=== PATIENT | female | born 1975 | race Caucasian/White ===

== ENCOUNTER 2016-05-14 12:40 | Emergency (ER) | payer OTHER, SELFPAY ==
--- NOTE | 2016-05-14 13:37 | ED.PDOC ---
History of Present Illness - General Chief Complaint: General Time Seen by Provider: 05/14/16 13:04 Source: patient Exam Limitations: no limitations - History of Present Illness Initial Comments: Patient presents with N/V/D x one week. She was recently treated with antibiotics for streptococcal pharyngitis two weeks ago. She went to urgent care again yesterday because of her sore throat and was given a Z-pack. She denies hematochezia. She has had a decreased appetite. No back pain. She has mild RLQ pain. No sick contacts. Her sore throat restarted in conjunction with the vomiting. No fever. No other complaints. Timing/Duration: 1 week Severity: moderate Improving Factors: nothing Worsening Factors: nothing Associated Symptoms: loss of appetite, nausea/vomiting Allergies/Adverse Reactions: Allergies NO KNOWN ALLERGY Allergy (Verified 09/28/15 00:19) Home Medications: Ambulatory Orders Atenolol & Chlorthalidone [Tenoretic 50 50-25 mg] 1 tab PO DAILY 09/29/15 Bupropion HCl [Wellbutrin Xl] 300 mg PO DAILY 09/29/15 Escitalopram Oxalate [Lexapro] 20 mg PO DAILY 09/29/15 Thyroid [[place] Thyroid] 90 mg PO DAILY 09/29/15 Tramadol HCl 50 mg PO Q4HR PRN #15 tab 09/29/15 Trazodone HCl 400 mg PO BEDTIME 09/29/15 Promethazine Tab [Phenergan Tablet] 25 mg PO Q4 PRN #14 tab 05/14/16 Review of Systems - Review of Systems Constitutional: States: no symptoms reported EENTM: States: no symptoms reported Respiratory: States: no symptoms reported Cardiology: States: no symptoms reported Gastrointestinal/Abdominal: States: see HPI Genitourinary: States: no symptoms reported Musculoskeletal: States: no symptoms reported Skin: States: no symptoms reported Neurological: States: no symptoms reported Endocrine: States: no symptoms reported Hematologic/Lymphatic: States: no symptoms reported Past Medical History (General) - Patient Medical History Hx Seizures: No Hx Stroke: No Hx Dementia: No Hx Asthma: No Hx of COPD: No Hx Cardiac Disorders: No Hx Congestive Heart Failure: No Hx Pacemaker: No Hx Hypertension: Yes Hx Thyroid Disease: Yes Hx Diabetes: No Hx Gastroesophageal Reflux: No Hx Renal Disease: No Hx Cancer: No Hx of HIV: No Hx Hepatitis C: No Hx MRSA: No - Vaccination History Hx Tetanus, Diphtheria Vaccination: No Hx Influenza Vaccination: Yes Hx Pneumococcal Vaccination: No - Social History Hx Tobacco Use: Yes Hx Chewing Tobacco Use: No Hx Alcohol Use: No Hx Substance Use: Yes Hx Substance Use Treatment: No Hx Depression: Yes Hx Physical Abuse: No Hx Emotional Abuse: No Hx Suspected Abuse: No - Female History Hx Last Menstrual Period: 03/28/15 Patient : No - IUD in place Family Medical History - Family History Mother Family History: Unknown Living Status: Hx Family Cancer: Yes Father Family History: Unknown Living Status: Still Living Physical Exam - Physical Exam General Appearance: Alert Ears, Nose, Throat: normal ENT inspection Neck: non-tender, full range of motion, supple Respiratory: lungs clear Cardiovascular/Chest: regular rate, rhythm Gastrointestinal/Abdominal: normal bowel sounds, non tender, soft Back Exam: no CVA tenderness Extremity: no pedal edema Neurologic: no motor/sensory deficits, alert Skin Exam: normal color Lymphatic: no adenopathy Progress - Progress Progress: 05/14/16 16:[address] ab/pelvis showed no acute disease. Appendix normal. UA normal. Patient discharged with zofran RX and orders to follow up with pcp for possible stool studies. Laboratory Tests 05/14/16 13:45 WBC 8.3 RBC 4.66 Hgb 14.0 Hct 42.3 MCV 90.9 MCH 30.1 MCHC 33.2 RDW 13.4 Plt Count 166 MPV 9.1 Absolute Neuts (auto) 5.40 Absolute Lymphs (auto) 2.40 Absolute Monos (auto) 0.40 Absolute Eos (auto) 0.10 Absolute Basos (auto) 0.10 Neutrophils % 64.2 Lymphocytes % 28.7 Monocytes % 5.0 Eosinophils % 1.2 Basophils % 0.9 Sodium 137 Potassium 4.3 Chloride 103 Carbon Dioxide 29 Anion Gap 9.3 L BUN 12 Creatinine 0.96 BUN/Creatinine Ratio 12.5 Random Glucose 94 Serum Osmolality 273.3 L Calcium 8.8 Total Bilirubin 0.2 AST 14 ALT 9 L Alkaline Phosphatase 44 Serum Total Protein 6.5 Albumin 3.6 Globulin 2.9 Albumin/Globulin Ratio 1.2 Lipase 42 Serum HCG, Qual Negative Departure - Departure Clinical Impression: Gastroenteritis Disposition: Discharge to Home or Self Care Condition: Good Departure Forms: ED Discharge - Pt. Copy, Patient Portal Self Enrollment Diet: resume usual diet Activity: increase activity as tolerated Prescriptions: Promethazine Tab [Phenergan Tablet] 25 mg PO Q4 PRN #14 tab PRN Reason: Nausea/Vomiting Home Medications: Ambulatory Orders Atenolol & Chlorthalidone [Tenoretic 50 50-25 mg] 1 tab PO DAILY 09/29/15 Bupropion HCl [Wellbutrin Xl] 300 mg PO DAILY 09/29/15 Escitalopram Oxalate [Lexapro] 20 mg PO DAILY 09/29/15 Thyroid [[place] Thyroid] 90 mg PO DAILY 09/29/15 Tramadol HCl 50 mg PO Q4HR PRN #15 tab 09/29/15 Trazodone HCl 400 mg PO BEDTIME 09/29/15 Promethazine Tab [Phenergan Tablet] 25 mg PO Q4 PRN #14 tab 05/14/16 Additional Instructions: Increase oral fluids. Follow up with your primary care physician for possible stool studies. Take medication as prescribed.
[2016-05-14] MEDS ORDERED: SODIUM CHLORIDE 0.9% 1000ML 1,000 ML IVS ONE (14:24)
[2016-05-14] MEDS ORDERED: ONDANSETRON INJ 4 MG/2 ML VIAL IV ONE (16:04)
--- NOTE | 2016-05-14 16:44 | CT ---
PROCEDURE: Abdomen/Pelvis w/Contrast HISTORY: N/V/D/abd pain Indication: Same as above Comparison: None . Technique: CT of the abdomen and pelvis was done with intravenous contrast. Images were obtained from the lung base to the level of the pubic symphysis in axial plane, followed by orthogonal sagittal and coronal reconstruction. Oral contrast was not given for the study. The patient was injected with contrast intravenously, without any documented immediate adverse reactions. FINDINGS: Images through the lung bases do not show any focal infiltrates or pleural effusions. The liver, pancreas, spleen and the bilateral adrenal glands appear unremarkable. The gallbladder is surgically absent. The bilateral kidneys enhance with contrast in a normal fashion. The urinary bladder is unremarkable . The bilateral ureters and the bilateral periureteral soft tissues and fat planes are unremarkable. The small bowel appears unremarkable, without any evidence of small bowel obstruction or bowel wall thickening. There is no CT evidence of pericecal inflammatory change or ileocecal mesenteric adenitis. The appendix is normal in size measuring 3.5 mm in maximum transverse dimension, without any periappendiceal inflammatory change. The ileocecal junction appears unremarkable. There is no CT evidence of acute colonic diverticulitis or colitis or large bowel obstruction. The splenic and portal veins are of normal caliber, without any filling defects. There is no pathological lymphadenopathy in the retroperitoneum or in the pelvic region. There is no evidence of free fluid or free air in the abdomen or the pelvic region. There is no clinically significant abdominal aortic aneurysm. There is no clinically significant inguinal or ventral hernia. An IUD is seen in the endometrial canal of the anteverted uterus. There is a 2.1 x 2.2 x 3.1 cm benign left ovarian follicle or cyst, almost certainly benign and not requiring any imaging follow-up The visualized lumbar spine is unremarkable . The paravertebral soft tissues are unremarkable. The remainder of the pelvic structures are unremarkable. IMPRESSION: There are no acute or significant findings on the current study. Location of Interpretation: [facility] Electronically signed by: Javid Suarez MD 05/14/2016 4:43 PM CDT
[2016-05-14 17:05] VITALS: BP 96/68; TEMP 98.6; O2SAT 95
== END 2016-05-14 17:00 | disposition home or self-care (01) ==
LOC: ER 12:40
DX: K52.9 Noninfective gastroenteritis and colitis, unspecified (principal); I10 Essential (primary) hypertension; E07.9 Disorder of thyroid, unspecified; Z79.899 Other long term (current) drug therapy; Z87.891 Personal history of nicotine dependence

== ENCOUNTER 2016-05-20 13:37 | Emergency (ER) | payer OTHER, SELFPAY ==
[2016-05-20 14:02] VITALS: TEMP 99.1
--- NOTE | 2016-05-20 14:08 | ED.PDOC ---
History of Present Illness - General Chief Complaint: ENT Problem Stated Complaint: sorethroat, weakness, fatigue Time Seen by Provider: 05/20/16 13:45 Source: patient, RN notes reviewed, Vital Signs reviewed Exam Limitations: no limitations - History of Present Illness Initial Comments: Patient reports she was diagnosed with strep throat on 05/01/16. She has completed 3 rounds of antibiotics, Amoxil and Zithromax X 2. She reports no improvement. Very painful with swallowing. + fever to 101, + chills. She was seen here last week with N/V and has been seen in the clinic twice. Timing/Duration: gradual Severity: moderate EENT Location: throat Prearrival Treatment: prescription meds - Amoxicillin and Zithromax Improving Factors: nothing Worsening Factors: other - swallowing Associated Symptoms: fever, malaise, sore throat Allergies/Adverse Reactions: Allergies Amoxicillin [From Augmentin] Adverse Reaction (Verified 05/20/16 14:02) Clavulanic Acid [From Augmentin] Adverse Reaction (Verified 05/20/16 14:02) Home Medications: Ambulatory Orders Escitalopram Oxalate [Lexapro] 20 mg PO DAILY 09/29/15 Thyroid [[place] Thyroid] 90 mg PO DAILY 09/29/15 Trazodone HCl 400 mg PO BEDTIME 09/29/15 Alprazolam [Alprazolam Odt] 0.25 mg PO TID PRN 05/14/16 Ondansetron [Zofran Odt] 4 mg PO TID 05/14/16 Acetaminophen W/ Codeine [Tylenol W/ CODEINE #3] 1 ea PO Q4HR PRN #15 05/20/16 Clindamycin HCl 300 mg PO QID #28 cap 05/20/16 Review of Systems - Review of Systems Constitutional: States: chills, fever, malaise, weakness. Denies: diaphoresis EENTM: States: see HPI, throat pain, throat swelling. Denies: ear pain, nose congestion Respiratory: States: no symptoms reported. Denies: cough, short of breath Cardiology: States: no symptoms reported Gastrointestinal/Abdominal: States: no symptoms reported Genitourinary: States: no symptoms reported Musculoskeletal: States: no symptoms reported Skin: States: no symptoms reported Neurological: States: no symptoms reported. Denies: headache Endocrine: States: no symptoms reported Hematologic/Lymphatic: States: no symptoms reported Past Medical History (General) - Patient Medical History Hx Seizures: No Hx Stroke: No Hx Dementia: No Hx Asthma: No Hx of COPD: No Hx Cardiac Disorders: No Hx Congestive Heart Failure: No Hx Pacemaker: No Hx Hypertension: Yes Hx Thyroid Disease: Yes Hx Diabetes: No Hx Gastroesophageal Reflux: No Hx Renal Disease: No Hx Cancer: No Hx of HIV: No Hx Hepatitis C: No Hx MRSA: No Surgical History: cholecystectomy, tonsillectomy - Vaccination History Hx Tetanus, Diphtheria Vaccination: Yes Hx Influenza Vaccination: No Hx Pneumococcal Vaccination: No - Social History Hx Tobacco Use: Yes Hx Chewing Tobacco Use: No Hx Alcohol Use: No Hx Substance Use: Yes Hx Substance Use Treatment: No Hx Depression: Yes Hx Physical Abuse: No Hx Emotional Abuse: No Hx Suspected Abuse: No - Activities of Daily Living Hospice Agency (if applicable):: None - Female History Patient is a Female of Child Bearing Age (10 -59 yrs old): Yes Hx Last Menstrual Period: 03/28/15 Patient : No - Triage Comment ED Triage Comment: IUD birthcontrol Family Medical History - Family History Mother Family History: Unknown Living Status: Hx Family Cancer: Yes Father Family History: Unknown Living Status: Still Living Physical Exam - Physical Exam General Appearance: Alert, No apparent distress, Well Developed, Well Groomed, Well Hydrated, Well Nourished, Other - tearful Eye Exam: bilateral normal Nasal Exam: normal inspection Throat Exam: other - Pharyngeal erythema, no swelling or deviation of uvula, airway is patent. Neck: full range of motion, supple, lymphadenopathy (R) - Tender Cardiovascular/Respiratory: regular rate, rhythm, no M/R/G, no JVD, normal breath sounds, no respiratory distress Neurologic: no motor/sensory deficits, alert, normal mood/affect, oriented x 3 Skin Exam: normal color, warm/dry Progress - EKG/XRAY/CT CT Ordered: Yes - Neck: R submand. sialoadenitis Departure - Departure Clinical Impression: Sialadenitis Time of Disposition: 15:45 Disposition: Discharge to Home or Self Care Condition: Good Departure Forms: ED Discharge - Pt. Copy, Patient Portal Self Enrollment Diet: resume usual diet Activity: increase activity as tolerated Prescriptions: Acetaminophen W/ Codeine [Tylenol W/ CODEINE #3] 1 ea PO Q4HR PRN #15 PRN Reason: Pain -- Mild To Moderate Clindamycin HCl 300 mg PO QID #28 cap Home Medications: Ambulatory Orders Escitalopram Oxalate [Lexapro] 20 mg PO DAILY 09/29/15 Thyroid [[place] Thyroid] 90 mg PO DAILY 09/29/15 Trazodone HCl 400 mg PO BEDTIME 09/29/15 Alprazolam [Alprazolam Odt] 0.25 mg PO TID PRN 05/14/16 Ondansetron [Zofran Odt] 4 mg PO TID 05/14/16 Acetaminophen W/ Codeine [Tylenol W/ CODEINE #3] 1 ea PO Q4HR PRN #15 05/20/16 Clindamycin HCl 300 mg PO QID #28 cap 05/20/16 Additional Instructions: Hot compresses and massage to R submandibular salivary gland Suck on lemon drops to promote saliva production Follow up with ENT Doctor ([facility])
[2016-05-20] MEDS ORDERED: IBUPROFEN 200 MG TAB PO ONE (15:07)
--- NOTE | 2016-05-20 15:28 | CT ---
EXAM DESCRIPTION: Soft Tissue Neck w/Contrast CLINICAL HISTORY: 40 years Female, Pain, swelling R submandibular area COMPARISON: None. TECHNIQUE: Thin slice axial imaging of the neck was performed after the bolus administration of contrast. FINDINGS: There is a right submandibular duct stone noted measuring 2 mm in diameter. This is located along the anterior margin of the duct. This results in obstruction of the proximal right submandibular duct. The right submandibular gland also demonstrates increased enhancement and size compatible with sialoadenitis the left submandibular gland and bilateral parotid glands are unremarkable. There are a few right neck reactive lymph nodes. The tongue, base of tongue and floor of mouth are unremarkable. The epiglottis M of bilateral true and false cords are unremarkable. No vascular narrowing. IMPRESSION: 2 mm distal right submandibular gland duct. This results in obstruction of the proximal right submandibular gland duct and right sialoadenitis. No abscess at this time. Reactive right level 2 and 3 lymph nodes. Electronically signed by: Davidson Bautista MD 05/20/2016 3:28 PM CDT
[2016-05-20 16:10] VITALS: BP 105/64; O2SAT 97
== END 2016-05-20 15:58 | disposition home or self-care (01) ==
LOC: ER 13:37
DX: K11.20 Sialoadenitis, unspecified (principal); I10 Essential (primary) hypertension; E07.9 Disorder of thyroid, unspecified; Z79.899 Other long term (current) drug therapy; Z88.3 Allergy status to other anti-infective agents; Z88.8 Allergy status to other drugs, medicaments and biological substances

== ENCOUNTER 2016-05-21 17:34 | Inpatient (IN) | payer OTHER, SELFPAY ==
[2016-05-21] MEDS ORDERED: KETOROLAC TROMETHAMINE INJ 30 MG/ML VIAL IM ONE (18:06)
[2016-05-21] MEDS ORDERED: SODIUM CHLORIDE 0.9% 1000ML 1,000 ML IVS ONE (18:07)
[2016-05-21] MEDS ORDERED: SODIUM CHLORIDE 0.9% IVPB ONE (18:08)
[2016-05-21] MEDS ORDERED: CEFUROXIME SODIUM IVPB ONE (18:08)
[2016-05-21] MEDS ORDERED: [UNRECOGNIZED DRUG - OTHER] ONE (18:12)
[2016-05-21] MEDS ORDERED: SODIUM CHLORIDE 0.9% 100ML 100 ML IVPB ONE (18:13)
[2016-05-21] MEDS ORDERED: HYDROmorphone HCL INJ 2 MG/ML VIAL IV SCH (18:30)
--- NOTE | 2016-05-21 18:30 | ED.PDOC ---
History of Present Illness - General Chief Complaint: ENT Problem Stated Complaint: right throat pain/neck pain Time Seen by Provider: 05/21/16 17:49 Source: patient Exam Limitations: no limitations - History of Present Illness Initial Comments: The patient is a 40-year-old female presenting to the emergency room secondary to progressive pain and swelling from her right submandibular sialoadenitis. She apparently started developing symptoms approximately 5 days ago and has progressed. She was seen in the emergency room here yesterday and had a CT scan confirming the diagnosis with an obstructing 2 mm stone in the duct. She was started on clindamycin appropriately. She has been having fevers and some mild nausea. Additionally today she is having more pain with swallowing but no difficulty with breathing. She has been unable to massage the duct secondary to pain. Her pain is becoming more and more. Oral intake has been decreased significantly and she is feeling like she is starting to become dehydrated. She rates the pain at a 9 out of 10. The pain is also been giving her something of a headache. CT scan yesterday showed no evidence of abscess formation at this time. Severity: severe Improving Factors: nothing Associated Symptoms: fever/chills, loss of appetite, malaise Allergies/Adverse Reactions: Allergies Amoxicillin [From Augmentin] Adverse Reaction (Verified 05/21/16 17:50) Clavulanic Acid [From Augmentin] Adverse Reaction (Verified 05/21/16 17:50) Home Medications: Ambulatory Orders Escitalopram Oxalate [Lexapro] 20 mg PO DAILY 09/29/15 Thyroid [[place] Thyroid] 90 mg PO DAILY 09/29/15 Trazodone HCl 400 mg PO BEDTIME 09/29/15 Alprazolam [Alprazolam Odt] 0.25 mg PO TID PRN 05/14/16 Ondansetron [Zofran Odt] 4 mg PO TID 05/14/16 Acetaminophen W/ Codeine [Tylenol W/ CODEINE #3] 1 ea PO Q4HR PRN #15 05/20/16 Clindamycin HCl 300 mg PO QID #28 cap 05/20/16 Review of Systems - Review of Systems Constitutional: States: diaphoresis, fever, malaise EENTM: States: see HPI, mouth pain Respiratory: States: no symptoms reported Cardiology: States: no symptoms reported Gastrointestinal/Abdominal: States: nausea Genitourinary: States: no symptoms reported Musculoskeletal: States: other - generalized body aches Skin: States: no symptoms reported Neurological: States: no symptoms reported Endocrine: States: no symptoms reported All other Systems: No Change from Baseline Past Medical History (General) - Patient Medical History Hx Seizures: No Hx Stroke: No Hx Dementia: No Hx Asthma: No Hx of COPD: No Hx Cardiac Disorders: No Hx Congestive Heart Failure: No Hx Pacemaker: No Hx Hypertension: Yes Hx Thyroid Disease: Yes Hx Diabetes: No Hx Gastroesophageal Reflux: No Hx Renal Disease: No Hx Cancer: No Hx of HIV: No Hx Hepatitis C: No Hx MRSA: No Surgical History: cholecystectomy, tonsillectomy - Vaccination History Hx Tetanus, Diphtheria Vaccination: Yes Hx Influenza Vaccination: No Hx Pneumococcal Vaccination: No - Social History Hx Tobacco Use: Yes Hx Chewing Tobacco Use: No Hx Alcohol Use: No Hx Substance Use: Yes Hx Substance Use Treatment: No Hx Depression: Yes Hx Physical Abuse: No Hx Emotional Abuse: No Hx Suspected Abuse: No - Activities of Daily Living Hospice Agency (if applicable):: None - Female History Patient is a Female of Child Bearing Age (10 -59 yrs old): No Hx Last Menstrual Period: 03/28/15 Patient : No - Triage Comment ED Triage Comment: IUD birthcontrol, reports no periods Family Medical History - Family History Mother Family History: Unknown Living Status: Hx Family Cancer: Yes Father Family History: Unknown Living Status: Still Living Physical Exam - Physical Exam General Appearance: Alert, Obvious distress Eye Exam: bilateral normal Ears, Nose, Throat: other - the posterior oropharynx appears normal. She does have significant tenderness to palpation over the floor of the right side of her mouth. She also has significant mass palpable in the right submandibular area. Neck: full range of motion, other - mass palpable and visible in the right submandibular area. There is no shifting of the trachea at this point. No JVD. She has no hoarseness of voice or stridor or difficulty breathing. She states that it hurts to swallow but this is more pain at the base of her tongue Respiratory: chest non-tender, lungs clear, normal breath sounds, no respiratory distress, no accessory muscle use Cardiovascular/Chest: normal peripheral pulses, regular rate, rhythm, no edema Peripheral Pulses: radial,right: 2+, radial,left: 2+ Gastrointestinal/Abdominal: soft Rectal Exam: deferred Extremity: normal range of motion, non-tender, normal inspection, no pedal edema , normal capillary refill Neurologic: alert, normal mood/affect, oriented x 3 Skin Exam: normal color Comments: Vital Signs - 24 hr 05/21/16 17:44 Temperature 99.0 F Pulse Rate [ 99 H pulse ox] Respiratory 20 Rate Blood Pressure 112/80 [Left Arm] O2 Sat by Pulse 96 Oximetry Progress - Progress Progress: 05/21/16 18:32 the patient is a 40-year-old female with a persistent right submandibular sialoadenitis. The patient is having systemic symptoms of fever, body aches and headache. The patient feels that the area has increased significantly in size since yesterday and has increased in symptomatology. She has been unable to massage the duct due to uncontrolled pain. The patient will be admitted for IV fluids due to mild progression of dehydration. She'll also receive IV pain medications to allow for massaging of the duct. IV antibiotics will be started for infection control. She did start taking the clindamycin yesterday. Blood cultures are being done. CBC, CMP are otherwise pending at this time. If patient fails conservative conservative therapy as listed above and she will require ENT intervention for removal of the obstructing stone. The patient does understand this and has agreed to this plan at this time. No evidence of airway compromise at this time. No evidence of viry sepsis at this time. Repeat CT scan may be warranted in 1-2 days if swelling continues or symptomatology progresses. Departure - Departure Clinical Impression: Sialoadenitis of submandibular gland Disposition: Admit Patient Home Medications: Ambulatory Orders Escitalopram Oxalate [Lexapro] 20 mg PO DAILY 09/29/15 Thyroid [[place] Thyroid] 90 mg PO DAILY 09/29/15 Trazodone HCl 400 mg PO BEDTIME 09/29/15 Alprazolam [Alprazolam Odt] 0.25 mg PO TID PRN 05/14/16 Ondansetron [Zofran Odt] 4 mg PO TID 05/14/16 Acetaminophen W/ Codeine [Tylenol W/ CODEINE #3] 1 ea PO Q4HR PRN #15 05/20/16 Clindamycin HCl 300 mg PO QID #28 cap 05/20/16 Decision To Admit - Decistion To Admit Decision to Admit Reason: Medical Nature Decision to Admit Date: 05/21/16 Decision to Admit Time: 18:35
--- NOTE | 2016-05-21 20:10 | HP ---
SUPERVISING PHYSICIAN: Trav Oneal MD CHIEF COMPLAINT: Right sided throat pain and neck pain. HISTORY OF PRESENT ILLNESS: Ms. Moncada is a 40-year-old, female patient that presented to the Emergency Department secondary to worsening pain and swelling on her right side located around the right submandibular area secondary to sialoadenitis. She was previously seen in the Emergency Department on 05/20/16 at which time she had a CT of the soft tissues of the neck and per radiology interpretation there was a note that she had a right submandibular duct stone measuring 2 mm in diameter causing obstruction of the right submandibular gland and resulting in right sialoadenitis with no mention of abscess. Initial symptoms per the patient's report onset was approximately five days prior to initial Emergency Room visit on 05/20/16 and progressively worsened. She had been seen multiple times in [facility] and diagnosed initially on 05/01/16 with positive strep screen and started on a Z- Lukas and then again symptoms returned and she was started on amoxicillin. On this past visit to the Emergency Department, she was discharged on clindamycin. She notes she had been having what she thought were some fevers and some mild nausea at home, but the pain continued to worsen and she was having difficulty swallowing, but no reported difficulty with any airway. She was unable to massage the duct secondary to pain. The pain became worse when she was having significant oral intake. Decrease in oral intake resulted in some dehydration, exacerbating her symptoms. In the Emergency Department, laboratory studies showed her to have a normal CBC with chemistries showing a mildly low potassium of 3.5 and elevated AST, ALT. She was afebrile on initial presentation with temperature of 99.1 without any obvious signs of sepsis. Her initial CT showed no obvious formation of abscess, however, given that her symptoms have failed to improve and, in fact, worsened in the last 24 hours despite stating clindamycin, the patient will now be admitted for initiation of additional antibiotic therapy, pain control, and to assist her with IV therapy to resolve some dehydration and hopefully facilitate passage of the stone with conservative medical treatment. She was admitted to the Medical/Surgical Floor in stable condition. PAST MEDICAL HISTORY: 1. Migraines. 2. Depression. 3. Insomnia. PAST SURGICAL HISTORY: 1. Breast reduction. 2. Cholecystectomy. 3. Tonsillectomy, adenoidectomy. 4. [place] teeth extraction. 5. Esophageal stricture reduction with balloon. HOME MEDICATIONS: 1. Trazodone 400 mg at bedtime. 2. [place] thyroid 90 mg daily. 3. Zofran 4 mg 3 times a day as needed. 4. Lexapro 20 mg daily. 5. Clindamycin 300 mg 4 times a day. 6. Ondansetron ODT 0.25 mg t.i.d. p.r.n. 7. Tylenol with codeine No. 3 q.4h. p.r.n. for pain. ALLERGIES: AUGMENTIN. FAMILY HISTORY: Positive for colon cancer in mother who is . SOCIAL HISTORY: The patient is currently living in [place]. She is single. She has no children. 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 She does smoke cigarettes, approximately 5 to 7 per day, and has since her mid-20s. She denies any alcohol or illicit drug use. REVIEW OF SYSTEMS: CONSTITUTIONAL: She notes she has had some fever and malaise. HEENT: As per history of present illness with significant lower jaw pain on the right side, but no airway compromise. RESPIRATORY: Denies shortness of breath, cough, wheezing. CARDIOVASCULAR: Denies chest pain or palpitations. Denies syncopal episodes. GASTROINTESTINAL: She does note some nausea, but denies any vomiting, diarrhea , or constipation. GENITOURINARY: Denies dysuria, increased frequency or other urinary symptoms. NEUROLOGIC: Denies any neurologic deficits. PHYSICAL EXAMINATION: VITAL SIGNS: Temperature 99.0. Pulse 99. Blood pressure 112/80. Respirations 20. O2 saturation 96% on room air. Admission weight 71.2 kg. GENERAL: The patient is alert, cooperative. She is somewhat tearful and anxious , but in no acute distress. HEENT: Tympanic membranes clear bilaterally. Posterior oropharynx is pink. Mucous membranes are dry. There is notable tenderness to palpation over the right submandibular area with a significant mass palpable under the right submandibular gland with some extension into the neck, but no notable changes in trachea. Voice is normal. There is no notable hoarseness, stridors or any difficulty breathing. NECK: No jugular venous distention noted. CHEST: Lungs clear to auscultation bilaterally without any rhonchi, wheezes, or rales. CARDIOVASCULAR: Regular rate and rhythm without any appreciable murmurs, gallops, or rubs. ABDOMEN: Soft, nontender. Positive bowel sounds. EXTREMITIES: There is no cyanosis, clubbing or edema. NEUROLOGIC: The patient is alert and oriented times three. LABORATORY: White count 10.8, hemoglobin 14.1, hematocrit 42.2, platelet count 171,000. Differential shows no left shift initially. Chemistries show mildly low potassium at 3.5, otherwise electrolytes within normal limits. BUN 7, creatinine 0.79, glucose 101, slightly elevated AST 151, ALT 98. Otherwise, liver functions within normal limits. MICROBIOLOGY: Blood cultures times two are pending. RADIOLOGY: No repeat radiographic studies were completed on initial admission. CT of soft tissue neck on 05/20/16 per radiology interpretation showed a right submandibular duct stone measuring 2 mm in diameter that was located along the anterior margin of the duct resulting in obstruction of the proximal right submandibular duct. The right submandibular gland demonstrates increased enhancement in size compatible with sialoadenitis. The left submandibular gland and bilateral parotid glands are unremarkable. There was note of reactive lymph nodes on the right at level 2 and 3. ASSESSMENT: 1. Sialoadenitis of the right submandibular gland with an obstructing 2 mm duct stone, but no evidence of airway compromise and no current evidence of abscess on radiographic studies, having failed to respond to outpatient treatment therapy with clindamycin. 2. History of migraines. 3. History of depression and insomnia. 4. History of recent positive strep screen on 05/01/16 having been treated with amoxicillin and Z-Lukas. 5. Moderate dehydration secondary to #1. 6. Mild electrolyte imbalance with mild hypokalemia requiring supplementation. PLAN: The patient will be admitted to the hospital for persistent right submandibular sialoadenitis. The patient was started on antibiotics initially to include Cefuroxime 1500 mg q.8h. We will provide her with pain control to include both hydromorphone to get pain under control to be followed with morphine as needed and Toradol q.6h. to help with inflammation. She will also be provided Zofran for any nausea and started on IV therapy with half normal saline with 20 of potassium in effort to improve her potassium as well as increase hydration level to assist with stone passage. We will treat her initially with conservative medical treatment and close monitoring. In effort to help passage of the stone, I have encouraged the patient to massage the gland as possible and to utilizing heat packs to assist with pain control as well as to utilize dc or other sialogogues as tolerated to help stimulate the salivary secretions in efforts to pass the stone. Should she not show any significant decrease in symptoms or any worsening, certainly we will need to repeat a CT and probably get an ENT consultation. Anticipate length of stay to be two to three days pending the patient's clinical resolution of symptoms. Once the patient is able to be clinically discharged, she certainly will need continued followup in the outpatient setting with ENT which has already been arranged through [facility]. Until discharge, we will continue to monitor the patient closely and treat appropriately. #[id number] [facility]ITAL[facility]
[2016-05-21] MEDS ORDERED: KETOROLAC TROMETHAMINE INJ 30 MG/ML VIAL IV PRN (21:07)
[2016-05-21] MEDS ORDERED: ONDANSETRON INJ 4 MG/2 ML VIAL IV PRN (21:08)
[2016-05-21] MEDS ORDERED: ACETAMINOPHEN 325 MG TAB PO PRN (21:08)
[2016-05-21] MEDS ORDERED: SODIUM CHLORIDE 0.45% 1000ML 0 ML IVS ONE (21:29)
[2016-05-21] MEDS ORDERED: IV SET AND CAP CHANGE INJ INJ SCH (21:30)
[2016-05-21] MEDS: KCL 20MEQ/0.45% NS 1,000 ML IVS PRN (21:40)
[2016-05-21] MEDS: SODIUM CHLORIDE 0.9% (FLUSH) 10 ML SYG IV PRN (21:41)
[2016-05-21] MEDS ORDERED: HYDROmorphone HCL INJ 2 MG/ML VIAL IV ONE (21:41)
[2016-05-21] MEDS: MORPHINE SULFATE INJ 10 MG/ML VIAL IV PRN (21:41)
[2016-05-22] MEDS ORDERED: [UNRECOGNIZED DRUG - OTHER] ONE ×3 (01:52→17:31)
[2016-05-22] MEDS ORDERED: SODIUM CHLORIDE 0.9% 10 ML VIAL ONE (01:54)
[2016-05-22] MEDS ORDERED: SODIUM CHLORIDE 0.9% 100ML 100 ML IVPB ONE ×3 (01:54→17:31)
[2016-05-22] MEDS ORDERED: NICOTINE PATCH 21 MG TD ONE (02:08)
[2016-05-22] MEDS: CEFUROXIME SODIUM IVPB SCH ×3 (02:18→18:11)
[2016-05-22] MEDS: SODIUM CHLORIDE 0.9% IVPB SCH ×3 (02:18→18:11)
[2016-05-22] MEDS ORDERED: NICOTINE PATCH 21 MG TD SCH ×2 (02:30→21:00)
[2016-05-22] MEDS: MORPHINE SULFATE INJ 10 MG/ML VIAL IV PRN ×3 (02:41→09:27)
[2016-05-22] MEDS ORDERED: PROMETHAZINE HCL 25 MG TAB PO PRN (05:25)
[2016-05-22] MEDS: KCL 20MEQ/0.45% NS 1,000 ML IVS PRN ×2 (05:55→16:51)
[2016-05-22] MEDS ORDERED: SODIUM CHLORIDE 0.9% 10 ML VIAL IV PRN ×2 (08:29→09:16)
[2016-05-22] MEDS ORDERED: HYDROmorphone HCL INJ 2 MG/ML VIAL IV ONE (09:36)
[2016-05-22] MEDS ORDERED: HYDROmorphone HCL INJ 2 MG/ML VIAL ONE (09:40)
[2016-05-22] MEDS ORDERED: metroNIDAZOLE IV PREMIX 500MG 100 ML IVPB ONE ×3 (12:11→23:51)
[2016-05-22] MEDS: KETOROLAC TROMETHAMINE INJ 30 MG/ML VIAL IV SCH ×2 (12:30→18:05)
[2016-05-22] MEDS: metroNIDAZOLE IV PREMIX 500MG 500 MG in PREMIX BAG 1 BAG IVPB SCH ×2 (12:31→20:26)
[2016-05-22] MEDS: HYDROmorphone HCL INJ 2 MG/ML VIAL IV PRN ×3 (12:41→22:08)
--- NOTE | 2016-05-22 13:25 | US ---
Superficial sonogram Of the neck. Indication: Rt submandibular sialadenitis questionable abcess Comparison: CT May 20, 2016. Impression: Scattered subcentimeter cervical lymph nodes noted without pathologically enlarged cervical lymphadenopathy. The palpable abnormality measures up to 3.2 cm and is felt to correspond to the right submandibular gland. Electronically signed by: Freedom Chávez MD 05/22/2016 1:24 PM CDT
[2016-05-22] MEDS: SODIUM CHLORIDE 0.9% (FLUSH) 10 ML SYG IV SCH (20:27)
--- NOTE | 2016-05-22 20:37 | PN ---
DATE: 05/22/16 SUPERVISING PHYSICIAN: Brendan Rojas M.D. SUBJECTIVE: The patient continues to have a significant amount of pain requiring Dilaudid for pain control. She did have some nausea last night and was given some Zofran, but ultimately required some Phenergan to resolve her nausea. She still is without any obvious compromise of her airway and actually was able to eat a hamburger today for lunch. The site does show some increasing in size and erythema, therefore we will take a look at it with ultrasound to further rule out any abscess formation. OBJECTIVE: VITAL SIGNS: T max 98.5, pulse 81, blood pressure 91/59, respirations 20, O2 sat 96% on room air. I's and O's show a positive balance of 778 with 2353 in, 1575 out. Weight 72.6 kg. GENERAL: The patient appears to be in no distress, although she does note that her pain is increasing at times and is taking a good degree of medicine to achieve pain control. HEENT: Posterior oropharynx is still pink. Mucosal membranes are much more moist today. There remains some notable tenderness to the right submandibular gland just underneath the jaw with a palpable area that extends now down to the chin area and mid neck with some erythema noted. There is no crepitus or obvious areas of consolidation or fluid. The patient remains with a normal voice. No notable stridors or hoarseness. There is no jugular venous distention. CHEST: Lungs remain clear to auscultation. HEART: Regular rate and rhythm. ABDOMEN: Soft, non-tender. Positive bowel sounds. NEUROLOGIC: She is alert and oriented times three. LABORATORY: CBC remains within normal limits, white count 10.4, hemoglobin 12.2 , hematocrit 36.5, platelet count 149,000. Chemistries show normal electrolytes today with normal potassium 3.6 after therapy with BUN of less than 5 and creatinine 0.62. AST and ALT have decreased from admission, now AST is down to 56, ALT is down to 67. All other liver functions show to be within normal limits. MICROBIOLOGY: Blood cultures remain negative after 24 hours. RADIOLOGY: Soft tissue of the neck with ultrasound pending. ASSESSMENT: 1. Sialadenitis of the right submandibular gland with documented obstructing 2 mm duct stone on CT without any evidence of airway compromise and no abscess formation noted on initial studies having failed to respond to outpatient treatment therapy with Clindamycin within the last 7 days. 2. History of migraines. 3. History of depression and insomnia. 4. History of recent positive Strep screen on 05/01/16 having been treated with Amoxicillin and Z-Lukas. 5. Moderate dehydration secondary to number 1 showing improvement after IV fluids. 6. Mild electrolyte imbalance with mild hypokalemia resolved after replacement with IV fluids. 7. Elevated liver functions to include AST and ALT showing improvement after IV therapy thought to be elevated probably secondary to some Tylenol consumption for pain control in the past week and exacerbated to some degree by her dehydration. PLAN: Will continue to monitor the patient closely. Given that she has not shown much improvement overnight and to cover for possible anaerobes, I will go ahead and add some Flagyl to the antibiotic regimen today. She is not getting very good pain control with Toradol and morphine, therefore will to utilize Dilaudid to assist with pain control. She now has Zofran or Phenergan for any nausea she may experience. She will remain on IV fluids for another 12 hours as she is starting to show some increase in intake and her mucosal membranes are shown to be moist. Will await further evaluation of the area through ultrasound to further rule out any abscess formation. Plan to reevaluate in the morning with repeat laboratory studies to include CBC and CMP. Until then, will continue to monitor the patient closely and treat appropriately. #[id number] [facility]
[2016-05-22] MEDS: SODIUM CHLORIDE 0.9% (FLUSH) 10 ML SYG IV PRN (22:09)
[2016-05-22] MEDS ORDERED: FLUCONAZOLE 150 MG TAB PO ONE (23:20)
[2016-05-23] MEDS: KETOROLAC TROMETHAMINE INJ 30 MG/ML VIAL IV SCH ×2 (00:09→06:05)
[2016-05-23] MEDS: SODIUM CHLORIDE 0.9% (FLUSH) 10 ML SYG IV PRN ×3 (00:09→04:09)
[2016-05-23] MEDS ORDERED: [UNRECOGNIZED DRUG - OTHER] ONE ×2 (01:57→09:18)
[2016-05-23] MEDS ORDERED: SODIUM CHLORIDE 0.9% 100ML 100 ML IVPB ONE ×2 (01:57→09:19)
[2016-05-23] MEDS: SODIUM CHLORIDE 0.9% IVPB SCH ×2 (02:15→09:42)
[2016-05-23] MEDS: CEFUROXIME SODIUM IVPB SCH ×2 (02:15→09:42)
[2016-05-23] MEDS: HYDROmorphone HCL INJ 2 MG/ML VIAL IV PRN ×2 (02:16→06:02)
[2016-05-23] MEDS: metroNIDAZOLE IV PREMIX 500MG 500 MG in PREMIX BAG 1 BAG IVPB SCH (04:08)
[2016-05-23] MEDS ORDERED: NYSTATIN SUSPENSION 5 ML UD MT SCH (09:00)
[2016-05-23 09:01] VITALS: BP 113/78
[2016-05-23 09:12] VITALS: TEMP 98
[2016-05-23] MEDS ORDERED: WATER FOR INJ 10 ML VIAL INJ PRN (09:14)
[2016-05-23 09:21] VITALS: O2SAT 100
[2016-05-23] MEDS ORDERED: HYDROcodone/IBUPROFEN 7.5/200 1 EA TAB PO PRN (09:42)
[2016-05-23] MEDS: SODIUM CHLORIDE 0.9% (FLUSH) 10 ML SYG IV SCH (09:43)
--- NOTE | 2016-05-25 09:08 | DS ---
SUPERVISING PHYSICIAN: Brendan Rojas MD DISCHARGE DIAGNOSIS: 1. Sialoadenitis of the right submandibular gland with documented obstructing 2 mm duct stone on CT without any evidence of airway compromise and/or no abscess formation noted on initial studies, having failed to respond to outpatient treatment therapy, previously started on clindamycin prior to admission, showing good improvement after starting on treatment with parenteral antibiotics to include Flagyl and Zinacef. 2. History of migraines. 3. History of depression and insomnia. 4. History of recent positive strep screen on 05/01/16 having been treated with amoxicillin and Z-Lukas. 5. Moderate dehydration secondary to #1, improved after IV fluids. 6. Mild electrolyte imbalance with mild hypokalemia, resolved after replacing IV fluids. 7. Elevated liver functions to include AST and ALT, showing improvement after IV therapy thought to be elevated probably secondary to some Tylenol consumption for pain control in the past week and exacerbated to some degree by dehydration. HISTORY OF PRESENT ILLNESS: Ms. Moncada is a 40-year-old, female patient that presented to the Emergency Department secondary to worsening pain and swelling on her right side located around the right submandibular area secondary to documented sialoadenitis by CT. She was previously seen in the Emergency Department on 05/20/16 at which time she had a CT of the soft tissues of the neck and per radiology interpretation there was a note that she had a right submandibular duct stone measuring 2 mm in diameter causing obstruction of the right submandibular gland and resulting in right sialoadenitis with no mention of abscess. Initial symptoms per the patient's report onset was approximately five days prior to initial Emergency Room visit on 05/20/16 and progressively worsened. She had been seen multiple times in [facility] and diagnosed initially on 05/01/16 with positive strep screen and started on a Z-Lukas and then again symptoms returned and she was started on amoxicillin. On this past visit to the Emergency Department, she was discharged on clindamycin. She notes she had been having what she thought were some fevers and some mild nausea at home, but the pain continued to worsen and she was having difficulty swallowing, but no reported difficulty with airway. She was unable to massage the duct secondary to pain. The pain became worse when she was having significant oral intake. Decrease in oral intake resulted in some dehydration, exacerbating her symptoms. In the Emergency Department, laboratory studies showed her to have a normal white count with chemistries showing a mildly low potassium of 3.5 and elevated AST, ALT. She was afebrile on initial presentation with temperature of 99.1 without any obvious signs of sepsis. Her initial CT showed no obvious formation of abscess, however, given that her symptoms have failed to improve and, in fact, worsened in the last 24 hours despite stating clindamycin, the patient was be admitted for initiation of additional antibiotic therapy, pain control, and to assist her with IV therapy to resolve some dehydration and hopefully facilitate passage of the stone with conservative medical treatment. She was admitted to the Medical/ Surgical Floor in stable condition. LABORATORY: White count initially 10.8 and at time of discharge was 10.4. Initial hemoglobin and hematocrit were 14.1 and 42.2. After IV therapy and more normalization of fluid status at discharge, white count was 11.8, hemoglobin 36.3, platelet count 145,000. Differential was within normal limits. Chemistries showed initial potassium 3.5. After therapy and correction with fluids, electrolytes normalized and at discharge, potassium was 4.0, BUN less than 5, creatinine 0.6, glucose 106. Liver functions initially showed AST 151 and ALT 98, however, this had normalized by discharge with AST 25 , ALT 53. MICROBIOLOGY: Blood cultures remained negative after three days. RADIOLOGY: On this admission no additional CT studies were done. I did do an soft tissue neck ultrasound and per radiology interpretation was note of scattered subcentimeter cervical lymph nodes with pathologic enlarged lymphadenopathy. Abnormality measures up to 3 cm and was felt to correspond to the right submandibular gland. No mention of abscess was noted. HOSPITAL COURSE: Ms. Moncada was admitted on 05/21/16 as noted in history of present illness. She was provided pain control with morphine, Dilaudid, Toradol , as well as Zofran for nausea. She was started on antibiotics to include initially in the Emergency Room Zinacef and then after admission to the Medical/ Surgical Floor, I added additional antibiotic coverage to include Flagyl for concerns for anaerobes. The patient progressed well. She had adequate pain control by date of discharge and was felt well enough clinically to be discharged as there was no evidence of abscess. She was able to actually massage the gland. She was able to have adequate oral intake and said the pain had decreased significantly. It was noted also that the area in question that was swollen and red had decreased in size and was no longer erythematous. She did note that the night before discharge she had a large volume of oral secretions, but no note of any stone. She was discharged after she was felt to be clinically stable to be continued on antibiotic therapy with close clinical followup with her primary care provider at [facility] as well as referred to ENT for further evaluation of the sialoadenitis. There was note that she had some formation of yeast in the aspect of thrush. She was given Diflucan as well as started on Nystatin swish and swallow, which resulted in good results. It was also noted on admission that the patient was not previously in the Emergency Department as well as she had IUD in place. PLAN: Ms. Moncada was discharged with instruction to followup with [facility] in the following week to assist with her followup and referral to ENT specialty that had already been arranged prior to admission with Dr. Ambrosio. She was to start new prescriptions as directed and resume all her other previous home medications except for antibiotics, which she was instructed to stop taking. She was to continue with conservative medical treatment including pain control and use of sialogogues such as lemon drops, dc, and hot compresses and massage of the area of concern. She was encouraged to drink plenty of fluids to prevent dehydration and facilitate passage of the stone. She was to return to the hospital should her condition worsen, have any return of fever, or worsening of the pain or increased swelling or any other concerning symptoms. She was discharged in stable condition. Prescription provided at time of discharge included: 1. Flagyl 500 mg q.8h., #21. 2. Vicoprofen 1 tablet q.4h. as needed, #20. 3. Ceftin 500 mg twice daily, #14. 4. Nystatin swish and swallow, 8 oz., 100,000 units per mL, 5 mL q.i.d., swish and swallow. Continue 7 days. All other medications prior to admission were continued. She was discharged in stable condition. #[id number] [facility]
== END 2016-05-23 11:30 | disposition home or self-care (01) | DRG 155 ==
LOC: ER 17:34 → OBSVTOIN 20:09 → MS 20:09
PROVIDERS: ADMIT Nurse Practitioner Family; ATTEND Nurse Practitioner Family
DX: K11.20 Sialoadenitis, unspecified (principal); B37.0 Candidal stomatitis; K11.5 Sialolithiasis; E87.6 Hypokalemia; E86.0 Dehydration; R74.8 Abnormal levels of other serum enzymes; F32.9 Major depressive disorder, single episode, unspecified; G47.00 Insomnia, unspecified; F17.200 Nicotine dependence, unspecified, uncomplicated; Z97.5 Presence of (intrauterine) contraceptive device; Z88.0 Allergy status to penicillin; Z88.1 Allergy status to other antibiotic agents; Z79.899 Other long term (current) drug therapy

== ENCOUNTER 2016-09-04 12:29 | Emergency (ER) | payer SELFPAY ==
[2016-09-04 13:20] VITALS: BP 121/67; TEMP 99.2; O2SAT 96
--- NOTE | 2016-09-04 13:33 | ED.PDOC ---
History of Present Illness - General Chief Complaint: Neck Injury/Pain Stated Complaint: NECK PAIN, SORE THROAT Time Seen by Provider: 09/04/16 13:21 Source: patient Exam Limitations: no limitations - History of Present Illness Initial Comments: PT IS A 40 YO FEMALE WHO COMPLAINS OF NECK PAIN AND SORE THROAT SINCE YESTERDAY. PT REPORTS SYMPTOMS ARE SIMILAR TO PAIN THAT OCCURRED 3 MONTHS AGO WHEN SHE WAS DIAGNOSED WITH A OBSTRUCTED SALIVARY GLAND. PT WAS SEEN YESTERDAY BY PCP ALEXANDRIA HARKINS NP AND PRESCRIBED CLINDAMYCIN, HOWEVER PT REPORTS SHE WAS NOT GIVEN ANYTHING FOR PAIN WHICH IS WHY SHE PRESENTS TODAY. Timing/Duration: 24 hours Severity: moderate Improving Factors: nothing Worsening Factors: nothing Associated Symptoms: denies symptoms Allergies/Adverse Reactions: Allergies Sulfamethoxazole w/Trimethoprim [From Bactrim] Allergy (Verified 09/04/16 13:22) Amoxicillin [From Augmentin] Adverse Reaction (Verified 05/21/16 17:50) Clavulanic Acid [From Augmentin] Adverse Reaction (Verified 05/21/16 17:50) Home Medications: Ambulatory Orders Escitalopram Oxalate [Lexapro] 20 mg PO DAILY 09/29/15 Thyroid [[place] Thyroid] 90 mg PO DAILY 09/29/15 Trazodone HCl 400 mg PO BEDTIME 09/29/15 Alprazolam [Alprazolam Odt] 0.25 mg PO TID PRN 05/14/16 Ondansetron [Zofran Odt] 4 mg PO TID 05/14/16 Acetaminophen W/ Codeine [Tylenol W/ CODEINE #3] 1 ea PO Q4HR PRN #15 05/20/16 Clindamycin HCl 300 mg PO QID #28 cap 05/20/16 Cefuroxime Axetil [Ceftin] 500 mg PO BID #14 tab 05/23/16 Hydrocodone-Ibuprofen [Vicoprofen] 1 ea PO Q4HR PRN #20 tab 05/23/16 Nystatin (Mouth-Throat) [Nystatin] 5 ml MT QID #8 oz 05/23/16 metroNIDAZOLE [Flagyl] 500 mg PO Q8HR #21 tab 05/23/16 Acetaminophen W/ Codeine [Tylenol W/ CODEINE #3] 2 ea PO Q4HR PRN #24 09/04/16 Ibuprofen 800 mg PO Q8HR PRN #30 tab 09/04/16 Review of Systems - Review of Systems Constitutional: Denies: chills, fever EENTM: States: see HPI, throat pain. Denies: ear pain Respiratory: Denies: cough, short of breath Cardiology: Denies: chest pain, palpitations Gastrointestinal/Abdominal: Denies: abdominal pain, diarrhea, vomiting Past Medical History (General) - Patient Medical History Hx Seizures: Yes - Medical induced Hx Stroke: No Hx Dementia: No Hx Asthma: No Hx of COPD: No Hx Cardiac Disorders: No Hx Congestive Heart Failure: No Hx Pacemaker: No Hx Hypertension: Yes Hx Thyroid Disease: Yes Hx Diabetes: No Hx Gastroesophageal Reflux: No Hx Renal Disease: No Hx Cancer: No Hx of HIV: No Hx Hepatitis C: No Hx MRSA: No Surgical History: cholecystectomy, tonsillectomy, other - Vaccination History Hx Tetanus, Diphtheria Vaccination: Yes Hx Influenza Vaccination: No Hx Pneumococcal Vaccination: No - Social History Hx Tobacco Use: Yes Hx Chewing Tobacco Use: No Hx Alcohol Use: No Hx Substance Use: No Hx Substance Use Treatment: No Hx Depression: Yes Hx Physical Abuse: No Hx Emotional Abuse: No Hx Suspected Abuse: No - Female History Hx Last Menstrual Period: 03/28/15 Patient : No Family Medical History - Family History Mother Family History: Unknown Living Status: Hx Family Cancer: Yes Father Family History: Unknown Living Status: Still Living Hx Family Asthma: No Physical Exam - Physical Exam General Appearance: Alert, Obvious distress Ears, Nose, Throat: pharyngeal erythema Neck: other - FIRM TENDER MASS IN THE RIGHT SUBMANDIBULAR REGION Respiratory: lungs clear, no respiratory distress Cardiovascular/Chest: regular rate, rhythm, no murmur Neurologic: alert, normal mood/affect, oriented x 3 Skin Exam: normal color, warm/dry Progress - Progress Progress: 09/04/16 13:38 WILL ATTEMPT TO IMPROVE PTS PAIN BY ADMINISTERING IM TORADOL AND IM MORPHINE WHICH PT SPECIFICALLY REQUESTED. WILL RECOMMEND FOLLOW UP WITH DR. DUKE REGARDING BLOCKED SALIVARY GLAND REOCCURRENCE. WILL SEND PT HOME WITH PAIN MEDS AND RECOMMEND CONTINUING CLINDAMYCIN WHICH WAS PRESCRIBED YESTERDAY. Departure - Departure Clinical Impression: Sialoadenitis of submandibular gland, Pharyngitis Time of Disposition: 13:40 Disposition: Discharge to Home or Self Care Condition: Good Departure Forms: ED Discharge - Pt. Copy, Patient Portal Self Enrollment Instructions: DI for Pharyngitis/Tonsillopharyngitis -- Adult Referrals: Alexandria Harkins FNP [Primary Care Provider] - 1-2 Weeks ARCENIO DUKE MD [Consulting Staff] - 1-2 Days Prescriptions: Acetaminophen W/ Codeine [Tylenol W/ CODEINE #3] 2 ea PO Q4HR PRN #24 PRN Reason: Pain Ibuprofen 800 mg PO Q8HR PRN #30 tab PRN Reason: Pain Home Medications: Ambulatory Orders Escitalopram Oxalate [Lexapro] 20 mg PO DAILY 09/29/15 Thyroid [[place] Thyroid] 90 mg PO DAILY 09/29/15 Trazodone HCl 400 mg PO BEDTIME 09/29/15 Alprazolam [Alprazolam Odt] 0.25 mg PO TID PRN 05/14/16 Ondansetron [Zofran Odt] 4 mg PO TID 05/14/16 Acetaminophen W/ Codeine [Tylenol W/ CODEINE #3] 1 ea PO Q4HR PRN #15 05/20/16 Clindamycin HCl 300 mg PO QID #28 cap 05/20/16 Cefuroxime Axetil [Ceftin] 500 mg PO BID #14 tab 05/23/16 Hydrocodone-Ibuprofen [Vicoprofen] 1 ea PO Q4HR PRN #20 tab 05/23/16 Nystatin (Mouth-Throat) [Nystatin] 5 ml MT QID #8 oz 05/23/16 metroNIDAZOLE [Flagyl] 500 mg PO Q8HR #21 tab 05/23/16 Acetaminophen W/ Codeine [Tylenol W/ CODEINE #3] 2 ea PO Q4HR PRN #24 09/04/16 Ibuprofen 800 mg PO Q8HR PRN #30 tab 09/04/16
[2016-09-04] MEDS: MORPHINE SULFATE INJ 10 MG/ML VIAL IM ONE (13:52)
[2016-09-04] MEDS: KETOROLAC TROMETHAMINE INJ 60 MG/2 ML VIAL IM ONE (13:52)
== END 2016-09-04 14:12 | disposition home or self-care (01) ==
LOC: ER 12:29
DX: K11.20 Sialoadenitis, unspecified (principal); J02.9 Acute pharyngitis, unspecified; I10 Essential (primary) hypertension; E07.9 Disorder of thyroid, unspecified; Z79.899 Other long term (current) drug therapy; Z88.2 Allergy status to sulfonamides; Z88.3 Allergy status to other anti-infective agents; Z87.891 Personal history of nicotine dependence

== ENCOUNTER 2016-12-18 13:53 | Emergency (ER) | payer SELFPAY ==
[2016-12-18] MEDS ORDERED: ACETAMINOPHEN W/COD #3 TAB 1 EA TAB PO ONE (14:15)
--- NOTE | 2016-12-18 14:18 | ED.PDOC ---
History of Present Illness - General Chief Complaint: Back Pain or Injury Stated Complaint: BACK PAIN Time Seen by Provider: 12/18/16 14:02 Source: patient, RN notes reviewed, Vital Signs reviewed Exam Limitations: no limitations - History of Present Illness Initial Comments: Patient comes in with c/o of L sided mid back pain. She can't even lean back because anything touching her back is extremely painful. Reports even wearing her bra hurts. She is taking muscle relaxers, Ibuprofen, and anti-nausea medications at home. She developed drop wrist ~7 weeks ago. Has seen neurologist and is awaiting appt with Dr. Taylor. Timing/Duration: days - 2, constant Quality/Severity: severe, burning Back Pain Location: T-spine - to left - mid-spine Method of Injury/Prior Injury: unknown Improving Factors: nothing Worsening Factors: other - touching Associated Symptoms: muscle spasms, sensory/motor loss - LUE X 7 weeks Allergies/Adverse Reactions: Allergies Sulfamethoxazole w/Trimethoprim [From Bactrim] Allergy (Verified 09/04/16 13:22) Amoxicillin [From Augmentin] Adverse Reaction (Verified 05/21/16 17:50) Clavulanic Acid [From Augmentin] Adverse Reaction (Verified 05/21/16 17:50) Home Medications: Ambulatory Orders Escitalopram Oxalate [Lexapro] 20 mg PO DAILY 09/29/15 Thyroid [[place] Thyroid] 90 mg PO DAILY 09/29/15 Trazodone HCl 400 mg PO BEDTIME 09/29/15 Alprazolam [Alprazolam Odt] 0.25 mg PO TID PRN 05/14/16 Ondansetron [Zofran Odt] 4 mg PO TID 05/14/16 Acetaminophen W/ Codeine [Tylenol W/ CODEINE #3] 1 ea PO Q4HR PRN #15 05/20/16 Clindamycin HCl 300 mg PO QID #28 cap 05/20/16 Cefuroxime Axetil [Ceftin] 500 mg PO BID #14 tab 05/23/16 Hydrocodone-Ibuprofen [Vicoprofen] 1 ea PO Q4HR PRN #20 tab 05/23/16 Nystatin (Mouth-Throat) [Nystatin] 5 ml MT QID #8 oz 05/23/16 metroNIDAZOLE [Flagyl] 500 mg PO Q8HR #21 tab 05/23/16 Acetaminophen W/ Codeine [Tylenol W/ CODEINE #3] 2 ea PO Q4HR PRN #24 09/04/16 Ibuprofen 800 mg PO Q8HR PRN #30 tab 09/04/16 Review of Systems - Review of Systems Constitutional: States: no symptoms reported Respiratory: States: no symptoms reported Cardiology: States: no symptoms reported Musculoskeletal: States: see HPI, back pain Skin: States: see HPI Neurological: States: see HPI, pre-existing deficit - LUE weakness/numbness All other Systems: No Change from Baseline Past Medical History (General) - Patient Medical History Hx Seizures: Yes - Medical induced Hx Stroke: No Hx Dementia: No Hx Asthma: No Hx of COPD: No Hx Cardiac Disorders: No Hx Congestive Heart Failure: No Hx Pacemaker: No Hx Hypertension: Yes Hx Thyroid Disease: Yes Hx Diabetes: No Hx Gastroesophageal Reflux: No Hx Renal Disease: No Hx Cancer: No Hx of HIV: No Hx Hepatitis C: No Hx MRSA: No - Vaccination History Hx Tetanus, Diphtheria Vaccination: Yes Hx Influenza Vaccination: No Hx Pneumococcal Vaccination: No - Social History Hx Tobacco Use: Yes Hx Chewing Tobacco Use: No Hx Alcohol Use: No Hx Substance Use: No Hx Substance Use Treatment: No Hx Depression: Yes Hx Physical Abuse: No Hx Emotional Abuse: No Hx Suspected Abuse: No - Female History Hx Last Menstrual Period: 03/28/15 Patient : No Family Medical History - Family History Mother Family History: Unknown Living Status: Hx Family Cancer: Yes Father Family History: Unknown Living Status: Still Living Hx Family Asthma: No Physical Exam - Physical Exam General Appearance: Alert, Anxious, Well Developed, Well Groomed, Well Hydrated , Well Nourished, Other - In obvious pain Neck Exam: non-tender, full range of motion, normal alignment, normal inspection Back Exam: no vertebral tenderness, other - No muscle spasm, L mid back (just under bra) extremely sensitive to light touch. No rash noted Extremity Exam: no evidence of injury, normal range of motion, non-tender, other - Wearing a wrist splint on L wrist Neurologic: alert, normal mood/affect, oriented x 3 Skin Exam: normal color, warm/dry Progress - Progress Progress: 12/18/16 15:11 Patient reports Tyl #3 is not going to work. She is now saying the back pain has actually been going on for the whole 7 weeks she has had the wrist issue it has just gotten more severe the past 2 days. Will give Dilaudid 1mg IM 12/18/16 15:43 Patient is feeling better and would like to go home. - EKG/XRAY/CT XRAY: T-spine: normal per Rad Departure - Departure Clinical Impression: Thoracic back pain Qualifiers: Chronicity: chronic Back pain laterality: left Qualified Code(s): M54.6 - Pain in thoracic spine Time of Disposition: 15:44 Disposition: Discharge to Home or Self Care Condition: Fair Departure Forms: ED Discharge - Pt. Copy, Patient Portal Self Enrollment Instructions: DI for Back Strain or Sprain Diet: resume usual diet Activity: increase activity as tolerated Referrals: Maranda Harkins NP [Nurse Practitioner] - 1-2 Weeks Home Medications: Ambulatory Orders Escitalopram Oxalate [Lexapro] 20 mg PO DAILY 09/29/15 Thyroid [[place] Thyroid] 90 mg PO DAILY 09/29/15 Trazodone HCl 400 mg PO BEDTIME 09/29/15 Alprazolam [Alprazolam Odt] 0.25 mg PO TID PRN 05/14/16 Ondansetron [Zofran Odt] 4 mg PO TID 05/14/16 Acetaminophen W/ Codeine [Tylenol W/ CODEINE #3] 1 ea PO Q4HR PRN #15 05/20/16 Clindamycin HCl 300 mg PO QID #28 cap 05/20/16 Cefuroxime Axetil [Ceftin] 500 mg PO BID #14 tab 05/23/16 Hydrocodone-Ibuprofen [Vicoprofen] 1 ea PO Q4HR PRN #20 tab 05/23/16 Nystatin (Mouth-Throat) [Nystatin] 5 ml MT QID #8 oz 05/23/16 metroNIDAZOLE [Flagyl] 500 mg PO Q8HR #21 tab 05/23/16 Acetaminophen W/ Codeine [Tylenol W/ CODEINE #3] 2 ea PO Q4HR PRN #24 09/04/16 Ibuprofen 800 mg PO Q8HR PRN #30 tab 09/04/16
[2016-12-18 14:19] VITALS: BP 132/65; O2SAT 97
--- NOTE | 2016-12-18 14:52 | RAD ---
EXAM DESCRIPTION: Thoracic Spine,AP Lateral CLINICAL HISTORY: 40 years,Female,L sided back pain COMPARISON: None FINDINGS: The thoracic spine demonstrates no evidence of fractures or other acute abnormalities. Disc heights appear unremarkable for age. Surrounding soft tissues are unremarkable. There are 12 pairs of ribs. Surgical clips right upper quadrant IMPRESSION: Unremarkable thoracic spine Electronically signed by: Alejandro Amezcua MD 12/18/2016 2:51 PM CDT
[2016-12-18] MEDS ORDERED: HYDROmorphone HCL INJ 2 MG/ML VIAL IM ONE (15:11)
== END 2016-12-18 15:50 | disposition home or self-care (01) ==
LOC: ER 13:53
DX: M54.6 Pain in thoracic spine (principal); I10 Essential (primary) hypertension; E07.9 Disorder of thyroid, unspecified; Z79.899 Other long term (current) drug therapy; Z88.2 Allergy status to sulfonamides; Z88.8 Allergy status to other drugs, medicaments and biological substances
CPT/HCPCS: 72070; J1170

== ENCOUNTER 2017-01-23 00:56 | Emergency (ER) | payer SELFPAY ==
[2017-01-23] MEDS ORDERED: LACTATED RINGERS 1,000 ML IVS ONE (02:11)
[2017-01-23] MEDS ORDERED: HYOSCYAMINE SULFATE 0.5 MG/ML VIAL IV ONE (02:11)
--- NOTE | 2017-01-23 02:13 | ED.PDOC ---
History of Present Illness - General Chief Complaint: General Stated Complaint: N/V/D Time Seen by Provider: 01/23/17 02:10 Source: patient Exam Limitations: no limitations - History of Present Illness Initial Comments: Arleen Moncada 41 y/o female stated that she had diarrhea 2 days ago watery and today with multiple nausea/vomiting took oral phenergan and zofran but not better.Stated nephew got sick with same symptoms. Timing/Duration: other - see hpi Severity: moderate Improving Factors: nothing Worsening Factors: nothing Associated Symptoms: other - see hpi Allergies/Adverse Reactions: Allergies Sulfamethoxazole w/Trimethoprim [From Bactrim] Allergy (Verified 01/23/17 04:08) Amoxicillin [From Augmentin] Adverse Reaction (Verified 01/23/17 04:08) Clavulanic Acid [From Augmentin] Adverse Reaction (Verified 01/23/17 04:08) Home Medications: Ambulatory Orders Escitalopram Oxalate [Lexapro] 20 mg PO DAILY 09/29/15 Thyroid [[place] Thyroid] 90 mg PO DAILY 09/29/15 Trazodone HCl 400 mg PO BEDTIME 09/29/15 Alprazolam [Alprazolam Odt] 0.25 mg PO TID PRN 05/14/16 Ondansetron [Zofran Odt] 4 mg PO TID 05/14/16 Acetaminophen W/ Codeine [Tylenol W/ CODEINE #3] 1 ea PO Q4HR PRN #15 05/20/16 Clindamycin HCl 300 mg PO QID #28 cap 05/20/16 Cefuroxime Axetil [Ceftin] 500 mg PO BID #14 tab 05/23/16 Hydrocodone-Ibuprofen [Vicoprofen] 1 ea PO Q4HR PRN #20 tab 05/23/16 Nystatin (Mouth-Throat) [Nystatin] 5 ml MT QID #8 oz 05/23/16 metroNIDAZOLE [Flagyl] 500 mg PO Q8HR #21 tab 05/23/16 Acetaminophen W/ Codeine [Tylenol W/ CODEINE #3] 2 ea PO Q4HR PRN #24 09/04/16 Ibuprofen 800 mg PO Q8HR PRN #30 tab 09/04/16 Review of Systems - Review of Systems Constitutional: States: no symptoms reported EENTM: States: no symptoms reported Respiratory: States: no symptoms reported Cardiology: States: no symptoms reported Gastrointestinal/Abdominal: States: see HPI Genitourinary: States: no symptoms reported Past Medical History (General) - Patient Medical History Hx Seizures: Yes - Medical induced Hx Stroke: No Hx Dementia: No Hx Asthma: No Hx of COPD: No Hx Cardiac Disorders: No Hx Congestive Heart Failure: No Hx Pacemaker: No Hx Hypertension: Yes Hx Thyroid Disease: Yes Hx Diabetes: No Hx Gastroesophageal Reflux: No Hx Renal Disease: No Hx Cancer: No Hx of HIV: No Hx Hepatitis C: No Hx MRSA: No Hx Other PMH: Yes - left wrist drop-eval by neurologist done Rx-need to see ortho Surgical History: cholecystectomy, other - esophageal dilatation - Vaccination History Hx Tetanus, Diphtheria Vaccination: Yes Hx Influenza Vaccination: No Hx Pneumococcal Vaccination: No - Social History Hx Tobacco Use: Yes Hx Chewing Tobacco Use: No Hx Alcohol Use: No Hx Substance Use: No Hx Substance Use Treatment: No Hx Depression: Yes Hx Physical Abuse: No Hx Emotional Abuse: No Hx Suspected Abuse: No - Female History Hx Last Menstrual Period: 03/28/15 - iud Patient : No Family Medical History - Family History Mother Family History: Unknown Living Status: Hx Family Hypertension: Yes - dad Hx Family Cancer: Yes Father Family History: Unknown Living Status: Still Living Hx Family Asthma: No Physical Exam - Physical Exam General Appearance: Alert, Anxious, No apparent distress Eye Exam: bilateral normal Ears, Nose, Throat: hearing grossly normal, normal pharynx Neck: non-tender, full range of motion, supple Respiratory: lungs clear, normal breath sounds Cardiovascular/Chest: regular rate, rhythm, no murmur Peripheral Pulses: radial,right: 2+, radial,left: 2+ Gastrointestinal/Abdominal: normal bowel sounds, non tender, soft, other - no peritoneal signs Back Exam: no CVA tenderness, no vertebral tenderness Extremity: non-tender, no pedal edema, no calf tenderness, other - left wrist drop Skin Exam: normal color, warm/dry Lymphatic: no adenopathy Progress - Progress Progress: 01/23/17 04:44 Last Vital Signs Temp 98.4 F 01/23/17 03:52 Pulse 94 H 01/23/17 03:52 Resp 18 01/23/17 03:52 BP 100/57 01/23/17 03:52 Pulse Ox 96 01/23/17 03:52 Laboratory Tests 01/23/17 01/23/17 01/23/17 04:00 04:00 04:00 WBC 9.2 RBC 4.29 Hgb 12.7 Hct 38.0 MCV 88.6 MCH 29.7 MCHC 33.5 RDW 13.9 Plt Count 153 MPV 9.4 Absolute Neuts (auto) 3.80 Absolute Lymphs (auto) 4.50 H Absolute Monos (auto) 0.60 Absolute Eos (auto) 0.10 Absolute Basos (auto) 0.10 Neutrophils % 42.0 Lymphocytes % 49.5 Monocytes % 6.6 Eosinophils % 1.2 Basophils % 0.7 Sodium 137 Potassium 3.6 Chloride 105 Carbon Dioxide 28 Anion Gap 7.6 L BUN 17 Creatinine 0.79 BUN/Creatinine Ratio 21.5 H Random Glucose 88 Serum Osmolality 274.8 L Calcium 8.4 Total Bilirubin 0.3 AST 13 ALT 14 Alkaline Phosphatase 62 Serum Total Protein 6.2 L Albumin 3.5 Globulin 2.7 Albumin/Globulin Ratio 1.3 Lipase 47 Serum HCG, Qual Negative Departure - Departure Clinical Impression: Diarrhea Qualifiers: Diarrhea type: unspecified type Qualified Code(s): R19.7 - Diarrhea, unspecified Nausea & vomiting Qualifiers: Vomiting type: unspecified Vomiting Intractability: unspecified Qualified Code( s): R11.2 - Nausea with vomiting, unspecified Time of Disposition: 04:45 Disposition: Discharge to Home or Self Care Condition: Fair Departure Forms: ED Discharge - Pt. Copy, Patient Portal Self Enrollment Instructions: DI for Diarrhea and Traveler's Diarrhea -- Adult, DI for Vomiting -- Adult, Nausea and Vomiting-Adult Diet: bland diet, other - AVOID GREASY,SPICY FOODS UNTIL BETTER Referrals: Michele George MD [Primary Care Provider] - 1-2 Weeks Home Medications: Ambulatory Orders Escitalopram Oxalate [Lexapro] 20 mg PO DAILY 09/29/15 Thyroid [[place] Thyroid] 90 mg PO DAILY 09/29/15 Trazodone HCl 400 mg PO BEDTIME 09/29/15 Alprazolam [Alprazolam Odt] 0.25 mg PO TID PRN 05/14/16 Ondansetron [Zofran Odt] 4 mg PO TID 05/14/16 Acetaminophen W/ Codeine [Tylenol W/ CODEINE #3] 1 ea PO Q4HR PRN #15 05/20/16 Clindamycin HCl 300 mg PO QID #28 cap 05/20/16 Cefuroxime Axetil [Ceftin] 500 mg PO BID #14 tab 05/23/16 Hydrocodone-Ibuprofen [Vicoprofen] 1 ea PO Q4HR PRN #20 tab 05/23/16 Nystatin (Mouth-Throat) [Nystatin] 5 ml MT QID #8 oz 05/23/16 metroNIDAZOLE [Flagyl] 500 mg PO Q8HR #21 tab 05/23/16 Acetaminophen W/ Codeine [Tylenol W/ CODEINE #3] 2 ea PO Q4HR PRN #24 09/04/16 Ibuprofen 800 mg PO Q8HR PRN #30 tab 09/04/16 Additional Instructions: FOLLOW UP WITH PRIMARY MD 01/25/2017 call for appointment as needed
[2017-01-23] MEDS ORDERED: PROMETHAZINE HCL INJ 25 MG/ML VIAL IM ONE ×2 (02:47→03:45)
[2017-01-23 04:22] VITALS: O2SAT 96
[2017-01-23 04:59] VITALS: BP 95/54; TEMP 97.2
== END 2017-01-23 04:59 | disposition home or self-care (01) ==
LOC: ER 00:56
DX: R11.2 Nausea with vomiting, unspecified (principal); R19.7 Diarrhea, unspecified; I10 Essential (primary) hypertension; E07.9 Disorder of thyroid, unspecified; Z79.899 Other long term (current) drug therapy; Z88.2 Allergy status to sulfonamides; Z88.8 Allergy status to other drugs, medicaments and biological substances
CPT/HCPCS: 36415; 80053; 83690; 84703; 85025; J2060; J2550; J7120

== ENCOUNTER 2017-02-18 14:02 | Emergency (ER) | payer SELFPAY ==
[2017-02-18] MEDS ORDERED: KETOROLAC TROMETHAMINE INJ 30 MG/ML VIAL IV ONE (14:07)
[2017-02-18] MEDS ORDERED: METOCLOPRAMIDE HCL INJ 10 MG/2 ML VIAL IV ONE (14:07)
[2017-02-18] MEDS ORDERED: SODIUM CHLORIDE 0.9% 1000ML 1,000 ML IVS ONE (14:07)
[2017-02-18] MEDS ORDERED: diphenhydrAMINE HCL 50 MG/ML VIAL IV ONE (14:07)
--- NOTE | 2017-02-18 14:30 | ED.PDOC ---
History of Present Illness - General Chief Complaint: Headache Stated Complaint: HEADACHE Time Seen by Provider: 02/18/17 14:06 Source: patient, RN notes reviewed, Vital Signs reviewed Exam Limitations: no limitations Additional Information: Headache similar to previous migraines. Pt states only Stadol helps with her migraines. Pt told she will not get narcotics for her CONTRERAS. I told her we would give her a standard CONTRERAS cocktail. - History of Present Illness Timing/Duration: other - 3 days Quality: moderate, constant Improving Factors: nothing Worsening Factors: other - photophobia, phonophobia Associated Symptoms: nausea/vomiting Allergies/Adverse Reactions: Allergies Sulfamethoxazole w/Trimethoprim [From Bactrim] Allergy (Verified 01/23/17 04:08) Amoxicillin [From Augmentin] Adverse Reaction (Verified 01/23/17 04:08) Clavulanic Acid [From Augmentin] Adverse Reaction (Verified 01/23/17 04:08) Home Medications: Ambulatory Orders Escitalopram Oxalate [Lexapro] 20 mg PO DAILY 09/29/15 Thyroid [[place] Thyroid] 90 mg PO DAILY 09/29/15 Trazodone HCl 400 mg PO BEDTIME 09/29/15 Alprazolam [Alprazolam Odt] 0.25 mg PO TID PRN 05/14/16 Ondansetron [Zofran Odt] 4 mg PO TID 05/14/16 Acetaminophen W/ Codeine [Tylenol W/ CODEINE #3] 1 ea PO Q4HR PRN #15 05/20/16 Clindamycin HCl 300 mg PO QID #28 cap 05/20/16 Cefuroxime Axetil [Ceftin] 500 mg PO BID #14 tab 05/23/16 Hydrocodone-Ibuprofen [Vicoprofen] 1 ea PO Q4HR PRN #20 tab 05/23/16 Nystatin (Mouth-Throat) [Nystatin] 5 ml MT QID #8 oz 05/23/16 metroNIDAZOLE [Flagyl] 500 mg PO Q8HR #21 tab 05/23/16 Acetaminophen W/ Codeine [Tylenol W/ CODEINE #3] 2 ea PO Q4HR PRN #24 09/04/16 Ibuprofen 800 mg PO Q8HR PRN #30 tab 09/04/16 Review of Systems - Review of Systems Constitutional: States: no symptoms reported EENTM: States: no symptoms reported Respiratory: States: no symptoms reported Cardiology: States: no symptoms reported Gastrointestinal/Abdominal: States: no symptoms reported Genitourinary: States: no symptoms reported Musculoskeletal: States: no symptoms reported Skin: States: no symptoms reported Neurological: States: see HPI, headache Endocrine: States: no symptoms reported Hematologic/Lymphatic: States: no symptoms reported Past Medical History (General) - Patient Medical History Hx Seizures: Yes - Medical induced Hx Stroke: No Hx Dementia: No Hx Asthma: No Hx of COPD: No Hx Cardiac Disorders: No Hx Congestive Heart Failure: No Hx Pacemaker: No Hx Hypertension: Yes Hx Thyroid Disease: Yes Hx Diabetes: No Hx Gastroesophageal Reflux: No Hx Renal Disease: No Hx Cancer: No Hx of HIV: No Hx Hepatitis C: No Hx MRSA: No - Vaccination History Hx Tetanus, Diphtheria Vaccination: Yes Hx Influenza Vaccination: No Hx Pneumococcal Vaccination: No - Social History Hx Tobacco Use: Yes Hx Chewing Tobacco Use: No Hx Alcohol Use: No Hx Substance Use: No Hx Substance Use Treatment: No Hx Depression: Yes Hx Physical Abuse: No Hx Emotional Abuse: No Hx Suspected Abuse: No - Female History Hx Last Menstrual Period: 03/28/15 - iud Patient : No Family Medical History - Family History Mother Family History: Unknown Living Status: Hx Family Hypertension: Yes - dad Hx Family Cancer: Yes Father Family History: Unknown Living Status: Still Living Hx Family Asthma: No Physical Exam - Physical Exam General Appearance: No apparent distress, Well Developed, Well Groomed, Well Hydrated, Well Nourished, Other - wearing sunglasses indoors Neck: non-tender, full range of motion, supple Cardiovascular/Chest: regular rate, rhythm Respiratory: no respiratory distress, no accessory muscle use Gastrointestinal/Abdominal: non tender, soft Extremity: normal range of motion, non-tender, normal inspection Mental 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 Pt reports she feels better now compared to when she arrived in terms of her headache. Departure - Departure Clinical Impression: Headache Qualifiers: Headache type: unspecified Headache chronicity pattern: acute headache Intractability: intractable Qualified Code(s): R51 - Headache Time of Disposition: 15:45 Disposition: Discharge to Home or Self Care Condition: Good Departure Forms: ED Discharge - Pt. Copy, Patient Portal Self Enrollment Instructions: DI for Headache Referrals: Michele George MD [Primary Care Provider] - 1-2 Weeks Home Medications: Ambulatory Orders Escitalopram Oxalate [Lexapro] 20 mg PO DAILY 09/29/15 Thyroid [[place] Thyroid] 90 mg PO DAILY 09/29/15 Trazodone HCl 400 mg PO BEDTIME 09/29/15 Alprazolam [Alprazolam Odt] 0.25 mg PO TID PRN 05/14/16 Ondansetron [Zofran Odt] 4 mg PO TID 05/14/16 Acetaminophen W/ Codeine [Tylenol W/ CODEINE #3] 1 ea PO Q4HR PRN #15 05/20/16 Clindamycin HCl 300 mg PO QID #28 cap 05/20/16 Cefuroxime Axetil [Ceftin] 500 mg PO BID #14 tab 05/23/16 Hydrocodone-Ibuprofen [Vicoprofen] 1 ea PO Q4HR PRN #20 tab 05/23/16 Nystatin (Mouth-Throat) [Nystatin] 5 ml MT QID #8 oz 05/23/16 metroNIDAZOLE [Flagyl] 500 mg PO Q8HR #21 tab 05/23/16 Acetaminophen W/ Codeine [Tylenol W/ CODEINE #3] 2 ea PO Q4HR PRN #24 09/04/16 Ibuprofen 800 mg PO Q8HR PRN #30 tab 09/04/16 Additional Instructions: Stay well hydrated. Return to ER if unable to function/condition worsens. Follow-up with Primary Care for routine management of chronic issues to include preventive medicine for migraines.
[2017-02-18 14:53] VITALS: TEMP 98.6
[2017-02-18 16:05] VITALS: BP 166/66; O2SAT 92
== END 2017-02-18 15:50 | disposition home or self-care (01) ==
LOC: ER 14:02
DX: R51 Headache (principal); E07.9 Disorder of thyroid, unspecified; I10 Essential (primary) hypertension; F32.9 Major depressive disorder, single episode, unspecified; F17.200 Nicotine dependence, unspecified, uncomplicated; Z79.899 Other long term (current) drug therapy
CPT/HCPCS: 36415; 80053; 83690; 84703; 85025; J1200; J1885; J2765; J7030

== ENCOUNTER 2017-08-08 22:22 | Emergency (ER) | payer SELFPAY ==
[2017-08-08 23:12] VITALS: BP 116/59; TEMP 99.8; O2SAT 96
--- NOTE | 2017-08-08 23:38 | ED.PDOC ---
History of Present Illness - General Chief Complaint: Neck Injury/Pain Stated Complaint: hand, neck, leg pain, dizzy Time Seen by Provider: 08/08/17 23:17 Source: patient - History of Present Illness Initial Comments: Arleen Moncada 41 y/o female stated that she had shingles 2 months ago on her left upper extremity and had taken antivirals [place] [employer] [place] scraped her left leg but now healed but also noticed both legs are swelled up today Timing/Duration: changing over time, intermittent Severity: moderate Improving Factors: nothing Worsening Factors: movement Associated Symptoms: other - see hpi Allergies/Adverse Reactions: Allergies Sulfamethoxazole w/Trimethoprim [From Bactrim] Allergy (Verified 08/08/17 22:58) Amoxicillin [From Augmentin] Adverse Reaction (Verified 08/08/17 22:58) Clavulanic Acid [From Augmentin] Adverse Reaction (Verified 08/08/17 22:58) Home Medications: Ambulatory Orders Escitalopram Oxalate [Lexapro] 20 mg PO DAILY 09/29/15 Thyroid [[place] Thyroid] 90 mg PO DAILY 09/29/15 Trazodone HCl 400 mg PO BEDTIME 09/29/15 Alprazolam [Alprazolam Odt] 0.25 mg PO TID PRN 05/14/16 Ondansetron [Zofran Odt] 4 mg PO TID 05/14/16 Acetaminophen W/ Codeine [Tylenol W/ CODEINE #3] 1 ea PO Q4HR PRN #15 05/20/16 Clindamycin HCl 300 mg PO QID #28 cap 05/20/16 Cefuroxime Axetil [Ceftin] 500 mg PO BID #14 tab 05/23/16 Hydrocodone-Ibuprofen [Vicoprofen] 1 ea PO Q4HR PRN #20 tab 05/23/16 Nystatin (Mouth-Throat) [Nystatin] 5 ml MT QID #8 oz 05/23/16 metroNIDAZOLE [Flagyl] 500 mg PO Q8HR #21 tab 05/23/16 Acetaminophen W/ Codeine [Tylenol W/ CODEINE #3] 2 ea PO Q4HR PRN #24 09/04/16 Ibuprofen 800 mg PO Q8HR PRN #30 tab 09/04/16 Review of Systems - Review of Systems Constitutional: States: no symptoms reported EENTM: States: no symptoms reported Respiratory: States: no symptoms reported Cardiology: States: no symptoms reported Gastrointestinal/Abdominal: States: no symptoms reported Musculoskeletal: States: see HPI Neurological: States: other - PHN Past Medical History (General) - Patient Medical History Hx Seizures: Yes - Medical induced Hx Stroke: No Hx Dementia: No Hx Asthma: No Hx of COPD: No Hx Cardiac Disorders: No Hx Congestive Heart Failure: No Hx Pacemaker: No Hx Hypertension: Yes Hx Thyroid Disease: Yes Hx Diabetes: No Hx Gastroesophageal Reflux: No Hx Renal Disease: No Hx Cancer: No Hx of HIV: No Hx Hepatitis C: No Hx MRSA: No Surgical History: cholecystectomy, tonsillectomy - Vaccination History Hx Tetanus, Diphtheria Vaccination: Yes Hx Influenza Vaccination: Yes Hx Pneumococcal Vaccination: No - Social History Hx Tobacco Use: Yes Hx Chewing Tobacco Use: No Hx Alcohol Use: No Hx Substance Use: No Hx Substance Use Treatment: No Hx Depression: Yes Hx Physical Abuse: No Hx Emotional Abuse: No Hx Suspected Abuse: No - Female History Hx Last Menstrual Period: 03/28/15 - iud Patient : No Family Medical History - Family History Mother Family History: Unknown Living Status: Hx Family Hypertension: Yes - dad Hx Family Cancer: Yes Father Family History: Unknown Living Status: Still Living Hx Family Asthma: No Physical Exam - Physical Exam General Appearance: Alert, No apparent distress Eye Exam: bilateral normal Ears, Nose, Throat: hearing grossly normal Neck: supple Respiratory: lungs clear, no respiratory distress Cardiovascular/Chest: regular rate, rhythm, no murmur Peripheral Pulses: radial,right: 2+, radial,left: 2+ Gastrointestinal/Abdominal: non tender, soft Back Exam: no vertebral tenderness Extremity: pedal edema - bilateral Neurologic: no motor/sensory deficits, alert, oriented x 3 Skin Exam: normal color, warm/dry Progress - Progress Progress: 08/08/17 23:41 Vital Signs - 24 hr 08/08/17 22:30 Temperature 99.8 F H Pulse Rate [ 98 H monitor] Respiratory 16 Rate Blood Pressure 116/59 [Right Arm] O2 Sat by Pulse 96 Oximetry 08/08/17 23:41 Explained to patient need to run blood test to see what is going on with her and decide to leave AMA Departure - Departure Clinical Impression: Left against medical advice Time of Disposition: 23:43 Disposition: Left Against Medical Advice Condition: Fair Departure Forms: ED Discharge - Pt. Copy, Patient Portal Self Enrollment Referrals: Michele George MD [Primary Care Provider] - 1-2 Weeks Home Medications: Ambulatory Orders Escitalopram Oxalate [Lexapro] 20 mg PO DAILY 09/29/15 Thyroid [[place] Thyroid] 90 mg PO DAILY 09/29/15 Trazodone HCl 400 mg PO BEDTIME 09/29/15 Alprazolam [Alprazolam Odt] 0.25 mg PO TID PRN 05/14/16 Ondansetron [Zofran Odt] 4 mg PO TID 05/14/16 Acetaminophen W/ Codeine [Tylenol W/ CODEINE #3] 1 ea PO Q4HR PRN #15 05/20/16 Clindamycin HCl 300 mg PO QID #28 cap 05/20/16 Cefuroxime Axetil [Ceftin] 500 mg PO BID #14 tab 05/23/16 Hydrocodone-Ibuprofen [Vicoprofen] 1 ea PO Q4HR PRN #20 tab 05/23/16 Nystatin (Mouth-Throat) [Nystatin] 5 ml MT QID #8 oz 05/23/16 metroNIDAZOLE [Flagyl] 500 mg PO Q8HR #21 tab 05/23/16 Acetaminophen W/ Codeine [Tylenol W/ CODEINE #3] 2 ea PO Q4HR PRN #24 09/04/16 Ibuprofen 800 mg PO Q8HR PRN #30 tab 09/04/16
== END 2017-08-08 23:42 | disposition left against medical advice (07) ==
LOC: ER 22:22
DX: Z53.21 Procedure and treatment not carried out due to patient leaving prior to being seen by health care provider (principal)

== ENCOUNTER 2017-09-08 17:20 | Emergency (ER) | payer SELFPAY ==
--- NOTE | 2017-09-08 17:52 | ED.PDOC ---
History of Present Illness - General Source: patient Exam Limitations: no limitations - History of Present Illness Initial Comments: the patient is a 41-year-old female presenting to the emergency room secondary to swelling of her extremities. She has been having swelling of her extremities off and on since April according to her. That was when she was diagnosed with shingles and was placed on acyclovir. She reports that when she takes the acyclovir she gets stomach upset and then require some Phenergan. Additionally she reports that when she takes acyclovir she gets a swelling in her extremities. No shortness of breath. No altered mental status. She has been on Lasix and potassium while she's been on the acyclovir recently. She reports the shingles outbreak has been in her dorsum of her left hand. She is not reporting shortness of breath. No history of any coronary artery disease or pulmonary emboli. No history of lung problems or kidney problems. Timing/Duration: unsure Severity: moderate Improving Factors: nothing Worsening Factors: nothing Associated Symptoms: loss of appetite, malaise, nausea/vomiting <Leo Oneal - Last Filed: 09/08/17 18:56> <Carlo Cosby - Last Filed: 09/08/17 19:50> - General Time Seen by Provider: 09/08/17 17:35 - History of Present Illness Allergies/Adverse Reactions: Allergies Sulfamethoxazole w/Trimethoprim [From Bactrim] Allergy (Verified 08/08/17 22:58) Amoxicillin [From Augmentin] Adverse Reaction (Verified 08/08/17 22:58) Clavulanic Acid [From Augmentin] Adverse Reaction (Verified 08/08/17 22:58) Home Medications: Ambulatory Orders Escitalopram Oxalate [Lexapro] 20 mg PO BEDTIME 09/29/15 Trazodone HCl 100 mg PO BEDTIME 09/29/15 Alprazolam [Alprazolam Odt] 0.25 mg PO TID PRN 05/14/16 Acetaminophen W/ Codeine [Tylenol W/ CODEINE #3] 1 ea PO Q4HR PRN #15 05/20/16 BuPROPion XL [Wellbutrin XL] 150 mg PO DAILY 09/08/17 Cyclobenzaprine Tab (ER Disp) [Flexeril Tab (ER Dispense)] 10 mg PO TID PRN #15 tab 09/08/17 Furosemide [Lasix] 20 mg PO BEDTIME 09/08/17 Furosemide [Lasix] 40 mg PO DAILY 09/08/17 Lamotrigine [Lamictal] 75 mg PO BEDTIME 09/08/17 Levothyroxine Sodium 50 mcg PO DAILY 30 Days tab 09/08/17 Potassium Chloride [Micro-K] 10 meq PO DAILY 09/08/17 Promethazine Tab [Phenergan Tablet] 25 mg PO PRN 09/08/17 Review of Systems - Review of Systems Constitutional: States: malaise EENTM: States: no symptoms reported Respiratory: States: no symptoms reported Cardiology: States: no symptoms reported Gastrointestinal/Abdominal: States: see HPI Genitourinary: States: no symptoms reported Musculoskeletal: States: no symptoms reported Skin: States: see HPI Neurological: States: no symptoms reported Endocrine: States: no symptoms reported All other Systems: No Change from Baseline <Leo Oneal - Last Filed: 09/08/17 18:56> Past Medical History (General) - Patient Medical History Hx Seizures: Yes - Medical induced Hx Stroke: No Hx Dementia: No Hx Asthma: No Hx of COPD: No Hx Cardiac Disorders: No Hx Congestive Heart Failure: No Hx Pacemaker: No Hx Hypertension: Yes Hx Thyroid Disease: Yes Hx Diabetes: No Hx Gastroesophageal Reflux: No Hx Renal Disease: No Hx Cancer: No Hx of HIV: No Hx Hepatitis C: No Hx MRSA: No - Vaccination History Hx Tetanus, Diphtheria Vaccination: Yes Hx Influenza Vaccination: Yes Hx Pneumococcal Vaccination: No - Social History Hx Tobacco Use: Yes Hx Chewing Tobacco Use: No Hx Alcohol Use: No Hx Substance Use: No Hx Substance Use Treatment: No Hx Depression: Yes Hx Physical Abuse: No Hx Emotional Abuse: No Hx Suspected Abuse: No - Female History Hx Last Menstrual Period: 03/28/15 - iud Patient : No <Leo Oneal - Last Filed: 09/08/17 18:56> Family Medical History - Family History Mother Family History: Unknown Living Status: Hx Family Hypertension: Yes - dad Hx Family Cancer: Yes Father Family History: Unknown Living Status: Still Living Hx Family Asthma: No <Leo Oneal - Last Filed: 09/08/17 18:56> Physical Exam - Physical Exam General Appearance: Alert, Comfortable, No apparent distress Eye Exam: bilateral normal Ears, Nose, Throat: hearing grossly normal, normal ENT inspection, normal pharynx Neck: full range of motion, supple Respiratory: lungs clear, normal breath sounds, no respiratory distress, no accessory muscle use Cardiovascular/Chest: normal peripheral pulses, regular rate, rhythm Peripheral Pulses: radial,right: 2+, radial,left: 2+, dorsalis pedis,right: 2+, dorsalis pedis,left: 2+ Gastrointestinal/Abdominal: non tender, soft Rectal Exam: deferred Back Exam: no CVA tenderness, no vertebral tenderness Extremity: normal range of motion, non-tender, no calf tenderness, normal capillary refill, pedal edema Neurologic: transition mgr II-XII nml as tested, alert, normal mood/affect, oriented x 3 Skin Exam: normal color - healing rash of some form on the dorsum of the left hand and a small healing rash on the palmar aspect of the right hand <Leo Oneal L - Last Filed: 09/08/17 18:56> Progress - Progress Progress: 09/08/17 18:56 dr Carlo Cosby to assume care of this pt. - Results/Orders Results/Orders: Laboratory Tests 09/08/17 09/08/17 09/08/17 17:47 17:47 17:47 WBC 6.7 RBC 3.70 L Hgb 11.4 L Hct 34.2 L MCV 92.4 MCH 30.8 MCHC 33.4 RDW 13.6 Plt Count 169 MPV 9.2 Absolute Neuts (auto) 3.30 Absolute Lymphs (auto) 2.60 Absolute Monos (auto) 0.50 Absolute Eos (auto) 0.20 Absolute Basos (auto) 0.10 Neutrophils % 49.2 Lymphocytes % 39.1 Monocytes % 7.6 Eosinophils % 3.3 Basophils % 0.8 D-Dimer, Quantitative < 230 Sodium 138 Potassium 3.3 L Chloride 100 L Carbon Dioxide 33 H Anion Gap 8.3 L BUN 15 Creatinine 0.95 BUN/Creatinine Ratio 15.8 Random Glucose 139 H Serum Osmolality 278.8 Calcium 8.2 L Total Bilirubin 0.2 AST 25 ALT 21 Alkaline Phosphatase 59 Creatine Kinase 436 H* CK-MB (CK-2) 7.3 H* CK-MB (CK-2) % 1.67 Troponin I < 0.02 B-Natriuretic Peptide 20.7 Serum Total Protein 6.2 L Albumin 3.4 Globulin 2.8 Albumin/Globulin Ratio 1.2 Urine HCG, Qual 09/08/17 18:40 WBC RBC Hgb Hct MCV MCH MCHC RDW Plt Count MPV Absolute Neuts (auto) Absolute Lymphs (auto) Absolute Monos (auto) Absolute Eos (auto) Absolute Basos (auto) Neutrophils % Lymphocytes % Monocytes % Eosinophils % Basophils % D-Dimer, Quantitative Sodium Potassium Chloride Carbon Dioxide Anion Gap BUN Creatinine BUN/Creatinine Ratio Random Glucose Serum Osmolality Calcium Total Bilirubin AST ALT Alkaline Phosphatase Creatine Kinase CK-MB (CK-2) CK-MB (CK-2) % Troponin I B-Natriuretic Peptide Serum Total Protein Albumin Globulin Albumin/Globulin Ratio Urine HCG, Qual Negative <Leo Oneal L - Last Filed: 09/08/17 18:56> - Progress Progress: 09/08/17 19:36 Laboratory Results WBC 6.7 K/mm3 (4.8-10.8) 09/08/17 17:47 RBC 3.70 M/mm3 (4.20-5.40) L 09/08/17 17:47 Hgb 11.4 gm/dL (12.0-16.0) L 09/08/17 17:47 Hct 34.2 % (36.0-47.0) L 09/08/17 17:47 MCV 92.4 fl (81.0-99.0) 09/08/17 17:47 MCH 30.8 pg (27.0-31.0) 09/08/17 17:47 MCHC 33.4 g/dL (33.0-37.0) 09/08/17 17:47 RDW 13.6 % (11.5-14.5) 09/08/17 17:47 Plt Count 169 K/mm3 (130-400) 09/08/17 17:47 MPV 9.2 fl (7.40-10.4) 09/08/17 17:47 Absolute Neuts (auto) 3.30 K/uL (1.8-6.8) 09/08/17 17:47 Absolute Lymphs (auto) 2.60 K/uL (1.0-3.4) 09/08/17 17:47 Absolute Monos (auto) 0.50 K/uL (0.2-0.8) 09/08/17 17:47 Absolute Eos (auto) 0.20 K/uL (0.0-0.4) 09/08/17 17:47 Absolute Basos (auto) 0.10 K/uL (0.0-0.1) 09/08/17 17:47 Neutrophils % 49.2 % (42.0-78.0) 09/08/17 17:47 Lymphocytes % 39.1 % (20.0-50.0) 09/08/17 17:47 Monocytes % 7.6 % (2.0-9.0) 09/08/17 17:47 Eosinophils % 3.3 % (1.0-5.0) 09/08/17 17:47 Basophils % 0.8 % (0.0-2.0) 09/08/17 17:47 D-Dimer, Quantitative < 230 ng/mL (0-230) 09/08/17 17:47 Sodium 138 mmol/L (135-145) 09/08/17 17:47 Potassium 3.3 mmol/L (3.6-5.0) L 09/08/17 17:47 Chloride 100 mmol/L (101-111) L 09/08/17 17:47 Carbon Dioxide 33 mmol/L (21-31) H 09/08/17 17:47 Anion Gap 8.3 (12-18) L 09/08/17 17:47 BUN 15 mg/dL (7-18) 09/08/17 17:47 Creatinine 0.95 mg/dL (0.6-1.3) 09/08/17 17:47 BUN/Creatinine Ratio 15.8 (10-20) 09/08/17 17:47 Random Glucose 139 mg/dL (70-105) H 09/08/17 17:47 Serum Osmolality 278.8 mOsm/L (275-295) 09/08/17 17:47 Calcium 8.2 mg/dL (8.4-10.2) L 09/08/17 17:47 Total Bilirubin 0.2 mg/dL (0.2-1.0) 09/08/17 17:47 AST 25 IU/L (10-42) 09/08/17 17:47 ALT 21 IU/L (10-60) 09/08/17 17:47 Alkaline Phosphatase 59 IU/L (42-121) 09/08/17 17:47 Creatine Kinase 436 IU/L (26-140) H* 09/08/17 17:47 CK-MB (CK-2) 7.3 ng/mL (0.0-4.4) H* 09/08/17 17:47 CK-MB (CK-2) % 1.67 % (0.0-4.3) 09/08/17 17:47 Troponin I < 0.02 ng/mL (0.01-0.05) 09/08/17 17:47 B-Natriuretic Peptide 20.7 pg/ml (0-100) 09/08/17 17:47 Serum Total Protein 6.2 gm/dL (6.4-8.2) L 09/08/17 17:47 Albumin 3.4 g/dl (3.2-5.5) 09/08/17 17:47 Globulin 2.8 gm/dL (2.3-3.5) 09/08/17 17:47 Albumin/Globulin Ratio 1.2 (1.1-1.9) 09/08/17 17:47 TSH 7.26 uIU/mL (0.34-5.60) H 09/08/17 17:47 Urine Color Yellow (Yellow) 09/08/17 18:40 Urine Appearance Clear (Clear) 09/08/17 18:40 Urine pH 5.5 (4.5-7.8) 09/08/17 18:40 Ur Specific [place] 1.020 (1.005-1.030) 09/08/17 18:40 Urine Protein Negative mg/dL 09/08/17 18:40 Urine Glucose (UA) Negative mg/dL (Negative) 09/08/17 18:40 Urine Ketones Negative mg/dL (NEGATIVE) 09/08/17 18:40 Urine Blood Negative (Negative) 09/08/17 18:40 Urine Nitrite Negative 09/08/17 18:40 Urine Bilirubin Negative (NEGATIVE) 09/08/17 18:40 Urine Urobilinogen 0.2 mg/dL (0.2-1.0) 09/08/17 18:40 Ur Leukocyte Esterase Negative (Negative) 09/08/17 18:40 Urine RBC 0 /hpf 09/08/17 18:40 Urine WBC 0 /hpf 09/08/17 18:40 Ur Epithelial Cells 0 /hpf 07/11/18 18:40 Amorphous Sediment 1+ 09/08/17 18:40 Urine Bacteria 0 09/08/17 18:40 Urine HCG, Qual Negative 09/08/17 18:40 pt with lower extremity swelling, Lab review shows hypothyroid with slight elevation of CK; given lack of heat exposure or chest pain fell this is likely related to worsening hypothyroidism. Will restart levothyroxin and encourage close out patient f/u <Carlo Cosby - Last Filed: 09/08/17 19:50> Departure - Departure Diet: low salt diet Activity: increase activity as tolerated <Leo Oneal - Last Filed: 09/08/17 18:56> - Departure Time of Disposition: 19:45 <Carlo Cosby - Last Filed: 09/08/17 19:50> - Departure Clinical Impression: Hypothyroid myopathy, Muscle spasm of calf Edema Qualifiers: Edema type: unspecified Qualified Code(s): R60.9 - Edema, unspecified Hypothyroidism Qualifiers: Hypothyroidism type: unspecified Qualified Code(s): E03.9 - Hypothyroidism, unspecified Depressed Qualifiers: Depression Type: other depression Qualified Code(s): F32.89 - Other specified depressive episodes Fatigue Qualifiers: Fatigue type: other Qualified Code(s): R53.83 - Other fatigue Disposition: Discharge to Home or Self Care Condition: Excellent Instructions: Hypothyroidism (Underactive Thyroid), Muscle Spasms (DC) Referrals: Michele George MD [Primary Care Provider] - 1-2 Weeks Prescriptions: Cyclobenzaprine Tab (ER Disp) [Flexeril Tab (ER Dispense)] 10 mg PO TID PRN #15 tab PRN Reason: Pain Levothyroxine Sodium 50 mcg PO DAILY 30 Days tab Home Medications: Ambulatory Orders Escitalopram Oxalate [Lexapro] 20 mg PO BEDTIME 09/29/15 Trazodone HCl 100 mg PO BEDTIME 09/29/15 Alprazolam [Alprazolam Odt] 0.25 mg PO TID PRN 05/14/16 Acetaminophen W/ Codeine [Tylenol W/ CODEINE #3] 1 ea PO Q4HR PRN #15 05/20/16 BuPROPion XL [Wellbutrin XL] 150 mg PO DAILY 09/08/17 Cyclobenzaprine Tab (ER Disp) [Flexeril Tab (ER Dispense)] 10 mg PO TID PRN #15 tab 09/08/17 Furosemide [Lasix] 20 mg PO BEDTIME 09/08/17 Furosemide [Lasix] 40 mg PO DAILY 09/08/17 Lamotrigine [Lamictal] 75 mg PO BEDTIME 09/08/17 Levothyroxine Sodium 50 mcg PO DAILY 30 Days tab 09/08/17 Potassium Chloride [Micro-K] 10 meq PO DAILY 09/08/17 Promethazine Tab [Phenergan Tablet] 25 mg PO PRN 09/08/17
--- NOTE | 2017-09-08 18:00 | RAD ---
EXAM DESCRIPTION: Chest,2 Views CLINICAL HISTORY:41 years Female, edema Comparison: August 11, 2015 FINDINGS: No focal lung consolidation. No pleural effusion. No pneumothorax. Cardiac and mediastinal silhouette is unremarkable. No acute osseous abnormality. Soft tissues are unremarkable. IMPRESSION: No acute findings. No focal lung consolidation. Electronically signed by: Farhan Staley MD 09/08/2017 5:59 PM CDT
[2017-09-08] MEDS ORDERED: CYCLOBENZAPRINE HCL 10 MG TAB PO ONE (19:50)
[2017-09-08] MEDS ORDERED: LEVOTHYROXINE SODIUM 0.025 MG TAB ONE ×2 (20:00→20:05)
[2017-09-08 20:12] VITALS: BP 138/79; TEMP 97.8; O2SAT 98
[2017-09-09] MEDS ORDERED: LEVOTHYROXINE SODIUM 0.025 MG TAB PO SCH (06:30)
== END 2017-09-08 20:12 | disposition home or self-care (01) ==
LOC: ER 17:20
DX: R60.0 Localized edema (principal); R00.0 Tachycardia, unspecified; I10 Essential (primary) hypertension; E07.9 Disorder of thyroid, unspecified; Z87.891 Personal history of nicotine dependence

== ENCOUNTER 2017-09-10 02:36 | Emergency (ER) | payer SELFPAY ==
[2017-09-10] MEDS ORDERED: FUROSEMIDE 40 MG TAB PO ONE (02:53)
[2017-09-10] MEDS ORDERED: POTASSIUM CHLORIDE 20 MEQ TAB PO ONE (03:16)
--- NOTE | 2017-09-10 03:19 | ED.PDOC ---
History of Present Illness - General Chief Complaint: Neuro Symptoms/Deficits Stated Complaint: pt found confused in car by police Time Seen by Provider: 09/10/17 02:43 Source: patient, RN notes reviewed, Vital Signs reviewed, old records Exam Limitations: no limitations - History of Present Illness Initial Comments: Apparently the police found her in her car acting strange & had EMS bring her to the hospital. Currently the only complaint she has is her peripheral edema is not improving as fast as before. She was here approximately 36 hours ago for peripheral edema & was started on Lasix. She has had this before & I find records of her having it as far back as 2015. She says in April she was put on acyclovir for shingles & the peripheral edema returned. It cleared up after the end of the acyclovir & with taking Lasix. She was started on acyclovir again this month for a rash & the edema returned again. This time she doesn't think the Lasix is working as well. Other than that she has no complaints & doesn't understand about the reports of confusion. She says she hasn't had a cardiac eval for this edema. Timing/Duration: other - she says she isn't confused Improving Factors: nothing Worsening Factors: nothing Associated Symptoms: denies symptoms Allergies/Adverse Reactions: Allergies Sulfamethoxazole w/Trimethoprim [From Bactrim] Allergy (Verified 08/08/17 22:58) Amoxicillin [From Augmentin] Adverse Reaction (Verified 08/08/17 22:58) Clavulanic Acid [From Augmentin] Adverse Reaction (Verified 08/08/17 22:58) Home Medications: Ambulatory Orders Escitalopram Oxalate [Lexapro] 20 mg PO BEDTIME 09/29/15 Trazodone HCl 100 mg PO BEDTIME 09/29/15 Alprazolam [Alprazolam Odt] 0.25 mg PO TID PRN 05/14/16 Acetaminophen W/ Codeine [Tylenol W/ CODEINE #3] 1 ea PO Q4HR PRN #15 05/20/16 BuPROPion XL [Wellbutrin XL] 150 mg PO DAILY 09/08/17 Cyclobenzaprine Tab (ER Disp) [Flexeril Tab (ER Dispense)] 10 mg PO TID PRN #15 tab 09/08/17 Furosemide [Lasix] 20 mg PO BEDTIME 09/08/17 Furosemide [Lasix] 40 mg PO DAILY 09/08/17 Lamotrigine [Lamictal] 75 mg PO BEDTIME 09/08/17 Levothyroxine Sodium 50 mcg PO DAILY 30 Days tab 09/08/17 Potassium Chloride [Micro-K] 10 meq PO DAILY 09/08/17 Promethazine Tab [Phenergan Tablet] 25 mg PO PRN 09/08/17 Review of Systems - Review of Systems Constitutional: States: no symptoms reported EENTM: States: no symptoms reported Respiratory: States: no symptoms reported, cough - occasionally Cardiology: States: no symptoms reported Gastrointestinal/Abdominal: States: no symptoms reported Genitourinary: States: no symptoms reported Musculoskeletal: States: no symptoms reported Neurological: States: no symptoms reported, headache - occasionally Endocrine: States: no symptoms reported Past Medical History (General) - Patient Medical History Hx Seizures: Yes - Medical induced Hx Stroke: No Hx Dementia: No Hx Asthma: No Hx of COPD: No Hx Cardiac Disorders: Yes - tachycardia Hx Congestive Heart Failure: No Hx Pacemaker: No Hx Hypertension: Yes Hx Thyroid Disease: Yes Hx Diabetes: No Hx Gastroesophageal Reflux: No Hx Renal Disease: No Hx Cancer: No Hx of HIV: No Hx Hepatitis C: No Hx MRSA: No Surgical History: cholecystectomy, tonsillectomy, other - Vaccination History Hx Tetanus, Diphtheria Vaccination: Yes Hx Influenza Vaccination: Yes Hx Pneumococcal Vaccination: No - Social History Hx Tobacco Use: Yes Hx Chewing Tobacco Use: No Hx Alcohol Use: No Hx Substance Use: No Hx Substance Use Treatment: No Hx Depression: Yes Hx Physical Abuse: No Hx Emotional Abuse: No Hx Suspected Abuse: No - Female History Hx Last Menstrual Period: 03/28/15 - iud Patient : No - Triage Comment ED Triage Comment: Pt is calm, alert, oriented to name. Pt seems altered in mental status, unable to recall what she had ordered at [facility] or how she got to where she was found. Pt is still swollen in her feet. Family Medical History - Family History Mother Family History: Unknown Living Status: Hx Family Hypertension: Yes - dad Hx Family Cancer: Yes Father Family History: Unknown Living Status: Still Living Hx Family Asthma: No Physical Exam - Physical Exam General Appearance: Alert, Comfortable, No apparent distress Eye Exam: bilateral normal Ears, Nose, Throat: hearing grossly normal, normal ENT inspection Neck: full range of motion, supple, normal inspection Respiratory: lungs clear, normal breath sounds, no respiratory distress, no accessory muscle use Cardiovascular/Chest: regular rate, rhythm, no gallop, no JVD, no murmur Back Exam: other - normal ROM Extremity: normal range of motion, non-tender, no calf tenderness, normal capillary refill, pedal edema - pitting to the level of the knees Neurologic: cytometry technologist II-XII nml as tested, no motor/sensory deficits, alert, normal mood/affect, oriented x 3, other - normal gait Skin Exam: normal color, warm/dry Progress - Progress Progress: 09/10/17 05:05 She seemed quite lucid to me. We talked at length & in detail about her recent ED visit, her March illness, her upcoming trip to [place], etc. She says she feels fine except for the edema & doesn't know why they wanted her to come in. I find no reason to perform any testing on her at this point. I will increase her Lasix dose over the weekend & have her f/u with her PCP on Wednesday. 09/10/17 05:08 In terms of her tachycardia she says that is a chronic problem & I also find that same comment in an old note. Departure - Departure Clinical Impression: Peripheral edema Disposition: Discharge to Home or Self Care Condition: Good Departure Forms: ED Discharge - Pt. Copy, Patient Portal Self Enrollment Referrals: Michele George MD [Primary Care Provider] - 09/13/17 Home Medications: Ambulatory Orders Escitalopram Oxalate [Lexapro] 20 mg PO BEDTIME 09/29/15 Trazodone HCl 100 mg PO BEDTIME 09/29/15 Alprazolam [Alprazolam Odt] 0.25 mg PO TID PRN 05/14/16 Acetaminophen W/ Codeine [Tylenol W/ CODEINE #3] 1 ea PO Q4HR PRN #15 05/20/16 BuPROPion XL [Wellbutrin XL] 150 mg PO DAILY 09/08/17 Cyclobenzaprine Tab (ER Disp) [Flexeril Tab (ER Dispense)] 10 mg PO TID PRN #15 tab 09/08/17 Furosemide [Lasix] 20 mg PO BEDTIME 09/08/17 Furosemide [Lasix] 40 mg PO DAILY 09/08/17 Lamotrigine [Lamictal] 75 mg PO BEDTIME 09/08/17 Levothyroxine Sodium 50 mcg PO DAILY 30 Days tab 09/08/17 Potassium Chloride [Micro-K] 10 meq PO DAILY 09/08/17 Promethazine Tab [Phenergan Tablet] 25 mg PO PRN 09/08/17
[2017-09-10 03:52] VITALS: O2SAT 95
[2017-09-10 04:27] VITALS: BP 118/75; TEMP 98.4
== END 2017-09-10 04:15 | disposition home or self-care (01) ==
LOC: ER 02:36
DX: R60.0 Localized edema (principal); R00.0 Tachycardia, unspecified; I10 Essential (primary) hypertension; E07.9 Disorder of thyroid, unspecified; Z79.899 Other long term (current) drug therapy

== ENCOUNTER 2017-09-29 21:41 | Emergency (ER) | payer SELFPAY ==
[2017-09-29] MEDS ORDERED: SUCRALFATE 1 GM/10 ML 1 GM UD PO ONE (22:15)
[2017-09-29] MEDS ORDERED: PROMETHAZINE HCL 25 MG TAB PO ONE (22:15)
[2017-09-29 22:44] VITALS: O2SAT 100
--- NOTE | 2017-09-29 22:54 | ED.PDOC ---
History of Present Illness - General Chief Complaint: Back Pain or Injury Stated Complaint: lower back pain, nausea due to pain Time Seen by Provider: 09/29/17 22:02 Source: patient Exam Limitations: no limitations - History of Present Illness Initial Comments: the patient is a 41-year-old female presenting to the emergency room secondary to pelvic cramping along with the passage of some vaginal blood clots for the last 2-3 days. She does have an IUD in place. No other significant vaginal discharge. No fever. She has had occasional nausea and vomiting. The patient has not had a menstrual period in 9 months with the Mirena in place. Placement of a Mirena was confirmed a little more than a year ago with a CT scan. Urinalysis and urine hCG here are clear. Urine hCG is negative. No evidence of any sepsis. No rebound or peritoneal signs. The patient actually had the Mirena placed secondary to dysmenorrhea almost 4 years ago according to her. She has had headaches and nausea and abdominal cramping with her previous periods so she had the Mirena placed. The Mirena is apparently due to come out next year. on some recollection, her symptoms are similar to her previous episodes of dysmenorrhea, though they have been a while ago. Severity: moderate Improving Factors: nothing Worsening Factors: nothing Associated Symptoms: denies symptoms Allergies/Adverse Reactions: Allergies Ondansetron [From Zofran] Allergy (Verified 09/29/17 22:11) Sulfamethoxazole w/Trimethoprim [From Bactrim] Allergy (Verified 08/08/17 22:58) Amoxicillin [From Augmentin] Adverse Reaction (Verified 08/08/17 22:58) Clavulanic Acid [From Augmentin] Adverse Reaction (Verified 08/08/17 22:58) Home Medications: Ambulatory Orders Escitalopram Oxalate [Lexapro] 20 mg PO BEDTIME 09/29/15 Trazodone HCl 100 mg PO BEDTIME 09/29/15 Alprazolam [Alprazolam Odt] 0.25 mg PO TID PRN 05/14/16 Acetaminophen W/ Codeine [Tylenol W/ CODEINE #3] 1 ea PO Q4HR PRN #15 05/20/16 BuPROPion XL [Wellbutrin XL] 150 mg PO DAILY 09/08/17 Cyclobenzaprine Tab (ER Disp) [Flexeril Tab (ER Dispense)] 10 mg PO TID PRN #15 tab 09/08/17 Furosemide [Lasix] 20 mg PO BEDTIME 09/08/17 Furosemide [Lasix] 40 mg PO DAILY 09/08/17 Lamotrigine [Lamictal] 75 mg PO BEDTIME 09/08/17 Levothyroxine Sodium 50 mcg PO DAILY 30 Days tab 09/08/17 Potassium Chloride [Micro-K] 10 meq PO DAILY 09/08/17 Promethazine Tab [Phenergan Tablet] 25 mg PO PRN 09/08/17 Zsiuylhpeymrp-Pemz-Apbjzkctdf [Fioricet] 1 ea PO Q8H PRN #21 tab 09/29/17 Famotidine 20 mg PO DAILY #30 tab 09/29/17 Promethazine HCl 25 mg PO Q6H PRN #10 tab 09/29/17 Review of Systems - Review of Systems Constitutional: States: no symptoms reported EENTM: States: no symptoms reported Respiratory: States: no symptoms reported Cardiology: States: no symptoms reported Gastrointestinal/Abdominal: States: abdominal pain, vomiting Genitourinary: States: no symptoms reported Musculoskeletal: States: no symptoms reported Skin: States: no symptoms reported Neurological: States: no symptoms reported Endocrine: States: no symptoms reported All other Systems: No Change from Baseline Past Medical History (General) - Patient Medical History Hx Seizures: Yes - Medical induced Hx Stroke: No Hx Dementia: No Hx Asthma: No Hx of COPD: No Hx Cardiac Disorders: Yes - tachycardia Hx Congestive Heart Failure: No Hx Pacemaker: No Hx Hypertension: Yes Hx Thyroid Disease: Yes Hx Diabetes: No Hx Gastroesophageal Reflux: No Hx Renal Disease: No Hx Cancer: No Hx of HIV: No Hx Hepatitis C: No Hx MRSA: No Surgical History: cholecystectomy, tonsillectomy, other - Vaccination History Hx Tetanus, Diphtheria Vaccination: Yes Hx Influenza Vaccination: Yes Hx Pneumococcal Vaccination: No - Social History Hx Tobacco Use: Yes Hx Chewing Tobacco Use: No Hx Alcohol Use: No Hx Substance Use: No Hx Substance Use Treatment: No Hx Depression: Yes Hx Physical Abuse: No Hx Emotional Abuse: No Hx Suspected Abuse: No - Female History Hx Last Menstrual Period: 03/28/15 - iud Patient : No Family Medical History - Family History Mother Family History: Unknown Living Status: Hx Family Hypertension: Yes - dad Hx Family Cancer: Yes Father Family History: Unknown Living Status: Still Living Hx Family Asthma: No Physical Exam - Physical Exam General Appearance: Alert, Comfortable, No apparent distress Eye Exam: bilateral normal Ears, Nose, Throat: hearing grossly normal, normal ENT inspection, normal pharynx Neck: full range of motion, supple Respiratory: lungs clear, normal breath sounds, no respiratory distress, no accessory muscle use Cardiovascular/Chest: normal peripheral pulses, regular rate, rhythm, no edema Peripheral Pulses: radial,right: 2+, radial,left: 2+, dorsalis pedis,right: 2+, dorsalis pedis,left: 2+ Gastrointestinal/Abdominal: soft, other - mild suprapubic discomfort palpation Rectal Exam: deferred Back Exam: no CVA tenderness, no vertebral tenderness Extremity: non-tender, normal inspection, no pedal edema, no calf tenderness, normal capillary refill 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 She is currently on one of her few periods while she has the Mirena in place. She'll be written for some Fioricet for as needed use for pain control. She'll also be written for some Phenergan to control any nausea and for some Pepcid to reduce stomach acid for the next couple of weeks. She needs to keep her self hydrated and eat a bland diet. ER warnings were given for any significant worsening. She should follow up with her primary care doctor later this week.she also needs to hold her Lasix until her oral intake has improved to help prevent dehydration. 09/29/17 23:00 - Results/Orders Results/Orders: Laboratory Tests 09/29/17 09/29/17 22:14 22:15 Urine Color Yellow Urine Appearance Clear Urine pH 6.0 Ur Specific [place] 1.025 Urine Protein Negative Urine Glucose (UA) Negative Urine Ketones Negative Urine Blood Negative Urine Nitrite Negative Urine Bilirubin Negative Urine Urobilinogen 0.2 Ur Leukocyte Esterase Negative Urine RBC 0-1 Urine WBC 1-3 Ur Epithelial Cells 1-3 Urine Bacteria Rare Urine HCG, Qual Negative Departure - Departure Clinical Impression: Dysmenorrhea Nausea and vomiting Qualifiers: Vomiting type: unspecified Vomiting Intractability: non-intractable Qualified Code(s): R11.2 - Nausea with vomiting, unspecified Disposition: Discharge to Home or Self Care Condition: Fair Departure Forms: ED Discharge - Pt. Copy, Patient Portal Self Enrollment Instructions: Menstrual Cramps (DC) Diet: bland diet Activity: increase activity as tolerated Referrals: DAVIDE FORRESTER,SYLVESTER Cunningham [Primary Care Provider] - 1-2 Days Prescriptions: Deyrjwzbbjldc-Xyzs-Ypirwarllx [Fioricet] 1 ea PO Q8H PRN #21 tab PRN Reason: Pain Famotidine 20 mg PO DAILY #30 tab Promethazine HCl 25 mg PO Q6H PRN #10 tab PRN Reason: Vomiting Home Medications: Ambulatory Orders Escitalopram Oxalate [Lexapro] 20 mg PO BEDTIME 09/29/15 Trazodone HCl 100 mg PO BEDTIME 09/29/15 Alprazolam [Alprazolam Odt] 0.25 mg PO TID PRN 05/14/16 Acetaminophen W/ Codeine [Tylenol W/ CODEINE #3] 1 ea PO Q4HR PRN #15 05/20/16 BuPROPion XL [Wellbutrin XL] 150 mg PO DAILY 09/08/17 Cyclobenzaprine Tab (ER Disp) [Flexeril Tab (ER Dispense)] 10 mg PO TID PRN #15 tab 09/08/17 Furosemide [Lasix] 20 mg PO BEDTIME 09/08/17 Furosemide [Lasix] 40 mg PO DAILY 09/08/17 Lamotrigine [Lamictal] 75 mg PO BEDTIME 09/08/17 Levothyroxine Sodium 50 mcg PO DAILY 30 Days tab 09/08/17 Potassium Chloride [Micro-K] 10 meq PO DAILY 09/08/17 Promethazine Tab [Phenergan Tablet] 25 mg PO PRN 09/08/17 Yfnbmavlazzxm-Fuqe-Sygzbvysax [Fioricet] 1 ea PO Q8H PRN #21 tab 09/29/17 Famotidine 20 mg PO DAILY #30 tab 09/29/17 Promethazine HCl 25 mg PO Q6H PRN #10 tab 09/29/17 Additional Instructions: the patient is a 41-year-old female presenting to the emergency room secondary to what appears to be dysmenorrhea. She is currently on one of her few periods while she has the Mirena in place. She'll be written for some Fioricet for as needed use for pain control. She'll also be written for some phenergan to control any nausea and for some Pepcid to reduce stomach acid for the next couple of weeks. She needs to keep her self hydrated and eat a bland diet. ER warnings were given for any significant worsening. She should follow up with her primary care doctor later this week. she should also hold on the Lasix until her oral intake has improved, so as to prevent dehydration.
[2017-09-29] MEDS ORDERED: KETOROLAC TROMETHAMINE INJ 30 MG/ML VIAL IM ONE (23:13)
[2017-09-29] MEDS ORDERED: KETOROLAC TROMETHAMINE INJ 30 MG/ML VIAL ONE (23:14)
[2017-09-29 23:19] VITALS: BP 108/72; TEMP 98.4
[2017-09-29] MEDS ORDERED: ACETAMINOPHEN-CAFF-BUTALBITAL 1 EA TAB PO ONE ×2 (23:20→23:34)
[2017-09-29] MEDS ORDERED: ACETAMINOPHEN-CAFF-BUTALBITAL 1 EA TAB ONE (23:35)
== END 2017-09-29 23:19 | disposition home or self-care (01) ==
LOC: ER 21:41
DX: N94.6 Dysmenorrhea, unspecified (principal); R11.2 Nausea with vomiting, unspecified; I10 Essential (primary) hypertension; R00.0 Tachycardia, unspecified; E07.9 Disorder of thyroid, unspecified; Z87.891 Personal history of nicotine dependence; Z79.899 Other long term (current) drug therapy
CPT/HCPCS: 81001; 81025; J1885; Q0169

== ENCOUNTER 2017-11-01 01:46 | Emergency (ER) | payer SELFPAY ==
[2017-11-01] MEDS ORDERED: HALOPERIDOL TAB 1 MG TAB PO ONE (02:53)
[2017-11-01] MEDS ORDERED: POTASSIUM CHLORIDE ELIXIR 20 MEQ/15 ML UD PO ONE (04:04)
[2017-11-01] MEDS ORDERED: PROMETHAZINE HCL 25 MG TAB PO ONE (04:31)
--- NOTE | 2017-11-01 04:43 | ED.PDOC ---
History of Present Illness - General Chief Complaint: Behavioral / Psych Stated Complaint: hearing voices since yesterday Time Seen by Provider: 11/01/17 02:26 Source: patient Exam Limitations: no limitations - History of Present Illness Initial Comments: the patient is a 41-year-old female presenting to emergency room secondary to 3 days of auditory hallucinations. She is hearing her boyfriend criticize her even though she knows he is not there. She is not homicidal or suicidal. She has had long-standing issues with depression and anxiety. Possibly of significant note is that she did have her Wellbutrin raised to 300 mg approximately 5 days ago. She reports that 9 months ago she had a couple of weeks which she was having visual hallucinations. These seem to have gone away on their own. The patient did have a CT scan at the very end of 2014 of her head that was essentially normal. She has been recently started in the last couple of months back on the thyroid medication. She is not having any other symptoms. Timing/Duration: other - 3 days Severity: moderate Improving Factors: nothing Worsening Factors: nothing Associated Symptoms: denies symptoms Allergies/Adverse Reactions: Allergies Ondansetron [From Zofran] Allergy (Verified 11/01/17 02:23) Sulfamethoxazole w/Trimethoprim [From Bactrim] Allergy (Verified 11/01/17 02:23) Amoxicillin [From Augmentin] Adverse Reaction (Verified 11/01/17 02:23) Clavulanic Acid [From Augmentin] Adverse Reaction (Verified 11/01/17 02:23) Home Medications: Ambulatory Orders Escitalopram Oxalate [Lexapro] 20 mg PO BEDTIME 09/29/15 Trazodone HCl 200 mg PO BEDTIME 09/29/15 Alprazolam [Alprazolam Odt] 2 mg PO TID PRN 05/14/16 BuPROPion XL [Wellbutrin XL] 300 mg PO DAILY 09/08/17 Lamotrigine [Lamictal] 75 mg PO BEDTIME 09/08/17 Levothyroxine Sodium 50 mcg PO DAILY 30 Days tab 09/08/17 Fexofenadine HCl [Yocasta Allergy] 180 mg PO DAILY 11/01/17 Fluticasone Propionate (Nasal) [Flonase] 50 mcg NA DAILY 11/01/17 Potassium Chloride [Potassium Chloride ER] 20 meq PO DAILY #30 tab 11/01/17 Tramadol HCl 50 mg PO Q4HR PRN 11/01/17 Zolpidem Tartrate [Ambien] 10 mg PO BEDTIME 11/01/17 Review of Systems - Review of Systems Constitutional: States: malaise EENTM: States: no symptoms reported Respiratory: States: no symptoms reported Cardiology: States: no symptoms reported Gastrointestinal/Abdominal: States: no symptoms reported Genitourinary: States: no symptoms reported Musculoskeletal: States: no symptoms reported Skin: States: no symptoms reported Neurological: States: anxiety, depressed Endocrine: States: no symptoms reported All other Systems: No Change from Baseline Past Medical History (General) - Patient Medical History Hx Seizures: Yes - Medical induced Hx Stroke: No Hx Dementia: No Hx Asthma: No Hx of COPD: No Hx Cardiac Disorders: Yes - tachycardia Hx Congestive Heart Failure: No Hx Pacemaker: No Hx Hypertension: Yes Hx Thyroid Disease: Yes Hx Diabetes: No Hx Gastroesophageal Reflux: No Hx Renal Disease: No Hx Cancer: No Hx of HIV: No Hx Hepatitis C: No Hx MRSA: No Surgical History: tonsillectomy - Vaccination History Hx Tetanus, Diphtheria Vaccination: Yes Hx Influenza Vaccination: Yes Hx Pneumococcal Vaccination: No - Social History Hx Tobacco Use: Yes Hx Chewing Tobacco Use: No Hx Alcohol Use: No Hx Substance Use: No Hx Substance Use Treatment: No Hx Depression: Yes Hx Physical Abuse: No Hx Emotional Abuse: No Hx Suspected Abuse: No - Female History Hx Last Menstrual Period: 03/28/15 - iud Patient : No Family Medical History - Family History Mother Family History: Unknown Living Status: Hx Family Hypertension: Yes - dad Hx Family Cancer: Yes Father Family History: Unknown Living Status: Still Living Hx Family Asthma: No Physical Exam - Physical Exam General Appearance: Alert, Anxious Eye Exam: bilateral normal Ears, Nose, Throat: hearing grossly normal, normal ENT inspection, normal pharynx Neck: full range of motion, supple, normal inspection Respiratory: lungs clear, normal breath sounds, no respiratory distress, no accessory muscle use Cardiovascular/Chest: normal peripheral pulses, regular rate, rhythm, no edema Peripheral Pulses: radial,right: 2+, radial,left: 2+, dorsalis pedis,right: 2+, dorsalis pedis,left: 2+ Gastrointestinal/Abdominal: non tender, soft Rectal Exam: deferred Back Exam: normal inspection, no CVA tenderness, no vertebral tenderness Extremity: normal range of motion, no pedal edema, normal capillary refill 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 Just prior to that she had recently gone up to a higher dose of her Wellbutrin. This may actually be the cause as higher doses of Wellbutrin have been associated with neuropsychiatric manifestations. I'm going to recommend that she reduce the dose back to around 150 mg daily. additionally the patient does have some marked hypokalemia. She received the first dose here. She is going to be placed on 20 mEq daily for the next month. She will need to have this level rechecked with her primary care doctor in a couple of weeks. I do recommend that she follow up with [facility] in the very near future and information has been given to her on that. She does have long-standing anxiety and depression that may benefit from specialized care. A head CT has not been performed as one was done just a couple of years ago, and was essentially normal. I do believe looking back at this patient's history with her constellation of atypical complaints and diagnoses, that a MRI of the brain with contrast may be worthwhile in this patient as multiple sclerosis is certainly on the differential and an MRI rather than a CT is required for further evaluation. for now, the patient is to take the potassium and reduce the Wellbutrin and see what effect that has on the auditory hallucinations. I'm not going to add any additional medication at this time. ER warnings were given for any significant worsening. Follow up with [facility] and primary care as above.additionally I do recommend that the patient hold her Ambien for the next couple of weeks as Ambien can be associated with hallucinations as well. 11/01/17 04:59 - Results/Orders Results/Orders: Laboratory Tests 11/01/17 11/01/17 11/01/17 02:51 02:51 02:52 WBC 7.9 RBC 4.39 Hgb 13.4 Hct 39.7 MCV 90.4 MCH 30.6 MCHC 33.9 RDW 13.3 Plt Count 208 MPV 9.1 Absolute Neuts (auto) 4.00 Absolute Lymphs (auto) 3.20 Absolute Monos (auto) 0.50 Absolute Eos (auto) 0.10 Absolute Basos (auto) 0.10 Neutrophils % 50.1 Lymphocytes % 40.8 Monocytes % 6.5 Eosinophils % 1.8 Basophils % 0.8 Sodium 134 L Potassium 2.7 L Chloride 91 L Carbon Dioxide 33 H Anion Gap 12.7 BUN 14 Creatinine 1.01 BUN/Creatinine Ratio 13.9 Random Glucose 97 Serum Osmolality 268.6 L Calcium 8.8 Total Bilirubin 0.5 AST 22 ALT 20 Alkaline Phosphatase 67 Creatine Kinase 301 H* CK-MB (CK-2) 2.7 CK-MB (CK-2) % Not Reportable Troponin I < 0.02 B-Natriuretic Peptide < 5.0 Serum Total Protein 7.1 Albumin 4.1 Globulin 3.0 Albumin/Globulin Ratio 1.4 TSH 3.02 Free T4 Urine Color Urine Appearance Urine pH Ur Specific Mcdav[place] Urine Protein Urine Glucose (UA) Urine Ketones Urine Blood Urine Nitrite Urine Bilirubin Urine Urobilinogen Ur Leukocyte Esterase Urine RBC Urine WBC Ur Epithelial Cells Urine Bacteria Urine HCG, Qual Urine Opiates Screen Negative Urine Barbiturates Negative Ur Phencyclidine Scrn Negative U Amphetamin/Meth Scrn Negative U Benzodiazepines Scrn Positive H U Cocaine Metab Screen Negative U Cannabinoids Screen Negative 11/01/17 11/01/17 11/01/17 02:52 02:52 02:54 WBC RBC Hgb Hct MCV MCH MCHC RDW Plt Count MPV Absolute Neuts (auto) Absolute Lymphs (auto) Absolute Monos (auto) Absolute Eos (auto) Absolute Basos (auto) Neutrophils % Lymphocytes % Monocytes % Eosinophils % Basophils % Sodium Potassium Chloride Carbon Dioxide Anion Gap BUN Creatinine BUN/Creatinine Ratio Random Glucose Serum Osmolality Calcium Total Bilirubin AST ALT Alkaline Phosphatase Creatine Kinase CK-MB (CK-2) CK-MB (CK-2) % Troponin I B-Natriuretic Peptide Serum Total Protein Albumin Globulin Albumin/Globulin Ratio TSH Free T4 1.30 H Urine Color Yellow Urine Appearance Clear Urine pH 6.0 Ur Specific Mcdav[place] 1.025 Urine Protein Negative Urine Glucose (UA) Negative Urine Ketones Negative Urine Blood Trace-lysed H Urine Nitrite Negative Urine Bilirubin Negative Urine Urobilinogen 0.2 Ur Leukocyte Esterase Negative Urine RBC 0-1 Urine WBC 1-3 Ur Epithelial Cells 3-5 Urine Bacteria 2+ H Urine HCG, Qual Negative Urine Opiates Screen Urine Barbiturates Ur Phencyclidine Scrn U Amphetamin/Meth Scrn U Benzodiazepines Scrn U Cocaine Metab Screen U Cannabinoids Screen Departure - Departure Clinical Impression: Auditory hallucinations, Hypokalemia Disposition: Discharge to Home or Self Care Condition: Fair Departure Forms: ED Discharge - Pt. Copy, Patient Portal Self Enrollment Instructions: DI for Psychosis, Hypokalemia (DC) Diet: regular diet Activity: increase activity as tolerated Referrals: DAVIDE FORRESTER,SYLVESTER Cunningham [Primary Care Provider] - 1-5 Days Prescriptions: Potassium Chloride [Potassium Chloride ER] 20 meq PO DAILY #30 tab Home Medications: Ambulatory Orders Escitalopram Oxalate [Lexapro] 20 mg PO BEDTIME 09/29/15 Trazodone HCl 200 mg PO BEDTIME 09/29/15 Alprazolam [Alprazolam Odt] 2 mg PO TID PRN 05/14/16 BuPROPion XL [Wellbutrin XL] 300 mg PO DAILY 09/08/17 Lamotrigine [Lamictal] 75 mg PO BEDTIME 09/08/17 Levothyroxine Sodium 50 mcg PO DAILY 30 Days tab 09/08/17 Fexofenadine HCl [Yocasta Allergy] 180 mg PO DAILY 11/01/17 Fluticasone Propionate (Nasal) [Flonase] 50 mcg NA DAILY 11/01/17 Potassium Chloride [Potassium Chloride ER] 20 meq PO DAILY #30 tab 11/01/17 Tramadol HCl 50 mg PO Q4HR PRN 11/01/17 Zolpidem Tartrate [Ambien] 10 mg PO BEDTIME 11/01/17 Additional Instructions: the patient is a 41-year-old female presented to the emergency room secondary to auditory hallucinations for the last 3 days. Just prior to that she had recently gone up to a higher dose of her Wellbutrin. This may actually be the cause as higher doses of Wellbutrin have been associated with neuropsychiatric manifestations. I'm going to recommend that she reduce the dose back to around 150 mg daily. similarly Ambien can cause hallucinations. I'm going to recommend that she discontinue this medication for the next couple of weeks. additionally the patient does have some marked hypokalemia. She received the first dose here. She is going to be placed on 20 mEq daily for the next month. She will need to have this level rechecked with her primary care doctor in a couple of weeks. I do recommend that she follow up with [facility] in the very near future and information has been given to her on that. She does have long- standing anxiety and depression that may benefit from specialized care. A head CT has not been performed as one was done just a couple of years ago, and was essentially normal. I do believe looking back at this patient's history with her constellation of atypical complaints and diagnoses, that a MRI of the brain with contrast may be worthwhile in this patient as multiple sclerosis is certainly on the differential and an MRI rather than a CT is required for further evaluation. for now, the patient is to take the potassium and reduce the Wellbutrin and see what effect that has on the auditory hallucinations. I' m not going to add any additional medication at this time. ER warnings were given for any significant worsening. Follow up with [facility] and primary care as above.
[2017-11-01 05:07] VITALS: BP 121/68; TEMP 98.2; O2SAT 98
== END 2017-11-01 05:24 | disposition home or self-care (01) ==
LOC: ER 01:46
DX: R44.0 Auditory hallucinations (principal); E87.6 Hypokalemia; F41.9 Anxiety disorder, unspecified; F32.9 Major depressive disorder, single episode, unspecified; I10 Essential (primary) hypertension; E07.9 Disorder of thyroid, unspecified; Z79.899 Other long term (current) drug therapy; Z87.891 Personal history of nicotine dependence; Z88.2 Allergy status to sulfonamides; Z88.0 Allergy status to penicillin; Z88.8 Allergy status to other drugs, medicaments and biological substances
CPT/HCPCS: 36415; 80053; 80307; 81001; 81025; 82550; 82553; 83880; 84439; 84443; 84484; 85025; Q0169

== ENCOUNTER 2017-11-02 22:00 | Emergency (ER) | payer SELFPAY ==
[2017-11-02] MEDS ORDERED: ONDANSETRON 4 MG TAB PO ONE (23:56)
--- NOTE | 2017-11-02 23:59 | ED.PDOC ---
History of Present Illness - General Chief Complaint: Behavioral / Psych Stated Complaint: hearing voices Time Seen by Provider: 11/02/17 23:49 Source: patient Exam Limitations: no limitations - History of Present Illness Initial Comments: Patient presents with auditory hallucinations. She says that for about 4 days she has been hearing her current boyfriend talking to her and she has been having a conversation with him, even though he is not with her. She says she knows he is not there. She denies visual hallucinations. Denies suicidal or homicidal ideation. She believes that her short term memory is being adversely affected because of anxiety and depression. She feels generalized weakness and is worried that her potassium being too low is causing that. No other complaints. Timing/Duration: other - 4 dyas Severity: moderate Improving Factors: nothing Worsening Factors: nothing Associated Symptoms: denies symptoms Allergies/Adverse Reactions: Allergies Ondansetron [From Zofran] Allergy (Verified 11/01/17 02:23) Sulfamethoxazole w/Trimethoprim [From Bactrim] Allergy (Verified 11/01/17 02:23) Amoxicillin [From Augmentin] Adverse Reaction (Verified 11/01/17 02:23) Clavulanic Acid [From Augmentin] Adverse Reaction (Verified 11/01/17 02:23) Home Medications: Ambulatory Orders Escitalopram Oxalate [Lexapro] 20 mg PO BEDTIME 09/29/15 Trazodone HCl 200 mg PO BEDTIME 09/29/15 Alprazolam [Alprazolam Odt] 2 mg PO TID PRN 05/14/16 BuPROPion XL [Wellbutrin XL] 300 mg PO DAILY 09/08/17 Lamotrigine [Lamictal] 75 mg PO BEDTIME 09/08/17 Levothyroxine Sodium 50 mcg PO DAILY 30 Days tab 09/08/17 Fexofenadine HCl [Yocasta Allergy] 180 mg PO DAILY 11/01/17 Fluticasone Propionate (Nasal) [Flonase] 50 mcg NA DAILY 11/01/17 Potassium Chloride [Potassium Chloride ER] 20 meq PO DAILY #30 tab 11/01/17 Tramadol HCl 50 mg PO Q4HR PRN 11/01/17 Zolpidem Tartrate [Ambien] 10 mg PO BEDTIME 11/01/17 Review of Systems - Review of Systems Constitutional: States: no symptoms reported EENTM: States: no symptoms reported Respiratory: States: no symptoms reported Cardiology: States: no symptoms reported Gastrointestinal/Abdominal: States: no symptoms reported Genitourinary: States: no symptoms reported Musculoskeletal: States: no symptoms reported Skin: States: no symptoms reported Neurological: States: see HPI, anxiety, depressed Endocrine: States: no symptoms reported Past Medical History (General) - Patient Medical History Hx Seizures: Yes - Medical induced Hx Stroke: No Hx Dementia: No Hx Asthma: No Hx of COPD: No Hx Cardiac Disorders: Yes - tachycardia Hx Congestive Heart Failure: No Hx Pacemaker: No Hx Hypertension: Yes Hx Thyroid Disease: Yes Hx Diabetes: No Hx Gastroesophageal Reflux: No Hx Renal Disease: No Hx Cancer: No Hx of HIV: No Hx Hepatitis C: No Hx MRSA: No - Vaccination History Hx Tetanus, Diphtheria Vaccination: Yes Hx Influenza Vaccination: Yes Hx Pneumococcal Vaccination: No - Social History Hx Tobacco Use: Yes Hx Chewing Tobacco Use: No Hx Alcohol Use: No Hx Substance Use: No Hx Substance Use Treatment: No Hx Depression: Yes Hx Physical Abuse: No Hx Emotional Abuse: No Hx Suspected Abuse: No - Female History Patient is a Female of Child Bearing Age (10 -59 yrs old): Yes Hx Last Menstrual Period: 03/28/15 - iud Patient : No - Triage Comment ED Triage Comment: Still hearing voices. Still nauseated and tired Family Medical History - Family History Mother Family History: Unknown Living Status: Hx Family Hypertension: Yes - dad Hx Family Cancer: Yes Father Family History: Unknown Living Status: Still Living Hx Family Asthma: No Physical Exam - Physical Exam General Appearance: Alert Eye Exam: bilateral normal Ears, Nose, Throat: normal ENT inspection Neck: non-tender, full range of motion, supple Respiratory: chest non-tender, lungs clear, normal breath sounds Cardiovascular/Chest: normal peripheral pulses, regular rate, rhythm, no edema Gastrointestinal/Abdominal: normal bowel sounds, non tender, soft Back Exam: normal inspection, no CVA tenderness Extremity: normal range of motion, non-tender 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 She was given potassium chlorided 40 meq po x one. She agreed to keep her follow up appointment with her general practitioner in [facility]. E.R. warnings given. Questions were elicited and answered. Patient voiced understanding and agreement with the plan. Laboratory Tests 11/02/17 11/02/17 11/02/17 23:55 23:55 23:56 WBC 7.9 RBC 4.45 Hgb 13.4 Hct 41.0 MCV 92.0 MCH 30.1 MCHC 32.7 L RDW 13.4 Plt Count 190 MPV 8.6 Absolute Neuts (auto) 4.00 Absolute Lymphs (auto) 3.10 Absolute Monos (auto) 0.50 Absolute Eos (auto) 0.20 Absolute Basos (auto) 0.10 Neutrophils % 50.3 Lymphocytes % 39.8 Monocytes % 6.9 Eosinophils % 1.9 Basophils % 1.1 Sodium 135 Potassium 3.0 L Chloride 96 L Carbon Dioxide 29 Anion Gap 13.0 BUN 9 Creatinine 0.81 BUN/Creatinine Ratio 11.1 Random Glucose 86 Serum Osmolality 268.1 L Calcium 8.9 Total Bilirubin 0.2 D AST 22 ALT 25 Alkaline Phosphatase 61 Serum Total Protein 6.8 Albumin 3.7 Globulin 3.1 Albumin/Globulin Ratio 1.2 TSH Thyroxine (T4) Urine Color Urine Appearance Urine pH Ur Specific Brimson Urine Protein Urine Glucose (UA) Urine Ketones Urine Blood Urine Nitrite Urine Bilirubin Urine Urobilinogen Ur Leukocyte Esterase Urine RBC Urine WBC Ur Epithelial Cells Urine Bacteria Urine Opiates Screen Negative Urine Barbiturates Negative Ur Phencyclidine Scrn Negative U Amphetamin/Meth Scrn Negative U Benzodiazepines Scrn Positive H U Cocaine Metab Screen Negative U Cannabinoids Screen Negative 11/02/17 11/03/17 23:56 00:18 WBC RBC Hgb Hct MCV MCH MCHC RDW Plt Count MPV Absolute Neuts (auto) Absolute Lymphs (auto) Absolute Monos (auto) Absolute Eos (auto) Absolute Basos (auto) Neutrophils % Lymphocytes % Monocytes % Eosinophils % Basophils % Sodium Potassium Chloride Carbon Dioxide Anion Gap BUN Creatinine BUN/Creatinine Ratio Random Glucose Serum Osmolality Calcium Total Bilirubin AST ALT Alkaline Phosphatase Serum Total Protein Albumin Globulin Albumin/Globulin Ratio TSH 1.59 Thyroxine (T4) 12.63 H Urine Color Yellow Urine Appearance Clear Urine pH 6.0 Ur Specific Brimson 1.025 Urine Protein Negative Urine Glucose (UA) Negative Urine Ketones Negative Urine Blood Negative Urine Nitrite Negative Urine Bilirubin Negative Urine Urobilinogen 0.2 Ur Leukocyte Esterase Negative Urine RBC 0 Urine WBC 0 Ur Epithelial Cells 0 Urine Bacteria 0 Urine Opiates Screen Urine Barbiturates Ur Phencyclidine Scrn U Amphetamin/Meth Scrn U Benzodiazepines Scrn U Cocaine Metab Screen U Cannabinoids Screen Departure - Departure Clinical Impression: Auditory hallucinations Disposition: Discharge to Home or Self Care Condition: Fair Departure Forms: ED Discharge - Pt. Copy, Patient Portal Self Enrollment Instructions: DI for Psychosis Diet: resume usual diet Activity: increase activity as tolerated Referrals: DAVIDE FORRESTER,SYLEVSTER Cunningham [Primary Care Provider] - 1-2 Weeks Home Medications: Ambulatory Orders Escitalopram Oxalate [Lexapro] 20 mg PO BEDTIME 09/29/15 Trazodone HCl 200 mg PO BEDTIME 09/29/15 Alprazolam [Alprazolam Odt] 2 mg PO TID PRN 05/14/16 BuPROPion XL [Wellbutrin XL] 300 mg PO DAILY 09/08/17 Lamotrigine [Lamictal] 75 mg PO BEDTIME 09/08/17 Levothyroxine Sodium 50 mcg PO DAILY 30 Days tab 09/08/17 Fexofenadine HCl [Yocasta Allergy] 180 mg PO DAILY 11/01/17 Fluticasone Propionate (Nasal) [Flonase] 50 mcg NA DAILY 11/01/17 Potassium Chloride [Potassium Chloride ER] 20 meq PO DAILY #30 tab 11/01/17 Tramadol HCl 50 mg PO Q4HR PRN 11/01/17 Zolpidem Tartrate [Ambien] 10 mg PO BEDTIME 11/01/17 Additional Instructions: Keep your scheduled follow up appointment. Routine refills of prescription medications are not given from the E.R. Timely follow up with your primary doctor is encouraged.
[2017-11-03] MEDS ORDERED: PROMETHAZINE HCL 25 MG TAB PO ONE (00:14)
[2017-11-03] MEDS ORDERED: ALPRAZolam 0.25 MG TAB PO ONE (00:47)
[2017-11-03] MEDS ORDERED: POTASSIUM CHLORIDE 20 MEQ TAB PO ONE (01:20)
[2017-11-03 02:02] VITALS: BP 124/72; TEMP 97.5; O2SAT 97
== END 2017-11-03 02:02 | disposition home or self-care (01) ==
LOC: ER 22:00
DX: R44.0 Auditory hallucinations (principal); R11.0 Nausea; F32.9 Major depressive disorder, single episode, unspecified; I10 Essential (primary) hypertension; E07.9 Disorder of thyroid, unspecified; Z79.899 Other long term (current) drug therapy; Z87.891 Personal history of nicotine dependence; Z88.8 Allergy status to other drugs, medicaments and biological substances; Z88.1 Allergy status to other antibiotic agents
CPT/HCPCS: 80053; 80307; 81001; 84436; 84443; 85025; Q0169

== ENCOUNTER 2017-11-06 08:47 | Emergency (ER) | payer SELFPAY ==
[2017-11-06 09:08] VITALS: TEMP 100.6; O2SAT 99
[2017-11-06] MEDS ORDERED: traMADol HCL 50 MG TAB PO ONE (09:19)
[2017-11-06] MEDS ORDERED: CHLORHEXIDINE GLUCONATE 4 % 15 ML UD TOP ONE (09:22)
[2017-11-06] MEDS ORDERED: NEOMYCIN-BACITRACIN-POLYMYXIN 0.9 GM UD TOP ONE (09:22)
--- NOTE | 2017-11-06 09:40 | RAD ---
PROCEDURE: XR Left Knee, 2 views CLINICAL INDICATION: The patient is 41 years old and is Female; fall TECHNIQUE: Frontal and lateral views of the left knee. COMPARISON: No relevant prior studies available. FINDINGS: BONES/JOINTS: Unremarkable .No acute fracture noted. No dislocation. Joint spaces maintained. No suprapatellar knee effusion. SOFT TISSUES: Unremarkable .No radiopaque foreign body. No significant soft tissue swelling noted. IMPRESSION: Normal left knee x-rays. Electronically signed by: Keith Cook MD 11/06/2017 9:39 AM CDT
--- NOTE | 2017-11-06 09:42 | RAD ---
PROCEDURE: XR Left Wrist Complete, 3 or More Views CLINICAL INDICATION: The patient is 41 years old and is Female; fall TECHNIQUE: PA, oblique and lateral radiographs of the LEFT wrist were performed without prior studies submitted for comparison. COMPARISON: No relevant prior studies available. FINDINGS: BONES/JOINTS: There is NO fracture or dislocation in the LEFT wrist. There is neutral ulnar variance. The scapholunate distance is intact. The scaphoid is intact. The joint spaces are maintained. SOFT TISSUES: There is NO radiopaque foreign body. There is no soft tissue swelling. IMPRESSION: There is NO fracture or dislocation in the LEFT wrist. Electronically signed by: Keith Cook MD 11/06/2017 9:40 AM CDT
--- NOTE | 2017-11-06 09:54 | ED.PDOC ---
History of Present Illness - General Chief Complaint: Lower Extremity Injury Stated Complaint: knee pain Time Seen by Provider: 11/06/17 09:19 Source: patient, Vital Signs reviewed Exam Limitations: no limitations - History of Present Illness Initial Comments: Says she slipped in the mud & fell on her knee & wrist early this morning. Denies any other injuries. Occurred: this morning Pain - Lower Extremity: severe: Left Knee Method of Injury: fell Improving Factors: rest Worsening Factors: movement Associated Symptoms: none Allergies/Adverse Reactions: Allergies Ondansetron [From Zofran] Allergy (Verified 11/01/17 02:23) Sulfamethoxazole w/Trimethoprim [From Bactrim] Allergy (Verified 11/01/17 02:23) Amoxicillin [From Augmentin] Adverse Reaction (Verified 11/01/17 02:23) Clavulanic Acid [From Augmentin] Adverse Reaction (Verified 11/01/17 02:23) Home Medications: Ambulatory Orders Escitalopram Oxalate [Lexapro] 20 mg PO BEDTIME 09/29/15 Trazodone HCl 200 mg PO BEDTIME 09/29/15 Alprazolam [Alprazolam Odt] 2 mg PO TID PRN 05/14/16 BuPROPion XL [Wellbutrin XL] 300 mg PO DAILY 09/08/17 Lamotrigine [Lamictal] 75 mg PO BEDTIME 09/08/17 Levothyroxine Sodium 50 mcg PO DAILY 30 Days tab 09/08/17 Fexofenadine HCl [Yocasta Allergy] 180 mg PO DAILY 11/01/17 Fluticasone Propionate (Nasal) [Flonase] 50 mcg NA DAILY 11/01/17 Potassium Chloride [Potassium Chloride ER] 20 meq PO DAILY #30 tab 11/01/17 Acetaminophen W/ Codeine [Tylenol W/ CODEINE #3] 1 ea PO Q8HRS PRN 5 Days #15 11/06/17 Review of Systems - Review of Systems Constitutional: States: fever - has had recurrent fevers for over a week but without any infectious symptoms EENTM: States: no symptoms reported Respiratory: States: no symptoms reported Cardiology: States: no symptoms reported Gastrointestinal/Abdominal: States: no symptoms reported Genitourinary: States: no symptoms reported Musculoskeletal: States: see HPI. Denies: back pain, neck pain Skin: States: no symptoms reported, see HPI Neurological: States: no symptoms reported Past Medical History (General) - Patient Medical History Hx Seizures: Yes - Medical induced Hx Stroke: No Hx Dementia: No Hx Asthma: No Hx of COPD: No Hx Cardiac Disorders: Yes - tachycardia Hx Congestive Heart Failure: No Hx Pacemaker: No Hx Hypertension: Yes Hx Thyroid Disease: Yes Hx Diabetes: No Hx Gastroesophageal Reflux: No Hx Renal Disease: No Hx Cancer: No Hx of HIV: No Hx Hepatitis C: No Hx MRSA: No Surgical History: cholecystectomy, tonsillectomy - Vaccination History Hx Tetanus, Diphtheria Vaccination: Yes Hx Influenza Vaccination: No Hx Pneumococcal Vaccination: No - Social History Hx Tobacco Use: Yes Hx Chewing Tobacco Use: No Hx Alcohol Use: No Hx Substance Use: No Hx Substance Use Treatment: No Hx Depression: Yes Hx Physical Abuse: No Hx Emotional Abuse: No Hx Suspected Abuse: No - Female History Patient is a Female of Child Bearing Age (10 -59 yrs old): Yes Hx Last Menstrual Period: 03/28/15 - iud Patient : No Family Medical History - Family History Mother Family History: Unknown Living Status: Hx Family Hypertension: Yes - dad Hx Family Cancer: Yes Father Family History: Unknown Living Status: Still Living Hx Family Asthma: No Physical Exam - Physical Exam General Appearance: Alert, Anxious, No apparent distress, Other - mild pain over the region of the left radial head but no swelling; has a full ROM Neck: full range of motion, supple, normal inspection Cardiovascular/Respiratory: no respiratory distress Thigh/Hip: normal inspection, no evidence of injury, normal ROM Leg: normal inspection, non-tender, no evidence of injury, normal ROM Knee: abrasions, bone tenderness, limited ROM - limited ROM due to pain yet able to stand & support weight fully, pain, soft tissue tenderness Ankle: normal inspection, non-tender, no evidence of injury, normal ROM Foot: normal inspection, non-tender, no evidence of injury, normal ROM Neuro/Tendon: normal sensation, normal motor functions, normal tendon functions , responds to pain, no evidence tendon injury Mental Status: alert, oriented x 3 Skin: normal color, warm/dry Progress - Progress Progress: 11/07/17 02:50 Her injuries appeared minor & she was able to walk with a slight limp at the time of discharge. Crutches were not felt to be necessary. She received wound care for her abrasion. 11/07/17 02:52 Her tetanus was current. 11/07/17 02:52 She reported that tramadol never helps her pain. She was instructed to f/u with her PCP on Wednesday if her fevers persisted & within 7-10 days if her injury symptoms persisted. - EKG/XRAY/CT XRAY: knee - knee = nml; left wrist = nml Departure - Departure Clinical Impression: Abrasion Contusion of knee, left Qualifiers: Encounter type: initial encounter Qualified Code(s): S80.02XA - Contusion of left knee, initial encounter Sprain of wrist, left Qualifiers: Encounter type: initial encounter Qualified Code(s): S63.502A - Unspecified sprain of left wrist, initial encounter Time of Disposition: 09:54 Disposition: Discharge to Home or Self Care Condition: Good Departure Forms: ED Discharge - Pt. Copy, Patient Portal Self Enrollment Instructions: DI for Knee Pain, Skin Abrasions (DC) Activity: increase activity as tolerated, no exercise, walking as tolerated Referrals: DAVIDE FORRESTER,SYLVESTER Cunningham [Primary Care Provider] - 11/08/17 Prescriptions: Acetaminophen W/ Codeine [Tylenol W/ CODEINE #3] 1 ea PO Q8HRS PRN 5 Days #15 PRN Reason: Moderate Pain Home Medications: Ambulatory Orders Escitalopram Oxalate [Lexapro] 20 mg PO BEDTIME 09/29/15 Trazodone HCl 200 mg PO BEDTIME 09/29/15 Alprazolam [Alprazolam Odt] 2 mg PO TID PRN 05/14/16 BuPROPion XL [Wellbutrin XL] 300 mg PO DAILY 09/08/17 Lamotrigine [Lamictal] 75 mg PO BEDTIME 09/08/17 Levothyroxine Sodium 50 mcg PO DAILY 30 Days tab 09/08/17 Fexofenadine HCl [Yocasta Allergy] 180 mg PO DAILY 11/01/17 Fluticasone Propionate (Nasal) [Flonase] 50 mcg NA DAILY 11/01/17 Potassium Chloride [Potassium Chloride ER] 20 meq PO DAILY #30 tab 11/01/17 Acetaminophen W/ Codeine [Tylenol W/ CODEINE #3] 1 ea PO Q8HRS PRN 5 Days #15 11/06/17
[2017-11-06 10:04] VITALS: BP 130/75
== END 2017-11-06 10:04 | disposition home or self-care (01) ==
LOC: ER 08:47
DX: S63.502A Unspecified sprain of left wrist, initial encounter (principal); S80.812A Abrasion, left lower leg, initial encounter; F32.9 Major depressive disorder, single episode, unspecified; I10 Essential (primary) hypertension; E07.9 Disorder of thyroid, unspecified; W01.0XXA Fall on same level from slipping, tripping and stumbling without subsequent striking against object, initial encounter; Z87.891 Personal history of nicotine dependence; Z79.899 Other long term (current) drug therapy; Z88.8 Allergy status to other drugs, medicaments and biological substances; Z88.2 Allergy status to sulfonamides; Z88.1 Allergy status to other antibiotic agents; Y92.9 Unspecified place or not applicable

== ENCOUNTER 2017-11-12 15:28 | Inpatient (IN) | payer SELFPAY ==
[2017-11-12] MEDS ORDERED: LACTATED RINGERS 1,000 ML IVS ONE (15:56)
--- NOTE | 2017-11-12 15:59 | ED.PDOC ---
History of Present Illness - General Chief Complaint: General Stated Complaint: Anxiety, knee pain Time Seen by Provider: 11/12/17 15:53 Source: patient Exam Limitations: no limitations - History of Present Illness Initial Comments: Arleen Moncada 41 y/o female stated that for the last 3 days had been having feeling of chest heaviness ,cant catch her breath stating she had history of panic attacks in the past.Had been to [facility] in the past for suicidal ideation and detox from prescription pain medications([place]).Denies suicidal ideation at this time. Timing/Duration: other - 3 days Severity: moderate Improving Factors: nothing Worsening Factors: nothing Associated Symptoms: other - see hpi Allergies/Adverse Reactions: Allergies Ondansetron [From Zofran] Allergy (Verified 11/12/17 15:51) Sulfamethoxazole w/Trimethoprim [From Bactrim] Allergy (Verified 11/12/17 15:51) Amoxicillin [From Augmentin] Adverse Reaction (Verified 11/12/17 15:51) Clavulanic Acid [From Augmentin] Adverse Reaction (Verified 11/12/17 15:51) Home Medications: Ambulatory Orders Escitalopram Oxalate [Lexapro] 20 mg PO BEDTIME 09/29/15 Trazodone HCl 200 mg PO BEDTIME 09/29/15 Alprazolam [Alprazolam Odt] 2 mg PO TID PRN 05/14/16 BuPROPion XL [Wellbutrin XL] 300 mg PO DAILY 09/08/17 Lamotrigine [Lamictal] 75 mg PO BEDTIME 09/08/17 Levothyroxine Sodium 50 mcg PO DAILY 30 Days tab 09/08/17 Fexofenadine HCl [Yocasta Allergy] 180 mg PO DAILY 11/01/17 Fluticasone Propionate (Nasal) [Flonase] 50 mcg NA DAILY 11/01/17 Potassium Chloride [Potassium Chloride ER] 20 meq PO DAILY #30 tab 11/01/17 Acetaminophen W/ Codeine [Tylenol W/ CODEINE #3] 1 ea PO Q8HRS PRN 5 Days #15 11/06/17 Review of Systems - Review of Systems Constitutional: States: no symptoms reported EENTM: States: no symptoms reported Respiratory: States: no symptoms reported Cardiology: States: see HPI Gastrointestinal/Abdominal: States: no symptoms reported Genitourinary: States: no symptoms reported Musculoskeletal: States: no symptoms reported Skin: States: no symptoms reported Neurological: States: see HPI, anxiety, emotional problems Past Medical History (General) - Patient Medical History Hx Seizures: Yes - Medical induced Hx Stroke: No Hx Dementia: No Hx Asthma: No Hx of COPD: No Hx Cardiac Disorders: Yes - tachycardia Hx Congestive Heart Failure: No Hx Pacemaker: No Hx Hypertension: Yes Hx Thyroid Disease: Yes Hx Diabetes: No Hx Gastroesophageal Reflux: No Hx Renal Disease: No Hx Cancer: No Hx of HIV: No Hx Hepatitis C: No Hx MRSA: No Surgical History: cholecystectomy, tonsillectomy, other - breast reduction - Vaccination History Hx Tetanus, Diphtheria Vaccination: Yes Hx Influenza Vaccination: No Hx Pneumococcal Vaccination: No - Social History Hx Tobacco Use: Yes Hx Chewing Tobacco Use: No Hx Alcohol Use: Yes Hx Substance Use: Yes - norco Hx Substance Use Treatment: Yes - yes 2 years ago [facility] as mentioned by patient Hx Depression: Yes Hx Physical Abuse: No Hx Emotional Abuse: No Hx Suspected Abuse: No - Female History Patient is a Female of Child Bearing Age (10 -59 yrs old): Yes - Uses IUD Hx Last Menstrual Period: 03/28/15 - iud Patient : No Family Medical History - Family History Mother Family History: Unknown Living Status: Still Living Hx Family Hypertension: Yes - dad Hx Family Cancer: Yes Father Family History: Unknown Living Status: Still Living Hx Family Asthma: No Hx Family Hypertension: Yes Physical Exam - Physical Exam General Appearance: Alert, Anxious, Comfortable, No apparent distress Eye Exam: bilateral normal Ears, Nose, Throat: hearing grossly normal, normal ENT inspection, normal pharynx Neck: non-tender, full range of motion, supple, normal inspection Respiratory: chest non-tender, lungs clear, normal breath sounds, no respiratory distress Cardiovascular/Chest: normal peripheral pulses, regular rate, rhythm, no murmur Peripheral Pulses: radial,right: 2+, radial,left: 2+ Gastrointestinal/Abdominal: normal bowel sounds, non tender, soft, no organomegaly Back Exam: no CVA tenderness, no vertebral tenderness Extremity: no pedal edema, no calf tenderness Neurologic: alert, oriented x 3 Skin Exam: normal color, warm/dry Progress - Progress Progress: 11/12/17 16:10 11/12/17 15:54 IV Care:Saline Lock per Protoc QSHIFT CARDIAC ENZYME GROUP Stat COMPLETE METABOLIC PROFILE Stat URINE DRUG SCREEN, 7 ASSAY Stat D-DIMER,QUANTITATIVE Stat CBC (AUTOMATED) W/AUTO DIFF Stat URINALYSIS Stat 11/12/17 15:55 EKG Assessment DAILY Chest,1 View [RAD] Stat 11/12/17 15:56 Lactated Ringers [Lr] 1,000 ml IVS ONCE EKG Assessment ONCE 11/12/17 16:00 EKG STAT Knee,Left 2 or More Views [RAD] Stat 11/12/17 16:11 Vital Signs - 24 hr 11/12/17 15:35 Temperature 97.8 F Pulse Rate [L 108 H toe] Respiratory 20 Rate Blood Pressure 113/68 [Left Arm] O2 Sat by Pulse 97 Oximetry - Results/Orders Results/Orders: 11/12/17 15:54 IV Care:Saline Lock per Protoc QSHIFT 11/12/17 16:00 EKG STAT 11/12/17 16:25 URINE CULTURE W/COLONY COUNT Stat 11/12/17 18:27 FACTOR V (LEIDEN) MUTATION Routine PROTEIN C, ANTIGEN Routine PROTEIN S, ANTIGEN Routine 11/12/17 18:29 Abdoment/Pelvis w/o Contrast [CT] Stat Laboratory Results - last 24 hr 11/12/17 11/12/17 11/12/17 15:54 16:24 16:24 WBC 9.1 RBC 4.89 Hgb 14.8 Hct 43.9 MCV 89.6 MCH 30.2 MCHC 33.8 RDW 13.2 Plt Count 230 MPV 8.9 Absolute Neuts (auto) 7.10 H Absolute Lymphs (auto) 1.60 Absolute Monos (auto) 0.30 Absolute Eos (auto) 0.00 Absolute Basos (auto) 0.10 Neutrophils % 77.7 Lymphocytes % 17.7 L Monocytes % 3.7 Eosinophils % 0.2 L Basophils % 0.7 D-Dimer, Quantitative Sodium 136 Potassium 4.0 Chloride 100 L Carbon Dioxide 24 Anion Gap 16.0 BUN 11 Creatinine 0.88 BUN/Creatinine Ratio 12.5 Random Glucose 90 Serum Osmolality 270.9 L Calcium 9.2 Total Bilirubin 0.7 AST 20 ALT 17 Alkaline Phosphatase 66 Creatine Kinase 94 CK-MB (CK-2) 0.8 CK-MB (CK-2) % Not Reportable Troponin I < 0.02 Serum Total Protein 7.7 Albumin 4.2 Globulin 3.5 Albumin/Globulin Ratio 1.2 TSH Urine Color Urine Appearance Urine pH Ur Specific [place] Urine Protein Urine Glucose (UA) Urine Ketones Urine Blood Urine Nitrite Urine Bilirubin Urine Urobilinogen Ur Leukocyte Esterase Urine RBC Urine WBC Ur Epithelial Cells Amorphous Sediment Urine Bacteria Urine Opiates Screen Negative Urine Barbiturates Negative Ur Phencyclidine Scrn Negative U Amphetamin/Meth Scrn Negative U Benzodiazepines Scrn Negative U Cocaine Metab Screen Negative U Cannabinoids Screen Negative 11/12/17 11/12/17 11/12/17 16:24 16:24 16:25 WBC RBC Hgb Hct MCV MCH MCHC RDW Plt Count MPV Absolute Neuts (auto) Absolute Lymphs (auto) Absolute Monos (auto) Absolute Eos (auto) Absolute Basos (auto) Neutrophils % Lymphocytes % Monocytes % Eosinophils % Basophils % D-Dimer, Quantitative 0.67 H* Sodium Potassium Chloride Carbon Dioxide Anion Gap BUN Creatinine BUN/Creatinine Ratio Random Glucose Serum Osmolality Calcium Total Bilirubin AST ALT Alkaline Phosphatase Creatine Kinase CK-MB (CK-2) CK-MB (CK-2) % Troponin I Serum Total Protein Albumin Globulin Albumin/Globulin Ratio TSH 1.68 Urine Color Yellow Urine Appearance Sl cloudy Urine pH 7.0 Ur Specific [place] 1.015 Urine Protein Negative Urine Glucose (UA) Negative Urine Ketones 80 H Urine Blood Small H Urine Nitrite Negative Urine Bilirubin Small H Urine Urobilinogen 0.2 Ur Leukocyte Esterase Small H Urine RBC 1-3 Urine WBC 1-3 Ur Epithelial Cells 3-5 Amorphous Sediment 1+ Urine Bacteria 1+ Urine Opiates Screen Urine Barbiturates Ur Phencyclidine Scrn U Amphetamin/Meth Scrn U Benzodiazepines Scrn U Cocaine Metab Screen U Cannabinoids Screen - EKG/XRAY/CT EKG: Sinus, nonspecific ST T wave Chg - anterolateral leads Comments: HR-89;LAE Departure - Departure Clinical Impression: Pulmonary embolus, right, Chest discomfort Time of Disposition: 18:34 Disposition: Admit Patient Condition: Fair Departure Forms: Patient Portal Self Enrollment Referrals: DAVIDE FORRESTER,SYLVESTER Cunningham [Primary Care Provider] - 1-2 Weeks Home Medications: Ambulatory Orders Escitalopram Oxalate [Lexapro] 20 mg PO BEDTIME 09/29/15 Trazodone HCl 200 mg PO BEDTIME 09/29/15 Alprazolam [Alprazolam Odt] 2 mg PO TID PRN 05/14/16 BuPROPion XL [Wellbutrin XL] 300 mg PO DAILY 09/08/17 Lamotrigine [Lamictal] 75 mg PO BEDTIME 09/08/17 Levothyroxine Sodium 50 mcg PO DAILY 30 Days tab 09/08/17 Fexofenadine HCl [Yocasta Allergy] 180 mg PO DAILY 11/01/17 Fluticasone Propionate (Nasal) [Flonase] 50 mcg NA DAILY 11/01/17 Potassium Chloride [Potassium Chloride ER] 20 meq PO DAILY #30 tab 11/01/17 Acetaminophen W/ Codeine [Tylenol W/ CODEINE #3] 1 ea PO Q8HRS PRN 5 Days #15 11/06/17 Decision To Admit - Decistion To Admit Decision to Admit Reason: Admit from ER Decision to Admit Date: 11/12/17 - D/W Yanci Rinaldi-ANP/Hospitalist Decision to Admit Time: 18:33
[2017-11-12] MEDS ORDERED: ASPIRIN (CHEWABLE) 81 MG TAB PO ONE (16:20)
--- NOTE | 2017-11-12 16:31 | RAD ---
EXAM DESCRIPTION: Chest,1 View CLINICAL HISTORY: 41 years Female, chest discomfort COMPARISON: September 08, 2017. TECHNIQUE: AP radiograph of the chest was obtained. FINDINGS: Trachea is midline.The cardiomediastinal silhouette is normal in size. The pulmonary vasculature is within normal limits.The lungs are clear with no acute consolidation.No evidence of pleural effusions. IMPRESSION: No acute cardiopulmonary process. Electronically signed by: Ac Sibley MD 11/12/2017 4:30 PM CDT
--- NOTE | 2017-11-12 16:32 | RAD ---
EXAM DESCRIPTION: Knee,Left 2 or More Views CLINICAL HISTORY: 41 years Female, pain/fell TECHNIQUE: 2 views of the left knee were performed. COMPARISON: None available. FINDINGS: The visualized bones appear well mineralized. No acute fracture or dislocation. No evidence of suprapatellar joint effusion. Mild medial tibiofemoral joint space narrowing is noted. The soft tissues appear grossly unremarkable. IMPRESSION: Mild medial tibiofemoral joint space narrowing of the left knee. Electronically signed by: Ac Sibley MD 11/12/2017 4:30 PM CDT
--- NOTE | 2017-11-12 17:49 | CT ---
PROCEDURE: CTA Chest CLINICAL HISTORY: 41 years Female chest heaviness/elevated d-dimer COMPARISON: None. TECHNIQUE: Contiguous axial images were obtained through the chest during the infusion of IV contrast. Reformatted images obtained. MIP reformatted images obtained. This exam was performed according to our department optimization program which includes automated exposure control, adjustment of the mA and/or kv according to patient size and/or use of iterative reconstruction technique. FINDINGS: Gallbladder is surgically absent. There is a small hiatal hernia. Mildly enlarged axillary lymph nodes are seen on the left. There are filling defects consistent with pulmonary emboli and numerous proximal branches of the right pulmonary arteries. No saddle embolus at the main pulmonary arterial trunk. No definite left pulmonary emboli. There are a few small possible pulmonary emboli in the proximal branches of the left pulmonary artery as well. Streak artifact limits detail on the left. The lungs are clear. No pneumothorax is seen. Heart size is normal. No pleural effusions. No evidence of aortic aneurysm. No other significant abnormality. IMPRESSION: There are definite multiple pulmonary emboli in branches of the right pulmonary arteries and possible pulmonary emboli in a few branches of the left pulmonary arteries. Otherwise essentially unremarkable. And contacting the ordering clinician now. Electronically signed by: Jacoby Mckeon 11/12/2017 5:47 PM CDT
--- NOTE | 2017-11-12 19:10 | CT ---
CT ABDOMEN PELVIS WITHOUT IV CONTRAST Exam date: 11/12/2017 6:29 PM CDT Comparison: CT abdomen pelvis May 07, 2014 Indication: Pulmonary embolus Technique: Multiple helical axial images were obtained through the abdomen and pelvis without intravenous contrast. Sagittal and coronal reformatted images are reviewed as well. All CT scans at this facility use dose modulation, iterative reconstruction, and/or weight-based dosing when appropriate to reduce radiation dose to as low as reasonably achievable. Findings: Lung bases: Unremarkable. Liver: Homogenous attenuation is demonstrated. Gallbladder/biliary: Gallbladder is surgically absent. No evidence of biliary ductal dilatation. Pancreas: Unremarkable. Spleen: Unremarkable. Adrenals: Unremarkable. Kidneys and ureters: Contrast is present in the renal collecting systems and bladder from prior study. No hydronephrosis. Bladder: Unremarkable. Pelvic organs: IUD device is present. Bowel: No evidence of bowel obstruction. No bowel wall thickening. Appendix appears unremarkable. Peritoneum: No free air. No significant free fluid. Lymph nodes: Unremarkable. Vasculature: Unremarkable. Soft tissues: Unremarkable. Bones: Unremarkable. Impression: No obvious acute process within the abdomen or pelvis. Electronically signed by: Jaya Hernandez MD 11/12/2017 7:08 PM CDT
[2017-11-12] MEDS ORDERED: ACETAMINOPHEN 325 MG TAB PO PRN (20:21)
[2017-11-12] MEDS ORDERED: SODIUM CHLORIDE 0.9% (FLUSH) 10 ML SYG IV PRN (20:21)
[2017-11-12 20:22] VITALS: O2SAT 96
[2017-11-12] MEDS ORDERED: PANTOPRAZOLE SODIUM IV 40 MG VIAL IV SCH (20:30)
[2017-11-12] MEDS ORDERED: IV SET AND CAP CHANGE INJ INJ SCH (20:30)
[2017-11-12] MEDS ORDERED: ENOXAPARIN SODIUM 80 MG/0.8 ML SYG SUBCU ONE (20:49)
[2017-11-12] MEDS ORDERED: ESCITALOPRAM 10 MG TAB ONE (20:50)
[2017-11-12] MEDS: RIVAROXABAN 15 MG TAB PO SCH (20:53)
[2017-11-12] MEDS ORDERED: NON-FORMULARY MEDICATION 1 EA MIS (Escitalopram Oxalate [Lexapro] 20 MG) PO SCH (21:00)
[2017-11-12] MEDS ORDERED: traZODone HCL 100 MG TAB PO SCH (21:00)
[2017-11-12] MEDS ORDERED: lamoTRIgine 25 MG TAB PO SCH (21:00)
[2017-11-12] MEDS ORDERED: SODIUM CHLORIDE 0.9% (FLUSH) 10 ML SYG IV SCH (21:00)
[2017-11-12] MEDS ORDERED: ZOLPIDEM TARTRATE 10 MG TAB PO SCH (21:00)
--- NOTE | 2017-11-13 07:29 | RAD ---
EXAM DESCRIPTION: Chest,2 Views CLINICAL HISTORY:41 years Female, pe Comparison: None FINDINGS: No focal lung consolidation. No pleural effusion. No pneumothorax. Cardiac and mediastinal silhouette is unremarkable. No acute osseous abnormality. Soft tissues are unremarkable. IMPRESSION: No acute findings. No focal lung consolidation. Electronically signed by: Kb Segura DO 11/13/2017 7:28 AM CDT
[2017-11-13] MEDS ORDERED: ENOXAPARIN SODIUM 80 MG/0.8 ML SYG SUBCU ONE (07:46)
[2017-11-13] MEDS ORDERED: ENOXAPARIN SODIUM 80 MG/0.8 ML SYG SUBCU SCH ×2 (08:30→09:00)
[2017-11-13] MEDS: RIVAROXABAN 15 MG TAB PO SCH (08:57)
[2017-11-13] MEDS ORDERED: RIVAROXABAN 15 MG TAB PO SCH (09:00)
[2017-11-13] MEDS ORDERED: LEVOTHYROXINE SODIUM 0.025 MG TAB PO SCH (09:00)
[2017-11-13] MEDS ORDERED: Wellbutrin XL 150 MG TAB PO SCH (09:00)
[2017-11-13 12:28] VITALS: BP 126/84; TEMP 97.3
--- NOTE | 2017-11-13 12:32 | SSS ---
SUPERVISING PHYSICIAN: Gerardo Oneal MD DISCHARGE DIAGNOSES: 1. Bilateral pulmonary emboli. 2. Migraines. 3. Depression and anxiety. 4. Substance abuse. CHIEF COMPLAINT: Shortness of breath and panic attacks. HISTORY OF PRESENT ILLNESS: This is a 41 year-old female patient who presented to the Emergency Room after 3 to 4 days of shortness of breath. On the day she came to the Emergency Room she also had a panic attack. She also complained of chest heaviness and in the Emergency Room her workup included a urine drug screen that was negative, electrolytes that were basically within normal limits with the exception of her chloride being sightly low at 100. Her TSH was 168. Her PT was 11.1, INR 1.11, PTT 25.6 but her D-dimer was elevated at 0.67. Her CBC was basically within normal limits. CTA of the chest was done that showed definite pulmonary emboli in branches of the right pulmonary arteries and possible pulmonary emboli in a few branches of the left pulmonary arteries. Her vital signs, she was afebrile, her heart rate ran between 90 and 108. Her blood pressure was 113/68, respiratory rate 20 and 02 saturation 97%. She also had some complaints of left knee pain that showed mild medial tibial femoral joint space narrowing of the left knee. Her chest x-ray showed no acute cardiopulmonary process. Of special note, the patient does have an IUD with estrogen implanted and she also has a history of smoking. The Emergency Room physician also did an abdomen /pelvis CT that showed no obvious acute processes within the abdomen or pelvis and it did show the IUD device that was present. She has a history of benzodiazepines and narcotic abuse. She received some Ativan in the Emergency Room as well as an aspirin. She also received one liter of LR and I was called to place the patient in observation. PAST MEDICAL HISTORY: 1. Migraines. 2. Depression. 3. Insomnia. 4. Hypothyroidism. 5. Substance abuse. PAST SURGICAL HISTORY: 1. Breast reduction. 2. Cholecystectomy. 3. Tonsillectomy and adenoidectomy. 4. [place] teeth extraction. 5. Esophageal stricture reduction with balloon. HOME MEDICATIONS: 1. Wellbutrin. 2. Prazosin. 3. Promethazine. 4. Triamterene Hydrochlorothiazide. 5. Lexapro. 6. Lamictal. 7. Levothyroxine. 8. Trazodone. 9. Zolpidem. She was taking Xanax 2 mg t.i.d. as well as Tramadol but she has not had either medication in 4 days and is attempting to discontinue the use of both of those. ALLERGIES: AUGMENTIN. FAMILY HISTORY: Positive for colon cancer. SOCIAL HISTORY: The patient is living in [place]. She is single. She smokes half pack of cigarettes daily and denies any ETOH or illicit drug use at this time. REVIEW OF SYSTEMS: GENERAL: Negative for fever, fatigue or weight changes. HEENT: Negative for ear pain, vision changes, sore throat or sinus symptoms.. RESPIRATORY: Initially in the Emergency Room complained of shortness of but at this time denies shortness of breath, coughing and no wheezing. CARDIOVASCULAR: Initially n the Emergency Room she complained of chest tightness but since admission no chest pains, palpitations or tachycardia. GASTROINTESTINAL: Negative for nausea, vomiting, diarrhea or constipation. GENITOURINARY: Negative for dysuria, polyuria or hematuria. NEUROLOGIC: Positive for migraines. Negative for seizures or weakness. PSYCHIATRIC: Positive for panic attacks. Occasional hearing voices as well as seeing demons, especially at night when she cannot sleep. This has been occurring for over a year now. Positive for depression and anxiety as well as substance abuse. PHYSICAL EXAMINATION: VITAL SIGNS: Temperature afebrile. Heart rate 88. Blood pressure 103/71. Respiratory rate 20. O2 saturation 96% on room air. . GENERAL: This is a 41 year-old female patient who is lying in her hospital bed. She is in no acute distress but somewhat anxious. HEENT: Normocephalic and atraumatic. Pupils equal and reactive. Oropharynx is clear. NECK: Supple without mass. RESPIRATORY: Lungs are essentially clear to auscultation bilaterally. CHEST: There is equal rise and fall of the chest with inspiration and expiration. CARDIAC: Regular rate and rhythm, no murmurs noted. ABDOMEN: Soft, nontender. Positive bowel sounds. EXTREMITIES: There is no cyanosis, clubbing or edema. NEUROLOGIC: The patient is alert and oriented times three, although at times she dozes off to sleep and will babble incoherently but she can be reoriented easily. LABORATORY AND FILMS: Her protein C antigen, protein S antigen, antithrombin III, Factor V, Factor VIII and Factor IX are pending. Her chest x-ray from this morning shows no acute findings. All labs and films have been reviewed via the EMR. HOSPITAL COURSE: The patient has had no complaints of shortness of breath or problems overnight. She was initially started on Lovenox 1 mg per kg every 12 hours times 2 doses and was started on Xarelto 15 mg b.i.d. Her vital signs have remained stable. Other than some brief anxiety she has had no other issues. No narcotics were started in the hospital and I have discontinued those for now. She did receive 3 total doses of Ativan for her anxiety. She was taking Ativan 2 mg t.i.d. and stated that she had decreased those to 2 mg b.i.d. but has not had any of her narcotics or benzodiazepines in 4 days. I have discontinued her Xanax as well and I will give her a lower dose on discharge. At this point, she is on her anticoagulants. She has had no acute symptoms that would necessitate further hospitalization. We will discharge the patient home in stable condition. DISCHARGE PLAN: The patient will be discharged in stable condition. She has received a starter pack of Xarelto 50 mg b.i.d. for 21 days and 20 mg daily thereafter. The starter pack will cover her for 30 days of Xarelto. I have also given her a few Xanax 1 mg b.i.d., #10, until she can get into see her primary care physician ,which is Adilia Thornton in [place]. I strongly encouraged her to stop smoking as the pulmonary emboli may be a result of the estrogen of her IUD as well as the smoking combination. I have also drawn the coagulation studies and those need to be followed up with Adilia Thornton at her followup appointment. She is to resume her previous activity as well as her previous diet and her previous medications. DISCHARGE MEDICATIONS: 1. Ambien. 2. Trazodone. 3. Levothyroxine. 4. Lamictal. 5. Lexapro. 6. Wellbutrin. 7. Promethazine. 8. Triamterene Hydrochlorothiazide. 9. Prazosin. 10. Xarelto starter pack. 11. Xanax 1 mg b.i.d. p.r.n. #10, no refills. #[id number] [facility]
[2017-11-13] MEDS ORDERED: ESCITALOPRAM 10 MG TAB PO SCH (21:00)
[2017-11-13] MEDS ORDERED: lamoTRIgine 25 MG TAB PO SCH (21:00)
[2017-11-13] MEDS ORDERED: PANTOPRAZOLE SODIUM IV 40 MG VIAL IV SCH (21:00)
--- NOTE | 2017-12-03 09:59 | HP ---
SUPERVISING PHYSICIAN: Gerardo Oneal MD CHIEF COMPLAINT: Shortness of breath and panic attacks. HISTORY OF PRESENT ILLNESS: This is a 41 year-old female patient who presented to the Emergency Room after 3 to 4 days of shortness of breath. On the day she came to the Emergency Room she also had a panic attack. She also complained of chest heaviness and in the Emergency Room her workup included a urine drug screen that was negative, electrolytes that were basically within normal limits with the exception of her chloride being sightly low at 100. Her TSH was 168. Her PT was 11.1, INR 1.11, PTT 25.6 but her D-dimer was elevated at 0.67. Her CBC was basically within normal limits. CTA of the chest was done that showed definite pulmonary emboli in branches of the right pulmonary arteries and possible pulmonary emboli in a few branches of the left pulmonary arteries. Her vital signs, she was afebrile, her heart rate ran between 90 and 108. Her blood pressure was 113/68, respiratory rate 20 and 02 saturation 97%. She also had some complaints of left knee pain that showed mild medial tibial femoral joint space narrowing of the left knee. Her chest x-ray showed no acute cardiopulmonary process. Of special note, the patient does have an IUD with estrogen implanted and she also has a history of smoking. The Emergency Room physician also did an abdomen /pelvis CT that showed no obvious acute processes within the abdomen or pelvis and it did show the IUD device that was present. She has a history of benzodiazepines and narcotic abuse. She received some Ativan in the Emergency Room as well as an aspirin. She also received one liter of LR and I was called to place the patient in observation. PAST MEDICAL HISTORY: 1. Migraines. 2. Depression. 3. Insomnia. 4. Hypothyroidism. 5. Substance abuse. PAST SURGICAL HISTORY: 1. Breast reduction. 2. Cholecystectomy. 3. Tonsillectomy and adenoidectomy. 4. [place] teeth extraction. 5. Esophageal stricture reduction with balloon. HOME MEDICATIONS: 1. Wellbutrin. 2. Prazosin. 3. Promethazine. 4. Triamterene Hydrochlorothiazide. 5. Lexapro. 6. Lamictal. 7. Levothyroxine. 8. Trazodone. 9. Zolpidem. She was taking Xanax 2 mg t.i.d. as well as Tramadol but she has not had either medication in 4 days and is attempting to discontinue the use of both of those. ALLERGIES: AUGMENTIN. FAMILY HISTORY: Positive for colon cancer. SOCIAL HISTORY: The patient is living in [place]. She is single. She smokes half pack of cigarettes daily and denies any ETOH or illicit drug use at this time. REVIEW OF SYSTEMS: GENERAL: Negative for fever, fatigue or weight changes. HEENT: Negative for ear pain, vision changes, sore throat or sinus symptoms.. RESPIRATORY: Initially in the Emergency Room complained of shortness of but at this time denies shortness of breath, coughing and no wheezing. CARDIOVASCULAR: Initially n the Emergency Room she complained of chest tightness but since admission no chest pains, palpitations or tachycardia. GASTROINTESTINAL: Negative for nausea, vomiting, diarrhea or constipation. GENITOURINARY: Negative for dysuria, polyuria or hematuria. NEUROLOGIC: Positive for migraines. Negative for seizures or weakness. PSYCHIATRIC: Positive for panic attacks. Occasional hearing voices as well as seeing demons, especially at night when she cannot sleep. This has been occurring for over a year now. Positive for depression and anxiety as well as substance abuse. PHYSICAL EXAMINATION: VITAL SIGNS: Temperature afebrile. Heart rate 88. Blood pressure 103/71. Respiratory rate 20. O2 saturation 96% on room air. . GENERAL: This is a 41 year-old female patient who is lying in her hospital bed. She is in no acute distress but somewhat anxious. HEENT: Normocephalic and atraumatic. Pupils equal and reactive. Oropharynx is clear. NECK: Supple without mass. RESPIRATORY: Lungs are essentially clear to auscultation bilaterally. CHEST: There is equal rise and fall of the chest with inspiration and expiration. CARDIAC: Regular rate and rhythm, no murmurs noted. ABDOMEN: Soft, nontender. Positive bowel sounds. EXTREMITIES: There is no cyanosis, clubbing or edema. NEUROLOGIC: The patient is alert and oriented times three, although at times she dozes off to sleep and will babble incoherently but she can be reoriented easily. LABORATORY AND FILMS: Her protein C antigen, protein S antigen, antithrombin III, Factor V, Factor VIII and Factor IX are pending. Her chest x-ray from this morning shows no acute findings. All labs and films have been reviewed via the EMR. ASSESSMENT: 1. Bilateral pulmonary emboli. 2. Migraines. 3. Depression and anxiety. 4. Substance abuse. PLAN: Will place patient in observation. I have started her on Lovenox at 1mg/ kg and will bridge to Xarelto. Her home medications will be started as soon as doses are verified. I will not continue her tramadol and give her Ativan 1 mg q 6 hours prn. A PPI will be started for ulcer prophylaxis. She should be discharged soon after Xarelto is started and will need close follow up with her PCP. I have also stressed the importance of good medical compliance. #[id number] MTDD
--- NOTE | 2017-12-03 10:01 | DS ---
SUPERVISING PHYSICIAN: Gerardo Oneal MD DISCHARGE DIAGNOSES: 1. Bilateral pulmonary emboli. 2. Migraines. 3. Depression and anxiety. 4. Substance abuse. HISTORY OF PRESENT ILLNESS: This is a 41 year-old female patient who presented to the Emergency Room after 3 to 4 days of shortness of breath. On the day she came to the Emergency Room she also had a panic attack. She also complained of chest heaviness and in the Emergency Room her workup included a urine drug screen that was negative, electrolytes that were basically within normal limits with the exception of her chloride being sightly low at 100. Her TSH was 168. Her PT was 11.1, INR 1.11, PTT 25.6 but her D-dimer was elevated at 0.67. Her CBC was basically within normal limits. CTA of the chest was done that showed definite pulmonary emboli in branches of the right pulmonary arteries and possible pulmonary emboli in a few branches of the left pulmonary arteries. Her vital signs, she was afebrile, her heart rate ran between 90 and 108. Her blood pressure was 113/68, respiratory rate 20 and 02 saturation 97%. She also had some complaints of left knee pain that showed mild medial tibial femoral joint space narrowing of the left knee. Her chest x-ray showed no acute cardiopulmonary process. Of special note, the patient does have an IUD with estrogen implanted and she also has a history of smoking. The Emergency Room physician also did an abdomen /pelvis CT that showed no obvious acute processes within the abdomen or pelvis and it did show the IUD device that was present. She has a history of benzodiazepines and narcotic abuse. She received some Ativan in the Emergency Room as well as an aspirin. She also received one liter of LR and I was called to place the patient in observation. HOSPITAL COURSE: The patient has had no complaints of shortness of breath or problems overnight. She was initially started on Lovenox 1 mg per kg every 12 hours times 2 doses and was started on Xarelto 15 mg b.i.d. Her vital signs have remained stable. Other than some brief anxiety she has had no other issues. No narcotics were started in the hospital and I have discontinued those for now. She did receive 3 total doses of Ativan for her anxiety. She was taking Ativan 2 mg t.i.d. and stated that she had decreased those to 2 mg b.i.d. but has not had any of her narcotics or benzodiazepines in 4 days. I have discontinued her Xanax as well and I will give her a lower dose on discharge. At this point, she is on her anticoagulants. She has had no acute symptoms that would necessitate further hospitalization. We will discharge the patient home in stable condition. DISCHARGE PLAN: The patient will be discharged in stable condition. She has received a starter pack of Xarelto 15 mg b.i.d. for 21 days and 20 mg daily thereafter. The starter pack will cover her for 30 days of Xarelto. I have also given her a few Xanax 1 mg b.i.d., #10, until she can get into see her primary care provider ,which is Adilia Thornton in [place]. I strongly encouraged her to stop smoking as the pulmonary emboli may be a result of the estrogen of her IUD as well as the smoking combination. I have also drawn the coagulation studies and those need to be followed up with Adilia Thornton at her followup appointment. She is to resume her previous activity as well as her previous diet and her previous medications. DISCHARGE MEDICATIONS: 1. Ambien. 2. Trazodone. 3. Levothyroxine. 4. Lamictal. 5. Lexapro. 6. Wellbutrin. 7. Promethazine. 8. Triamterene Hydrochlorothiazide. 9. Prazosin. 10. Xarelto starter pack. 11. Xanax 1 mg b.i.d. p.r.n. #10, no refills. #[id number] [facility]
== END 2017-11-13 11:45 | disposition home or self-care (01) | DRG 176 ==
LOC: ER 15:28 → MS 19:54 → OBSVTOIN 19:54
PROVIDERS: ADMIT Nurse Practitioner Acute Care; ATTEND Nurse Practitioner Acute Care
DX: I26.99 Other pulmonary embolism without acute cor pulmonale (principal); G43.909 Migraine, unspecified, not intractable, without status migrainosus; F32.9 Major depressive disorder, single episode, unspecified; F19.10 Other psychoactive substance abuse, uncomplicated; F41.0 Panic disorder [episodic paroxysmal anxiety]; G47.00 Insomnia, unspecified; E03.9 Hypothyroidism, unspecified; F17.210 Nicotine dependence, cigarettes, uncomplicated; Z88.1 Allergy status to other antibiotic agents

== ENCOUNTER 2018-01-09 19:25 | Emergency (ER) | payer SELFPAY ==
[2018-01-09] MEDS ORDERED: SODIUM CHLORIDE 0.9% 500ML 500 ML IVS ONE (20:26)
[2018-01-09] MEDS ORDERED: PANTOPRAZOLE INJECTION 80 MG in SODIUM CHLORIDE 0.9% 100ML 80 ML IVPB ONE (20:26)
--- NOTE | 2018-01-09 20:26 | RAD ---
EXAM DESCRIPTION: Chest,2 Views CLINICAL HISTORY: 42 years Female, cough COMPARISON: Chest x-ray November 13, 2017 FINDINGS: No consolidation. No pneumothorax. No significant pleural effusion. Cardiomediastinal silhouette is unremarkable. Osseous structures are unremarkable. Surgical clips in the right upper quadrant present. IMPRESSION: No acute findings. 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
[2018-01-09] MEDS ORDERED: SODIUM CHLORIDE 0.9% 1000ML 1,000 ML ONE (20:36)
[2018-01-09] MEDS ORDERED: PANTOPRAZOLE SODIUM IV 40 MG VIAL ONE (20:36)
[2018-01-09] MEDS ORDERED: SODIUM CHLORIDE 0.9% 100ML 100 ML IVPB ONE (20:37)
[2018-01-09] MEDS ORDERED: PROMETHAZINE HCL INJ 25 MG/ML VIAL IM ONE (21:33)
--- NOTE | 2018-01-09 22:20 | ED.PDOC ---
History of Present Illness - General Chief Complaint: GI Problem Stated Complaint: N/V x's 1 week, dizzy, cough,fever,R CP Time Seen by Provider: 01/09/18 19:32 Exam Limitations: no limitations - History of Present Illness Initial Comments: Arleen Moncada 42 y/o female stated had N/V for the last one week and body aches then this afternoon had been having chest pressure and feels like having flu like symptoms.Had flu shot 1 1/2 months ago and also with pulmonary embolus taking Eliquis 5 mg bid regularly.Also stated had been having lots of anxiety recently since her boyfriend of ! 1/2 years was picked up by [employer] and under their custody.Her apartment had also been searched by the [employer]. Timing/Duration: other - see hpi Severity: moderate Improving Factors: nothing Worsening Factors: nothing Associated Symptoms: other - see hpi Allergies/Adverse Reactions: Allergies Ondansetron [From Zofran] Allergy (Verified 01/09/18 20:13) Sulfamethoxazole w/Trimethoprim [From Bactrim] Allergy (Verified 01/09/18 20:13) Amoxicillin [From Augmentin] Adverse Reaction (Verified 01/09/18 20:13) Clavulanic Acid [From Augmentin] Adverse Reaction (Verified 01/09/18 20:13) Home Medications: Ambulatory Orders Escitalopram Oxalate [Lexapro] 20 mg PO BEDTIME 11/12/17 Lamotrigine [Lamictal] 75 mg PO BEDTIME 11/12/17 Levothyroxine Sodium [Synthroid] 50 mcg PO DAILY 11/12/17 Trazodone HCl 100 - 200 mg PO BEDTIME 11/12/17 Zolpidem Tartrate [Ambien] 10 mg PO BEDTIME 11/12/17 Alprazolam [Xanax] 1 mg PO BID PRN #10 tab 11/13/17 Bupropion HCl [Wellbutrin Xl] 300 mg PO DAILY 11/13/17 Prazosin HCl 2 mg PO BEDTIME 11/13/17 Promethazine HCl 25 mg PO Q6H PRN 11/13/17 Rivaroxaban [Xarelto Starter Pack 15 & 20 mg] 1 tab PO .SEE INSTRUCTIONS #1 tab 11/13/17 Triamterene & Hydrochlorothiaz [Triamterene/Hydrochloroth 37.5-25 mg] 1 tab PO DAILY 11/13/17 Clonazepam [Klonopin] 2 mg PO BID #2 tab 01/10/18 Review of Systems - Review of Systems Constitutional: States: no symptoms reported EENTM: States: no symptoms reported Respiratory: States: no symptoms reported Cardiology: States: see HPI Gastrointestinal/Abdominal: States: no symptoms reported Genitourinary: States: no symptoms reported Skin: States: no symptoms reported Neurological: States: anxiety Endocrine: States: no symptoms reported Past Medical History (General) - Patient Medical History Hx Seizures: Yes - past Hx Stroke: No Hx Dementia: No Hx Asthma: No Hx of COPD: No Hx Cardiac Disorders: Yes - States she's had blood clots Hx Congestive Heart Failure: No Hx Pacemaker: No Hx Hypertension: No Hx Thyroid Disease: No Hx Diabetes: No Hx Gastroesophageal Reflux: No Hx Renal Disease: No Hx Cancer: No Hx of HIV: No Hx Hepatitis C: No Hx MRSA: No Surgical History: cholecystectomy, tonsillectomy, other - breast reduction - Vaccination History Hx Tetanus, Diphtheria Vaccination: Yes Hx Influenza Vaccination: Yes Hx Pneumococcal Vaccination: No - Social History Hx Tobacco Use: Yes Hx Chewing Tobacco Use: No Hx Alcohol Use: Yes Hx Substance Use: Yes - prescription Hx Substance Use Treatment: Yes - yes 2 years ago [facility] as mentioned by patient Hx Depression: Yes Hx Physical Abuse: No Hx Emotional Abuse: No Hx Suspected Abuse: No - Female History Patient is a Female of Child Bearing Age (10 -59 yrs old): Yes Hx Last Menstrual Period: 03/28/15 - has iud Patient : No Family Medical History - Family History Mother Family History: Unknown Living Status: Still Living Hx Family Hypertension: Yes - dad Hx Family Cancer: Yes Father Family History: Unknown Living Status: Still Living Hx Family Asthma: No Hx Family Hypertension: Yes Physical Exam - Physical Exam General Appearance: Alert, Comfortable, No apparent distress Eye Exam: bilateral normal Ears, Nose, Throat: hearing grossly normal, normal ENT inspection, normal pharynx Neck: non-tender, full range of motion, supple Respiratory: chest non-tender, lungs clear, normal breath sounds Cardiovascular/Chest: normal peripheral pulses, regular rate, rhythm, no murmur Peripheral Pulses: radial,right: 2+, radial,left: 2+ Gastrointestinal/Abdominal: normal bowel sounds, non tender, soft Back Exam: normal inspection, no CVA tenderness, no vertebral tenderness Neurologic: alert, oriented x 3 Progress - Progress Progress: 01/09/18 23:58 Vital Signs - 8 hr 01/09/18 01/09/18 19:39 21:26 Temperature 98.6 F Pulse Rate [ 109 H 90 monitor] Respiratory 16 16 Rate Blood Pressure 138/80 103/62 [Left Arm] O2 Sat by Pulse 97 97 Oximetry 01/10/18 00:09 hospital -OBS discussed with patient 2 x but stat prefers to go home;discuss test result then she mentioned about the [employer] incident and also been getting in touch with them. - Results/Orders Results/Orders: 01/09/18 20:26 IV Care:Saline Lock per Protoc QSHIFT 01/09/18 20:30 EKG STAT 01/10/18 00:03 Prochlorperazine Tab [Compazine Tab] 10 mg PO Q6H PRN Laboratory Results - last 24 hr 01/09/18 01/09/18 01/09/18 20:01 20:26 20:50 WBC 7.6 RBC 4.10 L Hgb 12.3 Hct 37.0 MCV 90.3 MCH 30.0 MCHC 33.2 RDW 14.9 H Plt Count 204 MPV 8.7 Absolute Neuts (auto) 3.90 Absolute Lymphs (auto) 3.10 Absolute Monos (auto) 0.50 Absolute Eos (auto) 0.10 Absolute Basos (auto) 0.10 Neutrophils % 50.9 Lymphocytes % 40.4 Monocytes % 6.1 Eosinophils % 1.9 Basophils % 0.7 PT 9.3 INR 0.93 PTT (SP) 24.5 Sodium 137 Potassium 3.8 Chloride 103 Carbon Dioxide 27 Anion Gap 10.8 L BUN 16 Creatinine 0.66 BUN/Creatinine Ratio 24.2 H Random Glucose 104 Serum Osmolality 275.3 Calcium 8.7 Magnesium 1.8 Total Bilirubin < 0.2 L Direct Bilirubin < 0.1 Indirect Bilirubin 0.1 L AST 18 ALT 12 Alkaline Phosphatase 62 Creatine Kinase 107 CK-MB (CK-2) 0.7 CK-MB (CK-2) % Not Reportable Troponin I < 0.02 Serum Total Protein 6.7 Albumin 3.5 Urine Color Yellow Urine Appearance Sl cloudy Urine pH 6.0 Ur Specific [place] 1.020 Urine Protein Negative Urine Glucose (UA) Negative Urine Ketones Negative Urine Blood Negative Urine Nitrite Negative Urine Bilirubin Negative Urine Urobilinogen 0.2 Ur Leukocyte Esterase Negative Urine RBC 0 Urine WBC 1-3 Ur Epithelial Cells 10-20 Urine Bacteria 1+ Urine Opiates Screen Negative Urine Barbiturates Negative Ur Phencyclidine Scrn Negative U Amphetamin/Meth Scrn Negative U Benzodiazepines Scrn Positive H U Cocaine Metab Screen Negative U Cannabinoids Screen Negative 01/09/18 22:31 WBC RBC Hgb Hct MCV MCH MCHC RDW Plt Count MPV Absolute Neuts (auto) Absolute Lymphs (auto) Absolute Monos (auto) Absolute Eos (auto) Absolute Basos (auto) Neutrophils % Lymphocytes % Monocytes % Eosinophils % Basophils % PT INR PTT (SP) Sodium Potassium Chloride Carbon Dioxide Anion Gap BUN Creatinine BUN/Creatinine Ratio Random Glucose Serum Osmolality Calcium Magnesium Total Bilirubin Direct Bilirubin Indirect Bilirubin AST ALT Alkaline Phosphatase Creatine Kinase CK-MB (CK-2) CK-MB (CK-2) % Troponin I < 0.02 Serum Total Protein Albumin Urine Color Urine Appearance Urine pH Ur Specific [place] Urine Protein Urine Glucose (UA) Urine Ketones Urine Blood Urine Nitrite Urine Bilirubin Urine Urobilinogen Ur Leukocyte Esterase Urine RBC Urine WBC Ur Epithelial Cells Urine Bacteria Urine Opiates Screen Urine Barbiturates Ur Phencyclidine Scrn U Amphetamin/Meth Scrn U Benzodiazepines Scrn U Cocaine Metab Screen U Cannabinoids Screen - EKG/XRAY/CT EKG: Sinus, nonspecific ST T wave Chg, Unchanged from 12 Nov 2017 Comments: HR-96 XRAY: chest - no acute changes Departure - Departure Clinical Impression: Generalized body aches Chest pain Qualifiers: Chest pain type: unspecified Qualified Code(s): R07.9 - Chest pain, unspecified Time of Disposition: 00:13 Disposition: Discharge to Home or Self Care Condition: Fair Departure Forms: ED Discharge - Pt. Copy, Patient Portal Self Enrollment Referrals: [facility] [employer] MANAGER,SYLVESTER Cunningham [Primary Care Provider] - 1-2 Weeks Prescriptions: Clonazepam [Klonopin] 2 mg PO BID #2 tab Home Medications: Ambulatory Orders Escitalopram Oxalate [Lexapro] 20 mg PO BEDTIME 11/12/17 Lamotrigine [Lamictal] 75 mg PO BEDTIME 11/12/17 Levothyroxine Sodium [Synthroid] 50 mcg PO DAILY 11/12/17 Trazodone HCl 100 - 200 mg PO BEDTIME 11/12/17 Zolpidem Tartrate [Ambien] 10 mg PO BEDTIME 11/12/17 Alprazolam [Xanax] 1 mg PO BID PRN #10 tab 11/13/17 Bupropion HCl [Wellbutrin Xl] 300 mg PO DAILY 11/13/17 Prazosin HCl 2 mg PO BEDTIME 11/13/17 Promethazine HCl 25 mg PO Q6H PRN 11/13/17 Rivaroxaban [Xarelto Starter Pack 15 & 20 mg] 1 tab PO .SEE INSTRUCTIONS #1 tab 11/13/17 Triamterene & Hydrochlorothiaz [Triamterene/Hydrochloroth 37.5-25 mg] 1 tab PO DAILY 11/13/17 Clonazepam [Klonopin] 2 mg PO BID #2 tab 01/10/18 Additional Instructions: Continue with all home medications and Eliquis;Return to ER if symptoms worsens; Follow up with primary Md 10 January 2018
[2018-01-10] MEDS ORDERED: PROCHLORPERAZINE MALEATE 10 MG TAB PO PRN (00:03)
[2018-01-10] MEDS ORDERED: PROCHLORPERAZINE MALEATE 10 MG TAB ONE (00:08)
[2018-01-10 00:26] VITALS: BP 135/92; O2SAT 98
[2018-01-10 00:27] VITALS: TEMP 99.5
== END 2018-01-10 00:27 | disposition home or self-care (01) ==
LOC: ER 19:25
DX: R07.9 Chest pain, unspecified (principal); R52 Pain, unspecified; R11.2 Nausea with vomiting, unspecified; F32.9 Major depressive disorder, single episode, unspecified; Z87.891 Personal history of nicotine dependence; Z86.718 Personal history of other venous thrombosis and embolism; Z79.899 Other long term (current) drug therapy; Z88.2 Allergy status to sulfonamides; Z88.1 Allergy status to other antibiotic agents; Z88.8 Allergy status to other drugs, medicaments and biological substances
CPT/HCPCS: 36415; 71046; 80048; 80076; 80307; 81001; 82550; 82553; 84484; 85025; 85610; 85730; 93005; J2060; J2550; J7030; J7050; Q0164

== ENCOUNTER 2018-02-20 06:56 | Emergency (ER) | payer SELFPAY ==
--- NOTE | 2018-02-20 07:35 | ED.PDOC ---
History of Present Illness - General Chief Complaint: GI Problem Stated Complaint: Constipation Time Seen by Provider: 02/20/18 07:20 Source: patient Exam Limitations: no limitations - History of Present Illness Initial Comments: Arleen Moncada 42 y/o female stated that she had no bowel movements for the last 8 days and having more abdominal discomfort then had nausea/vomiting since yesterday but no observed vomiting while in ER. Timing/Duration: constant, other - see hpi Severity: moderate Improving Factors: nothing Worsening Factors: nothing Associated Symptoms: nausea/vomiting Allergies/Adverse Reactions: Allergies Ondansetron [From Zofran] Allergy (Verified 01/09/18 20:13) Sulfamethoxazole w/Trimethoprim [From Bactrim] Allergy (Verified 01/09/18 20:13) Amoxicillin [From Augmentin] Adverse Reaction (Verified 01/09/18 20:13) Clavulanic Acid [From Augmentin] Adverse Reaction (Verified 01/09/18 20:13) Home Medications: Ambulatory Orders Escitalopram Oxalate [Lexapro] 10 mg PO BEDTIME 11/12/17 Levothyroxine Sodium [Synthroid] 50 mcg PO DAILY 11/12/17 Zolpidem Tartrate [Ambien] 10 mg PO BEDTIME 11/12/17 Alprazolam [Xanax] 1 mg PO BID PRN #10 tab 11/13/17 Bupropion HCl [Wellbutrin Xl] 150 mg PO DAILY 11/13/17 Promethazine HCl 25 mg PO Q6H PRN 11/13/17 Triamterene & Hydrochlorothiaz [Triamterene/Hydrochloroth 37.5-25 mg] 1 tab PO DAILY 11/13/17 Apixaban [Eliquis] 5 mg PO BID 02/20/18 Methocarbamol [Robaxin] 750 mg PO TID 02/20/18 Peg 3350-Potassium Chloride-So [Nulytely/Flavor Packs] 1 rachelle PO DAILY PRN #10 rachelle 02/20/18 Review of Systems - Review of Systems Gastrointestinal/Abdominal: States: see HPI, constipation All other Systems: Reviewed and Negative, No Change from Baseline Past Medical History (General) - Patient Medical History Hx Seizures: Yes - past Hx Stroke: No Hx Dementia: No Hx Asthma: No Hx of COPD: No Hx Cardiac Disorders: Yes - Hx PE's - currently taking Eliquis Hx Congestive Heart Failure: No Hx Pacemaker: No Hx Hypertension: No Hx Thyroid Disease: Yes Hx Diabetes: No Hx Gastroesophageal Reflux: No Hx Renal Disease: No Hx Cancer: No Hx of HIV: No Hx Hepatitis C: No Hx MRSA: No Surgical History: cholecystectomy, tonsillectomy, other - Vaccination History Hx Tetanus, Diphtheria Vaccination: Yes Hx Influenza Vaccination: Yes - 2018 Hx Pneumococcal Vaccination: No - Social History Hx Tobacco Use: Yes Hx Chewing Tobacco Use: No Hx Alcohol Use: Yes - Social Hx Substance Use: Yes - prescription Hx Substance Use Treatment: Yes - yes 2 years ago [facility] as mentioned by patient Hx Depression: Yes Hx Physical Abuse: No Hx Emotional Abuse: No Hx Suspected Abuse: No - Female History Patient is a Female of Child Bearing Age (10 -59 yrs old): Yes - Pt has an IUD; reports no menstrual cycles Hx Last Menstrual Period: 03/28/15 - has iud Patient : No Family Medical History - Family History Mother Family History: Unknown Living Status: Still Living Hx Family Hypertension: Yes - dad Hx Family Cancer: Yes Father Family History: Unknown Living Status: Still Living Hx Family Asthma: No Hx Family Hypertension: Yes Physical Exam - Physical Exam General Appearance: Alert, Comfortable, No apparent distress Eye Exam: bilateral normal Ears, Nose, Throat: hearing grossly normal, normal ENT inspection Neck: non-tender, full range of motion, supple Respiratory: chest non-tender, lungs clear, normal breath sounds Cardiovascular/Chest: normal peripheral pulses, regular rate, rhythm, no murmur Peripheral Pulses: radial,right: 2+, radial,left: 2+ Gastrointestinal/Abdominal: normal bowel sounds, soft, tenderness - mid abdomen;no peritoneal signs Rectal Exam: normal rectal tone, other - empty rectal vault Back Exam: no CVA tenderness, no vertebral tenderness Extremity: no pedal edema, no calf tenderness Neurologic: alert, oriented x 3 Skin Exam: normal color, warm/dry Progress - Progress Progress: 02/20/18 09:12 Vital Signs - 8 hr 02/20/18 02/20/18 07:10 08:10 Temperature 97.4 F L 97.5 F L Pulse Rate [ 55 L 69 Right Arm] Respiratory 16 16 Rate Blood Pressure 129/95 119/68 [Right Arm] O2 Sat by Pulse 96 95 Oximetry - Results/Orders Results/Orders: 02/20/18 07:49 URINALYSIS Stat Laboratory Results - last 24 hr 02/20/18 08:29 WBC 9.6 RBC 4.32 Hgb 13.0 Hct 39.0 MCV 90.4 MCH 30.1 MCHC 33.3 RDW 14.7 H Plt Count 250 MPV 8.4 Absolute Neuts (auto) 6.10 Absolute Lymphs (auto) 2.60 Absolute Monos (auto) 0.60 Absolute Eos (auto) 0.30 Absolute Basos (auto) 0.10 Neutrophils % 63.6 Lymphocytes % 27.0 Monocytes % 5.8 Eosinophils % 2.7 Basophils % 0.9 PT 9.6 INR 0.96 PTT (SP) 25.6 Sodium 138 Potassium 3.4 L Chloride 100 L Carbon Dioxide 29 Anion Gap 12.4 BUN 15 Creatinine 0.76 BUN/Creatinine Ratio 19.7 Random Glucose 117 H Serum Osmolality 277.5 Calcium 8.9 Magnesium 2.4 Total Bilirubin 0.5 Direct Bilirubin < 0.1 Indirect Bilirubin 0.4 AST 21 ALT 19 Alkaline Phosphatase 83 Creatine Kinase 326 H* CK-MB (CK-2) 3.5 CK-MB (CK-2) % Not Reportable Troponin I < 0.02 Serum Total Protein 7.5 Albumin 4.0 Lipase 33 TSH 2.76 Discuss all test result with patient.Given discharge instructions - EKG/XRAY/CT XRAY: abdomen - no acute changes see full radiologist report separately Departure - Departure Clinical Impression: Constipation by delayed colonic transit, Abdominal discomfort, generalized Time of Disposition: 09:16 Disposition: Discharge to Home or Self Care Condition: Fair Departure Forms: ED Discharge - Pt. Copy, Patient Portal Self Enrollment Instructions: Constipation in Adults, High Fiber Diet, Constipation, Adult (DC) Diet: other - high fiber diet Referrals: DAVIDE FORRESTER,SYLVESTER Cunningham [Primary Care Provider] - 1-2 Weeks Prescriptions: Peg 3350-Potassium Chloride-So [Nulytely/Flavor Packs] 1 rachelle PO DAILY PRN #10 rachelle PRN Reason: Constipation Home Medications: Ambulatory Orders Escitalopram Oxalate [Lexapro] 10 mg PO BEDTIME 11/12/17 Levothyroxine Sodium [Synthroid] 50 mcg PO DAILY 11/12/17 Zolpidem Tartrate [Ambien] 10 mg PO BEDTIME 11/12/17 Alprazolam [Xanax] 1 mg PO BID PRN #10 tab 11/13/17 Bupropion HCl [Wellbutrin Xl] 150 mg PO DAILY 11/13/17 Promethazine HCl 25 mg PO Q6H PRN 11/13/17 Triamterene & Hydrochlorothiaz [Triamterene/Hydrochloroth 37.5-25 mg] 1 tab PO DAILY 11/13/17 Apixaban [Eliquis] 5 mg PO BID 02/20/18 Methocarbamol [Robaxin] 750 mg PO TID 02/20/18 Peg 3350-Potassium Chloride-So [Nulytely/Flavor Packs] 1 rachelle PO DAILY PRN #10 rachelle 02/20/18 Additional Instructions: May take over the counter Metamucil,or/Citrucel as directed on package insert;Increase oral fluid intake
[2018-02-20] MEDS ORDERED: LACTATED RINGERS 1,000 ML IVS ONE (07:49)
[2018-02-20] MEDS ORDERED: PROCHLORPERAZINE INJ 10 MG/2 ML VIAL IV ONE (08:35)
[2018-02-20] MEDS ORDERED: MORPHINE SULFATE INJ 10 MG/ML VIAL IV ONE (08:35)
--- NOTE | 2018-02-20 08:41 | RAD ---
EXAM DESCRIPTION: Chest,1 View CLINICAL HISTORY: 42 years Female abdominal pain/N/V COMPARISON: Two-view chest dated 01/09/2018 TECHNIQUE: A single frontal projection of the chest is obtained. FINDINGS: Heart: Allowing for magnification factors related to AP portable technique and large body habitus , the heart is normal in size and configuration . Vasculature: The aorta is unremarkable. The pulmonary vascularity is normal. Mediastinum: Unremarkable []. No evidence of mass or adenopathy. Lungs: There is minimal discoid atelectasis in the lung bases. Pleural spaces: No evidence of pleural fluid or pneumothorax. Osseous structures: There is no evidence of acute fracture, osseous destruction or osteoblastic lesions. Tubes and catheters: None. Upper abdomen: No acute findings. IMPRESSION: Minimal bibasilar discoid atelectasis. No evidence of consolidative pneumonia or other acute cardiopulmonary abnormality. Remainder of findings as described above. Electronically signed by: Ro Mark MD 02/20/2018 8:39 AM [employer]
--- NOTE | 2018-02-20 08:46 | RAD ---
EXAM DESCRIPTION: Abdomen Flat Upright CLINICAL HISTORY: 42 years Female abdominal pain/N/V COMPARISON: None TECHNIQUE: Supine and upright views of the abdomen are obtained. FINDINGS: There is no evidence of free air. The bowel gas pattern is normal. A small calcification in the left pelvis is most likely a phlebolith. If there is a history of renal colic, distal ureteral calculus is also a consideration. Surgical clips are present in the right upper quadrant, consistent with previous cholecystectomy. An IUD is present in the pelvis. There is no organomegaly. The visualized lung bases are clear. There are no discernible acute osseous abnormalities or areas of osseous destruction/osteoblastic disease. IMPRESSION: No evidence of intestinal obstruction. A 2 mm calcification in the left pelvis is most likely a phlebolith. If there is a history of left renal colic, distal ureteral calculus is also a consideration. Electronically signed by: Ro Mark MD 02/20/2018 8:44 AM [facility]
[2018-02-20 09:40] VITALS: BP 109/72; TEMP 97.6; O2SAT 96
== END 2018-02-20 09:38 | disposition home or self-care (01) ==
LOC: ER 06:56
DX: K59.01 Slow transit constipation (principal); R11.2 Nausea with vomiting, unspecified; F32.9 Major depressive disorder, single episode, unspecified; E07.9 Disorder of thyroid, unspecified; Z87.891 Personal history of nicotine dependence; Z86.711 Personal history of pulmonary embolism; Z79.01 Long term (current) use of anticoagulants; Z79.899 Other long term (current) drug therapy; Z88.1 Allergy status to other antibiotic agents; Z88.8 Allergy status to other drugs, medicaments and biological substances
CPT/HCPCS: 36415; 71045; 74019; 80048; 80076; 82550; 82553; 83690; 84443; 84484; 85025; 85610; 85730; J0780; J2270; J7120

== ENCOUNTER 2018-02-20 22:21 | Emergency (ER) | payer SELFPAY ==
[2018-02-20 22:46] VITALS: TEMP 98.3
--- NOTE | 2018-02-20 22:51 | ED.PDOC ---
History of Present Illness - General Chief Complaint: Abdominal Pain Stated Complaint: abdomen pain, cramping, bloating Time Seen by Provider: 02/20/18 22:24 Information Source: patient Exam Limitations: no limitations - History of Present Illness Initial Comments: Arleen Moncada 42 y/o female stated that since coming to ER this am with abdominal pains was able to sleep when she went home but on waking up had 5 episodes of N/V and sharp abdominal pain non radiating.Stated no bm for 5 days but Abdominal series showed no intestinal blockage or retained stools.Her blood work was within normal limits. Denies vaginal discharge. Abdominal Pain Onset Location: generalized abdomen Pain Radiation: no radiation Quality: sharpness, waxing/waning Timing/Duration: 24 hours Improving Factors: nothing Worsening Factors: eating Associated Symptoms: other - see hpi Review of Systems - Review of Systems Constitutional: States: no symptoms reported EENTM: States: no symptoms reported Respiratory: States: no symptoms reported Cardiology: States: no symptoms reported Gastrointestinal/Abdominal: States: see HPI, abdominal pain, constipation, vomiting Past Medical History (General) - Patient Medical History Hx Seizures: Yes - past Hx Stroke: No Hx Dementia: No Hx Asthma: No Hx of COPD: No Hx Cardiac Disorders: Yes - Hx PE's - currently taking Eliquis Hx Congestive Heart Failure: No Hx Pacemaker: No Hx Hypertension: No Hx Thyroid Disease: Yes Hx Diabetes: No Hx Gastroesophageal Reflux: No Hx Renal Disease: No Hx Cancer: No Hx of HIV: No Hx Hepatitis C: No Hx MRSA: No Surgical History: tonsillectomy - Vaccination History Hx Tetanus, Diphtheria Vaccination: Yes Hx Influenza Vaccination: Yes - 2018 Hx Pneumococcal Vaccination: No - Social History Hx Tobacco Use: Yes Hx Chewing Tobacco Use: No Hx Alcohol Use: Yes - Social Hx Substance Use: Yes - prescription Hx Substance Use Treatment: Yes - yes 2 years ago [facility] as mentioned by patient Hx Depression: Yes Hx Physical Abuse: No Hx Emotional Abuse: No Hx Suspected Abuse: No - Female History Hx Last Menstrual Period: 03/28/15 - has iud Patient : No Family Medical History - Family History Mother Family History: Unknown Living Status: Still Living Hx Family Hypertension: Yes - dad Hx Family Cancer: Yes Father Family History: Unknown Living Status: Still Living Hx Family Asthma: No Hx Family Hypertension: Yes Physical Exam - Physical Exam General Appearance: Alert, Anxious, No apparent distress Eyes, Ears, Nose, Throat Exam: normal ENT inspection Neck: non-tender, supple, normal inspection Respiratory: lungs clear, normal breath sounds Cardiovascular/Chest: normal peripheral pulses, regular rate, rhythm, no murmur Peripheral Pulses: No deficit Gastrointestinal/Abdominal: soft, tenderness - lower abdomen and right side abdomen no peritoneal signs Back Exam: no CVA tenderness, no vertebral tenderness Extremity: no pedal edema, no calf tenderness Neurologic: alert, oriented x 3 Skin Exam: normal color Progress - Progress Progress: 02/20/18 23:00 Vital Signs - 8 hr 02/20/18 22:30 Temperature 98.3 F Pulse Rate [ 82 monitor] Respiratory 20 Rate Blood Pressure 99/66 [Left Arm] O2 Sat by Pulse 97 Oximetry - Results/Orders Results/Orders: 02/20/18 22:52 IV Care:Saline Lock per Protoc QSHIFT 02/21/18 00:36 Hold Metformin x 48Hrs [id number] 02/21/18 02:28 levoFLOXacin 500MG IV [Levaquin 500MG IV] 500 mg Premix Bag 1 bag IVPB ONCE metroNIDAZOLE IV PREMIX 500MG [Flagyl IV Premix 500 MG/100 ML] 500 mg Premix Bag 1 bag IVPB ONCE Laboratory Results - last 24 hr 02/20/18 02/20/18 02/20/18 11:00 11:00 23:55 WBC 16.7 H D RBC 3.70 L Hgb 10.8 L Hct 33.4 L MCV 90.4 MCH 29.1 MCHC 32.2 L RDW 14.7 H Plt Count 222 MPV 8.8 Absolute Neuts (auto) 13.10 H Absolute Lymphs (auto) 2.50 Absolute Monos (auto) 0.80 Absolute Eos (auto) 0.30 Absolute Basos (auto) 0.00 Neutrophils % 78.5 H Lymphocytes % 15.2 L Monocytes % 4.5 Eosinophils % 1.5 Basophils % 0.3 PT 10.3 INR 1.03 PTT (SP) 27.8 Sodium 132 L Potassium 3.2 L Chloride 103 Carbon Dioxide 24 Anion Gap 8.2 L BUN 14 Creatinine 0.76 BUN/Creatinine Ratio 18.4 Random Glucose 129 H Serum Osmolality 266.7 L Calcium 7.9 L Magnesium 2.0 Total Bilirubin 0.3 Direct Bilirubin < 0.1 Indirect Bilirubin 0.2 AST 17 ALT 16 Alkaline Phosphatase 69 Creatine Kinase 223 H* D CK-MB (CK-2) 2.4 CK-MB (CK-2) % Not Reportable Troponin I < 0.02 Serum Total Protein 6.0 L Albumin 3.2 Lipase 32 Urine Color Yellow Urine Appearance Clear Urine pH 6.0 Ur Specific [place] 1.010 Urine Protein Negative Urine Glucose (UA) Negative Urine Ketones Negative Urine Blood Trace-intact H Urine Nitrite Negative Urine Bilirubin Negative Urine Urobilinogen 0.2 Ur Leukocyte Esterase Negative Urine RBC 1-3 Urine WBC 0 Ur Epithelial Cells 3-5 Urine Bacteria Rare Urine Opiates Screen Negative Urine Barbiturates Negative Ur Phencyclidine Scrn Negative U Amphetamin/Meth Scrn Negative U Benzodiazepines Scrn Positive H U Cocaine Metab Screen Negative U Cannabinoids Screen Negative discuss test result with patient that nothing acute from her abdominal Ct w/contrast;and wbc elevated but urine ,chemistries were wnl;discuss putting her on oral antibiotics and to follow up with -surgeon 23 Feb 2018 - EKG/XRAY/CT CT Ordered: Yes - abd/p-no acute abnormalities Departure - Departure Clinical Impression: Abdominal pain Qualifiers: Abdominal location: unspecified location Qualified Code(s): R10.9 - Unspecified abdominal pain Time of Disposition: 03:18 Disposition: Discharge to Home or Self Care Condition: Fair Departure Forms: ED Discharge - Pt. Copy, Patient Portal Self Enrollment Instructions: DI for Abdominal Pain-Adult Diet: other - AVOID gresy,spicy foods Referrals: DAVIDE FORRESTER,SYLVESTER Cunningham [Primary Care Provider] - 1-2 Weeks Prescriptions: levoFLOXacin [Levaquin] 500 mg PO DAILY #7 tab metroNIDAZOLE [Flagyl] 500 mg PO BID 7 Days #14 tab Home Medications: Ambulatory Orders Escitalopram Oxalate [Lexapro] 10 mg PO BEDTIME 11/12/17 Levothyroxine Sodium [Synthroid] 50 mcg PO DAILY 11/12/17 Zolpidem Tartrate [Ambien] 10 mg PO BEDTIME 11/12/17 Alprazolam [Xanax] 1 mg PO BID PRN #10 tab 11/13/17 Bupropion HCl [Wellbutrin Xl] 150 mg PO DAILY 11/13/17 Promethazine HCl 25 mg PO Q6H PRN 11/13/17 Triamterene & Hydrochlorothiaz [Triamterene/Hydrochloroth 37.5-25 mg] 1 tab PO DAILY 11/13/17 Apixaban [Eliquis] 5 mg PO BID 02/20/18 Methocarbamol [Robaxin] 750 mg PO TID 02/20/18 Peg 3350-Potassium Chloride-So [Nulytely/Flavor Packs] 1 rachelle PO DAILY PRN #10 rachelle 02/20/18 levoFLOXacin [Levaquin] 500 mg PO DAILY #7 tab 02/21/18 metroNIDAZOLE [Flagyl] 500 mg PO BID 7 Days #14 tab 02/21/18 Additional Instructions: Return to ER as needed;follow up with primary Md 23 Feb [address] Penny
[2018-02-20] MEDS ORDERED: SODIUM CHLORIDE 0.9% 1000ML 1,000 ML IVS ONE (22:52)
--- NOTE | 2018-02-21 01:59 | CT ---
CT abdomen and pelvis with contrast on 02/21/2018 CLINICAL INDICATION: Generalized abdominal pain TECHNIQUE: Multiple axial images are obtained throughout the abdomen and pelvis following the administration of IV contrast. This exam was performed according to our departmental dose-optimization program, which includes automated exposure control, adjustment of the mA and/or kV according to patient size and/or use of iterative reconstruction technique. Total DLP is 1253.75 mGy*cm. COMPARISON: 11/12/2017 FINDINGS: Abdomen: The lung bases are clear. The patient is status post cholecystectomy. The solid abdominal organs are unremarkable. There is no abdominal adenopathy. There is no free fluid or free air within the abdomen. The abdominal portion of the GI tract is unremarkable. Pelvis: Intrauterine device is noted in the uterus. Pelvic organs otherwise appear unremarkable by CT. No free fluid is noted in the pelvis. There is no pelvic adenopathy. Pelvic portion of the GI tract including the appendix is unremarkable. No bony abnormality is noted. IMPRESSION: No acute abnormality. Electronically signed by: Britton Vásquez 02/21/2018 1:58 AM [facility]
[2018-02-21] MEDS ORDERED: metroNIDAZOLE IV PREMIX 500MG 500 MG in PREMIX BAG 1 BAG IVPB ONE (02:28)
[2018-02-21] MEDS ORDERED: levoFLOXacin 500MG IV 100 ML IVPB ONE (02:50)
[2018-02-21] MEDS ORDERED: metroNIDAZOLE IV PREMIX 500MG 0 ML IVPB ONE (02:51)
[2018-02-21] MEDS: NALOXONE HCL INJ 1 MG/ML SYG IV ONE ×2 (02:52→03:09)
[2018-02-21] MEDS: levoFLOXacin 500MG IV 500 MG in PREMIX BAG 1 BAG IVPB ONE ×2 (02:53→03:10)
[2018-02-21] MEDS ORDERED: levoFLOXacin 500 MG TAB PO ONE (03:17)
[2018-02-21] MEDS ORDERED: metroNIDAZOLE 500 MG TAB PO ONE (03:17)
[2018-02-21 03:30] VITALS: BP 103/73; O2SAT 99
== END 2018-02-21 03:30 | disposition home or self-care (01) ==
LOC: ER 22:21
DX: R10.31 Right lower quadrant pain (principal); R11.2 Nausea with vomiting, unspecified; F32.9 Major depressive disorder, single episode, unspecified; E07.9 Disorder of thyroid, unspecified; Z79.01 Long term (current) use of anticoagulants; Z86.711 Personal history of pulmonary embolism; Z87.891 Personal history of nicotine dependence
CPT/HCPCS: 74177; 80048; 80076; 80307; 81001; 82550; 82553; 83690; 84484; 85025; 85610; 85730; J7030

== ENCOUNTER 2018-03-22 04:38 | Emergency (ER) | payer SELFPAY ==
[2018-03-22 05:17] VITALS: BP 116/75; TEMP 98.1; O2SAT 100
--- NOTE | 2018-03-22 07:42 | ED.PDOC ---
History of Present Illness - General Chief Complaint: GI Problem Stated Complaint: constipation Time Seen by Provider: 03/22/18 05:37 Source: patient Exam Limitations: no limitations - History of Present Illness Initial Comments: the patient is a 42-year-old female presenting to the emergency room secondary to 5 days of constipation. She reports that she has been taking MiraLAX and doing enemas. She does have a history of narcotic abuse and has had constipation for that in the past. She was recently admitted to a neighboring hospital for what is possibly an ileus. She has had some mild nausea. No vomiting. She has been taking Bentyl for the last 2 days. She has been taking some Colace as well. The patient does not appear to be any significant physical distress and has not thrown up since her arrival here. She is however upset about a previous visit 3 weeks ago. The patient was examined and a workup was formulated. The patient left 5 minutes after this plan was formulated AGAINST MEDICAL ADVICE. Reason for her leaving is unknown. she has been advised that the Bentyl maybe waking the issue worse. She left before the abdominal x-ray could be performed. Timing/Duration: unsure Severity: mild Improving Factors: nothing Worsening Factors: nothing Associated Symptoms: nausea/vomiting Allergies/Adverse Reactions: Allergies Ondansetron [From Zofran] Allergy (Verified 02/20/18 22:46) Sulfamethoxazole w/Trimethoprim [From Bactrim] Allergy (Verified 02/20/18 22:46) Amoxicillin [From Augmentin] Adverse Reaction (Verified 02/20/18 22:46) Clavulanic Acid [From Augmentin] Adverse Reaction (Verified 02/20/18 22:46) Home Medications: Ambulatory Orders Escitalopram Oxalate [Lexapro] 10 mg PO BEDTIME 11/12/17 Levothyroxine Sodium [Synthroid] 50 mcg PO DAILY 11/12/17 Zolpidem Tartrate [Ambien] 10 mg PO BEDTIME 11/12/17 Alprazolam [Xanax] 1 mg PO BID PRN #10 tab 11/13/17 Bupropion HCl [Wellbutrin Xl] 150 mg PO DAILY 11/13/17 Promethazine HCl 25 mg PO Q6H PRN 11/13/17 Apixaban [Eliquis] 5 mg PO BID 02/20/18 Review of Systems - Review of Systems Constitutional: States: no symptoms reported EENTM: States: no symptoms reported Respiratory: States: no symptoms reported Cardiology: States: no symptoms reported Gastrointestinal/Abdominal: States: constipation, nausea Genitourinary: States: no symptoms reported Musculoskeletal: States: no symptoms reported Skin: States: no symptoms reported Neurological: States: anxiety, other - the patient was simply mad All other Systems: No Change from Baseline Past Medical History (General) - Patient Medical History Hx Seizures: Yes - past Hx Stroke: No Hx Dementia: No Hx Asthma: No Hx of COPD: No Hx Cardiac Disorders: Yes - Hx PE's - currently taking Eliquis Hx Congestive Heart Failure: No Hx Pacemaker: No Hx Hypertension: No Hx Thyroid Disease: Yes Hx Diabetes: No Hx Gastroesophageal Reflux: No Hx Renal Disease: No Hx Cancer: No Hx of HIV: No Hx Hepatitis C: No Hx MRSA: No Surgical History: cholecystectomy, tonsillectomy - Vaccination History Hx Tetanus, Diphtheria Vaccination: Yes Hx Influenza Vaccination: Yes Hx Pneumococcal Vaccination: No - Social History Hx Tobacco Use: Yes Hx Chewing Tobacco Use: No Hx Alcohol Use: No Hx Substance Use: Yes - prescription Hx Substance Use Treatment: Yes - yes 2 years ago [facility] as mentioned by patient Hx Depression: Yes Hx Physical Abuse: No Hx Emotional Abuse: No Hx Suspected Abuse: No - Female History Hx Last Menstrual Period: 03/28/15 - has iud Patient : No Family Medical History - Family History Mother Family History: Unknown Living Status: Still Living Hx Family Hypertension: Yes - dad Hx Family Cancer: Yes Father Family History: Unknown Living Status: Still Living Hx Family Asthma: No Hx Family Hypertension: Yes Physical Exam - Physical Exam General Appearance: Alert, Other - the patient is obviously mad. She is in no obvious physical distress. She has not had any vomiting since her arrival. She is actually sleeping until I went up to talk to. Eye Exam: bilateral normal Ears, Nose, Throat: hearing grossly normal, normal pharynx Neck: non-tender, supple Respiratory: no respiratory distress, no accessory muscle use Cardiovascular/Chest: normal peripheral pulses, no edema Peripheral Pulses: radial,right: 2+, radial,left: 2+, dorsalis pedis,right: 2+, dorsalis pedis,left: 2+ Gastrointestinal/Abdominal: soft, other - obese. No rebound or peritoneal signs. 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 Laboratory work that resulted after the patient left AGAINST MEDICAL ADVICE appears to be okay. She left before we were able to do an x-ray. I had advised her to discontinue the Bentyl as this may be making the condition worse. She has been advised to increase her fibrous food intake. She also needs to increase her fluid intake. The patient left before a rectal exam could be done for possible disimpaction. She should keep follow-up with her primary care doctor. Again the patient left AGAINST MEDICAL ADVICE without talking to me again. - Results/Orders Results/Orders: 03/22/18 07:23 Abdomen Series [RAD] Stat not done Laboratory Results - last 24 hr 03/22/18 03/22/18 03/22/18 05:45 05:45 05:45 WBC RBC Hgb Hct MCV MCH MCHC RDW Plt Count MPV Absolute Neuts (auto) Absolute Lymphs (auto) Absolute Monos (auto) Absolute Eos (auto) Absolute Basos (auto) Neutrophils % Lymphocytes % Monocytes % Eosinophils % Basophils % Sodium Potassium Chloride Carbon Dioxide Anion Gap BUN Creatinine BUN/Creatinine Ratio Random Glucose Serum Osmolality Calcium Total Bilirubin AST ALT Alkaline Phosphatase Serum Total Protein Albumin Globulin Albumin/Globulin Ratio Urine Color Straw Urine Appearance Clear Urine pH 7.5 Ur Specific Anna 1.010 Urine Protein Negative Urine Glucose (UA) Negative Urine Ketones Negative Urine Blood Negative Urine Nitrite Negative Urine Bilirubin Negative Urine Urobilinogen 0.2 Ur Leukocyte Esterase Negative Urine RBC 0-1 Urine WBC 0-1 Ur Epithelial Cells 0 Urine Bacteria 0 Urine HCG, Qual Negative Urine Opiates Screen Not Reportable Urine Barbiturates Not Reportable Ur Phencyclidine Scrn Negative U Amphetamin/Meth Scrn Negative U Benzodiazepines Scrn Positive H U Cocaine Metab Screen Negative U Cannabinoids Screen Negative 03/22/18 03/22/18 05:48 05:48 WBC 8.3 RBC 4.55 Hgb 13.5 Hct 41.6 MCV 91.4 MCH 29.6 MCHC 32.4 L RDW 14.1 Plt Count 193 MPV 9.4 Absolute Neuts (auto) 4.60 Absolute Lymphs (auto) 3.00 Absolute Monos (auto) 0.50 Absolute Eos (auto) 0.10 Absolute Basos (auto) 0.10 Neutrophils % 55.4 Lymphocytes % 35.9 Monocytes % 6.1 Eosinophils % 1.6 Basophils % 1.0 Sodium 138 Potassium 3.4 L Chloride 105 Carbon Dioxide 25 Anion Gap 11.4 L BUN 11 Creatinine 0.75 BUN/Creatinine Ratio 14.7 Random Glucose 89 Serum Osmolality 274.6 L Calcium 8.8 Total Bilirubin 0.3 AST 18 ALT 14 Alkaline Phosphatase 79 Serum Total Protein 7.2 Albumin 4.0 Globulin 3.2 Albumin/Globulin Ratio 1.3 Urine Color Urine Appearance Urine pH Ur Specific Anna Urine Protein Urine Glucose (UA) Urine Ketones Urine Blood Urine Nitrite Urine Bilirubin Urine Urobilinogen Ur Leukocyte Esterase Urine RBC Urine WBC Ur Epithelial Cells Urine Bacteria Urine HCG, Qual Urine Opiates Screen Urine Barbiturates Ur Phencyclidine Scrn U Amphetamin/Meth Scrn U Benzodiazepines Scrn U Cocaine Metab Screen U Cannabinoids Screen Departure - Departure Clinical Impression: Constipation Qualifiers: Constipation type: unspecified constipation type Qualified Code(s): K59.00 - Constipation, unspecified Disposition: Left Against Medical Advice Condition: Fair Departure Forms: ED Discharge - Pt. Copy, Patient Portal Self Enrollment Diet: other - high-fiber Activity: increase activity as tolerated Referrals: DAVIDE FORRESTER,SYLVESTER Cunningham [Primary Care Provider] - 1-2 Weeks Home Medications: Ambulatory Orders Escitalopram Oxalate [Lexapro] 10 mg PO BEDTIME 11/12/17 Levothyroxine Sodium [Synthroid] 50 mcg PO DAILY 11/12/17 Zolpidem Tartrate [Ambien] 10 mg PO BEDTIME 11/12/17 Alprazolam [Xanax] 1 mg PO BID PRN #10 tab 11/13/17 Bupropion HCl [Wellbutrin Xl] 150 mg PO DAILY 11/13/17 Promethazine HCl 25 mg PO Q6H PRN 11/13/17 Apixaban [Eliquis] 5 mg PO BID 02/20/18
== END 2018-03-22 07:33 | disposition left against medical advice (07) ==
LOC: ER 04:38
DX: K59.00 Constipation, unspecified (principal); Z53.29 Procedure and treatment not carried out because of patient's decision for other reasons; E07.9 Disorder of thyroid, unspecified; F32.9 Major depressive disorder, single episode, unspecified; Z87.891 Personal history of nicotine dependence; Z86.711 Personal history of pulmonary embolism; Z79.01 Long term (current) use of anticoagulants; Z79.899 Other long term (current) drug therapy; Z88.1 Allergy status to other antibiotic agents; Z88.8 Allergy status to other drugs, medicaments and biological substances; Z88.2 Allergy status to sulfonamides

== ENCOUNTER 2018-05-16 17:12 | Emergency (ER) | payer OTHER, SELFPAY ==
[2018-05-16 17:33] VITALS: TEMP 98.3
[2018-05-16 18:20] VITALS: O2SAT 98
--- NOTE | 2018-05-16 18:40 | ED.PDOC ---
History of Present Illness - General Chief Complaint: General Time Seen by Provider: 05/16/18 17:36 Source: patient Exam Limitations: no limitations - History of Present Illness Initial Comments: PT C/O CONTRERAS AND ELEVATED BP FOR 3-4 DAYS. PT WAS ON CHRONIC XANAX THEN RAN OUT SOME TIME AGO. WAS STARTED ON CLONIDINE FOR "WITHDRAWALS". WAS ON PO .2 FOR GREATER THAN 30 DAYS THEN SWITCHED TO TRANSDERMAL 2 WEEKS AGO. STARTED VALIUM SINCE FOR ANXIETY. Severity: moderate Improving Factors: nothing Worsening Factors: nothing Associated Symptoms: headaches Allergies/Adverse Reactions: Allergies Ondansetron [From Zofran] Allergy (Verified 02/20/18 22:46) Penicillins Allergy (Verified 05/16/18 17:23) Sulfamethoxazole w/Trimethoprim [From Bactrim] Allergy (Verified 02/20/18 22:46) Amoxicillin [From Augmentin] Adverse Reaction (Verified 02/20/18 22:46) Clavulanic Acid [From Augmentin] Adverse Reaction (Verified 02/20/18 22:46) Home Medications: Ambulatory Orders Escitalopram Oxalate [Lexapro] 20 mg PO BEDTIME 11/12/17 Levothyroxine Sodium [Synthroid] 50 mcg PO DAILY 11/12/17 Zolpidem Tartrate [Ambien] 10 mg PO BEDTIME 11/12/17 Bupropion HCl [Wellbutrin Xl] 150 mg PO DAILY 11/13/17 Promethazine HCl 25 mg PO Q6H PRN 11/13/17 Apixaban [Eliquis] 5 mg PO BID 02/20/18 Clonidine [Lradddmi-Tgq-3] 0.2 mg TD Q7D 05/16/18 Diazepam [Valium] 10 mg PO BID 05/16/18 Methocarbamol [Robaxin] 1 tablet PO Q8HR 05/16/18 Topiramate [Topamax] 200 mg PO DAILY 05/16/18 Triamterene & Hydrochlorothiaz [Dyazide 37.5-25 mg] 1 cap PO DAILY 05/16/18 Review of Systems - Review of Systems Constitutional: Denies: chills, fever EENTM: States: no symptoms reported Respiratory: Denies: cough, short of breath Cardiology: Denies: chest pain, palpitations, syncope Gastrointestinal/Abdominal: Denies: abdominal pain, nausea, vomiting Genitourinary: States: no symptoms reported Musculoskeletal: States: no symptoms reported Skin: States: no symptoms reported Neurological: States: headache. Denies: numbness, tingling, weakness Endocrine: States: no symptoms reported Hematologic/Lymphatic: States: no symptoms reported Past Medical History (General) - Patient Medical History Hx Seizures: Yes - past Hx Stroke: No Hx Dementia: No Hx Asthma: No Hx of COPD: No Hx Cardiac Disorders: Yes - Hx PE's - currently taking Eliquis Hx Congestive Heart Failure: No Hx Pacemaker: No Hx Hypertension: No Hx Thyroid Disease: Yes Hx Diabetes: No Hx Gastroesophageal Reflux: No Hx Renal Disease: No Hx Cancer: No Hx of HIV: No Hx Hepatitis C: No Hx MRSA: No - Vaccination History Hx Tetanus, Diphtheria Vaccination: Yes Hx Influenza Vaccination: Yes Hx Pneumococcal Vaccination: No - Social History Hx Tobacco Use: Yes Hx Chewing Tobacco Use: No Hx Alcohol Use: No Hx Substance Use: Yes - prescription Hx Substance Use Treatment: Yes - yes 2 years ago [facility] as mentioned by patient Hx Depression: Yes Hx Physical Abuse: No Hx Emotional Abuse: No Hx Suspected Abuse: No - Female History Hx Last Menstrual Period: 03/28/15 - has iud Patient : No Family Medical History - Family History Mother Family History: Unknown Living Status: Still Living Hx Family Hypertension: - dad Hx Family Cancer: Yes Father Family History: Unknown Living Status: Still Living Hx Family Asthma: No Hx Family Hypertension: Yes - father Physical Exam - Physical Exam General Appearance: Alert, No apparent distress Eye Exam: bilateral normal Ears, Nose, Throat: normal ENT inspection Neck: non-tender, supple, normal inspection Respiratory: lungs clear, normal breath sounds Cardiovascular/Chest: regular rate, rhythm, no murmur Gastrointestinal/Abdominal: non tender, soft, no organomegaly Back Exam: normal inspection, no CVA tenderness Extremity: normal range of motion, normal inspection Neurologic: alert, normal mood/affect Skin Exam: normal color, warm/dry Lymphatic: no adenopathy Progress - Progress Progress: 05/16/18 19:56 VSS, BP HAS NORMALIZED. WILL ADVISE PT TO F/U WITH PCP FOR POSSIBLE WEAN FROM CLONIDINE. HAS APPT WITH MONIKA SOLIS FOR ANXIETY TX. KEEP THAT F/U AND HAVE HER RETURN TO ED FOR F/U Departure - Departure Clinical Impression: Elevated blood pressure reading, Anxiety Benzodiazepine causing adverse effect in therapeutic use Qualifiers: Encounter type: initial encounter Qualified Code(s): T42.4X5A - Adverse effect of benzodiazepines, initial encounter Time of Disposition: 19:58 Disposition: Discharge to Home or Self Care Condition: Good Departure Forms: ED Discharge - Pt. Copy, Patient Portal Self Enrollment Instructions: High Blood Pressure (DC), Anxiety, Adult (DC) Referrals: DAVIDE FORRESTER,SYLVESTER Cunningham [Primary Care Provider] - 1-2 Weeks Home Medications: Ambulatory Orders Escitalopram Oxalate [Lexapro] 20 mg PO BEDTIME 11/12/17 Levothyroxine Sodium [Synthroid] 50 mcg PO DAILY 11/12/17 Zolpidem Tartrate [Ambien] 10 mg PO BEDTIME 11/12/17 Bupropion HCl [Wellbutrin Xl] 150 mg PO DAILY 11/13/17 Promethazine HCl 25 mg PO Q6H PRN 11/13/17 Apixaban [Eliquis] 5 mg PO BID 02/20/18 Clonidine [Hlwvvysz-Kev-9] 0.2 mg TD Q7D 05/16/18 Diazepam [Valium] 10 mg PO BID 05/16/18 Methocarbamol [Robaxin] 1 tablet PO Q8HR 05/16/18 Topiramate [Topamax] 200 mg PO DAILY 05/16/18 Triamterene & Hydrochlorothiaz [Dyazide 37.5-25 mg] 1 cap PO DAILY 05/16/18
[2018-05-16] MEDS ORDERED: ACETAMINOPHEN 500 MG TAB PO ONE (19:50)
[2018-05-16 19:53] VITALS: BP 129/89
== END 2018-05-16 20:00 | disposition home or self-care (01) ==
LOC: ER 17:12
DX: R03.0 Elevated blood-pressure reading, without diagnosis of hypertension (principal); F41.9 Anxiety disorder, unspecified; R51 Headache; T42.4X5A Adverse effect of benzodiazepines, initial encounter; F32.9 Major depressive disorder, single episode, unspecified; E07.9 Disorder of thyroid, unspecified; Z87.891 Personal history of nicotine dependence; Z86.711 Personal history of pulmonary embolism; Z79.01 Long term (current) use of anticoagulants; Z79.899 Other long term (current) drug therapy; Z88.8 Allergy status to other drugs, medicaments and biological substances; Z88.0 Allergy status to penicillin; Z88.2 Allergy status to sulfonamides

== ENCOUNTER 2018-07-06 07:30 | Emergency (ER) | payer OTHER ==
[2018-07-06 07:54] VITALS: O2SAT 100
--- NOTE | 2018-07-06 07:54 | ED.PDOC ---
History of Present Illness - General Chief Complaint: Problem Stated Complaint: R sided abd cramping/vaginal spotting Time Seen by Provider: 07/06/18 07:50 Source: RN notes reviewed, EMS notes reviewed Exam Limitations: no limitations Additional Information: 42 YEAR OLD WHITE FEMALE PRESENTS WITH VAGINAL BLEEDING AND LOWER ABDOMINAL CRAMPING PAIN FOR THE PAST 5-7 DAYS SHE WAS WITH HER PCP LAST WEEK FOR ANNUAL CHECK UP DURING THAT VISIT THEY COULD NOT FIND THE IUD THAT SHE HAS HAD FOR YEARS HER LAST MENSTRUAL CYCLE WAS 5 YEARS AGO SHE HAS NO NASUEA VOMITING DIARRHEA NO FEVER CHILLS NO DYSURIA - History of Present Illness Timing/Duration: intermittent Severity: moderate Improving Factors: nothing Allergies/Adverse Reactions: Allergies Ondansetron [From Zofran] Allergy (Verified 07/06/18 07:54) Penicillins Allergy (Verified 07/06/18 07:54) Sulfamethoxazole w/Trimethoprim [From Bactrim] Allergy (Verified 07/06/18 07:54) Amoxicillin [From Augmentin] Adverse Reaction (Verified 07/06/18 07:54) Clavulanic Acid [From Augmentin] Adverse Reaction (Verified 07/06/18 07:54) Home Medications: Ambulatory Orders Escitalopram Oxalate [Lexapro] 20 mg PO BEDTIME 11/12/17 Levothyroxine Sodium [Synthroid] 50 mcg PO DAILY 11/12/17 Zolpidem Tartrate [Ambien] 10 mg PO BEDTIME 11/12/17 Bupropion HCl [Wellbutrin Xl] 300 mg PO DAILY 11/13/17 Promethazine HCl 25 mg PO Q6H PRN 11/13/17 Diazepam [Valium] 10 mg PO BID 05/16/18 Methocarbamol [Robaxin] 1 tablet PO Q8HR 05/16/18 Topiramate [Topamax] 300 mg PO BID 05/16/18 Triamterene & Hydrochlorothiaz [Dyazide 37.5-25 mg] 1 cap PO BID PRN 05/16/18 Diclofenac Sodium (Topical) [Voltaren] 1 % TD Q6H 07/06/18 Linaclotide [Linzess] 290 mcg PO DAILY 07/06/18 Prazosin HCl 2 mg PO QPM PRN 07/06/18 Propranolol HCl 40 mg PO BID 07/06/18 Tramadol HCl [Ultram] 50 mg PO Q6H PRN #30 tab 07/06/18 Review of Systems - Review of Systems Constitutional: States: no symptoms reported EENTM: States: no symptoms reported Respiratory: States: no symptoms reported Cardiology: States: no symptoms reported Gastrointestinal/Abdominal: States: no symptoms reported Genitourinary: States: see HPI Skin: States: no symptoms reported Neurological: States: no symptoms reported Endocrine: States: no symptoms reported Hematologic/Lymphatic: States: no symptoms reported Past Medical History (General) - Patient Medical History Hx Seizures: Yes - past Hx Stroke: No Hx Dementia: No Hx Asthma: No Hx of COPD: No Hx Cardiac Disorders: Yes - Hx PE's - currently taking Eliquis Hx Congestive Heart Failure: No Hx Pacemaker: No Hx Hypertension: No Hx Thyroid Disease: Yes Hx Diabetes: No Hx Gastroesophageal Reflux: No Hx Renal Disease: No Hx Cancer: No Hx of HIV: No Hx Hepatitis C: No Hx MRSA: No - Vaccination History Hx Tetanus, Diphtheria Vaccination: Yes Hx Influenza Vaccination: Yes Hx Pneumococcal Vaccination: No - Social History Hx Tobacco Use: Yes Hx Chewing Tobacco Use: No Hx Alcohol Use: No Hx Substance Use: Yes - prescription Hx Substance Use Treatment: Yes - yes 2 years ago [facility] as mentioned by patient Hx Depression: Yes Hx Physical Abuse: No Hx Emotional Abuse: No Hx Suspected Abuse: No - Female History Hx Last Menstrual Period: 03/28/15 - has iud Patient : No Family Medical History - Family History Mother Family History: Unknown Living Status: Still Living Hx Family Hypertension: - dad Hx Family Cancer: Yes Father Family History: Unknown Living Status: Still Living Hx Family Asthma: No Hx Family Hypertension: Yes - father Physical Exam - Physical Exam General Appearance: Alert, Comfortable Eye Exam: bilateral normal Ears, Nose, Throat: hearing grossly normal, normal ENT inspection, normal pharynx Neck: non-tender, full range of motion, supple Respiratory: chest non-tender, lungs clear, normal breath sounds, no respiratory distress, no accessory muscle use Cardiovascular/Chest: normal peripheral pulses, regular rate, rhythm, no edema, no gallop Gastrointestinal/Abdominal: normal bowel sounds, non tender, soft, no organomegaly Back Exam: normal inspection, no CVA tenderness, no vertebral tenderness Extremity: normal range of motion, non-tender, normal inspection Skin Exam: normal color, warm/dry Progress - Results/Orders Results/Orders: CT ABD PELVIS IUD IS IN THE UTERUS OTHERWISE NORMAL CT ABD PELVIS Departure - Departure Clinical Impression: Anxiety, Abdominal pain Time of Disposition: 09:12 Disposition: Discharge to Home or Self Care Condition: Good Departure Forms: ED Discharge - Pt. Copy, Patient Portal Self Enrollment Diet: resume usual diet - FOLLOW UP WITH YOUR MD Referrals: Raulito Pantoja MD [Primary Care Provider] - 1-2 Weeks Home Medications: Ambulatory Orders Escitalopram Oxalate [Lexapro] 20 mg PO BEDTIME 11/12/17 Levothyroxine Sodium [Synthroid] 50 mcg PO DAILY 11/12/17 Zolpidem Tartrate [Ambien] 10 mg PO BEDTIME 11/12/17 Bupropion HCl [Wellbutrin Xl] 300 mg PO DAILY 11/13/17 Promethazine HCl 25 mg PO Q6H PRN 11/13/17 Diazepam [Valium] 10 mg PO BID 05/16/18 Methocarbamol [Robaxin] 1 tablet PO Q8HR 05/16/18 Topiramate [Topamax] 300 mg PO BID 05/16/18 Triamterene & Hydrochlorothiaz [Dyazide 37.5-25 mg] 1 cap PO BID PRN 05/16/18 Diclofenac Sodium (Topical) [Voltaren] 1 % TD Q6H 07/06/18 Linaclotide [Linzess] 290 mcg PO DAILY 07/06/18 Prazosin HCl 2 mg PO QPM PRN 07/06/18 Propranolol HCl 40 mg PO BID 07/06/18 Tramadol HCl [Ultram] 50 mg PO Q6H PRN #30 tab 07/06/18
--- NOTE | 2018-07-06 08:52 | CT ---
EXAM DESCRIPTION: Abdoment/Pelvis w/o Contrast CLINICAL HISTORY: ABD PAIN COMPARISON: February 21, 2018 TECHNIQUE: Noncontrast transaxial CT images of the abdomen and pelvis are obtained. This exam was performed according to our departmental dose-optimization program, which includes automated exposure control, adjustment of the mA and/or kV according to patient size and/or use of iterative reconstruction technique . FINDINGS: Visualized lung bases show no acute findings. The liver, spleen, pancreas, and adrenal glands are unremarkable. Cholecystectomy changes are seen. Abdominal vasculature is unremarkable. No nephrolithiasis. No ureteral calcification or obstruction. Kidneys are unremarkable. Urinary bladder is within normal limits. A T-shaped IUD is in good positioning within the endometrial canal of the uterus. Uterus and ovaries are otherwise unremarkable. The appendix is mildly retrocecal and normal. Stomach is poorly distended but unremarkable. No small bowel obstruction or bowel wall thickening is seen. The colon is unremarkable. No significant diverticular disease or inflammatory changes are seen. No pathologically enlarged abdominal or retroperitoneal lymphadenopathy is seen. Osseous structures show no aggressive bony lesions. IMPRESSION: No acute findings on CT of the abdomen and pelvis. Electronically signed by: Carmelo Costello MD 07/06/2018 8:50 AM CDT
[2018-07-06] MEDS: traMADol HCL 50 MG TAB PO ONE (09:16)
[2018-07-06 09:29] VITALS: BP 138/86; TEMP 96.8
== END 2018-07-06 09:29 | disposition home or self-care (01) ==
LOC: ER 07:30
DX: R10.31 Right lower quadrant pain (principal); F41.9 Anxiety disorder, unspecified; F32.9 Major depressive disorder, single episode, unspecified; E07.9 Disorder of thyroid, unspecified; Z97.5 Presence of (intrauterine) contraceptive device; Z87.891 Personal history of nicotine dependence; Z86.711 Personal history of pulmonary embolism; Z79.01 Long term (current) use of anticoagulants; Z79.899 Other long term (current) drug therapy; Z88.8 Allergy status to other drugs, medicaments and biological substances; Z88.0 Allergy status to penicillin; Z88.2 Allergy status to sulfonamides

== ENCOUNTER 2018-07-31 21:45 | Emergency (ER) | payer SELFPAY ==
[2018-07-31 22:02] VITALS: TEMP 99.8
[2018-07-31] MEDS ORDERED: LUBIPROSTONE 24 MCG CAP PO ONE (22:19)
--- NOTE | 2018-07-31 22:22 | ED.PDOC ---
History of Present Illness - General Chief Complaint: Lower Extremity Injury Stated Complaint: Legs are swollen, painful Time Seen by Provider: 07/31/18 21:46 Source: patient Exam Limitations: no limitations - History of Present Illness Initial Comments: the patient is a 42-year-old female presenting to emergency room secondary to persistent edema. Since she was seen last here this past , she was seen at the [place] emergency room and had yet another lower extremity venous Doppler showing no evidence of DVT. She was given some additional potassium at that visit. Edema actually does appear to be less today than it was 4 days ago. No significant shortness of breath. No chest pain. I do not believe that the patient has actually reduced her medications as instructed previously. No shortness of breath. She has been somewhat compliant with the Vivek wraps. She is obviously not been up and moving around very much..the patient additionally reports that she has not had a bowel movement in the last 5 days. She has been unable to get her linzess filled. Timing/Duration: other - lmost a month Severity: moderate Improving Factors: nothing Worsening Factors: nothing Associated Symptoms: denies symptoms Allergies/Adverse Reactions: Allergies Latex Allergy (Intermediate, Verified 07/27/18 10:51) red swelling Ondansetron [From Zofran] Allergy (Intermediate, Verified 07/27/18 10:51) migraine Penicillins Allergy (Verified 07/27/18 10:51) N/V Sulfamethoxazole w/Trimethoprim [From Bactrim] Allergy (Verified 07/27/18 10:51) Amoxicillin [From Augmentin] Adverse Reaction (Verified 07/27/18 10:51) N/V Clavulanic Acid [From Augmentin] Adverse Reaction (Verified 07/27/18 10:51) N./V Home Medications: Ambulatory Orders Levothyroxine Sodium [Synthroid] 50 mcg PO DAILY 11/12/17 Zolpidem Tartrate [Ambien] 10 mg PO BEDTIME 11/12/17 Promethazine HCl 25 mg PO Q6H PRN 11/13/17 Diazepam [Valium] 10 mg PO BID 05/16/18 Methocarbamol [Robaxin] 1 tablet PO TID 05/16/18 Topiramate [Topamax] 150 mg PO BID 05/16/18 Diclofenac Sodium (Topical) [Voltaren] 1 % TD Q6H 07/06/18 Linaclotide [Linzess] 290 mcg PO DAILY 07/06/18 Propranolol HCl 40 mg PO BID 07/06/18 Tramadol HCl [Ultram] 50 mg PO Q6H PRN #30 tab 07/06/18 Acetaminophen W/ Codeine [Tylenol/Codeine #4 300-60 mg] 1 tablet PO Q6HRS PRN 07/20/18 Clindamycin HCl 300 mg PO TID 07/20/18 Ciprofloxacin [Cipro] 500 mg PO BID #10 tab 07/23/18 hydrOXYzine HCl [Atarax] 10 mg PO TID PRN #10 tab 07/23/18 Spironolactone 25 mg PO DAILY #10 tab 07/31/18 Review of Systems - Review of Systems Constitutional: States: malaise EENTM: States: no symptoms reported Respiratory: States: no symptoms reported Cardiology: States: no symptoms reported Gastrointestinal/Abdominal: States: no symptoms reported Genitourinary: States: no symptoms reported Musculoskeletal: States: no symptoms reported Skin: States: see HPI Neurological: States: no symptoms reported Endocrine: States: no symptoms reported All other Systems: No Change from Baseline Past Medical History (General) - Patient Medical History Hx Seizures: Yes - past Hx Stroke: No Hx Dementia: No Hx Asthma: No Hx of COPD: No Hx Cardiac Disorders: No Hx Congestive Heart Failure: No Hx Pacemaker: No Hx Hypertension: No Hx Thyroid Disease: Yes - Hypo Hx Diabetes: No Hx Gastroesophageal Reflux: No Hx Renal Disease: No Hx Cancer: No Hx of HIV: No Hx Hepatitis C: No Hx MRSA: No Surgical History: cholecystectomy, tonsillectomy - Vaccination History Hx Tetanus, Diphtheria Vaccination: No Hx Influenza Vaccination: Yes Hx Pneumococcal Vaccination: No - Social History Hx Tobacco Use: Yes Hx Chewing Tobacco Use: No Hx Alcohol Use: Yes Hx Substance Use: Yes - prescription Hx Substance Use Treatment: Yes - yes [address] [facility] as mentioned by patient Hx Depression: Yes Hx Physical Abuse: No Hx Emotional Abuse: No Hx Suspected Abuse: No - Female History Hx Last Menstrual Period: 03/28/15 Patient : No Family Medical History - Family History Mother Family History: Unknown Living Status: Still Living Hx Family Hypertension: - dad Hx Family Cancer: Yes Father Family History: Unknown Living Status: Still Living Hx Family Asthma: No Hx Family Hypertension: Yes - father Physical Exam - Physical Exam General Appearance: Alert, Comfortable, No apparent distress Eye Exam: bilateral normal Ears, Nose, Throat: hearing grossly normal, normal ENT inspection, normal pharynx Neck: full range of motion, supple Respiratory: lungs clear, normal breath sounds, no respiratory distress, no accessory muscle use Cardiovascular/Chest: normal peripheral pulses, regular rate, rhythm Peripheral Pulses: radial,right: 2+, radial,left: 2+ Gastrointestinal/Abdominal: non tender - orbidly obese, soft Rectal Exam: deferred Back Exam: no CVA tenderness, no vertebral tenderness Extremity: normal range of motion, normal capillary refill, pedal edema 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 She needs to implement the dosage reductions on medications as instructed previously to help reduce edema. Additionally I'm going to switch the patient over from Lasix to daily spironolactone at 25 mg for 10 days. This should help continue to slowly move off fluid as well as improve her potassium levels. She needs to have her potassium level rechecked towards the end of this week along with her renal function. Most importantly she needs to continue to rewrap her legs with Vivek wraps every 4 hours. Edema is less today than 4 days ago. She was given a dose of amitiza here for constipation. if needed she can take a dose of castor oil once weekly for the next few weeks to help reduce constipation. ER warnings were given. Follow-up with primary care doctor later this week. Departure - Departure Clinical Impression: Chronic edema Constipation Qualifiers: Constipation type: drug induced constipation Qualified Code(s): K59.03 - Drug induced constipation Disposition: Discharge to Home or Self Care Condition: Fair Departure Forms: ED Discharge - Pt. Copy, Patient Portal Self Enrollment Instructions: Dependent Edema (DC), Constipation, Adult (DC) Diet: other - high-fiber low-fat Activity: other - exercise is encouraged Referrals: Pantoja,Raulito H, MD [Primary Care Provider] - 1-5 Days Prescriptions: Spironolactone 25 mg PO DAILY #10 tab Home Medications: Ambulatory Orders Levothyroxine Sodium [Synthroid] 50 mcg PO DAILY 11/12/17 Zolpidem Tartrate [Ambien] 10 mg PO BEDTIME 11/12/17 Promethazine HCl 25 mg PO Q6H PRN 11/13/17 Diazepam [Valium] 10 mg PO BID 05/16/18 Methocarbamol [Robaxin] 1 tablet PO TID 05/16/18 Topiramate [Topamax] 150 mg PO BID 05/16/18 Diclofenac Sodium (Topical) [Voltaren] 1 % TD Q6H 07/06/18 Linaclotide [Linzess] 290 mcg PO DAILY 07/06/18 Propranolol HCl 40 mg PO BID 07/06/18 Tramadol HCl [Ultram] 50 mg PO Q6H PRN #30 tab 07/06/18 Acetaminophen W/ Codeine [Tylenol/Codeine #4 300-60 mg] 1 tablet PO Q6HRS PRN 07/20/18 Clindamycin HCl 300 mg PO TID 07/20/18 Ciprofloxacin [Cipro] 500 mg PO BID #10 tab 07/23/18 hydrOXYzine HCl [Atarax] 10 mg PO TID PRN #10 tab 07/23/18 Spironolactone 25 mg PO DAILY #10 tab 07/31/18 Additional Instructions: the patient is a 42-year-old female presenting to the emergency room secondary to persistent chronic edema. She needs to implement the dosage reductions on medications as instructed previously to help reduce edema. Additionally I'm going to switch the patient over from Lasix to daily spironolactone at 25 mg for 10 days. This should help continue to slowly move off fluid as well as improve her potassium levels. She needs to have her potassium level rechecked towards the end of this week along with her renal function. Most importantly she needs to continue to rewrap her legs with Vivek wraps every 4 hours. Edema is less today than 4 days ago. She was given a dose of amitiza here for constipation. if needed she can take a dose of castor oil once weekly for the next few weeks to help reduce constipation. ER warnings were given. Follow-up with primary care doctor later this week.
[2018-07-31 22:35] VITALS: BP 108/78; O2SAT 97
== END 2018-07-31 22:36 | disposition home or self-care (01) ==
LOC: ER 21:45
DX: R60.0 Localized edema (principal); K59.03 Drug induced constipation; E03.9 Hypothyroidism, unspecified; F32.9 Major depressive disorder, single episode, unspecified; Z87.891 Personal history of nicotine dependence; Z79.899 Other long term (current) drug therapy; Z88.2 Allergy status to sulfonamides; Z88.1 Allergy status to other antibiotic agents; Z88.8 Allergy status to other drugs, medicaments and biological substances; Z88.0 Allergy status to penicillin; Z91.040 Latex allergy status

== ENCOUNTER → 2018-09-07 | Outpatient (CLI) | payer OTHER | LOC: LAB.O 15:03 | PROVIDERS: ATTEND Family Medicine | DX: R60.0 Localized edema (principal); M13.0 Polyarthritis, unspecified ==

== ENCOUNTER 2018-09-08 10:42 | Emergency (ER) | payer OTHER ==
[2018-09-08] MEDS ORDERED: MORPHINE SULFATE INJ 10 MG/ML VIAL IM ONE (11:47)
[2018-09-08] MEDS ORDERED: PROMETHAZINE HCL INJ 25 MG/ML VIAL IM ONE (11:51)
--- NOTE | 2018-09-08 12:12 | ED.PDOC ---
History of Present Illness - General Chief Complaint: General Stated Complaint: swelling all over Time Seen by Provider: 09/08/18 11:45 Source: patient Exam Limitations: no limitations - History of Present Illness Initial Comments: Arleen Moncada 42 y/o female with history of leg swelling for 3 months and had 2 venous doppler both legs in the past came to ER with pain /swelling both legs.No HX of trauma. Timing/Duration: other - 3 months Severity: moderate Improving Factors: nothing Worsening Factors: nothing Associated Symptoms: other - see hpi Allergies/Adverse Reactions: Allergies Latex Allergy (Intermediate, Verified 07/27/18 10:51) red swelling Ondansetron [From Zofran] Allergy (Intermediate, Verified 07/27/18 10:51) migraine Penicillins Allergy (Verified 07/27/18 10:51) N/V Sulfamethoxazole w/Trimethoprim [From Bactrim] Allergy (Verified 07/27/18 10:51) Amoxicillin [From Augmentin] Adverse Reaction (Verified 07/27/18 10:51) N/V Clavulanic Acid [From Augmentin] Adverse Reaction (Verified 07/27/18 10:51) N./V Home Medications: Ambulatory Orders Levothyroxine Sodium [Synthroid] 50 mcg PO DAILY 11/12/17 Zolpidem Tartrate [Ambien] 10 mg PO BEDTIME 11/12/17 Promethazine HCl 25 mg PO Q6H PRN 11/13/17 Diazepam [Valium] 10 mg PO BID 05/16/18 Methocarbamol [Robaxin] 1 tablet PO TID 05/16/18 Topiramate [Topamax] 150 mg PO BID 05/16/18 Diclofenac Sodium (Topical) [Voltaren] 1 % TD Q6H 07/06/18 Linaclotide [Linzess] 290 mcg PO DAILY 07/06/18 Propranolol HCl 40 mg PO BID 07/06/18 hydrOXYzine HCl [Atarax] 10 mg PO TID PRN #10 tab 07/23/18 Acetaminophen W/ Codeine [Tylenol w/Codeine 300-30 mg] 1 tab PO TID PRN #14 tab 09/08/18 BuPROPion XL [Wellbutrin XL] 150 mg PO DAILY 09/08/18 Escitalopram Oxalate [Lexapro] 20 mg PO DAILY 09/08/18 Furosemide [Lasix] 40 mg PO DAILY 09/08/18 HYDROcodone 5MG/APAP 325MG [Lead 5/325] 1 tab PO Q6H PRN 09/08/18 Potassium Chloride [Potassium Chloride ER] 10 meq PO DAILY 09/08/18 Prazosin HCl 2 mg PO BEDTIME 09/08/18 Review of Systems - Review of Systems Musculoskeletal: States: other - leg swelling All other Systems: Reviewed and Negative, No Change from Baseline Past Medical History (General) - Patient Medical History Hx Seizures: Yes - past Hx Stroke: No Hx Dementia: No Hx Asthma: No Hx of COPD: No Hx Cardiac Disorders: No Hx Congestive Heart Failure: No Hx Pacemaker: No Hx Hypertension: No Hx Thyroid Disease: Yes - Hypo Hx Diabetes: No Hx Gastroesophageal Reflux: No Hx Renal Disease: No Hx Cancer: No Hx of HIV: No Hx Hepatitis C: No Hx MRSA: No Hx Other PMH: Yes - PE Surgical History: cholecystectomy, tonsillectomy - Vaccination History Hx Tetanus, Diphtheria Vaccination: No Hx Influenza Vaccination: No Hx Pneumococcal Vaccination: No - Social History Hx Tobacco Use: Yes Hx Chewing Tobacco Use: No Hx Alcohol Use: Yes Hx Substance Use: Yes - prescription Hx Substance Use Treatment: Yes - yes 2 years ago [facility] as mentioned by patient Hx Depression: Yes Hx Physical Abuse: No Hx Emotional Abuse: No Hx Suspected Abuse: No - Female History Hx Last Menstrual Period: 03/28/15 Patient : No Family Medical History - Family History Mother Family History: Unknown Living Status: Still Living Hx Family Hypertension: - dad Hx Family Cancer: Yes Father Family History: Unknown Living Status: Still Living Hx Family Asthma: No Hx Family Hypertension: Yes - father Physical Exam - Physical Exam General Appearance: Alert, Comfortable, No apparent distress Eye Exam: bilateral normal Ears, Nose, Throat: hearing grossly normal, normal ENT inspection, normal pharynx Neck: non-tender, full range of motion, supple, normal inspection Respiratory: lungs clear, normal breath sounds, no respiratory distress Cardiovascular/Chest: normal peripheral pulses, regular rate, rhythm, no murmur Peripheral Pulses: radial,right: 2+, radial,left: 2+ Gastrointestinal/Abdominal: non tender, soft, no organomegaly Back Exam: no CVA tenderness, no vertebral tenderness Extremity: pedal edema - bilaterally Neurologic: alert, oriented x 3 Skin Exam: normal color, warm/dry Progress - Progress Progress: 09/08/18 12:14 Vital Signs - 8 hr 09/08/18 09/08/18 11:14 12:04 Temperature 98.5 F 98.3 F Pulse Rate [ 101 H 89 Left Brachial] Respiratory 20 20 Rate Blood Pressure 112/66 114/67 [Left Arm] O2 Sat by Pulse 98 97 Oximetry 09/08/18 12:14 DECLINED TO HAVE ANOTHER VENOUS DOPPLER LEGS AND BLOOD WORK DONE WANTS TO FOLLOW UP WITH PRIMARY MD;All previuos ER visits labs reviewed were wnl 09/08/18 12:16 Departure - Departure Clinical Impression: Localized swelling of both lower legs Time of Disposition: 12:18 Disposition: Discharge to Home or Self Care Departure Forms: ED Discharge - Pt. Copy, Patient Portal Self Enrollment Referrals: Raulito Pantoja MD [Primary Care Provider] - 1-2 Weeks Prescriptions: Acetaminophen W/ Codeine [Tylenol w/Codeine 300-30 mg] 1 tab PO TID PRN #14 tab PRN Reason: Pain Home Medications: Ambulatory Orders Levothyroxine Sodium [Synthroid] 50 mcg PO DAILY 11/12/17 Zolpidem Tartrate [Ambien] 10 mg PO BEDTIME 11/12/17 Promethazine HCl 25 mg PO Q6H PRN 11/13/17 Diazepam [Valium] 10 mg PO BID 05/16/18 Methocarbamol [Robaxin] 1 tablet PO TID 05/16/18 Topiramate [Topamax] 150 mg PO BID 05/16/18 Diclofenac Sodium (Topical) [Voltaren] 1 % TD Q6H 07/06/18 Linaclotide [Linzess] 290 mcg PO DAILY 07/06/18 Propranolol HCl 40 mg PO BID 07/06/18 hydrOXYzine HCl [Atarax] 10 mg PO TID PRN #10 tab 07/23/18 Acetaminophen W/ Codeine [Tylenol w/Codeine 300-30 mg] 1 tab PO TID PRN #14 tab 09/08/18 BuPROPion XL [Wellbutrin XL] 150 mg PO DAILY 09/08/18 Escitalopram Oxalate [Lexapro] 20 mg PO DAILY 09/08/18 Furosemide [Lasix] 40 mg PO DAILY 09/08/18 HYDROcodone 5MG/APAP 325MG [Lead 5/325] 1 tab PO Q6H PRN 09/08/18 Potassium Chloride [Potassium Chloride ER] 10 meq PO DAILY 09/08/18 Prazosin HCl 2 mg PO BEDTIME 09/08/18 Additional Instructions: Gradually taper down Topamax,Follow up with primary Md for Referral to [employer]
[2018-09-08 12:30] VITALS: BP 116/78; TEMP 97.7; O2SAT 98
== END 2018-09-08 12:25 | disposition home or self-care (01) ==
LOC: ER 10:42
DX: M79.89 Other specified soft tissue disorders (principal); F32.9 Major depressive disorder, single episode, unspecified; E03.9 Hypothyroidism, unspecified; Z87.891 Personal history of nicotine dependence; Z86.711 Personal history of pulmonary embolism; Z79.899 Other long term (current) drug therapy; Z91.040 Latex allergy status; Z88.8 Allergy status to other drugs, medicaments and biological substances; Z88.0 Allergy status to penicillin; Z88.2 Allergy status to sulfonamides
CPT/HCPCS: 81001; J2270; J2550

== ENCOUNTER 2018-09-10 13:31 | Emergency (ER) | payer OTHER ==
[2018-09-10 13:45] VITALS: TEMP 97.7
[2018-09-10] MEDS ORDERED: POTASSIUM CHLORIDE ELIXIR 20 MEQ/15 ML UD PO ONE (14:44)
[2018-09-10 15:08] VITALS: BP 132/95; O2SAT 97
[2018-09-10] MEDS ORDERED: POTASSIUM CHLORIDE 20 MEQ TAB PO ONE (15:55)
[2018-09-10] MEDS ORDERED: FUROSEMIDE INJ 20 MG/2 ML VIAL IV ONE (15:55)
[2018-09-10] MEDS ORDERED: KETOROLAC TROMETHAMINE INJ 30 MG/ML VIAL IM ONE (15:56)
--- NOTE | 2018-09-10 16:16 | ED.PDOC ---
History of Present Illness - General Chief Complaint: General Stated Complaint: swelling, pain to both legs Time Seen by Provider: 09/10/18 13:53 Source: patient Exam Limitations: no limitations - History of Present Illness Initial Comments: the patient's 42-year-old female presenting to the emergency room secondary to chronic peripheral edema. She reports pain from the edema. The edema is currently being worked up by her primary care doctor. There is no evidence of any new infection. No evidence of anyalteration of vital signs. She is not hypoxic. Lungs are clear. The patient is quite agitated. She has not been using her compression stockings. She has intermittently been using her potassium. She has had several lower extremity Dopplers and the last couple of months all of which have been negative for any evidence of DVT. Rhabdomyolysis has been present in the recent past as well possibly from over diuresis. Timing/Duration: 4-6 hours Severity: moderate Improving Factors: nothing Worsening Factors: nothing Associated Symptoms: malaise Allergies/Adverse Reactions: Allergies Latex Allergy (Intermediate, Verified 07/27/18 10:51) red swelling Ondansetron [From Zofran] Allergy (Intermediate, Verified 07/27/18 10:51) migraine Penicillins Allergy (Verified 07/27/18 10:51) N/V Sulfamethoxazole w/Trimethoprim [From Bactrim] Allergy (Verified 07/27/18 10:51) Amoxicillin [From Augmentin] Adverse Reaction (Verified 07/27/18 10:51) N/V Clavulanic Acid [From Augmentin] Adverse Reaction (Verified 07/27/18 10:51) N./V Home Medications: Ambulatory Orders Levothyroxine Sodium [Synthroid] 50 mcg PO DAILY 11/12/17 Zolpidem Tartrate [Ambien] 10 mg PO BEDTIME 11/12/17 Promethazine HCl 25 mg PO Q6H PRN 11/13/17 Diazepam [Valium] 10 mg PO BID 05/16/18 Methocarbamol [Robaxin] 1 tablet PO TID 05/16/18 Topiramate [Topamax] 100 mg PO DAILY 05/16/18 Diclofenac Sodium (Topical) [Voltaren] 1 % TD Q6H 07/06/18 Linaclotide [Linzess] 290 mcg PO DAILY 07/06/18 Propranolol HCl 20 mg PO BID 07/06/18 hydrOXYzine HCl [Atarax] 10 mg PO TID PRN #10 tab 07/23/18 Acetaminophen W/ Codeine [Tylenol w/Codeine 300-30 mg] 1 tab PO TID PRN #14 tab 09/08/18 BuPROPion XL [Wellbutrin XL] 150 mg PO DAILY 09/08/18 Escitalopram Oxalate [Lexapro] 20 mg PO DAILY 09/08/18 Furosemide [Lasix] 40 mg PO DAILY 09/08/18 HYDROcodone 5MG/APAP 325MG [[place] 5/325] 1 tab PO Q6H PRN 09/08/18 Potassium Chloride [Potassium Chloride ER] 10 meq PO DAILY 09/08/18 Prazosin HCl 2 mg PO BEDTIME 09/08/18 Review of Systems - Review of Systems Constitutional: States: no symptoms reported EENTM: States: no symptoms reported Respiratory: States: no symptoms reported Cardiology: States: no symptoms reported Gastrointestinal/Abdominal: States: no symptoms reported Genitourinary: States: no symptoms reported Musculoskeletal: States: see HPI Skin: States: see HPI Neurological: States: anxiety Endocrine: States: no symptoms reported All other Systems: No Change from Baseline Past Medical History (General) - Patient Medical History Hx Seizures: Yes - past Hx Stroke: No Hx Dementia: No Hx Asthma: No Hx of COPD: No Hx Cardiac Disorders: No Hx Congestive Heart Failure: No Hx Pacemaker: No Hx Hypertension: No Hx Thyroid Disease: Yes - Hypo Hx Diabetes: No Hx Gastroesophageal Reflux: No Hx Renal Disease: No Hx Cancer: No Hx of HIV: No Hx Hepatitis C: No Hx MRSA: No Surgical History: cholecystectomy, tonsillectomy - Vaccination History Hx Tetanus, Diphtheria Vaccination: No Hx Influenza Vaccination: No Hx Pneumococcal Vaccination: No - Social History Hx Tobacco Use: Yes Hx Chewing Tobacco Use: No Hx Alcohol Use: Yes Hx Substance Use: Yes - prescription Hx Substance Use Treatment: Yes - yes 2 years ago [facility] as mentioned by patient Hx Depression: Yes Hx Physical Abuse: No Hx Emotional Abuse: No Hx Suspected Abuse: No - Female History Hx Last Menstrual Period: 03/28/15 Patient : No Family Medical History - Family History Mother Family History: Unknown Living Status: Still Living Hx Family Hypertension: - dad Hx Family Cancer: Yes Father Family History: Unknown Living Status: Still Living Hx Family Asthma: No Hx Family Hypertension: Yes - father Physical Exam - Physical Exam General Appearance: Alert, Anxious Eye Exam: bilateral normal Ears, Nose, Throat: hearing grossly normal, normal ENT inspection Neck: full range of motion, supple Respiratory: lungs clear, normal breath sounds, no respiratory distress, no accessory muscle use Cardiovascular/Chest: normal peripheral pulses, regular rate, rhythm Peripheral Pulses: radial,right: 2+, radial,left: 2+, dorsalis pedis,right: 2+, dorsalis pedis,left: 2+ Gastrointestinal/Abdominal: non tender - obese, soft Rectal Exam: deferred Back Exam: no CVA tenderness, no vertebral tenderness Extremity: normal range of motion, no calf tenderness, normal capillary refill, pedal edema - 2+ to 3+ edema in bilateral lower extremities. It is however less than the last time that I saw her. 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 nml as tested, alert, normal mood/affect, oriented x 3 Skin Exam: normal color Comments: Vital Signs - 24 hr 09/10/18 09/10/18 09/10/18 13:34 13:42 14:41 Temperature 97.2 F L 97.7 F Pulse Rate [ 102 H 102 H 87 Left Apical] Respiratory 20 20 20 Rate Blood Pressure 122/74 122/74 119/88 [Left Arm] O2 Sat by Pulse 99 99 99 Oximetry 09/10/18 15:00 Temperature Pulse Rate [ 87 Left Apical] Respiratory 20 Rate Blood Pressure 132/95 [Left Arm] O2 Sat by Pulse 97 Oximetry Progress - Progress Progress: 09/10/18 16:18 the patient is a 42-year-old female presenting to the emergency room secondary to pain from her lower extremity edema. The patient was also found to have recurrent hypokalemia. The patient refused to take the oral potassium elixir. The patient left AGAINST MEDICAL ADVICE before she can be given her doses of potassium in tablet form, Toradol IM and a dose of Lasix IV. I have repeated to her that she needs to wear her compression stockings as decompressing the legs will help reduce the pain. She is having some neuropathic discomfort from the chronic edema. Correction of the edema will help that. She needs to follow back up with her primary care doctor later this coming week for results of her workup that he is already initiated. ER warnings were given. Again the patient left AGAINST MEDICAL ADVICE. - Results/Orders Results/Orders: Laboratory Results - last 24 hr 09/10/18 09/10/18 09/10/18 13:22 13:22 13:22 WBC 7.8 RBC 3.95 L Hgb 11.9 L Hct 35.9 L MCV 90.9 MCH 30.2 MCHC 33.2 RDW 13.9 Plt Count 203 MPV 8.6 Absolute Neuts (auto) 4.70 Absolute Lymphs (auto) 2.40 Absolute Monos (auto) 0.60 Absolute Eos (auto) 0.10 Absolute Basos (auto) 0.10 Neutrophils % 60.0 Lymphocytes % 30.3 Monocytes % 7.1 Eosinophils % 1.4 Basophils % 1.2 PT 9.2 INR 0.92 PTT (SP) 25.4 Sodium 138 Potassium 3.2 L Chloride 103 Carbon Dioxide 26 Anion Gap 12.2 BUN 12 Creatinine 0.75 BUN/Creatinine Ratio 16.0 Random Glucose 103 Serum Osmolality 275.7 Calcium 8.4 Magnesium 1.8 Total Bilirubin < 0.2 L AST 20 ALT 16 Alkaline Phosphatase 68 Creatine Kinase 164 H CK-MB (CK-2) 1.9 CK-MB (CK-2) % Not Reportable Troponin I < 0.02 B-Natriuretic Peptide 30.0 Serum Total Protein 6.8 Albumin 3.6 Globulin 3.2 Albumin/Globulin Ratio 1.1 TSH 3.12 Urine Color Urine Appearance Urine pH Ur Specific [place] Urine Protein Urine Glucose (UA) Urine Ketones Urine Blood Urine Nitrite Urine Bilirubin Urine Urobilinogen Ur Leukocyte Esterase Urine RBC Urine WBC Ur Epithelial Cells Urine Bacteria Urine HCG, Qual 09/10/18 09/10/18 13:22 14:39 WBC RBC Hgb Hct MCV MCH MCHC RDW Plt Count MPV Absolute Neuts (auto) Absolute Lymphs (auto) Absolute Monos (auto) Absolute Eos (auto) Absolute Basos (auto) Neutrophils % Lymphocytes % Monocytes % Eosinophils % Basophils % PT INR PTT (SP) Sodium Potassium Chloride Carbon Dioxide Anion Gap BUN Creatinine BUN/Creatinine Ratio Random Glucose Serum Osmolality Calcium Magnesium Total Bilirubin AST ALT Alkaline Phosphatase Creatine Kinase CK-MB (CK-2) CK-MB (CK-2) % Troponin I B-Natriuretic Peptide Serum Total Protein Albumin Globulin Albumin/Globulin Ratio TSH Urine Color Yellow Urine Appearance Clear Urine pH 5.5 Ur Specific [place] 1.015 Urine Protein Negative Urine Glucose (UA) Negative Urine Ketones Negative Urine Blood Negative Urine Nitrite Negative Urine Bilirubin Negative Urine Urobilinogen 0.2 Ur Leukocyte Esterase Negative Urine RBC 0 Urine WBC 0 Ur Epithelial Cells 1-3 Urine Bacteria 0 Urine HCG, Qual Negative Departure - Departure Clinical Impression: Medical non-compliance, Dependent edema, Hypokalemia Disposition: Left Against Medical Advice Departure Forms: ED Discharge - Pt. Copy, Patient Portal Self Enrollment Referrals: Raulito Pantoja MD [Primary Care Provider] - 1-2 Weeks Home Medications: Ambulatory Orders Levothyroxine Sodium [Synthroid] 50 mcg PO DAILY 11/12/17 Zolpidem Tartrate [Ambien] 10 mg PO BEDTIME 11/12/17 Promethazine HCl 25 mg PO Q6H PRN 11/13/17 Diazepam [Valium] 10 mg PO BID 05/16/18 Methocarbamol [Robaxin] 1 tablet PO TID 05/16/18 Topiramate [Topamax] 100 mg PO DAILY 05/16/18 Diclofenac Sodium (Topical) [Voltaren] 1 % TD Q6H 07/06/18 Linaclotide [Linzess] 290 mcg PO DAILY 07/06/18 Propranolol HCl 20 mg PO BID 07/06/18 hydrOXYzine HCl [Atarax] 10 mg PO TID PRN #10 tab 07/23/18 Acetaminophen W/ Codeine [Tylenol w/Codeine 300-30 mg] 1 tab PO TID PRN #14 tab 09/08/18 BuPROPion XL [Wellbutrin XL] 150 mg PO DAILY 09/08/18 Escitalopram Oxalate [Lexapro] 20 mg PO DAILY 09/08/18 Furosemide [Lasix] 40 mg PO DAILY 09/08/18 HYDROcodone 5MG/APAP 325MG [[place] 5/325] 1 tab PO Q6H PRN 09/08/18 Potassium Chloride [Potassium Chloride ER] 10 meq PO DAILY 09/08/18 Prazosin HCl 2 mg PO BEDTIME 09/08/18
== END 2018-09-10 16:10 | disposition left against medical advice (07) ==
LOC: ER 13:31
DX: R60.0 Localized edema (principal); E87.6 Hypokalemia; E03.9 Hypothyroidism, unspecified; F32.9 Major depressive disorder, single episode, unspecified; E66.9 Obesity, unspecified; Z91.19 Patient's noncompliance with other medical treatment and regimen; Z53.29 Procedure and treatment not carried out because of patient's decision for other reasons; Z87.891 Personal history of nicotine dependence; Z79.899 Other long term (current) drug therapy; Z88.1 Allergy status to other antibiotic agents; Z88.2 Allergy status to sulfonamides; Z88.0 Allergy status to penicillin; Z88.8 Allergy status to other drugs, medicaments and biological substances; Z91.040 Latex allergy status

== ENCOUNTER 2018-09-20 01:33 | Emergency (ER) | payer OTHER ==
[2018-09-20 02:05] VITALS: O2SAT 97
--- NOTE | 2018-09-20 02:32 | RAD ---
CLINICAL HISTORY: nvd COMPARISON: None. TECHNIQUE: XR ABDOMEN SUPINE AND ERECT WITH CHEST (ABD ACUTE SERIES) 09/20/2018 2:07 AM CDT FINDINGS: Bowel gas pattern is nonspecific. There are no abnormal radiopaque foreign bodies or abnormal calcifications. Osseous structures are grossly unremarkable. Cholecystectomy was performed. The heart is normal in size. Lungs are clear. IUD is present. IMPRESSION: No bowel obstruction. Electronically signed by: Jagdish Winslow MD 09/20/2018 2:30 AM CDT
--- NOTE | 2018-09-20 03:41 | ED.PDOC ---
History of Present Illness - General Chief Complaint: GI Problem Stated Complaint: N/V, diarrhea Time Seen by Provider: 09/20/18 01:50 Source: patient Exam Limitations: no limitations - History of Present Illness Initial Comments: the patient is a 42-year-old female presenting to emergency room secondary to feeling a little bit dehydrated. She has been having some nausea and vomiting and diarrhea over the last week but it has improved over the last couple of days. The patient apparently has a history of esophageal stenosis in the past with dilation proximally 4 years ago. She is concerned she may be getting restenosis. She does take Zantac daily but no other acid reducing medications. She has been using Phenergan suppositories as needed. No definite fevers. Diarrhea has resolved. No real point abdominal pain. Blood pressures here are within normal limits.significantly however, her peripheral edema is greatly improved today. Timing/Duration: 1 week Severity: moderate Improving Factors: nothing Worsening Factors: nothing Associated Symptoms: malaise, nausea/vomiting Allergies/Adverse Reactions: Allergies Latex Allergy (Intermediate, Verified 09/20/18 01:49) red swelling Ondansetron [From Zofran] Allergy (Intermediate, Verified 09/20/18 01:49) migraine Penicillins Allergy (Verified 09/20/18 01:49) N/V Sulfamethoxazole w/Trimethoprim [From Bactrim] Allergy (Verified 09/20/18 01:49) Amoxicillin [From Augmentin] Adverse Reaction (Verified 09/20/18 01:49) N/V Clavulanic Acid [From Augmentin] Adverse Reaction (Verified 09/20/18 01:49) N./V Home Medications: Ambulatory Orders Levothyroxine Sodium [Synthroid] 50 mcg PO DAILY 11/12/17 Zolpidem Tartrate [Ambien] 10 mg PO BEDTIME 11/12/17 Promethazine HCl 25 mg PO Q6H PRN 11/13/17 Diazepam [Valium] 10 mg PO BID 05/16/18 Methocarbamol [Robaxin] 1 tablet PO TID 05/16/18 Topiramate [Topamax] 100 mg PO DAILY 05/16/18 Diclofenac Sodium (Topical) [Voltaren] 1 % TD Q6H 07/06/18 Linaclotide [Linzess] 290 mcg PO DAILY 07/06/18 Propranolol HCl 20 mg PO BID 07/06/18 hydrOXYzine HCl [Atarax] 10 mg PO TID PRN #10 tab 07/23/18 Acetaminophen W/ Codeine [Tylenol w/Codeine 300-30 mg] 1 tab PO TID PRN #14 tab 09/08/18 BuPROPion XL [Wellbutrin XL] 150 mg PO DAILY 09/08/18 Escitalopram Oxalate [Lexapro] 20 mg PO DAILY 09/08/18 Furosemide [Lasix] 40 mg PO DAILY 09/08/18 HYDROcodone 5MG/APAP 325MG [[place] 5/325] 1 tab PO Q6H PRN 09/08/18 Potassium Chloride [Potassium Chloride ER] 10 meq PO DAILY 09/08/18 Prazosin HCl 2 mg PO BEDTIME 09/08/18 Sucralfate Tab [Carafate Tab] 1 gm PO QID #120 tab 09/20/18 Review of Systems - Review of Systems Constitutional: States: malaise EENTM: States: no symptoms reported Respiratory: States: no symptoms reported Cardiology: States: no symptoms reported Gastrointestinal/Abdominal: States: see HPI Genitourinary: States: no symptoms reported Musculoskeletal: States: back pain - chronic Skin: States: no symptoms reported Neurological: States: anxiety Endocrine: States: no symptoms reported All other Systems: No Change from Baseline Past Medical History (General) - Patient Medical History Hx Seizures: Yes - past Hx Stroke: No Hx Dementia: No Hx Asthma: No Hx of COPD: No Hx Cardiac Disorders: No Hx Congestive Heart Failure: No Hx Pacemaker: No Hx Hypertension: No Hx Thyroid Disease: Yes - Hypo Hx Diabetes: No Hx Gastroesophageal Reflux: No Hx Renal Disease: No Hx Cancer: No Hx of HIV: No Hx Hepatitis C: No Hx MRSA: No Surgical History: cholecystectomy, tonsillectomy, other - Vaccination History Hx Tetanus, Diphtheria Vaccination: No Hx Influenza Vaccination: No Hx Pneumococcal Vaccination: No - Social History Hx Tobacco Use: Yes Hx Chewing Tobacco Use: No Hx Alcohol Use: Yes Hx Substance Use: Yes - prescription Hx Substance Use Treatment: Yes - yes 2 years ago [facility] as mentioned by patient Hx Depression: Yes Hx Physical Abuse: No Hx Emotional Abuse: No Hx Suspected Abuse: No - Female History Hx Last Menstrual Period: 03/28/15 Patient : No Family Medical History - Family History Mother Family History: Unknown Living Status: Still Living Hx Family Hypertension: - dad Hx Family Cancer: Yes Father Family History: Unknown Living Status: Still Living Hx Family Asthma: No Hx Family Hypertension: Yes - father Physical Exam - Physical Exam General Appearance: Alert, Anxious, No apparent distress Eye Exam: bilateral normal Ears, Nose, Throat: hearing grossly normal, normal ENT inspection Neck: non-tender, full range of motion Respiratory: lungs clear, normal breath sounds, no respiratory distress, no accessory muscle use Cardiovascular/Chest: normal peripheral pulses, regular rate, rhythm, no edema Peripheral Pulses: radial,right: 2+, radial,left: 2+, dorsalis pedis,right: 2+, dorsalis pedis,left: 2+ Gastrointestinal/Abdominal: non tender - obese, soft Rectal Exam: deferred Back Exam: no CVA tenderness, no vertebral tenderness Extremity: normal range of motion, non-tender, normal inspection, normal capillary refill, pedal edema - 1+ to bilateral lower extremities. 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 tested, alert, oriented x 3 Skin Exam: normal color Comments: Vital Signs - 24 hr 09/20/18 09/20/18 09/20/18 01:35 02:04 02:17 Temperature 98.3 F Pulse Rate [ 108 H 98 H 99 H monitor] Respiratory 18 16 Rate Blood Pressure 151/109 133/86 122/81 [Left Arm] O2 Sat by Pulse 98 97 Oximetry 09/20/18 09/20/18 09/20/18 02:18 02:37 03:00 Temperature Pulse Rate [ 96 H 83 monitor] Respiratory Rate Blood Pressure 108/76 118/79 96/64 [Left Arm] O2 Sat by Pulse Oximetry Progress - Progress Progress: 09/20/18 03:44 the patient's a 42-year-old female presents to emergency room secondary to nausea and vomiting and diarrhea over the last week. It is likely that she had a viral gastroenteritis that is clearing up. There is however concern for repeat esophageal stenosis forming. She does need to discuss with her primary care doctor getting set up for an EGD with Dr. Ernesto kelley. She needs to maintain primarily a liquid diet at least for the next day or 2, and after that be sure that she chews her food completely before swallowing to prevent any hanging up if she is developing repeat stenosis. Edema is significantly improved. Potassium is back more towards the normal range. laboratory work does not indicate significant dehydration at this time. Her blood pressures are in the normal range however on the lower end of normal range as is typically desirable. It may be that when she takes certain additional medications it causes a blood pressure drop and makes her be dizzy. She does need to be careful about this. Follow up with primary care doctor in the next 2-3 days. ER warnings were given. - Results/Orders Results/Orders: acute abdominal series fails to showany acute pathology. Laboratory Results - last 24 hr 09/20/18 09/20/18 09/20/18 02:07 02:07 02:07 WBC 9.7 RBC 4.33 Hgb 13.1 Hct 38.9 MCV 89.8 MCH 30.1 MCHC 33.5 RDW 13.9 Plt Count 282 MPV 8.3 Absolute Neuts (auto) 5.90 Absolute Lymphs (auto) 3.10 Absolute Monos (auto) 0.50 Absolute Eos (auto) 0.10 Absolute Basos (auto) 0.10 Neutrophils % 60.9 Lymphocytes % 32.4 Monocytes % 5.3 Eosinophils % 0.8 L Basophils % 0.6 Sodium 136 Potassium 3.6 Chloride 104 Carbon Dioxide 24 Anion Gap 11.6 L BUN 15 Creatinine 1.00 BUN/Creatinine Ratio 15.0 Random Glucose 108 H Serum Osmolality 273.3 L Calcium 8.7 Magnesium 2.0 Total Bilirubin 0.4 AST 22 ALT 20 Alkaline Phosphatase 71 Serum Total Protein 7.3 Albumin 3.9 Globulin 3.4 Albumin/Globulin Ratio 1.1 Amylase 23 L Lipase 44 Urine Color Urine Appearance Urine pH Ur Specific [place] Urine Protein Urine Glucose (UA) Urine Ketones Urine Blood Urine Nitrite Urine Bilirubin Urine Urobilinogen Ur Leukocyte Esterase Urine RBC Urine WBC Ur Epithelial Cells Urine Bacteria Urine Mucus Urine HCG, Qual Negative 09/20/18 02:28 WBC RBC Hgb Hct MCV MCH MCHC RDW Plt Count MPV Absolute Neuts (auto) Absolute Lymphs (auto) Absolute Monos (auto) Absolute Eos (auto) Absolute Basos (auto) Neutrophils % Lymphocytes % Monocytes % Eosinophils % Basophils % Sodium Potassium Chloride Carbon Dioxide Anion Gap BUN Creatinine BUN/Creatinine Ratio Random Glucose Serum Osmolality Calcium Magnesium Total Bilirubin AST ALT Alkaline Phosphatase Serum Total Protein Albumin Globulin Albumin/Globulin Ratio Amylase Lipase Urine Color Yellow Urine Appearance Clear Urine pH 6.5 Ur Specific [place] 1.025 Urine Protein Negative Urine Glucose (UA) Negative Urine Ketones Negative Urine Blood Small H Urine Nitrite Negative Urine Bilirubin Negative Urine Urobilinogen 0.2 Ur Leukocyte Esterase Negative Urine RBC 0 Urine WBC 1-3 Ur Epithelial Cells 10-20 Urine Bacteria 1+ Urine Mucus Small Urine HCG, Qual Departure - Departure Clinical Impression: Gastroenteritis Disposition: Discharge to Home or Self Care Condition: Fair Departure Forms: ED Discharge - Pt. Copy, Patient Portal Self Enrollment Instructions: DI for Diarrhea and Traveler's Diarrhea -- Adult, DI for Gastritis Diet: bland diet Activity: increase activity as tolerated Referrals: Raulito Pantoja MD [Primary Care Provider] - 1-5 Days Prescriptions: Sucralfate Tab [Carafate Tab] 1 gm PO QID #120 tab Home Medications: Ambulatory Orders Levothyroxine Sodium [Synthroid] 50 mcg PO DAILY 11/12/17 Zolpidem Tartrate [Ambien] 10 mg PO BEDTIME 11/12/17 Promethazine HCl 25 mg PO Q6H PRN 11/13/17 Diazepam [Valium] 10 mg PO BID 05/16/18 Methocarbamol [Robaxin] 1 tablet PO TID 05/16/18 Topiramate [Topamax] 100 mg PO DAILY 05/16/18 Diclofenac Sodium (Topical) [Voltaren] 1 % TD Q6H 07/06/18 Linaclotide [Linzess] 290 mcg PO DAILY 07/06/18 Propranolol HCl 20 mg PO BID 07/06/18 hydrOXYzine HCl [Atarax] 10 mg PO TID PRN #10 tab 07/23/18 Acetaminophen W/ Codeine [Tylenol w/Codeine 300-30 mg] 1 tab PO TID PRN #14 tab 09/08/18 BuPROPion XL [Wellbutrin XL] 150 mg PO DAILY 09/08/18 Escitalopram Oxalate [Lexapro] 20 mg PO DAILY 09/08/18 Furosemide [Lasix] 40 mg PO DAILY 09/08/18 HYDROcodone 5MG/APAP 325MG [[place] 5/325] 1 tab PO Q6H PRN 09/08/18 Potassium Chloride [Potassium Chloride ER] 10 meq PO DAILY 09/08/18 Prazosin HCl 2 mg PO BEDTIME 09/08/18 Sucralfate Tab [Carafate Tab] 1 gm PO QID #120 tab 09/20/18 Additional Instructions: the patient's a 42-year-old female presents to emergency room secondary to nausea and vomiting and diarrhea over the last week. It is likely that she had a viral gastroenteritis that is clearing up. There is however concern for repeat esophageal stenosis forming. She does need to discuss with her primary care doctor getting set up for an EGD with Dr. Orozco again. She needs to maintain primarily a liquid diet at least for the next day or 2, and after that be sure that she chews her food completely before swallowing to prevent any hanging up if she is developing repeat stenosis. Edema is significantly improved. Potassium is back more towards the normal range. laboratory work does not indicate significant dehydration at this time. Her blood pressures are in the normal range however on the lower end of normal range as is typically desirable. It may be that when she takes certain additional medications it causes a blood pressure drop and makes her be dizzy. She does need to be careful about this. Follow up with primary care doctor in the next 2-3 days. ER warnings were given.
[2018-09-20 04:04] VITALS: BP 101/73; TEMP 98.1
== END 2018-09-20 04:00 | disposition home or self-care (01) ==
LOC: ER 01:33
DX: K52.9 Noninfective gastroenteritis and colitis, unspecified (principal); F32.9 Major depressive disorder, single episode, unspecified; E03.9 Hypothyroidism, unspecified; Z90.49 Acquired absence of other specified parts of digestive tract; Z87.891 Personal history of nicotine dependence; Z79.899 Other long term (current) drug therapy; Z88.1 Allergy status to other antibiotic agents; Z88.0 Allergy status to penicillin; Z88.8 Allergy status to other drugs, medicaments and biological substances; Z91.040 Latex allergy status

== ENCOUNTER 2018-10-07 09:31 | Emergency (ER) | payer OTHER ==
--- NOTE | 2018-10-07 10:04 | ED.PDOC ---
History of Present Illness - General Chief Complaint: General Stated Complaint: Headache, N/V/D Time Seen by Provider: 10/07/18 09:45 Source: patient Exam Limitations: no limitations - History of Present Illness Initial Comments: the patient is a 42-year-old presenting secondary to a persistent migraine headache. The patient is well known here at the emergency room. She reports that her symptoms are typical for one of her migraine headaches. There is been present for 72 hours and has failed to respond to Zomig, Maxalt and Motrin. She has had a few episodes of nausea and vomiting which is frequent with her. She has also had some mild diarrhea. No real abdominal pain. No fevers. No new focal neurological symptoms.she does still report numbness to her right upper e xtremity though no weakness changes. Looking back in her history from 2014 she was actually reporting numbness in her left leg and arm at that time. She apparently had an MRI at that time showing no acute changes consistent with multiple sclerosis. Timing/Duration: other - 72 hours Severity: moderate Improving Factors: nothing Worsening Factors: nothing Associated Symptoms: headaches, malaise, nausea/vomiting Allergies/Adverse Reactions: Allergies Latex Allergy (Intermediate, Verified 09/20/18 01:49) red swelling Ondansetron [From Zofran] Allergy (Intermediate, Verified 09/20/18 01:49) migraine Penicillins Allergy (Verified 09/20/18 01:49) N/V Sulfamethoxazole w/Trimethoprim [From Bactrim] Allergy (Verified 09/20/18 01:49) Amoxicillin [From Augmentin] Adverse Reaction (Verified 09/20/18 01:49) N/V Clavulanic Acid [From Augmentin] Adverse Reaction (Verified 09/20/18 01:49) N./V Home Medications: Ambulatory Orders Levothyroxine Sodium [Synthroid] 50 mcg PO DAILY 11/12/17 Zolpidem Tartrate [Ambien] 10 mg PO BEDTIME 11/12/17 Promethazine HCl 25 mg PO Q6H PRN 11/13/17 Diazepam [Valium] 10 mg PO BID 05/16/18 Methocarbamol [Robaxin] 1 tablet PO TID 05/16/18 Topiramate [Topamax] 100 mg PO DAILY 05/16/18 Diclofenac Sodium (Topical) [Voltaren] 1 % TD Q6H 07/06/18 Linaclotide [Linzess] 290 mcg PO DAILY 07/06/18 Propranolol HCl 20 mg PO BID 07/06/18 hydrOXYzine HCl [Atarax] 10 mg PO TID PRN #10 tab 07/23/18 Acetaminophen W/ Codeine [Tylenol w/Codeine 300-30 mg] 1 tab PO TID PRN #14 tab 09/08/18 BuPROPion XL [Wellbutrin XL] 150 mg PO DAILY 09/08/18 Escitalopram Oxalate [Lexapro] 20 mg PO DAILY 09/08/18 Furosemide [Lasix] 40 mg PO DAILY 09/08/18 HYDROcodone 5MG/APAP 325MG [[place] 5/325] 1 tab PO Q6H PRN 09/08/18 Potassium Chloride [Potassium Chloride ER] 10 meq PO DAILY 09/08/18 Prazosin HCl [Prazosin Hydrochloride] 2 mg PO BEDTIME 09/08/18 Sucralfate Tab [Carafate Tab] 1 gm PO QID #120 tab 09/20/18 Review of Systems - Review of Systems Constitutional: States: malaise EENTM: States: no symptoms reported Respiratory: States: no symptoms reported Cardiology: States: no symptoms reported Gastrointestinal/Abdominal: States: diarrhea, nausea, vomiting Genitourinary: States: no symptoms reported Musculoskeletal: States: other - multiple chronic pain issues Skin: States: no symptoms reported Neurological: States: see HPI, anxiety, depressed Endocrine: States: no symptoms reported All other Systems: No Change from Baseline Past Medical History (General) - Patient Medical History Hx Seizures: Yes - past Hx Stroke: No Hx Dementia: No Hx Asthma: No Hx of COPD: No Hx Cardiac Disorders: No Hx Congestive Heart Failure: No Hx Pacemaker: No Hx Hypertension: No Hx Thyroid Disease: Yes - Hypo Hx Diabetes: No Hx Gastroesophageal Reflux: No Hx Renal Disease: No Hx Cancer: No Hx of HIV: No Hx Hepatitis C: No Hx MRSA: No Surgical History: cholecystectomy, tonsillectomy, other - Vaccination History Hx Tetanus, Diphtheria Vaccination: Yes Hx Influenza Vaccination: Yes Hx Pneumococcal Vaccination: No - Social History Hx Tobacco Use: Yes Hx Chewing Tobacco Use: No Hx Alcohol Use: No Hx Substance Use: No Hx Substance Use Treatment: No Hx Depression: No Hx Physical Abuse: No Hx Emotional Abuse: No Hx Suspected Abuse: No - Female History Patient is a Female of Child Bearing Age (10 -59 yrs old): Yes Hx Last Menstrual Period: 03/28/15 Patient : No - IUD Family Medical History - Family History Mother Family History: Unknown Living Status: Still Living Hx Family Hypertension: - dad Hx Family Cancer: Yes Father Family History: Unknown Living Status: Still Living Hx Family Asthma: No Hx Family Hypertension: Yes - father Physical Exam - Physical Exam General Appearance: Alert, No apparent distress Eye Exam: bilateral normal Ears, Nose, Throat: hearing grossly normal, normal ENT inspection Neck: full range of motion, supple Respiratory: lungs clear, normal breath sounds, no respiratory distress, no accessory muscle use Cardiovascular/Chest: normal peripheral pulses, regular rate, rhythm, other - +1 edema to bilateral lower extremities Peripheral Pulses: radial,right: 2+, radial,left: 2+, dorsalis pedis,right: 2+, dorsalis pedis,left: 2+ Gastrointestinal/Abdominal: non tender, soft Rectal Exam: deferred Back Exam: no CVA tenderness, no vertebral tenderness Extremity: normal range of motion, non-tender, normal inspection, normal capillary refill, pedal edema 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 She is receiving a small fluid bolus to help with this as we do not want to worsen the edema. She is being dosed with a combination of medications which she reported has worked well for her in the past in these situations including one dose of Decadron, Compazine, Benadryl and Toradol. the patient will be allowed to go home and rest. She needs to keep herself well- hydrated. She needs to follow-up with her primary care doctor early next week. Departure - Departure Clinical Impression: Migraine Qualifiers: Migraine type: unspecified Status migrainosus presence: without status migrainosus Intractability: not intractable Qualified Code(s): G43.909 - Migraine, unspecified, not intractable, without status migrainosus Disposition: Discharge to Home or Self Care Condition: Fair Departure Forms: ED Discharge - Pt. Copy, Patient Portal Self Enrollment Instructions: Migraine Headache (DC) Diet: regular diet Activity: increase activity as tolerated Referrals: Raulito Pantoja MD [Primary Care Provider] - 1-2 Weeks Home Medications: Ambulatory Orders Levothyroxine Sodium [Synthroid] 50 mcg PO DAILY 11/12/17 Zolpidem Tartrate [Ambien] 10 mg PO BEDTIME 11/12/17 Promethazine HCl 25 mg PO Q6H PRN 11/13/17 Diazepam [Valium] 10 mg PO BID 05/16/18 Methocarbamol [Robaxin] 1 tablet PO TID 05/16/18 Topiramate [Topamax] 100 mg PO DAILY 05/16/18 Diclofenac Sodium (Topical) [Voltaren] 1 % TD Q6H 07/06/18 Linaclotide [Linzess] 290 mcg PO DAILY 07/06/18 Propranolol HCl 20 mg PO BID 07/06/18 hydrOXYzine HCl [Atarax] 10 mg PO TID PRN #10 tab 07/23/18 Acetaminophen W/ Codeine [Tylenol w/Codeine 300-30 mg] 1 tab PO TID PRN #14 tab 09/08/18 BuPROPion XL [Wellbutrin XL] 150 mg PO DAILY 09/08/18 Escitalopram Oxalate [Lexapro] 20 mg PO DAILY 09/08/18 Furosemide [Lasix] 40 mg PO DAILY 09/08/18 HYDROcodone 5MG/APAP 325MG [[place] 5/325] 1 tab PO Q6H PRN 09/08/18 Potassium Chloride [Potassium Chloride ER] 10 meq PO DAILY 09/08/18 Prazosin HCl [Prazosin Hydrochloride] 2 mg PO BEDTIME 09/08/18 Sucralfate Tab [Carafate Tab] 1 gm PO QID #120 tab 09/20/18 Additional Instructions: the patient is a 42-year-old female presenting with persistent migraine headache. She is receiving a small fluid bolus to help with this as we do not want to worsen the edema. She is being dosed with a combination of medications which she reported has worked well for her in the past in these situations including one dose of Decadron, Compazine, Benadryl and Toradol. the patient will be allowed to go home and rest. She needs to keep herself well- hydrated. She needs to follow-up with her primary care doctor early next week.
[2018-10-07] MEDS: DEXAMETHASONE INJ 4 MG/ML VIAL IV ONE (10:26)
[2018-10-07] MEDS: PROCHLORPERAZINE INJ 10 MG/2 ML VIAL IV ONE (10:26)
[2018-10-07] MEDS: diphenhydrAMINE HCL 50 MG/ML VIAL IV ONE (10:26)
[2018-10-07] MEDS: KETOROLAC TROMETHAMINE INJ 60 MG/2 ML VIAL IM ONE (10:27)
[2018-10-07] MEDS: SODIUM CHLORIDE 0.9% 1000ML 500 ML IVS ONE (10:27)
[2018-10-07 11:43] VITALS: BP 123/93; TEMP 98.6; O2SAT 100
== END 2018-10-07 11:30 | disposition home or self-care (01) ==
LOC: ER 09:31
DX: G43.909 Migraine, unspecified, not intractable, without status migrainosus (principal); R19.7 Diarrhea, unspecified; R56.9 Unspecified convulsions; E03.9 Hypothyroidism, unspecified; Z87.891 Personal history of nicotine dependence; Z79.899 Other long term (current) drug therapy; Z88.8 Allergy status to other drugs, medicaments and biological substances; Z88.1 Allergy status to other antibiotic agents; Z88.2 Allergy status to sulfonamides; Z88.0 Allergy status to penicillin; Z91.040 Latex allergy status
CPT/HCPCS: J0780; J1100; J1200; J1885; J7030

== ENCOUNTER 2018-10-14 16:57 | Emergency (ER) | payer OTHER ==
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
--- NOTE | 2018-10-14 18:19 | RAD ---
EXAM DESCRIPTION: Chest,1 View CLINICAL HISTORY: 42 years Female chest pain COMPARISON: July 15, 2018. TECHNIQUE: AP view of the chest was obtained. FINDINGS: Cardiac size is within normal limits. Central vessels are not increased. No infiltrates or effusions seen. No consolidation. No pneumothorax. IMPRESSION: No active disease. Electronically signed by: Jolynn Ortiz MD 10/14/2018 6:18 PM CDT
[2018-10-14] MEDS ORDERED: PROMETHAZINE HCL INJ 12.5 MG in SODIUM CHLORIDE 0.9% 50ML 50 ML IVPB ONE (18:28)
[2018-10-14] MEDS ORDERED: SUMAtriptan SUCCINATE INJ 6 MG/0.5 ML VIAL SUBCU ONE (18:28)
[2018-10-14] MEDS ORDERED: SODIUM CHLORIDE 0.9% 50ML 50 ML ONE (18:34)
[2018-10-14] MEDS ORDERED: PROMETHAZINE HCL INJ 25 MG/ML VIAL ONE (18:34)
[2018-10-17 08:10] VITALS: TEMP 99
[2018-10-17 20:08] VITALS: BP 136/95; O2SAT 97
== END 2018-10-15 19:20 | disposition home or self-care (01) ==
LOC: ER 16:57
DX: F41.9 Anxiety disorder, unspecified (principal); R07.2 Precordial pain; R06.02 Shortness of breath; R00.0 Tachycardia, unspecified; I87.8 Other specified disorders of veins; E03.9 Hypothyroidism, unspecified; F17.200 Nicotine dependence, unspecified, uncomplicated; Z79.899 Other long term (current) drug therapy; Z91.040 Latex allergy status; Z88.8 Allergy status to other drugs, medicaments and biological substances; Z88.2 Allergy status to sulfonamides; Z88.1 Allergy status to other antibiotic agents; Z86.718 Personal history of other venous thrombosis and embolism; Z86.711 Personal history of pulmonary embolism
CPT/HCPCS: 36415; 71045; 80053; 82550; 82553; 83735; 84484; 85025; 85379; 93005; 96365; 96372; 99284; A4216; J2550; J3030

== ENCOUNTER 2018-11-03 00:06 | Emergency (ER) | payer OTHER, SELFPAY ==
[2018-11-03 00:26] VITALS: TEMP 97.9
[2018-11-03] MEDS ORDERED: metOLazone 2.5 MG TAB PO ONE (00:43)
[2018-11-03] MEDS ORDERED: FUROSEMIDE 40 MG TAB PO ONE (00:43)
--- NOTE | 2018-11-03 00:51 | ED.PDOC ---
History of Present Illness - General Chief Complaint: Lower Extremity Injury Stated Complaint: swollen legs, left foot numb Time Seen by Provider: 11/03/18 00:09 Source: patient Exam Limitations: no limitations - History of Present Illness Initial Comments: the patient is a 42-year-old female presenting to the emergency room secondary to a recurrence of the swelling of her lower extremities. In comparison to previous visits they are actually not all that swollen. She is reporting some pins and needle sensation to her left lower extremity more than normal. Looking back over her medical records over the last 4 or 5 years she has had a roving pattern of neuropathy. No recent medication changes. She has been using compression stockings. She has been using some Lasix as well as oral potassium. Timing/Duration: 24 hours Severity: moderate Improving Factors: nothing Worsening Factors: nothing Associated Symptoms: denies symptoms Allergies/Adverse Reactions: Allergies Latex Allergy (Intermediate, Verified 09/20/18 01:49) red swelling Ondansetron [From Zofran] Allergy (Intermediate, Verified 09/20/18 01:49) migraine Penicillins Allergy (Verified 09/20/18 01:49) N/V Sulfamethoxazole w/Trimethoprim [From Bactrim] Allergy (Verified 09/20/18 01:49) Amoxicillin [From Augmentin] Adverse Reaction (Verified 09/20/18 01:49) N/V Clavulanic Acid [From Augmentin] Adverse Reaction (Verified 09/20/18 01:49) N./V Home Medications: Ambulatory Orders Zolpidem Tartrate [Ambien] 10 mg PO BEDTIME 11/12/17 Promethazine HCl 25 mg PO Q6H PRN 11/13/17 Diazepam [Valium] 10 mg PO BID 05/16/18 Methocarbamol [Robaxin] 1 tablet PO TID 05/16/18 Linaclotide [Linzess] 290 mcg PO DAILY 07/06/18 Escitalopram Oxalate [Lexapro] 20 mg PO DAILY 09/08/18 Furosemide [Lasix] 40 mg PO DAILY 09/08/18 HYDROcodone 5MG/APAP 325MG [[place] 5/325] 1 tab PO Q6H PRN 09/08/18 Potassium Chloride [Potassium Chloride ER] 10 meq PO DAILY 09/08/18 Prazosin HCl [Prazosin Hydrochloride] 2 mg PO BEDTIME 09/08/18 Sumatriptan Succinate [Imitrex] 25 mg PO 11/03/18 Review of Systems - Review of Systems Constitutional: States: no symptoms reported EENTM: States: no symptoms reported Respiratory: States: no symptoms reported Cardiology: States: edema Gastrointestinal/Abdominal: States: no symptoms reported Genitourinary: States: no symptoms reported Musculoskeletal: States: no symptoms reported Skin: States: no symptoms reported Neurological: States: see HPI Endocrine: States: no symptoms reported All other Systems: No Change from Baseline Past Medical History (General) - Patient Medical History Hx Seizures: Yes - past Hx Stroke: No Hx Dementia: No Hx Asthma: No Hx of COPD: No Hx Cardiac Disorders: No Hx Congestive Heart Failure: No Hx Pacemaker: No Hx Hypertension: No Hx Thyroid Disease: Yes - hypo not taking medications currently Hx Diabetes: No Hx Gastroesophageal Reflux: No Hx Renal Disease: No Hx Cancer: No Hx of HIV: No Hx Hepatitis C: No Hx MRSA: No Surgical History: cholecystectomy, tonsillectomy, other - Vaccination History Hx Tetanus, Diphtheria Vaccination: Yes Hx Influenza Vaccination: Yes - 2018 Hx Pneumococcal Vaccination: No - Social History Hx Tobacco Use: Yes Hx Chewing Tobacco Use: No Hx Alcohol Use: No Hx Substance Use: No Hx Substance Use Treatment: No Hx Depression: No Hx Physical Abuse: No Hx Emotional Abuse: No Hx Suspected Abuse: No - Female History Hx Last Menstrual Period: 03/28/15 Patient : No - IUD Family Medical History - Family History Mother Family History: Unknown Living Status: Still Living Hx Family Hypertension: - dad Hx Family Cancer: Yes Father Family History: Unknown Living Status: Still Living Hx Family Asthma: No Hx Family Hypertension: Yes - father Physical Exam - Physical Exam General Appearance: Alert, Comfortable, No apparent distress Eye Exam: bilateral normal Ears, Nose, Throat: hearing grossly normal Neck: full range of motion Respiratory: no respiratory distress, no accessory muscle use Cardiovascular/Chest: normal peripheral pulses, regular rate, rhythm Peripheral Pulses: radial,right: 2+, radial,left: 2+, dorsalis pedis,right: 2+, dorsalis pedis,left: 2+ Gastrointestinal/Abdominal: non tender - obese, soft Rectal Exam: deferred Extremity: normal range of motion, no calf tenderness, normal capillary refill, pedal edema Neurologic: simplex operator II-XII nml as tested, alert, normal mood/affect, oriented x 3, other - see above. No objective neurological deficits at this time Skin Exam: normal color Comments: Vital Signs - 24 hr 11/03/18 11/03/18 00:20 00:28 Temperature 97.9 F Pulse Rate [ 104 H monitor] Respiratory 18 18 Rate Blood Pressure 136/88 [Left Arm] O2 Sat by Pulse 97 Oximetry Progress - Progress Progress: 11/03/18 00:51 the patient's 42-year-old female presenting to emergency room secondary to an increase in the edema bilateral lower extremities with some increased neuropathic pain on the left lower extremity. The patient is going to be increased on her diuretic medications. She is to continue the Lasix and she needs to take metolazone one hour prior in the morning and wrap her legs with the Vivek wrap prior to that as well. This will hopefully help move the exta edema off and legs and reduce the neuropathic irritability. She does need to keep follow-up with her neurologist. Looking back over medical records the patient appears to have had a roving pattern of neuropathic symptoms over the years. I'm uncertain of the source of this. Keep follow-up with primary care as well. Departure - Departure Clinical Impression: Peripheral edema Peripheral neuropathy Qualifiers: Peripheral neuropathy type: polyneuropathy, unspecified Qualified Code(s): G62.9 - Polyneuropathy, unspecified Disposition: Discharge to Home or Self Care Condition: Fair Departure Forms: ED Discharge - Pt. Copy, Patient Portal Self Enrollment Instructions: DI for Leg Pain Diet: low salt diet Activity: increase activity as tolerated Referrals: Raulito Pantoja MD [Primary Care Provider] - 1-2 Weeks Home Medications: Ambulatory Orders Zolpidem Tartrate [Ambien] 10 mg PO BEDTIME 11/12/17 Promethazine HCl 25 mg PO Q6H PRN 11/13/17 Diazepam [Valium] 10 mg PO BID 05/16/18 Methocarbamol [Robaxin] 1 tablet PO TID 05/16/18 Linaclotide [Linzess] 290 mcg PO DAILY 07/06/18 Escitalopram Oxalate [Lexapro] 20 mg PO DAILY 09/08/18 Furosemide [Lasix] 40 mg PO DAILY 09/08/18 HYDROcodone 5MG/APAP 325MG [[place] 5/325] 1 tab PO Q6H PRN 09/08/18 Potassium Chloride [Potassium Chloride ER] 10 meq PO DAILY 09/08/18 Prazosin HCl [Prazosin Hydrochloride] 2 mg PO BEDTIME 09/08/18 Sumatriptan Succinate [Imitrex] 25 mg PO 11/03/18 Additional Instructions: the patient's 42-year-old female presenting to emergency room secondary to an increase in the edema bilateral lower extremities with some increased neuropathic pain on the left lower extremity. The patient is going to be increased on her diuretic medications. She is to continue the Lasix and she needs to take metolazone one hour prior in the morning and wrap her legs with the Vivek wrap prior to that as well. This will hopefully help move the exta edema off and legs and reduce the neuropathic irritability. She does need to keep follow-up with her neurologist. Looking back over medical records the patient appears to have had a roving pattern of neuropathic symptoms over the years. I'm uncertain of the source of this. Keep follow-up with primary care as well.
[2018-11-03] MEDS ORDERED: POTASSIUM CHLORIDE 20 MEQ TAB PO ONE (00:55)
[2018-11-03 01:09] VITALS: BP 136/91; O2SAT 96
== END 2018-11-03 01:06 | disposition home or self-care (01) ==
LOC: ER 00:06
DX: G62.9 Polyneuropathy, unspecified (principal); R60.0 Localized edema; E03.9 Hypothyroidism, unspecified; Z87.891 Personal history of nicotine dependence; Z79.899 Other long term (current) drug therapy; Z91.040 Latex allergy status; Z88.8 Allergy status to other drugs, medicaments and biological substances; Z88.0 Allergy status to penicillin; Z88.2 Allergy status to sulfonamides

== ENCOUNTER 2018-11-03 07:30 | Emergency (ER) | payer SELFPAY ==
[2018-11-03] MEDS ORDERED: MORPHINE SULFATE INJ 10 MG/ML VIAL IV ONE (08:10)
[2018-11-03] MEDS ORDERED: ONDANSETRON INJ 4 MG/2 ML VIAL IV ONE (08:11)
[2018-11-03] MEDS ORDERED: PROMETHAZINE HCL 25 MG TAB PO ONE (08:21)
[2018-11-03 08:40] VITALS: TEMP 97.9
[2018-11-03] MEDS ORDERED: hydrOXYzine HCl 25 MG TAB PO ONE (09:09)
--- NOTE | 2018-11-03 09:47 | ED.PDOC ---
History of Present Illness - General Chief Complaint: General Stated Complaint: extreme leg pain Time Seen by Provider: 11/03/18 07:43 - History of Present Illness Initial Comments: Patient is a 42F with history of chronic leg pain who presents with same. She is well-known to this Emergency Department and was seen/discharged a few hours prior to this visit. She complains of leg swelling "for years." She has been extensively evaluated with no significant findings, negative bilateral DVT sono x 2. The patient states that her leg swelling and pain have been worse over the past few days. She complains of generalized pins and needles sensation. No erythema or fevers. No history of trauma. She was discharged recently with anabel compression wrap and metolazone to take with her lasix. No other complaints at this time. Allergies/Adverse Reactions: Allergies Latex Allergy (Intermediate, Verified 09/20/18 01:49) red swelling Ondansetron [From Zofran] Allergy (Intermediate, Verified 09/20/18 01:49) migraine Penicillins Allergy (Verified 09/20/18 01:49) N/V Sulfamethoxazole w/Trimethoprim [From Bactrim] Allergy (Verified 09/20/18 01:49) Amoxicillin [From Augmentin] Adverse Reaction (Verified 09/20/18 01:49) N/V Clavulanic Acid [From Augmentin] Adverse Reaction (Verified 09/20/18 01:49) N./V Home Medications: Ambulatory Orders Zolpidem Tartrate [Ambien] 10 mg PO BEDTIME 11/12/17 Promethazine HCl 25 mg PO Q6H PRN 11/13/17 Diazepam [Valium] 10 mg PO BID 05/16/18 Methocarbamol [Robaxin] 1 tablet PO TID 05/16/18 Linaclotide [Linzess] 290 mcg PO DAILY 07/06/18 Escitalopram Oxalate [Lexapro] 20 mg PO DAILY 09/08/18 Furosemide [Lasix] 40 mg PO DAILY 09/08/18 HYDROcodone 5MG/APAP 325MG [[place] 5/325] 1 tab PO Q6H PRN 09/08/18 Potassium Chloride [Potassium Chloride ER] 10 meq PO DAILY 09/08/18 Prazosin HCl [Prazosin Hydrochloride] 2 mg PO BEDTIME 09/08/18 Metoprolol Succinate [[place]spargo Sprinkle] 25 mg PO AC #30 cap 11/03/18 Promethazine Supp [Phenergan Suppository] 12.5 mg CA Q6H PRN #15 sup 11/03/18 Sumatriptan Succinate [Imitrex] 25 mg PO 11/03/18 Review of Systems - Review of Systems Constitutional: Denies: chills, fever EENTM: States: no symptoms reported Respiratory: States: no symptoms reported. Denies: short of breath Cardiology: States: edema. Denies: palpitations Gastrointestinal/Abdominal: Denies: abdominal pain, nausea, vomiting Genitourinary: States: no symptoms reported Musculoskeletal: States: muscle pain, other - lower extremity edema Skin: Denies: lesions, rash Neurological: States: paresthesia - "pins and needles" bilateral lower extremities Endocrine: States: no symptoms reported Hematologic/Lymphatic: States: no symptoms reported Past Medical History (General) - Patient Medical History Hx Seizures: Yes - past Hx Stroke: No Hx Dementia: No Hx Asthma: No Hx of COPD: No Hx Cardiac Disorders: No Hx Congestive Heart Failure: No Hx Pacemaker: No Hx Hypertension: No Hx Thyroid Disease: Yes Hx Diabetes: No Hx Gastroesophageal Reflux: No Hx Renal Disease: No Hx Cancer: No Hx of HIV: No Hx Hepatitis C: No Hx MRSA: No - Vaccination History Hx Tetanus, Diphtheria Vaccination: Yes Hx Influenza Vaccination: Yes - 2018 Hx Pneumococcal Vaccination: No - Social History Hx Tobacco Use: Yes Hx Chewing Tobacco Use: No Hx Alcohol Use: No Hx Substance Use: No Hx Substance Use Treatment: No Hx Depression: No Hx Physical Abuse: No Hx Emotional Abuse: No Hx Suspected Abuse: No - Female History Hx Last Menstrual Period: 03/28/15 Patient : No - IUD Family Medical History - Family History Mother Family History: Unknown Living Status: Still Living Hx Family Hypertension: - dad Hx Family Cancer: Yes Father Family History: Unknown Living Status: Still Living Hx Family Asthma: No Hx Family Hypertension: Yes - father Physical Exam - Physical Exam General Appearance: Alert, No apparent distress, Well Developed Respiratory: no respiratory distress Cardiovascular/Chest: normal peripheral pulses Peripheral Pulses: dorsalis pedis,right: 2+, dorsalis pedis,left: 2+ Extremity: normal range of motion, pedal edema, swelling, other - bilateral lower extremity pitting edema. Normal pulses and capillary refill. no rashes or lesions. no deformity. Mild diffuse tenderness without focal findings Skin Exam: normal color Progress - Progress Progress: 11/03/18 09:47 Patient reassessed, she is feeling well. Leg pain has improved. She has been worked up extensively in the past. Will continue outpatient symptomatic management and she will follow up with her PCP and neurologist. Home care instructions reviewed. 11/03/18 10:36 [facility] Patient presents with chronic lower extremity edema and worsening pain. No history of trauma. Exam remarkable only for pitting edema. She has normal pulses and normal capillary refill. There is full ROM to joints without pain. No fever or systemic symptoms. Multiple prior negative ultrasounds. She is ambulatory in the Emergency Department. Pain controlled. Will continue outpatient management with metolazone/lasix. She will follow up with her PCP and neurologist. Home care instructions and return indications reviewed. - Results/Orders Results/Orders: Laboratory Results - last 24 hr 11/03/18 11/03/18 11/03/18 08:00 08:00 08:00 WBC 11.6 H RBC 4.78 Hgb 13.9 Hct 41.9 MCV 87.6 MCH 29.1 MCHC 33.3 RDW 14.5 Plt Count 202 MPV 9.3 Absolute Neuts (auto) 7.50 H Absolute Lymphs (auto) 3.20 Absolute Monos (auto) 0.60 Absolute Eos (auto) 0.20 Absolute Basos (auto) 0.10 Neutrophils % 64.6 Lymphocytes % 27.8 Monocytes % 5.0 Eosinophils % 1.5 Basophils % 1.1 Sodium 135 Potassium 3.3 L Chloride 94 L Carbon Dioxide 27 Anion Gap 17.3 BUN 18 Creatinine 0.82 BUN/Creatinine Ratio 22.0 H Random Glucose 138 H Serum Osmolality 274.2 L Calcium 9.3 Creatine Kinase 231 H* Departure - Departure Clinical Impression: Peripheral edema Leg pain Qualifiers: Laterality: bilateral Qualified Code(s): M79.604 - Pain in right leg Time of Disposition: 09:48 Disposition: Discharge to Home or Self Care Condition: Fair Departure Forms: ED Discharge - Pt. Copy, Patient Portal Self Enrollment Instructions: Dependent Edema (DC) Diet: resume usual diet Referrals: Raulito Pantoja MD [Primary Care Provider] - 1-2 Weeks Prescriptions: Promethazine Supp [Phenergan Suppository] 12.5 mg CA Q6H PRN #15 sup PRN Reason: Nausea Home Medications: Ambulatory Orders Zolpidem Tartrate [Ambien] 10 mg PO BEDTIME 11/12/17 Promethazine HCl 25 mg PO Q6H PRN 11/13/17 Diazepam [Valium] 10 mg PO BID 05/16/18 Methocarbamol [Robaxin] 1 tablet PO TID 05/16/18 Linaclotide [Linzess] 290 mcg PO DAILY 07/06/18 Escitalopram Oxalate [Lexapro] 20 mg PO DAILY 09/08/18 Furosemide [Lasix] 40 mg PO DAILY 09/08/18 HYDROcodone 5MG/APAP 325MG [[place] 5/325] 1 tab PO Q6H PRN 09/08/18 Potassium Chloride [Potassium Chloride ER] 10 meq PO DAILY 09/08/18 Prazosin HCl [Prazosin Hydrochloride] 2 mg PO BEDTIME 09/08/18 Metoprolol Succinate [Kapspargo Sprinkle] 25 mg PO AC #30 cap 11/03/18 Promethazine Supp [Phenergan Suppository] 12.5 mg CA Q6H PRN #15 sup 11/03/18 Sumatriptan Succinate [Imitrex] 25 mg PO 11/03/18
[2018-11-03 10:41] VITALS: BP 127/90; O2SAT 97
== END 2018-11-03 10:12 | disposition home or self-care (01) ==
LOC: ER 07:30
DX: M79.604 Pain in right leg (principal); R60.0 Localized edema; E07.9 Disorder of thyroid, unspecified; Z87.891 Personal history of nicotine dependence; Z91.040 Latex allergy status; Z88.8 Allergy status to other drugs, medicaments and biological substances; Z88.0 Allergy status to penicillin; Z88.2 Allergy status to sulfonamides; Z79.899 Other long term (current) drug therapy
CPT/HCPCS: 36415; 80048; 82550; 85025; J2270; Q0169

== ENCOUNTER 2018-11-04 15:12 | Emergency (ER) | payer SELFPAY ==
[2018-11-04] MEDS ORDERED: MORPHINE SULFATE INJ 10 MG/ML VIAL IV ONE (17:06)
[2018-11-04] MEDS ORDERED: PROMETHAZINE HCL 25 MG TAB PO ONE (17:06)
[2018-11-04 18:18] VITALS: O2SAT 95
--- NOTE | 2018-11-04 18:59 | ED.PDOC ---
History of Present Illness - General Chief Complaint: General Stated Complaint: bilateral leg pain and swelling Time Seen by Provider: 11/04/18 15:14 Source: patient - History of Present Illness Initial Comments: 42 yo female with PMH of chronic recurrent LE edema who presents with cc of BL LE pain. Reports for several months now has had recurrent marked swelling/pitting edema of her legs sometimes all the way to the thighs. Has been seen numerous times in this ED past several days with same complaints and largely unremarkable work-up. Usually takes Lasix 80 mg daily but metolazone 5 mg daily has been added for a total of 4 days and currently on day 2/4. States has had large volume urination and estimates several lbs wt loss past few days with marked improvement of swelling of legs. However, reports continued burning/itching pain to lower legs near ankles, constant, at times 10/10 severity, improves with leg elevation, little improvement with home pain meds. Denies any calf swelling/redness/warmth currently. Denies chest pain, dyspnea, abd pain. Does report some nausea but no emesis. Allergies/Adverse Reactions: Allergies Latex Allergy (Intermediate, Verified 09/20/18 01:49) red swelling Ondansetron [From Zofran] Allergy (Intermediate, Verified 09/20/18 01:49) migraine Penicillins Allergy (Verified 09/20/18 01:49) N/V Sulfamethoxazole w/Trimethoprim [From Bactrim] Allergy (Verified 09/20/18 01:49) Amoxicillin [From Augmentin] Adverse Reaction (Verified 09/20/18 01:49) N/V Clavulanic Acid [From Augmentin] Adverse Reaction (Verified 09/20/18 01:49) N./V Home Medications: Ambulatory Orders Zolpidem Tartrate [Ambien] 10 mg PO BEDTIME 11/12/17 Promethazine HCl 25 mg PO Q6H PRN 11/13/17 Diazepam [Valium] 10 mg PO BID 05/16/18 Methocarbamol [Robaxin] 1 tablet PO TID 05/16/18 Linaclotide [Linzess] 290 mcg PO DAILY 07/06/18 Escitalopram Oxalate [Lexapro] 20 mg PO DAILY 09/08/18 Furosemide [Lasix] 40 mg PO DAILY 09/08/18 HYDROcodone 5MG/APAP 325MG [[place] 5/325] 1 tab PO Q6H PRN 09/08/18 Potassium Chloride [Potassium Chloride ER] 10 meq PO DAILY 09/08/18 Prazosin HCl [Prazosin Hydrochloride] 2 mg PO BEDTIME 09/08/18 Metoprolol Succinate [Kapspargo Sprinkle] 25 mg PO AC #30 cap 11/03/18 Promethazine Supp [Phenergan Suppository] 12.5 mg LA Q6H PRN #15 sup 11/03/18 Sumatriptan Succinate [Imitrex] 25 mg PO 11/03/18 Potassium Chloride [K-Tab] 20 meq PO Q8H #20 tab 11/04/18 Review of Systems - Review of Systems Review of Systems: 11/04/18 18:59 see HPI All other Systems: Reviewed and Negative Past Medical History (General) - Patient Medical History Hx Seizures: Yes - past Hx Stroke: No Hx Dementia: No Hx Asthma: No Hx of COPD: No Hx Cardiac Disorders: No Hx Congestive Heart Failure: No Hx Pacemaker: No Hx Hypertension: No Hx Thyroid Disease: Yes Hx Diabetes: No Hx Gastroesophageal Reflux: No Hx Renal Disease: No Hx Cancer: No Hx of HIV: No Hx Hepatitis C: No Hx MRSA: No - Vaccination History Hx Tetanus, Diphtheria Vaccination: Yes Hx Influenza Vaccination: Yes - 2018 Hx Pneumococcal Vaccination: No - Social History Hx Tobacco Use: Yes Hx Chewing Tobacco Use: No Hx Alcohol Use: No Hx Substance Use: No Hx Substance Use Treatment: No Hx Depression: No Hx Physical Abuse: No Hx Emotional Abuse: No Hx Suspected Abuse: No - Female History Hx Last Menstrual Period: 03/28/15 Patient : No - IUD Family Medical History - Family History Mother Family History: Unknown Living Status: Still Living Hx Family Hypertension: - dad Hx Family Cancer: Yes Father Family History: Unknown Living Status: Still Living Hx Family Asthma: No Hx Family Hypertension: Yes - father Physical Exam - Physical Exam General Appearance: Alert, No apparent distress Eye Exam: bilateral normal Ears, Nose, Throat: hearing grossly normal, normal pharynx Neck: non-tender, full range of motion, supple Respiratory: lungs clear, normal breath sounds, no respiratory distress Cardiovascular/Chest: regular rate, rhythm, JVD Gastrointestinal/Abdominal: non tender, soft Back Exam: normal inspection, no vertebral tenderness Extremity: normal range of motion, no calf tenderness - BL LE's with no not, pedal edema - BL feet and low ankles with only trace slightly pitting edema, markedly improved from pictures shown from a few days ago, Edu sign neg BL, no induration/warmth/redness Neurologic: no motor/sensory deficits, alert, normal mood/affect, oriented x 3 Skin Exam: normal color, warm/dry, other - BL legs with dry irritated appearing skin Lymphatic: no adenopathy Progress - Progress Progress: 11/04/18 19:01 BL LE pain and recurrent swelling -appears likely from recurrent edema - suspect dependent in nature vs cardiac vs venous insufficiency vs multifactorial -pt states has had normal echo recently -06/2018 dopplers here neg for DVT, clinically not c/w DVT -d dimer 0.7 - usually near this value, dopplers currently not available - as low suspicion can plan for dopplers early next week as outpatient -K 2.9 - likely due to diuretics. Will increase KCl to 20 mEq TID (from 40 mEq once daily) -remainder of labs largely unremarkable - WBC 8,000 - improved from 11,000 yesterday, afebrile, vitals wnl -discussed issue at length with pt, suspect the recurrent and severe edema is beginning to cause some chronic venous stasis dermatitis which flares her pain and itching and likely neuropathy is also contributing -given Phenergan and morphine 5 mg IV in ED with marked relief, will send home with in good condition. Advised continued close monitoring of salt/fluid intake, continue diuretics at current plan, continue compression, add moisturizers and topical hydrocortisone TID PRN, Atarax PRN -f/u closely with PCP Laboratory Results - last 24 hr 11/04/18 11/04/18 11/04/18 15:51 15:51 15:52 WBC 8.2 RBC 4.69 Hgb 14.1 Hct 41.2 MCV 87.8 MCH 30.1 MCHC 34.3 RDW 14.5 Plt Count 185 MPV 8.8 Absolute Neuts (auto) 5.10 Absolute Lymphs (auto) 2.50 Absolute Monos (auto) 0.50 Absolute Eos (auto) 0.10 Absolute Basos (auto) 0.10 Neutrophils % 61.9 Lymphocytes % 30.3 Monocytes % 5.6 Eosinophils % 1.2 Basophils % 1.0 D-Dimer, Quantitative 0.75 H* Sodium 135 Potassium 2.9 L Chloride 91 L Carbon Dioxide 31 Anion Gap 15.9 BUN 15 Creatinine 0.88 BUN/Creatinine Ratio 17.0 Random Glucose 123 H Serum Osmolality 272.3 L Calcium 9.8 B-Natriuretic Peptide 10.3 11/04/18 17:05 WBC RBC Hgb Hct MCV MCH MCHC RDW Plt Count MPV Absolute Neuts (auto) Absolute Lymphs (auto) Absolute Monos (auto) Absolute Eos (auto) Absolute Basos (auto) Neutrophils % Lymphocytes % Monocytes % Eosinophils % Basophils % D-Dimer, Quantitative Sodium Potassium 2.8 L Chloride Carbon Dioxide Anion Gap BUN Creatinine BUN/Creatinine Ratio Random Glucose Serum Osmolality Calcium B-Natriuretic Peptide Departure - Departure Clinical Impression: Dependent edema, Stasis dermatitis of both legs Time of Disposition: 19:09 Disposition: Discharge to Home or Self Care Condition: Good Departure Forms: ED Discharge - Pt. Copy, Patient Portal Self Enrollment Diet: low salt diet Referrals: Raulito Pantoja MD [Primary Care Provider] - 1-2 Weeks Prescriptions: Potassium Chloride [K-Tab] 20 meq PO Q8H #20 tab Home Medications: Ambulatory Orders Zolpidem Tartrate [Ambien] 10 mg PO BEDTIME 11/12/17 Promethazine HCl 25 mg PO Q6H PRN 11/13/17 Diazepam [Valium] 10 mg PO BID 05/16/18 Methocarbamol [Robaxin] 1 tablet PO TID 05/16/18 Linaclotide [Linzess] 290 mcg PO DAILY 07/06/18 Escitalopram Oxalate [Lexapro] 20 mg PO DAILY 09/08/18 Furosemide [Lasix] 40 mg PO DAILY 09/08/18 HYDROcodone 5MG/APAP 325MG [[place] 5/325] 1 tab PO Q6H PRN 09/08/18 Potassium Chloride [Potassium Chloride ER] 10 meq PO DAILY 09/08/18 Prazosin HCl [Prazosin Hydrochloride] 2 mg PO BEDTIME 09/08/18 Metoprolol Succinate [Kapspargo Sprinkle] 25 mg PO AC #30 cap 11/03/18 Promethazine Supp [Phenergan Suppository] 12.5 mg LA Q6H PRN #15 sup 11/03/18 Sumatriptan Succinate [Imitrex] 25 mg PO 11/03/18 Potassium Chloride [K-Tab] 20 meq PO Q8H #20 tab 11/04/18 Additional Instructions: Take the potassium chloride 20 mEq tablets three times daily for next 3 days and then resume your usual dosing afterwards. Continue frequent leg elevation, close monitoring of salt intake (<1500 mg NaCL daily), fluid intake (<1500 mL daily), monitor weight daily, wear compression stockings all to prevent leg swel ling. For leg itching and pain, you may apply topical OTC Hydrocortisone 1% cream three times daily and apply a frequent moisturizing lotion as well. Take Atarax as directed for itching during the day and Benadryl at night. Follow up with PCP next week for repeat evaluation and to discuss ordering repeat venous dopplers of your lower extremities as well.
[2018-11-04] MEDS ORDERED: hydrOXYzine HCl 25 MG TAB PO ONE (19:06)
[2018-11-04] MEDS ORDERED: POTASSIUM CHLORIDE ELIXIR 20 MEQ/15 ML UD PO ONE (19:07)
[2018-11-04] MEDS ORDERED: POTASSIUM CHLORIDE 20 MEQ TAB PO ONE (19:16)
[2018-11-04 19:26] VITALS: BP 128/97; TEMP 98.1
== END 2018-11-04 19:26 | disposition home or self-care (01) ==
LOC: ER 15:12
DX: R60.0 Localized edema (principal); I87.2 Venous insufficiency (chronic) (peripheral); R11.0 Nausea; E07.9 Disorder of thyroid, unspecified; Z87.891 Personal history of nicotine dependence; Z91.040 Latex allergy status; Z88.8 Allergy status to other drugs, medicaments and biological substances; Z88.0 Allergy status to penicillin; Z88.2 Allergy status to sulfonamides; Z79.899 Other long term (current) drug therapy
CPT/HCPCS: 80048; 83880; 84132; 85025; 85379; J2270; Q0169

== ENCOUNTER 2018-11-05 17:15 | Inpatient (IN) | payer SELFPAY ==
--- NOTE | 2018-11-05 17:35 | ED.PDOC ---
History of Present Illness - General Chief Complaint: General Stated Complaint: nausea,weakness,lower leg pain Time Seen by Provider: 11/05/18 17:25 Source: patient Exam Limitations: no limitations - History of Present Illness Initial Comments: the patient is a 42-year-old female presenting back to the emergency room for what I believe is the fourth time in 4 days. The patient is actually having more muscle cramps today reportedly in the last few days. She did get put on some metolazone with her Lasix in order to diurese some of the extra edema. She is still reporting chronic nausea. She is still reporting chronic abdominal and lower extremity pain. no palpitations or chest pain. Timing/Duration: unsure Severity: moderate Improving Factors: nothing Worsening Factors: nothing Associated Symptoms: malaise, nausea/vomiting Allergies/Adverse Reactions: Allergies Latex Allergy (Intermediate, Verified 09/20/18 01:49) red swelling Ondansetron [From Zofran] Allergy (Intermediate, Verified 09/20/18 01:49) migraine Penicillins Allergy (Verified 09/20/18 01:49) N/V Sulfamethoxazole w/Trimethoprim [From Bactrim] Allergy (Verified 09/20/18 01:49) Amoxicillin [From Augmentin] Adverse Reaction (Verified 09/20/18 01:49) N/V Clavulanic Acid [From Augmentin] Adverse Reaction (Verified 09/20/18 01:49) N./V Home Medications: Ambulatory Orders Zolpidem Tartrate [Ambien] 10 mg PO BEDTIME 11/12/17 Promethazine HCl 25 mg PO Q6H PRN 11/13/17 Diazepam [Valium] 10 mg PO BID 05/16/18 Methocarbamol [Robaxin] 1 tablet PO TID 05/16/18 Linaclotide [Linzess] 290 mcg PO DAILY 07/06/18 Escitalopram Oxalate [Lexapro] 20 mg PO DAILY 09/08/18 Furosemide [Lasix] 40 mg PO DAILY 09/08/18 HYDROcodone 5MG/APAP 325MG [[place] 5/325] 1 tab PO Q6H PRN 09/08/18 Potassium Chloride [Potassium Chloride ER] 10 meq PO DAILY 09/08/18 Prazosin HCl [Prazosin Hydrochloride] 2 mg PO BEDTIME 09/08/18 Metoprolol Succinate [[place] Sprinkle] 25 mg PO AC #30 cap 11/03/18 Promethazine Supp [Phenergan Suppository] 12.5 mg [place] Q6H PRN #15 sup 11/03/18 Sumatriptan Succinate [Imitrex] 25 mg PO 11/03/18 Potassium Chloride [K-Tab] 20 meq PO Q8H #20 tab 11/04/18 Review of Systems - Review of Systems Constitutional: States: malaise EENTM: States: no symptoms reported Respiratory: States: no symptoms reported Cardiology: States: no symptoms reported Gastrointestinal/Abdominal: States: nausea, vomiting Genitourinary: States: no symptoms reported Musculoskeletal: States: back pain - hronic Skin: States: no symptoms reported Neurological: States: paresthesia, other - chronic neuropathic pain Endocrine: States: no symptoms reported All other Systems: No Change from Baseline Past Medical History (General) - Patient Medical History Hx Seizures: Yes - past Hx Stroke: No Hx Dementia: No Hx Asthma: No Hx of COPD: No Hx Cardiac Disorders: No Hx Congestive Heart Failure: No Hx Pacemaker: No Hx Hypertension: No Hx Thyroid Disease: Yes Hx Diabetes: No Hx Gastroesophageal Reflux: No Hx Renal Disease: No Hx Cancer: No Hx of HIV: No Hx Hepatitis C: No Hx MRSA: No - Vaccination History Hx Tetanus, Diphtheria Vaccination: Yes Hx Influenza Vaccination: Yes - 2018 Hx Pneumococcal Vaccination: No - Social History Hx Tobacco Use: Yes Hx Chewing Tobacco Use: No Hx Alcohol Use: No Hx Substance Use: No Hx Substance Use Treatment: No Hx Depression: No Hx Physical Abuse: No Hx Emotional Abuse: No Hx Suspected Abuse: No - Female History Hx Last Menstrual Period: 03/28/15 Patient : No - IUD Family Medical History - Family History Mother Family History: Unknown Living Status: Still Living Hx Family Hypertension: - dad Hx Family Cancer: Yes Father Family History: Unknown Living Status: Still Living Hx Family Asthma: No Hx Family Hypertension: Yes - father Physical Exam - Physical Exam General Appearance: Alert, Comfortable, No apparent distress Eye Exam: bilateral normal Ears, Nose, Throat: hearing grossly normal, normal pharynx Neck: non-tender, supple Respiratory: no respiratory distress, no accessory muscle use Cardiovascular/Chest: normal peripheral pulses, other - regular rate Peripheral Pulses: radial,right: 2+, radial,left: 2+, dorsalis pedis,right: 2+, dorsalis pedis,left: 2+ Gastrointestinal/Abdominal: non tender, soft Rectal Exam: deferred Back Exam: no CVA tenderness, no vertebral tenderness Extremity: normal range of motion, no pedal edema, normal capillary refill, other - chronic neuropathic pain. 1+ edema to bilateral lower extremities only. 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 The patient has had issues with hypokalemia in the past and reports that any form of oral p otassium makes her nauseated. The patient will be admitted for IV potassium repletion. This will take an extended period of time so the patient will be admitted to have this done. We recommended patient discontinue metolazone. Spironolactone may be a better choice for her in the long run. The patient is receiving a dose of Stadol for pain and she has had a scopolamine patch placed for nausea. Admit for continued care and monitoring. No evidence of any significant arrhythmias at this time. Vital signs remained stable. 11/05/18 19:19 marcelo mar [id number] - Results/Orders Results/Orders: Laboratory Tests 11/05/18 18:03 Sodium 133 L Potassium 2.4 L* Chloride 90 L Carbon Dioxide 30 Anion Gap 15.4 BUN 22 H D Creatinine 0.97 BUN/Creatinine Ratio 22.7 H Random Glucose 121 H Serum Osmolality 271.0 L Calcium 9.1 TSH 4.73 Free T4 0.84 EKG shows normal sinus rhythm at 99 bpm. Normal axis. Slow R-wave progression. Nonspecific T-wave changes. No ST segment depression or elevation. Mild left atrial dilation. Borderline QT interval. Departure - Departure Clinical Impression: Hypokalemia, excessive renal losses Nausea and vomiting Qualifiers: Vomiting type: unspecified Vomiting Intractability: non-intractable Qualified Code(s): R11.2 - Nausea with vomiting, unspecified Disposition: Admit Patient Departure Forms: ED Discharge - Pt. Copy, Patient Portal Self Enrollment Referrals: Raulito Pantoja MD [Primary Care Provider] - 1-2 Weeks Home Medications: Ambulatory Orders Zolpidem Tartrate [Ambien] 10 mg PO BEDTIME 11/12/17 Promethazine HCl 25 mg PO Q6H PRN 11/13/17 Diazepam [Valium] 10 mg PO BID 05/16/18 Methocarbamol [Robaxin] 1 tablet PO TID 05/16/18 Linaclotide [Linzess] 290 mcg PO DAILY 07/06/18 Escitalopram Oxalate [Lexapro] 20 mg PO DAILY 09/08/18 Furosemide [Lasix] 40 mg PO DAILY 09/08/18 HYDROcodone 5MG/APAP 325MG [[place] 5/325] 1 tab PO Q6H PRN 09/08/18 Potassium Chloride [Potassium Chloride ER] 10 meq PO DAILY 09/08/18 Prazosin HCl [Prazosin Hydrochloride] 2 mg PO BEDTIME 09/08/18 Metoprolol Succinate [Kapspargo Sprinkle] 25 mg PO AC #30 cap 11/03/18 Promethazine Supp [Phenergan Suppository] 12.5 mg [place] Q6H PRN #15 sup 11/03/18 Sumatriptan Succinate [Imitrex] 25 mg PO 11/03/18 Potassium Chloride [K-Tab] 20 meq PO Q8H #20 tab 11/04/18 Decision To Admit - Decistion To Admit Decision to Admit Reason: Medical Nature Decision to Admit Date: 11/05/18 Decision to Admit Time: 19:19
[2018-11-05] MEDS ORDERED: SCOPOLAMINE PATCH 1.5MG 1 EA TD ONE (18:12)
[2018-11-05] MEDS ORDERED: hydrOXYzine HCl 25 MG TAB PO ONE (19:12)
[2018-11-05] MEDS ORDERED: BUTORPHANOL TARTRATE 2 MG/ML VIAL IV ONE (19:12)
--- NOTE | 2018-11-05 19:51 | HP ---
SUPERVISING PHYSICIAN: Steven Duran M.D. CHIEF COMPLAINT: Nausea, weakness and lower leg pain. HISTORY OF PRESENT ILLNESS: Ms. Moncada is a 42 year-old female patient that presented to the Emergency Department early last night. She had been in the E. R. previously 4 times prior to this for muscle cramps over the last several days that had worsened. She had been placed on Metolazone and Lasix for diuresis for some lower extremity edema. She is reporting some chronic nausea and chronic lower extremity pain and has been seen by multiple providers and is followed by her primary care physician, Dr. Raulito Pantoja. She is having no palpitations. No chest pains. Vital signs were showing she was stable but having a heart rate initially of 121 with a low-grade fever of 99.1 with a blood pressure of 119/91, satting 99% on room air. She was given some fluids in the E. R. Labs were drawn showing that she had a potassium of 2.4 with a sodium of 133 and BUN of 22, creatinine was 0.97, magnesium was low at 1.5. Thyroid functions were within normal limits. EKG showed normal sinus rhythm at 99 with nonspecific T wave changes but no ST segment depression or elevation. The patient has been on potassium but is having severe nausea and unable to tolerate oral potassium. Given that she does have a significant hypokalemia likely from excessive diuresis from Lasix and Metolazone, and is unable to tolerate any oral therapy, she is going to be admitted for initiation of fluids, potassium replacement and close cardiac monitoring. She was admitted in stable condition. PAST MEDICAL HISTORY: 1. Migraines. 2. Depression and anxiety. 3. Insomnia. 4. Hypothyroidism on supplementation. 5. Polysubstance abuse. 6. Longstanding history of lower leg edema and cellulitis. 7. Previous history of deep venous thromboses diagnosed in 2018. PAST SURGICAL HISTORY: 1. Breast reduction. 2. Cholecystectomy. 3. Tonsillectomy and adenoidectomy. 4. [place] teeth extraction. 5. Esophageal stricture reduction with balloon. HOME MEDICATIONS: 1. Zaroxolyn 5 mg daily. 2. Ambien 10 mg at bedtime. 3. Imitrex 25 mg as needed. 4. Phenergan suppository 25 mg every 6 hours as needed. 5. Phenergan 25 mg p.o. every 6 hours as needed. 6. Prazosin Hydrochloride 2 mg at bedtime. 7. Potassium K-Tabs 20 mEq every 8 hours. 8. Robaxin 1 tablet t.i.d. 9. Linzess 290 mcg daily. 10. [place] 5/325 one tablet every 6 hours as needed for pain. 11. Lasix 80 mg daily. 12. Lexapro 20 mg daily. 13. Valium 10 mg b.i.d. ALLERGIES: LATEX, ZOFRAN, PENICILLIN, SULFA ANTIBIOTICS, AMOXICILLIN AND AUGMENTIN. FAMILY HISTORY: Positive for colon cancer. SOCIAL HISTORY: She lives in [place]. She works at [employer]. She smokes approximately a half pack of cigarettes daily. She denies any alcohol or illicit drug use. REVIEW OF SYSTEMS: Positive for general malaise. GENERAL: Negative for any fevers or chills. HEENT: Negative for headaches but does have a history of migraines. No vision changes, sore throat, ear aches or nasal congestion. RESPIRATORY: Denies any shortness of breath, wheezing or coughing. CARDIOVASCULAR: Denies any chest pains, palpitations, syncopal episodes or palpitations. GASTROINTESTINAL: Positive for nausea and vomiting. Denies any abdominal pains, constipation, diarrhea. GENITOURINARY: Denies any dysuria, hematuria or polyuria. MUSCULOSKELETAL: Chronic back pain. SKIN: Denies any lesions, rashes, moles or unexplained changes. NEUROLOGIC: Positive for chronic paresthesias due to chronic neuropathy and pain in the lower extremities. Denies any ataxia or seizures. PHYSICAL EXAMINATION: VITAL SIGNS: Initially in the E. R. prior to initiation of treatment she had a temperature of 99.3, pulse 121, blood pressure 119/91 showing 20 respirations satting at 99%. After initiation of treatment and on admission to the Medical/Surgical floor the patient had a temperature of 98.4, pulse 105, blood pressure 113/73, respirations 18, satting 95% on room air. Admission weight 94.3 kg. GENERAL: On examination to the Medical/Surgical floor after admission the patient shows to be resting comfortably in no acute distress. She is alert. HEENT: Tympanic membranes are clear bilaterally. Oropharynx was pink and moist without any lesions. NECK: Supple, non-tender. Full range of motion. No jugular venous distention. CHEST: Clear to auscultation bilaterally without any rhonchi, wheezing or rales. CARDIOVASCULAR: Regular rate and rhythm with appreciable murmurs, gallops, or rubs. ABDOMEN: Soft, non-tender. Positive bowel sounds. EXTREMITIES: Without any edema. No clubbing or cyanosis. NEUROLOGIC: She is alert and oriented times three. LABORATORY: Chemistries show sodium initially at 133, potassium 2.4, BUN 22, creatinine 0.97, magnesium 1.5, phosphorous 4.3. Thyroid function were all within normal limits. Amylase and lipase were both normal. Urinalysis showed to be within normal limits. ASSESSMENT: 1. Severe hypokalemia secondary to excessive diuresis, unable to tolerate oral therapy requiring initiation of IV potassium. 2. Moderate dehydration secondary to excessive diuretic usage. 3. History of lower extremity edema, uncertain etiology, but having previous deep venous thrombosis diagnosed in 2018 with a pending ultrasound venous studies of the lower extremities. 4. History of drug seeking behavior and substance abuse. 5. Depression and anxiety. 6. Hypothyroidism on supplementation. 7. Hypomagnesemia secondary to excessive diuresis. PLAN: Ms. Moncada is going to be admitted for initiation of potassium IV due to the fact that she cannot tolerate oral replacement at this point. Will hold her Lasix and any diuretics. I have started her on IV fluids with potassium and will use K-riders as needed and follow her potassium levels. Will go ahead and give her 2 grams of magnesium to assist with potassium stabilization. Will anticipate her length of stay to be 2 to 3 days as we slowly replace her potassium and she can transition to oral therapy as needed. Will resume her home medications once those have been updated and verified as appropriate to care. She will be on DVT prophylaxis as per protocol. I have ordered venous Doppler studies of the lower extremities which will be done on Wednesday. Until we can transition her to outpatient management will continue to monitor and treat as needed. [facility][id number] [facility]
[2018-11-05] MEDS ORDERED: ALUM & MAG HYDROX-SIMETHICONE 30 ML UD PO PRN (21:18)
[2018-11-05] MEDS ORDERED: MAGNESIUM HYDROXIDE 30 ML UD PO PRN (21:18)
[2018-11-05] MEDS ORDERED: ACETAMINOPHEN 325 MG TAB PO PRN (21:18)
[2018-11-05] MEDS ORDERED: SODIUM CHLORIDE 0.9% (FLUSH) 10 ML SYG IV PRN (21:18)
[2018-11-05] MEDS ORDERED: PRAZOSIN HCL 2 MG PO SCH (21:28)
[2018-11-05] MEDS ORDERED: IV SET AND CAP CHANGE INJ INJ SCH (21:30)
[2018-11-05] MEDS ORDERED: NON-FORMULARY MEDICATION 1 EA MIS (Diazepam [Valium] 10 MG) PO SCH (21:30)
[2018-11-05] MEDS ORDERED: PRAZOSIN HCL 1 MG CAP ONE (21:52)
[2018-11-05] MEDS ORDERED: POTASSIUM CHLORIDE 20 MEQ TAB ONE (21:52)
[2018-11-05] MEDS ORDERED: ENOXAPARIN SODIUM 40 MG/0.4 ML SYG SUBCU ONE (21:53)
[2018-11-05] MEDS ORDERED: diazePAM 5 MG TAB ONE (21:53)
[2018-11-05] MEDS: ZOLPIDEM TARTRATE 10 MG TAB PO SCH (21:55)
[2018-11-05] MEDS: ENOXAPARIN SODIUM 40 MG/0.4 ML SYG SUBCU SCH (21:56)
[2018-11-05] MEDS: NON-FORMULARY MEDICATION 1 EA MIS (Potassium Chloride [K-Tab] 20 MEQ) PO SCH (21:56)
[2018-11-05] MEDS: KCL 40MEQ/NS 1,000 ML IVS PRN (21:56)
[2018-11-05] MEDS ORDERED: PROMETHAZINE HCL INJ 25 MG/ML VIAL ONE (22:11)
[2018-11-05] MEDS ORDERED: SODIUM CHLORIDE 0.9% 50ML 50 ML ONE (22:11)
[2018-11-05] MEDS: PROMETHAZINE HCL INJ 12.5 MG in SODIUM CHLORIDE 0.9% 50ML 50 ML IVPB PRN (22:20)
[2018-11-06] MEDS: HYDROcodone 5MG/APAP 325MG 1 EA TAB PO PRN ×3 (01:03→17:39)
[2018-11-06] MEDS ORDERED: MAGNESIUM SULFATE PREMIX 2GM 2 GM in PREMIX BAG 1 BAG IVPB ONE (01:54)
[2018-11-06] MEDS ORDERED: MAGNESIUM SULFATE PREMIX 2GM 50 ML IVPB ONE (02:42)
[2018-11-06] MEDS ORDERED: POTASSIUM CHLORIDE 20 MEQ TAB ONE (05:14)
[2018-11-06] MEDS: NON-FORMULARY MEDICATION 1 EA MIS (Potassium Chloride [K-Tab] 20 MEQ) PO SCH (05:18)
[2018-11-06] MEDS: KCL 40MEQ/NS 1,000 ML IVS PRN (05:20)
[2018-11-06] MEDS ORDERED: hydrOXYzine HCl 25 MG TAB ONE (08:43)
[2018-11-06] MEDS: diazePAM 5 MG TAB PO SCH ×2 (08:44→21:08)
[2018-11-06] MEDS: ESCITALOPRAM 10 MG TAB PO SCH (08:44)
[2018-11-06] MEDS ORDERED: hydrOXYzine HCl 25 MG TAB PO PRN (08:46)
[2018-11-06] MEDS ORDERED: KETOROLAC TROMETHAMINE INJ 30 MG/ML VIAL IV ONE (10:20)
[2018-11-06] MEDS: BUTORPHANOL TARTRATE 2 MG/ML VIAL IV PRN ×3 (10:51→19:43)
[2018-11-06] MEDS ORDERED: POTASSIUM CHLORIDE 20mEq 10ML VIAL IVPB ONE (10:58)
[2018-11-06] MEDS ORDERED: KCL 20MEQ/WATER FOR INJ 100ML 20 MEQ in PREMIX BAG 1 BAG IVPB ONE (11:09)
[2018-11-06] MEDS: NON-FORMULARY MEDICATION 1 EA MIS (Linaclotide [Linzess] 290 MCG) PO SCH (11:34)
[2018-11-06] MEDS ORDERED: KCL 20MEQ/WATER FOR INJ 100ML 100 ML IVPB ONE (11:36)
[2018-11-06] MEDS: NICOTINE PATCH 14 MG TD SCH (11:38)
[2018-11-06] MEDS: POTASSIUM CHLORIDE 20 MEQ TAB PO SCH ×2 (11:45→16:50)
[2018-11-06] MEDS: METHOCARBAMOL 750 MG TAB PO SCH ×4 (12:09→21:08)
[2018-11-06] MEDS ORDERED: POTASSIUM CHLORIDE 20 MEQ TAB PO ONE (19:00)
[2018-11-06] MEDS ORDERED: PROMETHAZINE HCL INJ 25 MG/ML VIAL ONE (19:05)
[2018-11-06] MEDS ORDERED: SODIUM CHLORIDE 0.9% 50ML 50 ML ONE (19:06)
[2018-11-06] MEDS: PROMETHAZINE HCL INJ 12.5 MG in SODIUM CHLORIDE 0.9% 50ML 50 ML IVPB PRN (19:15)
[2018-11-06] MEDS ORDERED: PRAZOSIN HCL 1 MG CAP PO SCH (21:00)
[2018-11-06] MEDS: ZOLPIDEM TARTRATE 10 MG TAB PO SCH (21:08)
[2018-11-06] MEDS: ENOXAPARIN SODIUM 40 MG/0.4 ML SYG SUBCU SCH (21:09)
[2018-11-06] MEDS ORDERED: KCL 20MEQ/0.45% NS 1,000 ML IVS PRN (22:38)
[2018-11-07] MEDS: BUTORPHANOL TARTRATE 2 MG/ML VIAL IV PRN (05:05)
[2018-11-07] MEDS ORDERED: PROMETHAZINE HCL INJ 25 MG/ML VIAL ONE (05:51)
[2018-11-07] MEDS ORDERED: SODIUM CHLORIDE 0.9% 50ML 50 ML ONE (05:51)
[2018-11-07] MEDS: PROMETHAZINE HCL INJ 12.5 MG in SODIUM CHLORIDE 0.9% 50ML 50 ML IVPB PRN (05:55)
[2018-11-07] MEDS: HYDROcodone 5MG/APAP 325MG 1 EA TAB PO PRN (07:07)
[2018-11-07] MEDS: POTASSIUM CHLORIDE 20 MEQ TAB PO SCH (07:08)
[2018-11-07] MEDS: ESCITALOPRAM 10 MG TAB PO SCH (08:19)
[2018-11-07] MEDS: diazePAM 5 MG TAB PO SCH (08:19)
[2018-11-07] MEDS: METHOCARBAMOL 750 MG TAB PO SCH (08:19)
--- NOTE | 2018-11-07 08:27 | PN ---
PHYSICIAN: Jeannine Duran MD DATE: 11/06/18 SUBJECTIVE: The patient still continues to have lower extremity pain which is chronic. She has had some issues with her IV hurting with IV replacement of potassium. She wanted the rate really slow. She is also not very tolerant of oral potassium, however, she is trying. She denied having any chest pains. Her lower extremities actually look pretty good without any edema. She has been afebrile. OBJECTIVE: VITAL SIGNS: Temperature 98.5. Pulse 89. Blood pressure 105/62. Respiratory rate 16. Saturation 95% on room air. I&Os show positive balance of 40 and weight 94.3. GENERAL: The patient is resting comfortably, appears to be in no acute distress. She is alert. CHEST: Lung sounds are clear to auscultation. HEART: Regular rate and rhythm. ABDOMEN: Obese, but soft and nontender. Positive bowel sounds. EXTREMITIES: No edema. NEUROLOGIC: Alert and oriented times three. LABORATORY: Potassium continues to be at 2.4 despite replacement. Magnesium has normalized to 2.5 from initial of 1.5. BUN 19, creatinine 0.72. Urinalysis was within normal limits on admission. RADIOLOGY: No additional studies today, but there are ultrasounds of lower extremities pending as well as echocardiogram in the morning. ASSESSMENT: 1. Severe hypokalemia secondary to excessive diuresis refractory to replacement, probably due to low magnesium, but now magnesium normal and the patient unable to tolerate oral therapy and having issues with IV therapy as well, resulting in slow replacement. 2. Moderate dehydration, resolved with fluids, felt to be secondary to excessive diuretic usage including Zaroxolyn and Lasix, in attempts to resolve lower extremity edema. 3. History of chronic lower extremity edema, uncertain etiology, with the patient having previous deep venous thrombosis diagnosed in 2018 with a ultrasounds of the lower extremities pending in the morning. 4. History of drug seeking behavior and substance abuse, probably contributing to #3. 5. Depression and anxiety. 6. Hypothyroidism on supplementation with normal TSH levels. 7. Hypomagnesemia secondary to excessive diuresis and making it difficult to normal potassium, but now showing levels to be at baseline after replacement. PLAN: I have tried to give her a K-rider 20 mEq over 4 to 5 hours. She was unable to tolerate the entire rider. I have also given her normal saline with 40 of potassium over 12 hours and she is on oral potassium replacement 20 mEq 3 times a day. Despite all this, she still remains hypokalemic. She is refusing the K-rider at this point, so I told her she is going to have to take oral potassium. We will try 40 mEq and continue with IV replacement, but minimize volumes with longer infusion rates. We will plan to repeat labs tonight around 10 o'clock and we will follow her labs in the morning. Hopefully we will be able to discharge once her potassium is normalized either tomorrow or the next day. I have ordered an ultrasound of her lower extremities to make sure she does not have any deep venous thromboses with her history. She is on Lovenox per protocol. I have also ordered an echocardiogram given all her lower extremity edema just to make sure there is no heart failure resulting in the lower extremity edema. Until we can replace her potassium and normalize and transition to outpatient management, we will continue to monitor and treat as needed. [facility][id number] [facility]
[2018-11-07] MEDS: NON-FORMULARY MEDICATION 1 EA MIS (Linaclotide [Linzess] 290 MCG) PO SCH (08:44)
[2018-11-07] MEDS ORDERED: MORPHINE SULFATE INJ 10 MG/ML VIAL IV ONE ×2 (09:36→09:39)
[2018-11-07] MEDS ORDERED: MORPHINE SULFATE INJ 10 MG/ML VIAL ONE (09:37)
[2018-11-07 09:44] VITALS: BP 105/70; TEMP 98.1; O2SAT 97
[2018-11-07] MEDS: NICOTINE PATCH 14 MG TD SCH (10:00)
--- NOTE | 2018-11-07 11:26 | US ---
EXAM DESCRIPTION: Venous,Lower Extremity RT CLINICAL HISTORY: bilateral lower extremity COMPARISON: None Available. TECHNIQUE: Right lower extremity venous duplex FINDINGS: There is no DVT identified. There is normal color flow observed with good flow augmentation. All deep veins compress normally. IMPRESSION: Negative for DVT Electronically signed by: Winter Lei MD 11/07/2018 11:25 AM CDT
--- NOTE | 2018-11-07 11:26 | US ---
EXAM DESCRIPTION: Venous,Lower Extremity LT CLINICAL HISTORY: bilateral lower extremity COMPARISON: None Available. TECHNIQUE: Left lower extremity venous duplex FINDINGS: There is no DVT identified. There is normal color flow observed with good flow augmentation. All deep veins compress normally. IMPRESSION: Negative for DVT Electronically signed by: Winter Lei MD 11/07/2018 11:24 AM CDT
--- NOTE | 2018-11-07 14:16 | DS ---
SUPERVISING PHYSICIAN: Brendan Rojas MD ADMISSION DIAGNOSIS: 1. Severe hypokalemia secondary to diuresis with inability to take oral therapy. 2. Dehydration secondary to diuretics. 3. Lower extremity edema. 4. History of drug seeking behavior and substance abuse. 5. Depression and anxiety. 6. Hypothyroidism, 7. Hypomagnesemia. DISCHARGE DIAGNOSIS: 1. Severe hypokalemia secondary to diuresis with inability to take oral therapy. 2. Dehydration secondary to diuretics. 3. Lower extremity edema. 4. History of drug seeking behavior and substance abuse. 5. Depression and anxiety. 6. Hypothyroidism, 7. Hypomagnesemia. HOSPITAL COURSE: This 42-year-old female presented to the Emergency Room for muscle cramping over the four previous days prior to admission. She was placed on Lasix and metolazone for lower extremity edema. She apparently developed some nausea and vomiting and was unable to take her oral potassium. In the Emergency Room, she had a significantly low potassium at 2.4 along with a low magnesium of 1.5. She also had lower extremity pain secondary to her cramping. Therefore, she was referred for observation. She received potassium supplementation while she was here and stabilized her potassium at 3.7 today, which is the day of discharge. Additionally, we did an echocardiogram which is pending, but the lower extremity Doppler was negative for deep venous thromboses. She did have an elevated BNP, which is why she had the echocardiogram. The Lasix and metolazone were on hold while she was here. My recommendations at discharge were to take her off the metolazone, place her on Aldactone which would not deplete her potassium as severely. Additionally, given her chronic pain issues, I suggest that she be placed on Cymbalta instead of Lexapro. She is supposed to have a followup with her primary care physician, Dr. Raulito Pantoja, in [place] in one to two weeks. #[id number] [facility]
[2018-11-08] MEDS ORDERED: REMOVE OLD PATCH TOP SCH (09:00)
== END 2018-11-07 11:44 | disposition home or self-care (01) | DRG 641 ==
LOC: ER 17:15 → OBSVTOIN 19:50 → MS 19:50
PROVIDERS: ADMIT Nurse Practitioner; ATTEND Nurse Practitioner Family
DX: E87.6 Hypokalemia (principal); E86.0 Dehydration; T50.1X5A Adverse effect of loop [high-ceiling] diuretics, initial encounter; T50.2X5A Adverse effect of carbonic-anhydrase inhibitors, benzothiadiazides and other diuretics, initial encounter; R60.0 Localized edema; F41.8 Other specified anxiety disorders; E03.9 Hypothyroidism, unspecified; E83.42 Hypomagnesemia; G89.29 Other chronic pain; G47.00 Insomnia, unspecified; F17.210 Nicotine dependence, cigarettes, uncomplicated; Z86.718 Personal history of other venous thrombosis and embolism; Z79.891 Long term (current) use of opiate analgesic; Z91.040 Latex allergy status; Z88.0 Allergy status to penicillin; Z88.2 Allergy status to sulfonamides; Z88.1 Allergy status to other antibiotic agents; Z88.8 Allergy status to other drugs, medicaments and biological substances; Z79.899 Other long term (current) drug therapy; Y92.009 Unspecified place in unspecified non-institutional (private) residence as the place of occurrence of the external cause

== ENCOUNTER 2018-11-10 17:10 | Emergency (ER) | payer SELFPAY ==
[2018-11-10] MEDS ORDERED: BUTORPHANOL TARTRATE 2 MG/ML VIAL IM ONE (17:52)
[2018-11-10] MEDS ORDERED: SPIRONOLACTONE 25 MG TAB PO ONE (17:53)
[2018-11-10] MEDS ORDERED: PROMETHAZINE HCL 25 MG TAB PO ONE (17:54)
[2018-11-10 18:01] VITALS: TEMP 98.1
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
[2018-11-10 19:04] VITALS: BP 134/87; O2SAT 98
== END 2018-11-10 18:52 | disposition home or self-care (01) ==
LOC: ER 17:10
DX: R60.0 Localized edema (principal); G57.93 Unspecified mononeuropathy of bilateral lower limbs; R11.0 Nausea; E66.9 Obesity, unspecified; R56.9 Unspecified convulsions; E07.9 Disorder of thyroid, unspecified; Z87.891 Personal history of nicotine dependence; Z68.41 Body mass index [BMI] 40.0-44.9, adult; Z79.899 Other long term (current) drug therapy; Z88.8 Allergy status to other drugs, medicaments and biological substances; Z88.0 Allergy status to penicillin; Z88.2 Allergy status to sulfonamides; Z88.1 Allergy status to other antibiotic agents; Z91.040 Latex allergy status
CPT/HCPCS: J0595; Q0169

== ENCOUNTER → 2018-11-15 | Outpatient (CLI) | payer SELFPAY | LOC: YCFC.O 16:07 | PROVIDERS: ATTEND Family Medicine | DX: E87.6 Hypokalemia (principal); E83.42 Hypomagnesemia ==

== ENCOUNTER 2018-11-27 17:17 | Emergency (ER) | payer SELFPAY ==
[2018-11-27 17:32] VITALS: BP 156/87; TEMP 98.5; O2SAT 95
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
[2018-11-27] MEDS ORDERED: MORPHINE SULFATE INJ 10 MG/ML VIAL IM ONE (17:41)
[2018-11-27] MEDS ORDERED: KETOROLAC TROMETHAMINE INJ 30 MG/ML VIAL IM ONE (17:43)
== END 2018-11-27 18:05 | disposition home or self-care (01) ==
LOC: ER 17:17
DX: G43.909 Migraine, unspecified, not intractable, without status migrainosus (principal); J02.9 Acute pharyngitis, unspecified; R56.9 Unspecified convulsions; E07.9 Disorder of thyroid, unspecified; Z87.891 Personal history of nicotine dependence; Z79.899 Other long term (current) drug therapy; Z91.040 Latex allergy status; Z88.8 Allergy status to other drugs, medicaments and biological substances; Z88.0 Allergy status to penicillin; Z88.2 Allergy status to sulfonamides
CPT/HCPCS: 87070; 87880; J1885; J2270

== ENCOUNTER → 2018-11-28 | Outpatient (CLI) | payer SELFPAY | LOC: LAB.O 11:53 | PROVIDERS: ATTEND Family Medicine | DX: R60.0 Localized edema (principal); E53.8 Deficiency of other specified B group vitamins; E03.9 Hypothyroidism, unspecified ==

== ENCOUNTER 2018-12-05 14:00 | Emergency (ER) | payer SELFPAY ==
[2018-12-05] MEDS ORDERED: FUROSEMIDE 40 MG TAB PO ONE (14:27)
[2018-12-05] MEDS ORDERED: BUTORPHANOL TARTRATE 2 MG/ML VIAL IM ONE (14:29)
[2018-12-05] MEDS ORDERED: PROMETHAZINE HCL 25 MG TAB PO ONE (14:32)
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
[2018-12-05 15:25] VITALS: BP 129/78; O2SAT 95
[2018-12-05 15:27] VITALS: TEMP 97.1
== END 2018-12-05 15:26 | disposition home or self-care (01) ==
LOC: ER 14:00
DX: R60.0 Localized edema (principal); M79.604 Pain in right leg; M79.605 Pain in left leg; R11.2 Nausea with vomiting, unspecified; R56.9 Unspecified convulsions; E07.9 Disorder of thyroid, unspecified; Z87.891 Personal history of nicotine dependence; Z79.899 Other long term (current) drug therapy; Z91.040 Latex allergy status; Z88.8 Allergy status to other drugs, medicaments and biological substances; Z88.0 Allergy status to penicillin; Z88.2 Allergy status to sulfonamides
CPT/HCPCS: J0595; Q0169

== ENCOUNTER 2018-12-08 13:06 | Emergency (ER) | payer SELFPAY ==
[2018-12-08] MEDS ORDERED: PROMETHAZINE HCL INJ 25 MG/ML VIAL IM ONE (13:22)
[2018-12-08] MEDS ORDERED: HYDROmorphone HCL INJ 2 MG/ML VIAL IV ONE (13:22)
--- NOTE | 2018-12-08 13:28 | ED.PDOC ---
History of Present Illness - General Chief Complaint: General Time Seen by Provider: 12/08/18 13:21 - History of Present Illness Initial Comments: 42 year old with long complicated medical history. patient present with bilateral lower extremity pain, patient hashad long history of lymphedema, patient has had multiple visits to the er because of leg swelling and pain. Patient stated that even though she have been seen by a vascular surgeon and that she have been admitted to the hospital in the past no one could tell what was wrong with her. patient have bee seen in this er few days ago. patient is able to ambulate without any difficulties. patient stated that she usually she is able t cope but today it was unbearable. She took a norco at home and and no improvement of symptoms. patient was discharge home with lasix. Allergies/Adverse Reactions: Allergies Latex Allergy (Intermediate, Verified 11/27/18 17:55) red swelling Ondansetron [From Zofran] Allergy (Intermediate, Verified 11/27/18 17:55) migraine Penicillins Allergy (Verified 11/27/18 17:55) N/V Sulfamethoxazole w/Trimethoprim [From Bactrim] Allergy (Verified 11/27/18 17:55) Amoxicillin [From Augmentin] Adverse Reaction (Verified 11/27/18 17:55) N/V Clavulanic Acid [From Augmentin] Adverse Reaction (Verified 11/27/18 17:55) N./V Home Medications: Ambulatory Orders Zolpidem Tartrate [Ambien] 10 mg PO BEDTIME 11/12/17 Promethazine HCl 25 mg PO Q6H PRN 11/13/17 Diazepam [Valium] 10 mg PO BID 05/16/18 Methocarbamol [Robaxin] 1 tablet PO TID 05/16/18 Linaclotide [Linzess] 290 mcg PO DAILY 07/06/18 Escitalopram Oxalate [Lexapro] 20 mg PO DAILY 09/08/18 HYDROcodone 5MG/APAP 325MG [[place] 5/325] 1 tab PO Q6H PRN 09/08/18 Prazosin HCl [Prazosin Hydrochloride] 2 mg PO BEDTIME 09/08/18 Sumatriptan Succinate [Imitrex] 25 mg PO PRN PRN 11/03/18 Promethazine Supp [Phenergan Suppository] 25 mg DC Q6H PRN 6 Days #6 sup 11/07/18 Magnesium Oxide 400 mg PO DAILY #14 cap 11/10/18 Spironolactone 25 mg PO DAILY #14 tab 11/10/18 Naproxen [Naprosyn] 500 mg PO BID #10 tab 11/27/18 Tramadol HCl 50 mg PO Q6HR #12 tab 11/27/18 Furosemide Tab [Lasix Tab] 40 mg PO DAILY #50 tab 12/05/18 Magnesium Oxide [Magnesium] 500 mg PO DAILY #30 cap 12/05/18 Potassium Chloride [Potassium Chloride ER] 20 meq PO DAILY #90 cap 12/05/18 Review of Systems - Review of Systems Constitutional: States: no symptoms reported. Denies: diaphoresis, fever, malaise, weakness EENTM: States: no symptoms reported. Denies: eye pain, blurred vision, tearing, double vision, ear pain, ear discharge, nose pain, nose congestion, throat pain, throat swelling, mouth pain, mouth swelling Respiratory: States: no symptoms reported Cardiology: Denies: no symptoms reported, see HPI, chest pain, edema, palpitations, syncope Gastrointestinal/Abdominal: States: no symptoms reported. Denies: abdominal pain, constipation, diarrhea, nausea, vomiting Genitourinary: States: no symptoms reported. Denies: discharge, dysuria, frequency, hematuria, pain Musculoskeletal: States: no symptoms reported Skin: States: no symptoms reported. Denies: change in color, change in hair/nails, dryness, lesions, lumps, rash Neurological: States: no symptoms reported. Denies: anxiety, depressed, emotional problems, headache, numbness, paresthesia, pre-existing deficit, seizure, tingling, tremors, weakness Endocrine: States: no symptoms reported. Denies: excessive sweating, flushing, intolerance to cold, intolerance to heat, increased hunger, increased thirst, increased urine, unexplained weight gain, unexplained weight loss Hematologic/Lymphatic: Denies: anemia, blood clots, easy bleeding, easy bruising, swollen glands All other Systems: Reviewed and Negative Past Medical History (General) - Patient Medical History Hx Seizures: Yes Hx Stroke: No Hx Dementia: No Hx Asthma: No Hx of COPD: No Hx Cardiac Disorders: No Hx Congestive Heart Failure: No Hx Pacemaker: No Hx Hypertension: No Hx Thyroid Disease: Yes Hx Diabetes: No Hx Gastroesophageal Reflux: No Hx Renal Disease: No Hx Cancer: No Hx of HIV: No Hx Hepatitis C: No Hx MRSA: No - Vaccination History Hx Tetanus, Diphtheria Vaccination: Yes Hx Influenza Vaccination: Yes - 2018 Hx Pneumococcal Vaccination: No - Social History Hx Tobacco Use: Yes Hx Chewing Tobacco Use: No Hx Alcohol Use: No Hx Substance Use: No Hx Substance Use Treatment: No Hx Depression: No Hx Physical Abuse: No Hx Emotional Abuse: Yes Hx Suspected Abuse: No - Female History Hx Last Menstrual Period: 03/28/15 Patient : No - IUD Family Medical History - Family History Mother Family History: Unknown Living Status: Cause of : unsure Hx Family Hypertension: - dad Father Family History: Unknown Living Status: Still Living Hx Family Asthma: No Hx Family Congestive Heart Failure: No Hx Family Hypertension: Yes - father Hx Family Stroke: No Hx Cardiac Disease: No Hx Family Diabetes: No Hx Family Cancer: No Physical Exam - Physical Exam General Appearance: Alert, Well Developed, Well Groomed, Well Hydrated Eye Exam: bilateral normal Ears, Nose, Throat: hearing grossly normal Neck: non-tender, full range of motion, supple, normal inspection Respiratory: chest non-tender, lungs clear, normal breath sounds Cardiovascular/Chest: normal peripheral pulses, regular rate, rhythm Peripheral Pulses: radial,right: 2+, radial,left: 2+ Gastrointestinal/Abdominal: normal bowel sounds, non tender, soft Back Exam: normal inspection Extremity: pedal edema, swelling, other - chronic edema, warm to touch without erythema, good capillary refill Skin Exam: normal color Progress - Progress Progress: 12/08/18 13:35 this is patient that present with chronic lymphedema , and chronic leg pain, patient have been seen multiple times in the ER, have evaluated and extensively studied, patient will received a dose of phenergan and tylenol #3 in the ER but no scripts, I am concern for possible drug seeking behavior. for the evaluation of patient of this patient chronic pain this patient needs to follow up with pain management and her vascular surgeon Departure - Departure Clinical Impression: Peripheral edema Chronic leg pain Qualifiers: Laterality: bilateral Qualified Code(s): M79.604 - Pain in right leg; M79.605 - Pain in left leg; G89.29 - Other chronic pain Disposition: Discharge to Home or Self Care Departure Forms: ED Discharge - Pt. Copy, Patient Portal Self Enrollment Instructions: Lymphedema (DC) Referrals: Raulito Pantoja MD [Primary Care Provider] - 1-2 Weeks Home Medications: Ambulatory Orders Zolpidem Tartrate [Ambien] 10 mg PO BEDTIME 11/12/17 Promethazine HCl 25 mg PO Q6H PRN 11/13/17 Diazepam [Valium] 10 mg PO BID 05/16/18 Methocarbamol [Robaxin] 1 tablet PO TID 05/16/18 Linaclotide [Linzess] 290 mcg PO DAILY 07/06/18 Escitalopram Oxalate [Lexapro] 20 mg PO DAILY 09/08/18 HYDROcodone 5MG/APAP 325MG [[place] 5/325] 1 tab PO Q6H PRN 09/08/18 Prazosin HCl [Prazosin Hydrochloride] 2 mg PO BEDTIME 09/08/18 Sumatriptan Succinate [Imitrex] 25 mg PO PRN PRN 11/03/18 Promethazine Supp [Phenergan Suppository] 25 mg DC Q6H PRN 6 Days #6 sup 11/07/18 Magnesium Oxide 400 mg PO DAILY #14 cap 11/10/18 Spironolactone 25 mg PO DAILY #14 tab 11/10/18 Naproxen [Naprosyn] 500 mg PO BID #10 tab 11/27/18 Tramadol HCl 50 mg PO Q6HR #12 tab 11/27/18 Furosemide Tab [Lasix Tab] 40 mg PO DAILY #50 tab 12/05/18 Magnesium Oxide [Magnesium] 500 mg PO DAILY #30 cap 12/05/18 Potassium Chloride [Potassium Chloride ER] 20 meq PO DAILY #90 cap 12/05/18 Additional Instructions: follow up with vascular and pain management
[2018-12-08] MEDS ORDERED: ACETAMINOPHEN W/COD #3 TAB 1 EA TAB PO ONE (13:29)
[2018-12-08 14:43] VITALS: TEMP 98.3
[2018-12-08 14:44] VITALS: BP 102/80; O2SAT 98
== END 2018-12-08 14:12 | disposition home or self-care (01) ==
LOC: ER 13:06
DX: M79.605 Pain in left leg (principal); M79.604 Pain in right leg; G89.29 Other chronic pain; R60.0 Localized edema; I89.0 Lymphedema, not elsewhere classified; R56.9 Unspecified convulsions; E07.9 Disorder of thyroid, unspecified; Z87.891 Personal history of nicotine dependence; Z79.899 Other long term (current) drug therapy; Z91.040 Latex allergy status; Z88.8 Allergy status to other drugs, medicaments and biological substances; Z88.0 Allergy status to penicillin; Z88.2 Allergy status to sulfonamides

== ENCOUNTER 2018-12-14 18:54 | Emergency (ER) | payer SELFPAY ==
[2018-12-14] MEDS ORDERED: PROMETHAZINE HCL INJ 25 MG in SODIUM CHLORIDE 0.9% 50ML 50 ML IVPB ONE (19:12)
--- NOTE | 2018-12-14 19:16 | ED.PDOC ---
History of Present Illness - General Chief Complaint: GI Problem Stated Complaint: N/V/D Time Seen by Provider: 12/14/18 19:11 Information Source: patient, RN notes reviewed, Vital Signs reviewed Exam Limitations: no limitations - History of Present Illness Initial Comments: Patient was at [facility] recently for lower leg swelling and cellulitis. Received 2 days IV clindamycin then discharged on doxycycline. Since Wednesday, has been having nausea, vomiting, diarrhea, upset stomach. Has not taken doxycycline besides 1 day. Has not been able to take her other home meds. Pain Radiation: no radiation Improving Factors: immobilization Worsening Factors: eating Associated Symptoms: diarrhea, nausea/vomiting Review of Systems - Review of Systems Constitutional: States: no symptoms reported EENTM: States: no symptoms reported Respiratory: States: no symptoms reported Cardiology: States: no symptoms reported Gastrointestinal/Abdominal: States: see HPI Genitourinary: States: no symptoms reported Musculoskeletal: States: no symptoms reported Skin: States: no symptoms reported Neurological: States: no symptoms reported Endocrine: States: no symptoms reported Hematologic/Lymphatic: States: no symptoms reported Past Medical History (General) - Patient Medical History Hx Seizures: Yes Hx Stroke: No Hx Dementia: No Hx Asthma: No Hx of COPD: No Hx Cardiac Disorders: No Hx Congestive Heart Failure: No Hx Pacemaker: No Hx Hypertension: No Hx Thyroid Disease: Yes Hx Diabetes: No Hx Gastroesophageal Reflux: No Hx Renal Disease: No Hx Cancer: No Hx of HIV: No Hx Hepatitis C: No Hx MRSA: No - Vaccination History Hx Tetanus, Diphtheria Vaccination: Yes Hx Influenza Vaccination: Yes - 2019 Hx Pneumococcal Vaccination: No - Social History Hx Tobacco Use: Yes Hx Chewing Tobacco Use: No Hx Alcohol Use: No Hx Substance Use: No Hx Substance Use Treatment: No Hx Depression: No Hx Physical Abuse: No Hx Emotional Abuse: Yes Hx Suspected Abuse: No - Female History Hx Last Menstrual Period: 03/28/15 Patient : No - IUD Family Medical History - Family History Mother Family History: Unknown Living Status: Cause of : unsure Hx Family Hypertension: - dad Father Family History: Unknown Living Status: Still Living Hx Family Asthma: No Hx Family Congestive Heart Failure: No Hx Family Hypertension: Yes - father Hx Family Stroke: No Hx Cardiac Disease: No Hx Family Diabetes: No Hx Family Cancer: No Physical Exam - Physical Exam General Appearance: Alert, Anxious Eyes, Ears, Nose, Throat Exam: normal ENT inspection Neck: full range of motion Respiratory: no respiratory distress Cardiovascular/Chest: regular rate, rhythm Gastrointestinal/Abdominal: non tender, soft Back Exam: normal inspection Extremity: normal range of motion, non-tender, no pedal edema, no calf tenderness Neurologic: endbander II-XII nml as tested, no motor/sensory deficits, alert Skin Exam: normal color Progress - Progress Progress: 12/14/18 20:24 We reviewed her labs together which were unremarkable considering the nausea, vomiting, and diarrhea history. Patient refused the benadryl saying she couldn't take pills. She was given Phenergan and she wanted Compazine before discharge. She refused a prescription for antiemetic. Etiology could be due to doxycycline which I advised her to stop taking since there's no sign of cellulitis on her legs with normal WBC. Departure - Departure Clinical Impression: Nausea & vomiting Time of Disposition: 20:23 Disposition: Discharge to Home or Self Care Condition: Fair Departure Forms: ED Discharge - Pt. Copy, Patient Portal Self Enrollment Referrals: Raulito Pantoja MD [Primary Care Provider] - 1-2 Days Home Medications: Ambulatory Orders Zolpidem Tartrate [Ambien] 10 mg PO BEDTIME 11/12/17 Promethazine HCl 25 mg PO Q6H PRN 11/13/17 Diazepam [Valium] 10 mg PO BID 05/16/18 Methocarbamol [Robaxin] 1 tablet PO TID 05/16/18 Linaclotide [Linzess] 290 mcg PO DAILY 07/06/18 Escitalopram Oxalate [Lexapro] 20 mg PO DAILY 09/08/18 HYDROcodone 5MG/APAP 325MG [[place] 5/325] 1 tab PO Q6H PRN 09/08/18 Prazosin HCl [Prazosin Hydrochloride] 2 mg PO BEDTIME 09/08/18 Sumatriptan Succinate [Imitrex] 25 mg PO PRN PRN 11/03/18 Promethazine Supp [Phenergan Suppository] 25 mg IA Q6H PRN 6 Days #6 sup 11/07/18 Magnesium Oxide 400 mg PO DAILY #14 cap 11/10/18 Spironolactone 25 mg PO DAILY #14 tab 11/10/18 Naproxen [Naprosyn] 500 mg PO BID #10 tab 11/27/18 Tramadol HCl 50 mg PO Q6HR #12 tab 11/27/18 Furosemide Tab [Lasix Tab] 40 mg PO DAILY #50 tab 12/05/18 Magnesium Oxide [Magnesium] 500 mg PO DAILY #30 cap 12/05/18 Potassium Chloride [Potassium Chloride ER] 20 meq PO DAILY #90 cap 12/05/18
[2018-12-14 19:17] VITALS: TEMP 97.5
[2018-12-14] MEDS ORDERED: PROMETHAZINE HCL INJ 25 MG/ML VIAL ONE (19:28)
[2018-12-14] MEDS ORDERED: SODIUM CHLORIDE 0.9% 50ML 50 ML ONE (19:29)
[2018-12-14] MEDS: diphenhydrAMINE HCL 25 MG CAP PO ONE ×2 (19:33)
[2018-12-14] MEDS ORDERED: PROCHLORPERAZINE INJ 10 MG/2 ML VIAL IV ONE (20:22)
[2018-12-14 20:47] VITALS: BP 122/77; O2SAT 100
== END 2018-12-14 20:50 | disposition home or self-care (01) ==
LOC: ER 18:54
DX: R11.2 Nausea with vomiting, unspecified (principal); R19.7 Diarrhea, unspecified; R56.9 Unspecified convulsions; E07.9 Disorder of thyroid, unspecified; Z87.891 Personal history of nicotine dependence; Z79.899 Other long term (current) drug therapy
CPT/HCPCS: 36415; 80053; 83690; 84703; 85025; A4216; J0780; J2550

== ENCOUNTER 2019-01-02 14:40 | Emergency (ER) | payer SELFPAY ==
[2019-01-02 15:27] VITALS: TEMP 98.5; O2SAT 99
--- NOTE | 2019-01-02 15:28 | ED.PDOC ---
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 Reports majority of the pain is on the top of her L foot and where her Achilles attaches to her ankle. Denies pain or injury elsewhere. Denies calf swelling, calf firmness, LE erythema, wounds, f/c, SOB, CP. Allergies/Adverse Reactions: Allergies Latex Allergy (Intermediate, Verified 11/27/18 17:55) red swelling Ondansetron [From Zofran] Allergy (Intermediate, Verified 11/27/18 17:55) migraine Doxycycline Allergy (Verified 01/02/19 15:28) Penicillins Allergy (Verified 11/27/18 17:55) N/V Sulfamethoxazole w/Trimethoprim [From Bactrim] Allergy (Verified 11/27/18 17:55) Amoxicillin [From Augmentin] Adverse Reaction (Verified 11/27/18 17:55) N/V Clavulanic Acid [From Augmentin] Adverse Reaction (Verified 11/27/18 17:55) N./V Home Medications: Ambulatory Orders Zolpidem Tartrate [Ambien] 10 mg PO BEDTIME 11/12/17 Promethazine HCl 25 mg PO Q6H PRN 11/13/17 Diazepam [Valium] 10 mg PO BID 05/16/18 Methocarbamol [Robaxin] 1 tablet PO TID 05/16/18 Linaclotide [Linzess] 290 mcg PO DAILY 07/06/18 Escitalopram Oxalate [Lexapro] 20 mg PO DAILY 09/08/18 HYDROcodone 5MG/APAP 325MG [[place] 5/325] 1 tab PO Q6H PRN 09/08/18 Prazosin HCl [Prazosin Hydrochloride] 2 mg PO BEDTIME 09/08/18 Sumatriptan Succinate [Imitrex] 25 mg PO PRN PRN 11/03/18 Promethazine Supp [Phenergan Suppository] 25 mg SD Q6H PRN 6 Days #6 sup 11/07/18 Magnesium Oxide 400 mg PO DAILY #14 cap 11/10/18 Spironolactone 25 mg PO DAILY #14 tab 11/10/18 Naproxen [Naprosyn] 500 mg PO BID #10 tab 11/27/18 Tramadol HCl 50 mg PO Q6HR #12 tab 11/27/18 Furosemide Tab [Lasix Tab] 40 mg PO DAILY #50 tab 12/05/18 Magnesium Oxide [Magnesium] 500 mg PO DAILY #30 cap 12/05/18 Potassium Chloride [Potassium Chloride ER] 20 meq PO DAILY #90 cap 12/05/18 Review of Systems - Review of Systems Constitutional: Denies: chills, fever Respiratory: Denies: cough, orthopnea, short of breath Cardiology: Denies: chest pain, edema, palpitations Gastrointestinal/Abdominal: Denies: abdominal pain, vomiting Musculoskeletal: States: joint pain. Denies: back pain, joint swelling, neck pain Skin: Denies: change in color, lesions, rash Neurological: Denies: numbness, weakness Past Medical History (General) - Patient Medical History Hx Seizures: Yes Hx Stroke: No Hx Dementia: No Hx Asthma: No Hx of COPD: No Hx Cardiac Disorders: No Hx Congestive Heart Failure: No Hx Pacemaker: No Hx Hypertension: No Hx Thyroid Disease: Yes Hx Diabetes: No Hx Gastroesophageal Reflux: No Hx Renal Disease: No Hx Cancer: No Hx of HIV: No Hx Hepatitis C: No Hx MRSA: No - Vaccination History Hx Tetanus, Diphtheria Vaccination: Yes Hx Influenza Vaccination: Yes - 2019 Hx Pneumococcal Vaccination: No - Social History Hx Tobacco Use: Yes Hx Chewing Tobacco Use: No Hx Alcohol Use: No Hx Substance Use: No Hx Substance Use Treatment: No Hx Depression: No Hx Physical Abuse: No Hx Emotional Abuse: Yes Hx Suspected Abuse: No - Female History Hx Last Menstrual Period: 03/28/15 Patient : No - IUD Family Medical History - Family History Mother Family History: Unknown Living Status: Cause of : unsure Hx Family Hypertension: - dad Father Family History: Unknown Living Status: Still Living Hx Family Asthma: No Hx Family Congestive Heart Failure: No Hx Family Hypertension: Yes - father Hx Family Stroke: No Hx Cardiac Disease: No Hx Family Diabetes: No Hx Family Cancer: No Physical Exam - Physical Exam General Appearance: Alert, No apparent distress Neck: supple Cardiovascular/Respiratory: regular rate, rhythm, no M/R/G, normal peripheral pulses Gastrointestinal/Abdominal: non-tender Back: normal inspection, no vertebral tenderness Thigh/Hip: normal inspection, non-tender Leg: normal inspection, non-tender, no evidence of injury, other - No swelling, no calf TTP Knee: normal inspection, non-tender, no evidence of injury Ankle: normal inspection, non-tender, no evidence of injury, normal ROM Foot: normal inspection, no evidence of injury, normal ROM, other - TTP on top of foot diffusely, 2+ pulses, cap refill <2sec, NVID Neuro/Tendon: normal sensation, normal motor functions Mental Status: alert, oriented x 3 Skin: normal color, warm/dry Progress - Progress Progress: 01/02/19 15:34 US has left for the day. Discussed with pt extremely low suspicion for DVT, will defer at this time and have follow up with PCP for US if sx continue or worsen with swelling and pain in the calf. Pt agrees with plan. 01/02/19 16:35 I have explained and reviewed all results with the pt. Pt is asking for narcotic pain medication, explained the standard of care is to treat with nonnarcotics, offered lidoderm patch to witch pt declined prescription for, unfortunately unavailable in the ED to give prior to d/c. I explained that emergent conditions may arise and to return to the ER for new, worsening, or any persistent conditions. I've explained the importance of f/u for recheck. All questions and concerns addressed at this time. Pt understands and agrees with plan. Pt well appearing, NAD, is stable for discharge. Debbie Martinez MD Emergency Medicine Physician Billing Number [id number] - Results/Orders Results/Orders: L Ankle: EXAM DESCRIPTION: Ankle,Left 3 Views CLINICAL HISTORY: pain COMPARISON: None. IMPRESSION: 3 views of the left ankle show no acute fracture, focal bone destruction, or joint dislocation. Soft tissues are unremarkable. Small enthesophyte at the attachment of the Achilles tendon to the calcaneus. Electronically signed by: Carmelo Costello MD 01/02/2019 3:53 PM UI ARCHITECT - [id number] L Foot: EXAM DESCRIPTION: Foot,Left 3 Views CLINICAL HISTORY: pain COMPARISON: None. IMPRESSION: 3 views of the left foot show no acute fracture, focal bone destruction, or joint dislocation. Mild joint space narrowing and degenerative changes of the first metatarsophalangeal joint. Mild bunion deformity involving the medial head of the first metatarsal. Electronically signed by: Carmelo Costello MD 01/02/2019 3:55 PM UI ARCHITECT Departure - Departure Clinical Impression: Left foot pain Left ankle pain Qualifiers: Chronicity: acute Qualified Code(s): M25.572 - Pain in left ankle and joints of left foot Time of Disposition: 16:33 Disposition: Discharge to Home or Self Care Health Concerns: Condition: stable Departure Forms: ED Discharge - Pt. Copy, Patient Portal Self Enrollment Instructions: Muscle and Bone Pain (DC) Referrals: Raulito Pantoja MD [Primary Care Provider] - 1-2 Days Home Medications: Ambulatory Orders Zolpidem Tartrate [Ambien] 10 mg PO BEDTIME 11/12/17 Promethazine HCl 25 mg PO Q6H PRN 11/13/17 Diazepam [Valium] 10 mg PO BID 05/16/18 Methocarbamol [Robaxin] 1 tablet PO TID 05/16/18 Linaclotide [Linzess] 290 mcg PO DAILY 07/06/18 Escitalopram Oxalate [Lexapro] 20 mg PO DAILY 09/08/18 HYDROcodone 5MG/APAP 325MG [[place] 5/325] 1 tab PO Q6H PRN 09/08/18 Prazosin HCl [Prazosin Hydrochloride] 2 mg PO BEDTIME 09/08/18 Sumatriptan Succinate [Imitrex] 25 mg PO PRN PRN 11/03/18 Promethazine Supp [Phenergan Suppository] 25 mg SD Q6H PRN 6 Days #6 sup 11/07/18 Magnesium Oxide 400 mg PO DAILY #14 cap 11/10/18 Spironolactone 25 mg PO DAILY #14 tab 11/10/18 Naproxen [Naprosyn] 500 mg PO BID #10 tab 11/27/18 Tramadol HCl 50 mg PO Q6HR #12 tab 11/27/18 Furosemide Tab [Lasix Tab] 40 mg PO DAILY #50 tab 12/05/18 Magnesium Oxide [Magnesium] 500 mg PO DAILY #30 cap 12/05/18 Potassium Chloride [Potassium Chloride ER] 20 meq PO DAILY #90 cap 12/05/18 Additional Instructions: Referral: [facility] As needed, if symptoms worsen Your Primary Care Physician Make appointment, two days, for follow up
[2019-01-02] MEDS ORDERED: KETOROLAC TROMETHAMINE INJ 60 MG/2 ML VIAL IM ONE (15:34)
--- NOTE | 2019-01-02 15:55 | RAD ---
EXAM DESCRIPTION: Ankle,Left 3 Views CLINICAL HISTORY: pain COMPARISON: None. IMPRESSION: 3 views of the left ankle show no acute fracture, focal bone destruction, or joint dislocation. Soft tissues are unremarkable. Small enthesophyte at the attachment of the Achilles tendon to the calcaneus. Electronically signed by: Carmelo Costello MD 01/02/2019 3:53 PM MULTI OPERATION MACHINE OPERATOR
--- NOTE | 2019-01-02 15:56 | RAD ---
EXAM DESCRIPTION: Foot,Left 3 Views CLINICAL HISTORY: pain COMPARISON: None. IMPRESSION: 3 views of the left foot show no acute fracture, focal bone destruction, or joint dislocation. Mild joint space narrowing and degenerative changes of the first metatarsophalangeal joint. Mild bunion deformity involving the medial head of the first metatarsal. Electronically signed by: Carmelo Costello MD 01/02/2019 3:55 PM [facility]
[2019-01-02 19:59] VITALS: BP 136/91
== END 2019-01-02 17:15 | disposition home or self-care (01) ==
LOC: ER 14:40
DX: M79.672 Pain in left foot (principal); M25.572 Pain in left ankle and joints of left foot; E07.9 Disorder of thyroid, unspecified; R56.9 Unspecified convulsions; Z86.718 Personal history of other venous thrombosis and embolism; Z86.711 Personal history of pulmonary embolism; Z87.891 Personal history of nicotine dependence; Z79.899 Other long term (current) drug therapy; Z91.040 Latex allergy status; Z88.8 Allergy status to other drugs, medicaments and biological substances; Z88.1 Allergy status to other antibiotic agents; Z88.0 Allergy status to penicillin; Z88.2 Allergy status to sulfonamides
CPT/HCPCS: 73610; 73630; J1885

== ENCOUNTER 2019-01-06 13:23 | Emergency (ER) | payer SELFPAY ==
[2019-01-06] MEDS ORDERED: KETOROLAC TROMETHAMINE INJ 30 MG/ML VIAL IM ONE (15:33)
--- NOTE | 2019-01-06 16:29 | US ---
EXAM DESCRIPTION: Venous,Lower Extremity LT CLINICAL HISTORY: lle swelling pain, hx of previous dvt COMPARISON: Previous study November 07, 2018 left lower extremity venous Doppler sonogram TECHNIQUE: Left lower extremity venous duplex FINDINGS: Doppler evaluation of the left lower extremity deep veins was performed. Normal color flow is seen in the common femoral, superficial femoral, profunda femoral and greater saphenous veins. Normal flow is seen in the popliteal vein and veins below the knee in the calf. Normal venous compressibility and flow augmentation. IMPRESSION: Negative for evidence of deep venous thrombosis on left lower extremity venous Doppler sonogram. Electronically signed by: Tito Turner MD 01/06/2019 4:27 PM UROLOGIST PHYSICIAN
--- NOTE | 2019-01-06 16:37 | ED.PDOC ---
History of Present Illness - General Chief Complaint: General Time Seen by Provider: 01/06/19 13:30 Source: patient Exam Limitations: no limitations - History of Present Illness Initial Comments: the patient is a 43-year-old female presenting to the emergency room secondary persistent left lower extremity pain. She was seen here a few days ago after she had injured it with a fall. X-rays did not show any acute pathology. The patient does have chronic bilateral lower extremity pain. Her primary concern is fora recurrence of a DVT. She is not having any shortness of breath and there is no hypoxia. She is 100% on room air. No unusual tachycardia for her. There is no palpable cord. No pain with extension of the first toe. The patient actually has relatively little edema today compared to what she normally has. The patient is quite anxious and worked up as she has been made to wait as there were multiple more critical patients ahead of her that had to be tended to first with limited resources. Timing/Duration: other - multiple days Severity: moderate Improving Factors: immobilization Worsening Factors: movement Associated Symptoms: denies symptoms Allergies/Adverse Reactions: Allergies Latex Allergy (Intermediate, Verified 11/27/18 17:55) red swelling Ondansetron [From Zofran] Allergy (Intermediate, Verified 11/27/18 17:55) migraine Doxycycline Allergy (Verified 01/02/19 15:28) Penicillins Allergy (Verified 11/27/18 17:55) N/V Sulfamethoxazole w/Trimethoprim [From Bactrim] Allergy (Verified 11/27/18 17:55) Amoxicillin [From Augmentin] Adverse Reaction (Verified 11/27/18 17:55) N/V Clavulanic Acid [From Augmentin] Adverse Reaction (Verified 11/27/18 17:55) N./V Home Medications: Ambulatory Orders Zolpidem Tartrate [Ambien] 10 mg PO BEDTIME 11/12/17 Promethazine HCl 25 mg PO Q6H PRN 11/13/17 Diazepam [Valium] 10 mg PO BID 05/16/18 Methocarbamol [Robaxin] 1 tablet PO TID 05/16/18 Linaclotide [Linzess] 290 mcg PO DAILY 07/06/18 Escitalopram Oxalate [Lexapro] 20 mg PO DAILY 09/08/18 HYDROcodone 5MG/APAP 325MG [[place] 5/325] 1 tab PO Q6H PRN 09/08/18 Prazosin HCl [Prazosin Hydrochloride] 2 mg PO BEDTIME 09/08/18 Sumatriptan Succinate [Imitrex] 25 mg PO PRN PRN 11/03/18 Promethazine Supp [Phenergan Suppository] 25 mg [place] Q6H PRN 6 Days #6 sup 11/07/18 Magnesium Oxide 400 mg PO DAILY #14 cap 11/10/18 Spironolactone 25 mg PO DAILY #14 tab 11/10/18 Naproxen [Naprosyn] 500 mg PO BID #10 tab 11/27/18 Tramadol HCl 50 mg PO Q6HR #12 tab 11/27/18 Furosemide Tab [Lasix Tab] 40 mg PO DAILY #50 tab 12/05/18 Magnesium Oxide [Magnesium] 500 mg PO DAILY #30 cap 12/05/18 Potassium Chloride [Potassium Chloride ER] 20 meq PO DAILY #90 cap 12/05/18 Review of Systems - Review of Systems Constitutional: States: no symptoms reported EENTM: States: no symptoms reported Respiratory: States: no symptoms reported Cardiology: States: no symptoms reported Gastrointestinal/Abdominal: States: no symptoms reported Genitourinary: States: no symptoms reported Musculoskeletal: States: see HPI Skin: States: no symptoms reported Neurological: States: anxiety Endocrine: States: no symptoms reported All other Systems: No Change from Baseline Past Medical History (General) - Patient Medical History Hx Seizures: Yes Hx Stroke: No Hx Dementia: No Hx Asthma: No Hx of COPD: No Hx Cardiac Disorders: No Hx Congestive Heart Failure: No Hx Pacemaker: No Hx Hypertension: No Hx Thyroid Disease: Yes Hx Diabetes: No Hx Gastroesophageal Reflux: No Hx Renal Disease: No Hx Cancer: No Hx of HIV: No Hx Hepatitis C: No Hx MRSA: No - Vaccination History Hx Tetanus, Diphtheria Vaccination: Yes Hx Influenza Vaccination: Yes - 2019 Hx Pneumococcal Vaccination: No - Social History Hx Tobacco Use: Yes Hx Chewing Tobacco Use: No Hx Alcohol Use: No Hx Substance Use: No Hx Substance Use Treatment: No Hx Depression: No Hx Physical Abuse: No Hx Emotional Abuse: Yes Hx Suspected Abuse: No - Female History Hx Last Menstrual Period: 03/28/15 Patient : No - IUD Family Medical History - Family History Mother Family History: Unknown Living Status: Cause of : unsure Hx Family Hypertension: - dad Father Family History: Unknown Living Status: Still Living Hx Family Asthma: No Hx Family Congestive Heart Failure: No Hx Family Hypertension: Yes - father Hx Family Stroke: No Hx Cardiac Disease: No Hx Family Diabetes: No Hx Family Cancer: No Physical Exam - Physical Exam General Appearance: Alert, Anxious Eye Exam: bilateral normal Ears, Nose, Throat: hearing grossly normal, normal pharynx Neck: full range of motion, supple Respiratory: lungs clear, normal breath sounds, no respiratory distress, no accessory muscle use Cardiovascular/Chest: normal peripheral pulses, regular rate, rhythm, other - hronic bilateral lower extremity edema Peripheral Pulses: radial,right: 2+, radial,left: 2+ Gastrointestinal/Abdominal: non tender - obese, soft Rectal Exam: deferred Extremity: normal range of motion, normal capillary refill, other - the patient does have chronic bilateral lower extremity edema. She does have diffuse discomfort to palpation of theentire left lower extremity. No skin change colors. No deformity. No crepitus. 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 vital signs have remained within normal limits. left lower extremity ultrasound shows no evidence of any DVT. Progress - Progress Progress: 01/06/19 16:42 the patient is a 43-year-old female presenting to the emergency room secondary to left lower extremity pain. The patient is concerned for recurrent DVT. Venous Doppler done here showed no evidence of any DVT recurrence. I would recommend range of motion exercises to prevent stiffness. Vital signs are reassuring. While this does not completely rule out a pulmonary embolus, it does make the likelihood of one extremely low in conjunction with her clinical appearance and vital signs. The patient has had numerous CT scans in the past and we are trying to diligently limit additional ones to reduce her cancer risk in the future. follow-up with primary care doctor early next week. ER warnings were given. marcelo mar [id number] Departure - Departure Clinical Impression: Lower extremity pain, posterior Qualifiers: Laterality: left Qualified Code(s): M79.605 - Pain in left leg Disposition: Discharge to Home or Self Care Condition: Fair Departure Forms: ED Discharge - Pt. Copy, Patient Portal Self Enrollment Diet: low fat, low cholesterol Activity: increase activity as tolerated Referrals: Raulito Pantoja MD [Primary Care Provider] - 1-2 Weeks Home Medications: Ambulatory Orders Zolpidem Tartrate [Ambien] 10 mg PO BEDTIME 11/12/17 Promethazine HCl 25 mg PO Q6H PRN 11/13/17 Diazepam [Valium] 10 mg PO BID 05/16/18 Methocarbamol [Robaxin] 1 tablet PO TID 05/16/18 Linaclotide [Linzess] 290 mcg PO DAILY 07/06/18 Escitalopram Oxalate [Lexapro] 20 mg PO DAILY 09/08/18 HYDROcodone 5MG/APAP 325MG [[place] 5/325] 1 tab PO Q6H PRN 09/08/18 Prazosin HCl [Prazosin Hydrochloride] 2 mg PO BEDTIME 09/08/18 Sumatriptan Succinate [Imitrex] 25 mg PO PRN PRN 11/03/18 Promethazine Supp [Phenergan Suppository] 25 mg [place] Q6H PRN 6 Days #6 sup 11/07/18 Magnesium Oxide 400 mg PO DAILY #14 cap 11/10/18 Spironolactone 25 mg PO DAILY #14 tab 11/10/18 Naproxen [Naprosyn] 500 mg PO BID #10 tab 11/27/18 Tramadol HCl 50 mg PO Q6HR #12 tab 11/27/18 Furosemide Tab [Lasix Tab] 40 mg PO DAILY #50 tab 12/05/18 Magnesium Oxide [Magnesium] 500 mg PO DAILY #30 cap 12/05/18 Potassium Chloride [Potassium Chloride ER] 20 meq PO DAILY #90 cap 12/05/18 Additional Instructions: the patient is a 43-year-old female presenting to the emergency room secondary to left lower extremity pain. The patient is concerned for recurrent DVT. Venous Doppler done here showed no evidence of any DVT recurrence. I would recommend range of motion exercises to prevent stiffness. Vital signs are reassuring. While this does not completely rule out a pulmonary embolus, it does make the likelihood of one extremely low in conjunction with her clinical appearance and vital signs. The patient has had numerous CT scans in the past and we are trying to diligently limit additional ones to reduce her cancer risk in the future. follow-up with primary care doctor early next week. ER warnings were given.
[2019-01-06 17:56] VITALS: O2SAT 99
[2019-01-06 17:58] VITALS: BP 129/89; TEMP 97.4
== END 2019-01-06 17:35 | disposition home or self-care (01) ==
LOC: ER 13:23
DX: M79.605 Pain in left leg (principal); R60.0 Localized edema; E66.9 Obesity, unspecified; E07.9 Disorder of thyroid, unspecified; R56.9 Unspecified convulsions; Z87.891 Personal history of nicotine dependence; Z79.899 Other long term (current) drug therapy; Z68.36 Body mass index [BMI] 36.0-36.9, adult; Z86.718 Personal history of other venous thrombosis and embolism
CPT/HCPCS: 93971; J1885

== ENCOUNTER 2019-01-19 13:33 | Emergency (ER) | payer SELFPAY ==
[2019-01-19] MEDS ORDERED: BUTORPHANOL TARTRATE 2 MG/ML VIAL IV ONE (14:44)
[2019-01-19] MEDS ORDERED: BUTORPHANOL TARTRATE 2 MG/ML VIAL ONE (14:45)
--- NOTE | 2019-01-19 14:47 | RAD ---
EXAM DESCRIPTION: Abdomen Series CLINICAL HISTORY: 43 years Female, rlq pain COMPARISON: None. Findings: Three views/radiographs No acute cardiopulmonary abnormality. No free air beneath the diaphragm. Cholecystectomy clips. Intrauterine device. Relative lack of bowel gas in the left abdomen limits evaluation for obstruction. No air-fluid level is identified. No suspicious calcification. No acute osseous abnormality. IMPRESSION: Relative lack of bowel gas in the left abdomen limits evaluation for obstruction. No air-fluid level identified. Electronically signed by: Marc Stone MD 01/19/2019 2:[address] [facility]
[2019-01-19] MEDS ORDERED: PROCHLORPERAZINE INJ 10 MG/2 ML VIAL IV ONE (15:39)
[2019-01-19] MEDS ORDERED: SODIUM CHLORIDE 0.9% 1000ML 1,000 ML IVS ONE (15:40)
--- NOTE | 2019-01-19 15:50 | US ---
Procedure: US PELVIS TRANSVAGINAL Exam Date: 01/19/2019 Ordering Provider: Leo Oneal Clinical Indication: rlq pain, elav appy, rt adnexa Comparison: 07/06/2018 CT abdomen pelvis Technique: Transvaginal ultrasound of the pelvis was obtained. Findings: The uterus measures 7.7 x 4.2 x 3.2 cm . There is a 17 mm anterior intramural fibroid. Additional 14 mm posterior intramural fibroid. IUD in place. The endometrial complex measures 6 mm which is within normal limits. There are no masses. The right ovary measures 1.6 x 0.9 x 1.7 cm . There are no suspicious solid or cystic masses. Doppler not performed on the right. The left ovary measures 1.6 x 1.2 x 1.4 cm . There are no suspicious solid or cystic masses. No evidence of torsion. No pelvic free fluid. Appendix not visualized. Impression: 1. Fibroid uterus. 2. Appendix not visualized. 3. No suspicious ovarian lesions. Electronically signed by: Luis Aparicio MD 01/19/2019 3:49 PM [facility]
--- NOTE | 2019-01-19 16:27 | ED.PDOC ---
History of Present Illness - General Chief Complaint: GI Problem Stated Complaint: right sided abdominal pain Time Seen by Provider: 01/19/19 13:39 Source: patient Exam Limitations: no limitations - History of Present Illness Initial Comments: the patient is a 43-year-old female presenting to the emergency room secondary to right lower quadrant discomfort for the last 3-4 days. No vaginal discharge and no dysuria. No pain with palpation in the suprapubic area. Pain appears to be located in the left laterallower quadrant. The patient denies sexual activity. She does have an IUD in place. She has had an extensive history of chronic abdominal pain. No fevers. Mild nausea but no vomiting. No constipation. No diarrhea. No recent trauma. No recent medication changes. Timing/Duration: other - 4 days Severity: moderate Improving Factors: nothing Worsening Factors: nothing Associated Symptoms: loss of appetite, malaise, nausea/vomiting Allergies/Adverse Reactions: Allergies Latex Allergy (Intermediate, Verified 11/27/18 17:55) red swelling Ondansetron [From Zofran] Allergy (Intermediate, Verified 11/27/18 17:55) migraine Doxycycline Allergy (Verified 01/02/19 15:28) Penicillins Allergy (Verified 11/27/18 17:55) N/V Sulfamethoxazole w/Trimethoprim [From Bactrim] Allergy (Verified 11/27/18 17:55) Amoxicillin [From Augmentin] Adverse Reaction (Verified 11/27/18 17:55) N/V Clavulanic Acid [From Augmentin] Adverse Reaction (Verified 11/27/18 17:55) N./V Home Medications: Ambulatory Orders Zolpidem Tartrate [Ambien] 10 mg PO BEDTIME PRN 11/12/17 Promethazine HCl 25 mg PO Q6H PRN 11/13/17 Diazepam [Valium] 10 mg PO BID 05/16/18 Methocarbamol [Robaxin] 1 tablet PO TID 05/16/18 Linaclotide [Linzess] 290 mcg PO DAILY 07/06/18 Prazosin HCl [Prazosin Hydrochloride] 2 mg PO BEDTIME 09/08/18 Promethazine Supp [Phenergan Suppository] 25 mg [place] Q6H PRN 6 Days #6 sup 11/07/18 Spironolactone 25 mg PO DAILY #14 tab 11/10/18 ALPRAZolam [Xanax] 0.5 mg PO BID PRN 01/19/19 Duloxetine HCl [Cymbalta] 60 mg PO DAILY 01/19/19 Furosemide Tab [Lasix Tab] 40 mg PO DAILY PRN 01/19/19 HYDROcodone 7.5MG/APAP 325MG [[place] 7.5/325] 1 ea PO Q4H PRN 01/19/19 Hyoscyamine Sulfate 0.125 mg SL Q8HR PRN #10 sub 01/19/19 Naproxen [Naprosyn] 500 mg PO BID PRN 01/19/19 Potassium Chloride [Potassium Chloride ER] 20 meq PO DAILY PRN 01/19/19 Rizatriptan Benzoate [Maxalt] 10 mg PO DAILY PRN 01/19/19 Tramadol HCl 50 mg PO Q6HR PRN 01/19/19 Review of Systems - Review of Systems Constitutional: States: malaise EENTM: States: no symptoms reported Respiratory: States: no symptoms reported Cardiology: States: no symptoms reported Gastrointestinal/Abdominal: States: abdominal pain, nausea Genitourinary: States: no symptoms reported Musculoskeletal: States: no symptoms reported Skin: States: no symptoms reported Neurological: States: no symptoms reported Endocrine: States: no symptoms reported All other Systems: No Change from Baseline Past Medical History (General) - Patient Medical History Hx Seizures: Yes Hx Stroke: No Hx Dementia: No Hx Asthma: No Hx of COPD: No Hx Cardiac Disorders: No Hx Congestive Heart Failure: No Hx Pacemaker: No Hx Hypertension: No Hx Thyroid Disease: Yes Hx Diabetes: No Hx Gastroesophageal Reflux: No Hx Renal Disease: No Hx Cancer: No Hx of HIV: No Hx Hepatitis C: No Hx MRSA: No Surgical History: cholecystectomy, tonsillectomy, other - Vaccination History Hx Tetanus, Diphtheria Vaccination: Yes Hx Influenza Vaccination: Yes - 2019 Hx Pneumococcal Vaccination: No - Social History Hx Tobacco Use: Yes Hx Chewing Tobacco Use: No Hx Alcohol Use: No Hx Substance Use: No Hx Substance Use Treatment: No Hx Depression: No Hx Physical Abuse: No Hx Emotional Abuse: Yes Hx Suspected Abuse: No - Female History Hx Last Menstrual Period: 03/28/15 Patient : No - IUD Family Medical History - Family History Mother Family History: Unknown Living Status: Cause of : unsure Hx Family Hypertension: - dad Father Family History: Unknown Living Status: Still Living Hx Family Asthma: No Hx Family Congestive Heart Failure: No Hx Family Hypertension: Yes - father Hx Family Stroke: No Hx Cardiac Disease: No Hx Family Diabetes: No Hx Family Cancer: No Physical Exam - Physical Exam General Appearance: Alert, Other - uncomfortable Eye Exam: bilateral normal Ears, Nose, Throat: hearing grossly normal, normal ENT inspection Neck: full range of motion, supple Respiratory: lungs clear, normal breath sounds, no respiratory distress, no accessory muscle use Cardiovascular/Chest: normal peripheral pulses, regular rate, rhythm Peripheral Pulses: radial,right: 2+, radial,left: 2+ Gastrointestinal/Abdominal: soft, other - right lateral abdominal discomfort palpation. No definite rebound or peritoneal signs. Rectal Exam: deferred - patient defers pelvic exam at this time. 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 as tested, alert, normal mood/affect, oriented x 3 Skin Exam: normal color Comments: Vital Signs - 24 hr 01/19/19 01/19/19 01/19/19 13:40 13:45 14:40 Temperature 98.0 F 98.8 F Pulse Rate [ 64 77 left brachial] Respiratory 20 20 24 Rate Blood Pressure 146/109 142/75 [left brachial] O2 Sat by Pulse 99 95 Oximetry 01/19/19 01/19/19 15:35 15:43 Temperature 97.8 F Pulse Rate [ 90 82 left brachial] Respiratory 20 20 Rate Blood Pressure 109/73 142/75 [left brachial] O2 Sat by Pulse 96 96 Oximetry Progress - Progress Progress: 01/19/19 16:30 the patient is a 43-year-old female presenting to emergency room secondary to right lateral to lower abdominal discomfort. Source of this is not entirely certain at this point. The patient has had chronic abdominal pain in the past. No fever and no leukocytosis seem to argue against an appendicitis and certainly none was seen on ultrasound today. The patient is not receiving a CT scan as she has had multiple, multiple CT scans in the past and we are trying to mi nimize further radiation exposure. She has responded well to medications here today. She does have nausea medications at home to use if needed. I'm going to write her for some hyoscyamine to use as a trial. She needs to maintain a bland diet. She needs to keep herself well hydrated. She is to follow-up with her primary care doctor in a couple of days. ER warnings were given for any significant worsening. 01/19/19 16:42 marcelo mar 747 - Results/Orders Results/Orders: acute abdominal series appears benign. Right lower quadrant ultrasound shows no evidence of acute pathology. Appendix not identified. Laboratory Tests 01/19/19 01/19/19 01/19/19 14:07 14:07 14:07 WBC 9.3 RBC 5.00 Hgb 14.4 Hct 43.3 MCV 86.7 MCH 28.9 MCHC 33.3 RDW 14.9 H Plt Count 289 MPV 8.8 Absolute Neuts (auto) 5.50 Absolute Lymphs (auto) 3.10 Absolute Monos (auto) 0.50 Absolute Eos (auto) 0.10 Absolute Basos (auto) 0.10 Neutrophils % 58.9 Lymphocytes % 33.2 Monocytes % 5.4 Eosinophils % 1.6 Basophils % 0.9 Sodium 135 Potassium 3.7 Chloride 99 L Carbon Dioxide 21 Anion Gap 18.7 H BUN 17 Creatinine 0.86 BUN/Creatinine Ratio 19.8 Random Glucose 94 Serum Osmolality 271.4 L Lactic Acid Calcium 9.2 Magnesium 1.9 Total Bilirubin 0.5 AST 20 ALT 14 Alkaline Phosphatase 75 Creatine Kinase 179 H CK-MB (CK-2) 2.6 CK-MB (CK-2) % Not Reportable Troponin I < 0.02 Serum Total Protein 8.1 Albumin 4.6 Globulin 3.5 Albumin/Globulin Ratio 1.3 Amylase 25 L Lipase 23 Urine Color Urine Appearance Urine pH Ur Specific [place] Urine Protein Urine Glucose (UA) Urine Ketones Urine Blood Urine Nitrite Urine Bilirubin Urine Urobilinogen Ur Leukocyte Esterase Urine RBC Urine WBC Ur Epithelial Cells Urine Bacteria Urine HCG, Qual 01/19/19 01/19/19 01/19/19 14:07 14:07 14:07 WBC RBC Hgb Hct MCV MCH MCHC RDW Plt Count MPV Absolute Neuts (auto) Absolute Lymphs (auto) Absolute Monos (auto) Absolute Eos (auto) Absolute Basos (auto) Neutrophils % Lymphocytes % Monocytes % Eosinophils % Basophils % Sodium Potassium Chloride Carbon Dioxide Anion Gap BUN Creatinine BUN/Creatinine Ratio Random Glucose Serum Osmolality Lactic Acid 1.2 Calcium Magnesium Total Bilirubin AST ALT Alkaline Phosphatase Creatine Kinase CK-MB (CK-2) CK-MB (CK-2) % Troponin I Serum Total Protein Albumin Globulin Albumin/Globulin Ratio Amylase Lipase Urine Color Yellow Urine Appearance Clear Urine pH 5.5 Ur Specific [place] 1.010 Urine Protein Negative Urine Glucose (UA) Negative Urine Ketones Negative Urine Blood Negative Urine Nitrite Negative Urine Bilirubin Negative Urine Urobilinogen 0.2 Ur Leukocyte Esterase Negative Urine RBC 0 Urine WBC 0-1 Ur Epithelial Cells 0-1 Urine Bacteria 0 Urine HCG, Qual Negative Departure - Departure Clinical Impression: Abdominal pain Qualifiers: Abdominal location: right lower quadrant Qualified Code(s): R10.31 - Right lower quadrant pain Disposition: Discharge to Home or Self Care Condition: Fair Departure Forms: ED Discharge - Pt. Copy, Patient Portal Self Enrollment Instructions: DI for Abdominal Pain-Adult Diet: bland diet Activity: increase activity as tolerated Referrals: Raulito Pantoja MD [Primary Care Provider] - 1-2 Days Prescriptions: Hyoscyamine Sulfate 0.125 mg SL Q8HR PRN #10 sub PRN Reason: Abdominal Cramping Home Medications: Ambulatory Orders Zolpidem Tartrate [Ambien] 10 mg PO BEDTIME PRN 11/12/17 Promethazine HCl 25 mg PO Q6H PRN 11/13/17 Diazepam [Valium] 10 mg PO BID 05/16/18 Methocarbamol [Robaxin] 1 tablet PO TID 05/16/18 Linaclotide [Linzess] 290 mcg PO DAILY 07/06/18 Prazosin HCl [Prazosin Hydrochloride] 2 mg PO BEDTIME 09/08/18 Promethazine Supp [Phenergan Suppository] 25 mg [place] Q6H PRN 6 Days #6 sup 11/07/18 Spironolactone 25 mg PO DAILY #14 tab 11/10/18 ALPRAZolam [Xanax] 0.5 mg PO BID PRN 01/19/19 Duloxetine HCl [Cymbalta] 60 mg PO DAILY 01/19/19 Furosemide Tab [Lasix Tab] 40 mg PO DAILY PRN 01/19/19 HYDROcodone 7.5MG/APAP 325MG [[place] 7.5/325] 1 ea PO Q4H PRN 01/19/19 Hyoscyamine Sulfate 0.125 mg SL Q8HR PRN #10 sub 01/19/19 Naproxen [Naprosyn] 500 mg PO BID PRN 01/19/19 Potassium Chloride [Potassium Chloride ER] 20 meq PO DAILY PRN 01/19/19 Rizatriptan Benzoate [Maxalt] 10 mg PO DAILY PRN 01/19/19 Tramadol HCl 50 mg PO Q6HR PRN 01/19/19 Additional Instructions: the patient is a 43-year-old female presenting to emergency room secondary to right lateral to lower abdominal discomfort. Source of this is not entirely certain at this point. The patient has had chronic abdominal pain in the past. No fever and no leukocytosis seem to argue against an appendicitis and certainly none was seen on ultrasound today. The patient is not receiving a CT scan as she has had multiple, multiple CT scans in the past and we are trying to minimize further radiation exposure. She has responded well to medications here today. She does have nausea medications at home to use if needed. I'm going to write her for some hyoscyamine to use as a trial. She needs to maintain a bland diet. She needs to keep herself well hydrated. She is to follow-up with her primary care doctor in a couple of days. if the patient wors ens rather than improves over the next few days then a CT scan may have to be done.
[2019-01-19 17:07] VITALS: BP 124/86; TEMP 98.1; O2SAT 99
== END 2019-01-19 16:50 | disposition home or self-care (01) ==
LOC: ER 13:33
DX: R10.31 Right lower quadrant pain (principal); E07.9 Disorder of thyroid, unspecified; Z87.891 Personal history of nicotine dependence; Z79.899 Other long term (current) drug therapy; Z88.0 Allergy status to penicillin; Z88.2 Allergy status to sulfonamides; Z91.040 Latex allergy status; Z97.5 Presence of (intrauterine) contraceptive device
CPT/HCPCS: 74019; 76830; 80053; 81001; 81025; 82150; 82550; 82553; 83605; 83690; 83735; 84484; 85025; J0595; J0780; J7030

== ENCOUNTER → 2019-02-06 | Emergency (ER) | payer SELFPAY | LOC: ER 15:10 | DX: M54.5 Low back pain (principal); Z53.21 Procedure and treatment not carried out due to patient leaving prior to being seen by health care provider ==

== ENCOUNTER 2019-02-09 14:11 | Emergency (ER) | payer SELFPAY ==
[2019-02-09 14:46] VITALS: TEMP 97
[2019-02-09] MEDS ORDERED: KETOROLAC TROMETHAMINE INJ 30 MG/ML VIAL IV ONE (14:51)
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
--- NOTE | 2019-02-09 15:35 | RAD ---
EXAM DESCRIPTION: Lumbar Spine 3 Views CLINICAL HISTORY: pain COMPARISON: None Available. TECHNIQUE: AP/lateral/coned-down lateral FINDINGS: There is good alignment of the lumbar spine. There is no fracture or bone lesion. There are no significant degenerative changes observed. Surgical clips are seen in the right upper quadrant. IMPRESSION: Normal lumbar spine Electronically signed by: Alejandro Moss MD 02/09/2019 3:33 PM [facility]
--- NOTE | 2019-02-09 15:35 | RAD ---
EXAM DESCRIPTION: Chest,2 Views CLINICAL HISTORY: 43 years Female, sob COMPARISON: 14 October 2018 TECHNIQUE: PA/lateral FINDINGS: There is no cardiac or pulmonary abnormality. The lungs are clear. There is no effusion. Surgical clips are seen in the right upper quadrant. IMPRESSION: 1. Normal two-view chest. Electronically signed by: Alejandro Moss MD 02/09/2019 3:32 PM [facility]
[2019-02-09 15:46] VITALS: BP 126/73; O2SAT 95
== END 2019-02-09 16:15 | disposition left against medical advice (07) ==
LOC: ER 14:11
DX: R07.1 Chest pain on breathing (principal); G43.909 Migraine, unspecified, not intractable, without status migrainosus; T63.441A Toxic effect of venom of bees, accidental (unintentional), initial encounter; M54.5 Low back pain; R11.2 Nausea with vomiting, unspecified; R56.9 Unspecified convulsions; E07.9 Disorder of thyroid, unspecified; Z53.29 Procedure and treatment not carried out because of patient's decision for other reasons; Z87.891 Personal history of nicotine dependence; Z79.899 Other long term (current) drug therapy; Z88.1 Allergy status to other antibiotic agents; Z91.040 Latex allergy status; Z88.8 Allergy status to other drugs, medicaments and biological substances; Z88.2 Allergy status to sulfonamides
CPT/HCPCS: 71046; 72100; 80053; 81001; 81025; 84484; 85025; 85379; 87077; 87086; 87186; 93005; J1885

== ENCOUNTER 2019-03-13 18:25 | Emergency (ER) | payer SELFPAY ==
[2019-03-13] MEDS ORDERED: ASPIRIN TABLET 325 MG TAB PO ONE (18:49)
[2019-03-13] MEDS ORDERED: ONDANSETRON INJ 4 MG/2 ML VIAL IV ONE (18:49)
[2019-03-13] MEDS ORDERED: SODIUM CHLORIDE 0.9% (FLUSH) 10 ML SYG IV PRN (18:49)
[2019-03-13] MEDS ORDERED: MORPHINE SULFATE INJ 10 MG/ML VIAL IV ONE (18:50)
[2019-03-13 18:52] VITALS: BP 107/53; TEMP 97.4; O2SAT 95
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
--- NOTE | 2019-03-13 19:38 | RAD ---
EXAM: XR Chest, 2 Views CLINICAL HISTORY: CP TECHNIQUE: Frontal and lateral views of the chest. COMPARISON: 02/09/2019. FINDINGS: Lungs: Unremarkable. No consolidation. Pleural space: Unremarkable. No pneumothorax. Heart: Unremarkable. No cardiomegaly. Mediastinum: Unremarkable. Bones/joints: Unremarkable. IMPRESSION: No abnormality noted. Electronically signed by: Elvia Dumont MD 03/13/2019 7:37 PM [employer] [employer]
== END 2019-03-13 19:13 | disposition left against medical advice (07) ==
LOC: ER 18:25
DX: M54.5 Low back pain (principal); R21 Rash and other nonspecific skin eruption; R07.1 Chest pain on breathing; R11.0 Nausea; G89.29 Other chronic pain; E07.9 Disorder of thyroid, unspecified; R56.9 Unspecified convulsions; Z53.29 Procedure and treatment not carried out because of patient's decision for other reasons; Z88.8 Allergy status to other drugs, medicaments and biological substances; Z87.440 Personal history of urinary (tract) infections; Z88.1 Allergy status to other antibiotic agents; Z87.891 Personal history of nicotine dependence; Z91.040 Latex allergy status; Z79.899 Other long term (current) drug therapy; Z88.0 Allergy status to penicillin; Z88.2 Allergy status to sulfonamides; Z86.711 Personal history of pulmonary embolism

== ENCOUNTER 2019-03-15 18:34 | Emergency (ER) | payer SELFPAY ==
[2019-03-15 19:07] VITALS: BP 143/87; TEMP 99.4; O2SAT 98
[2019-03-15] MEDS ORDERED: KETOROLAC TROMETHAMINE INJ 30 MG/ML VIAL IM ONE (19:11)
[2019-03-15] MEDS ORDERED: predniSONE 20 MG TAB PO ONE (19:11)
[2019-03-15] MEDS ORDERED: BUTORPHANOL TARTRATE 2 MG/ML VIAL IM ONE (19:11)
[2019-03-15] MEDS ORDERED: ZOLPIDEM TARTRATE 10 MG TAB PO ONE (19:25)
--- NOTE | 2019-03-15 19:29 | ED.PDOC ---
History of Present Illness - General Chief Complaint: General Stated Complaint: hands and feet swelling, painful Time Seen by Provider: 03/15/19 18:43 Source: patient Exam Limitations: no limitations - History of Present Illness Initial Comments: the patient's 43-year-old female well known to the emergency room presenting secondary to pain in her feet and legs. The patient is currently being treated with clindamycin for a stasis dermatitis of the legs. She does also likely had bedbugs. She has multiple excoriated areas from scratching. She does have dry skin. No fever. +1 edema bilateral lower extremities. The patient is quite upset and agitated over the itching.she actually left AGAINST MEDICAL ADVICE 2 days ago for the same problem. Timing/Duration: 1 week Severity: moderate Improving Factors: nothing Worsening Factors: nothing Associated Symptoms: malaise Allergies/Adverse Reactions: Allergies Latex Allergy (Intermediate, Verified 11/27/18 17:55) red swelling Ondansetron [From Zofran] Allergy (Intermediate, Verified 11/27/18 17:55) migraine Doxycycline Allergy (Verified 01/02/19 15:28) Penicillins Allergy (Verified 11/27/18 17:55) N/V Sulfamethoxazole w/Trimethoprim [From Bactrim] Allergy (Verified 11/27/18 17:55) Amoxicillin [From Augmentin] Adverse Reaction (Verified 11/27/18 17:55) N/V Clavulanic Acid [From Augmentin] Adverse Reaction (Verified 11/27/18 17:55) N./V Home Medications: Ambulatory Orders Promethazine HCl 25 mg PO Q6H PRN 11/13/17 Diazepam [Valium] 10 mg PO BID 05/16/18 Methocarbamol [Robaxin] 1 tablet PO TID 05/16/18 Linaclotide [Linzess] 290 mcg PO DAILY 07/06/18 Prazosin HCl [Prazosin Hydrochloride] 2 mg PO BEDTIME 09/08/18 Promethazine Supp [Phenergan Suppository] 25 mg MA Q6H PRN 6 Days #6 sup 11/07/18 Spironolactone 25 mg PO DAILY #14 tab 11/10/18 Duloxetine HCl [Cymbalta] 60 mg PO DAILY 01/19/19 Furosemide Tab [Lasix Tab] 40 mg PO DAILY PRN 01/19/19 Potassium Chloride [Potassium Chloride ER] 20 meq PO DAILY PRN 01/19/19 Rizatriptan Benzoate [Maxalt] 10 mg PO DAILY PRN 01/19/19 Acetaminophen W/ Codeine [Tylenol/Codeine #4 300-60 mg] 1 ea PO Q4HR 03/13/19 Montelukast [Singulair] 10 mg PO DAILY 03/13/19 hydrOXYzine HCl [Atarax] 25 mg PO TID 03/13/19 Review of Systems - Review of Systems Constitutional: States: no symptoms reported EENTM: States: no symptoms reported Respiratory: States: no symptoms reported Cardiology: States: no symptoms reported Gastrointestinal/Abdominal: States: no symptoms reported Genitourinary: States: no symptoms reported Musculoskeletal: States: no symptoms reported Skin: States: see HPI Neurological: States: anxiety Endocrine: States: no symptoms reported All other Systems: No Change from Baseline Past Medical History (General) - Patient Medical History Hx Seizures: Yes Hx Stroke: No Hx Dementia: No Hx Asthma: No Hx of COPD: No Hx Cardiac Disorders: No Hx Congestive Heart Failure: No Hx Pacemaker: No Hx Hypertension: No Hx Thyroid Disease: Yes Hx Diabetes: No Hx Gastroesophageal Reflux: No Hx Renal Disease: No Hx Cancer: No Hx of HIV: No Hx Hepatitis C: No Hx MRSA: No Surgical History: cholecystectomy, tonsillectomy - Vaccination History Hx Tetanus, Diphtheria Vaccination: Yes Hx Influenza Vaccination: Yes - 2019 Hx Pneumococcal Vaccination: No - Social History Hx Tobacco Use: Yes Hx Chewing Tobacco Use: No Hx Alcohol Use: Yes Hx Substance Use: No Hx Substance Use Treatment: No Hx Depression: No Hx Physical Abuse: No Hx Emotional Abuse: Yes Hx Suspected Abuse: No - Female History Hx Last Menstrual Period: 03/28/15 Patient : No - IUD Family Medical History - Family History Mother Family History: Unknown Living Status: Cause of : unsure Hx Family Hypertension: - dad Father Family History: Unknown Living Status: Still Living Hx Family Asthma: No Hx Family Congestive Heart Failure: No Hx Family Hypertension: Yes - father Hx Family Stroke: No Hx Cardiac Disease: No Hx Family Diabetes: No Hx Family Cancer: No Physical Exam - Physical Exam General Appearance: Alert, Other - agitated Eye Exam: bilateral normal Ears, Nose, Throat: hearing grossly normal, normal ENT inspection Neck: full range of motion, supple Respiratory: lungs clear, normal breath sounds, no respiratory distress, no accessory muscle use Cardiovascular/Chest: normal peripheral pulses, regular rate, rhythm, no edema Peripheral Pulses: radial,right: 2+, radial,left: 2+ Gastrointestinal/Abdominal: non tender - obese, soft Rectal Exam: deferred Back Exam: no CVA tenderness, no vertebral tenderness Extremity: non-tender, normal inspection, no pedal edema, normal capillary refill Neurologic: roguer II-XII nml as tested, alert, oriented x 3 Skin Exam: other - see history of present illness Comments: Vital Signs - 24 hr 03/15/19 18:58 Temperature 99.4 F Pulse Rate [ 98 H left] Respiratory 18 Rate Blood Pressure 143/87 [left] O2 Sat by Pulse 98 Oximetry Progress - Progress Progress: 03/15/19 19:30 the patient is a 43-year-old female presenting to the emergency room secondary to a diffuse rash that is most likely due to bed bugs. She already has an antihistamine to take. She needs to wash with a good soap twice daily. After that she needs to use a good hydrating lotion all over. She needs to wash her bedding and clothes in high heat. She was given 1 dose of oral prednisone here and Toradol to reduce inflammation and irritation. She was also given a dose of Ambien to help with sleep and she has had some insomnia recently. Follow-up with primary care doctor later this week. ER warnings were given. Continue clindamycin for now. [email or web address] mar [id number] Departure - Departure Clinical Impression: Bedbug bite Qualifiers: Encounter type: initial encounter Qualified Code(s): W57.XXXA - Bitten or stung by nonvenomous insect and other nonvenomous arthropods, initial encounter Insomnia Qualifiers: Insomnia type: unspecified Qualified Code(s): G47.00 - Insomnia, unspecified Disposition: Discharge to Home or Self Care Condition: Fair Departure Forms: ED Discharge - Pt. Copy, Patient Portal Self Enrollment Instructions: Bedbugs Diet: regular diet Activity: increase activity as tolerated Referrals: Raulito Pantoja MD [Primary Care Provider] - 1-2 Weeks Home Medications: Ambulatory Orders Promethazine HCl 25 mg PO Q6H PRN 11/13/17 Diazepam [Valium] 10 mg PO BID 05/16/18 Methocarbamol [Robaxin] 1 tablet PO TID 05/16/18 Linaclotide [Linzess] 290 mcg PO DAILY 07/06/18 Prazosin HCl [Prazosin Hydrochloride] 2 mg PO BEDTIME 09/08/18 Promethazine Supp [Phenergan Suppository] 25 mg MA Q6H PRN 6 Days #6 sup 11/07/18 Spironolactone 25 mg PO DAILY #14 tab 11/10/18 Duloxetine HCl [Cymbalta] 60 mg PO DAILY 01/19/19 Furosemide Tab [Lasix Tab] 40 mg PO DAILY PRN 01/19/19 Potassium Chloride [Potassium Chloride ER] 20 meq PO DAILY PRN 01/19/19 Rizatriptan Benzoate [Maxalt] 10 mg PO DAILY PRN 01/19/19 Acetaminophen W/ Codeine [Tylenol/Codeine #4 300-60 mg] 1 ea PO Q4HR 03/13/19 Montelukast [Singulair] 10 mg PO DAILY 03/13/19 hydrOXYzine HCl [Atarax] 25 mg PO TID 03/13/19 Additional Instructions: the patient is a 43-year-old female presenting to the emergency room secondary to a diffuse rash that is most likely due to bed bugs. She already has an antihistamine to take. She needs to wash with a good soap twice daily. After that she needs to use a good hydrating lotion all over. She needs to wash her bedding and clothes in high heat. She was given 1 dose of oral prednisone here and Toradol to reduce inflammation and irritation. She was also given a dose of Ambien to help with sleep and she has had some insomnia recently. Follow-up with primary care doctor later this week. ER warnings were given. Continue clindamycin for now.
== END 2019-03-15 19:57 | disposition home or self-care (01) ==
LOC: ER 18:34
DX: R21 Rash and other nonspecific skin eruption (principal); G47.00 Insomnia, unspecified; R60.0 Localized edema; M79.671 Pain in right foot; M79.672 Pain in left foot; M79.604 Pain in right leg; M79.605 Pain in left leg; R56.9 Unspecified convulsions; E07.9 Disorder of thyroid, unspecified; Z87.891 Personal history of nicotine dependence; Z79.899 Other long term (current) drug therapy; Z88.1 Allergy status to other antibiotic agents; Z88.2 Allergy status to sulfonamides; Z88.0 Allergy status to penicillin; Z88.8 Allergy status to other drugs, medicaments and biological substances; Z91.040 Latex allergy status; W57.XXXA Bitten or stung by nonvenomous insect and other nonvenomous arthropods, initial encounter
CPT/HCPCS: J0595; J1885; J7512

== ENCOUNTER 2019-03-29 11:54 | Emergency (ER) | payer SELFPAY ==
[2019-03-29 13:13] VITALS: TEMP 98.6
[2019-03-29] MEDS ORDERED: PROMETHAZINE HCL INJ 25 MG/ML VIAL IM STA (13:49)
[2019-03-29] MEDS ORDERED: HYDROcodone 5MG/APAP 325MG 1 EA TAB PO ONE (13:51)
--- NOTE | 2019-03-29 14:14 | ED.PDOC ---
History of Present Illness - General Chief Complaint: General Stated Complaint: Bilateral numbness/tingling in hands and feet Time Seen by Provider: 03/29/19 12:55 - History of Present Illness Initial Comments: 43-year-old female well-known to staff from multiple ED visits, returns with similar complaints of bilateral feet leg and arm swelling. She states symptoms have been present since last October, has had evaluation by PCP and vascular, but not yet by rheumatology. Is here today for help with pain management, stating codeine and tramadol are not helping her. Not currently taking steroids. Has visit with her PCP tomorrow. Allergies/Adverse Reactions: Allergies Latex Allergy (Intermediate, Verified 11/27/18 17:55) red swelling Ondansetron [From Zofran] Allergy (Intermediate, Verified 11/27/18 17:55) migraine Doxycycline Allergy (Verified 01/02/19 15:28) Penicillins Allergy (Verified 11/27/18 17:55) N/V Sulfamethoxazole w/Trimethoprim [From Bactrim] Allergy (Verified 11/27/18 17:55) Amoxicillin [From Augmentin] Adverse Reaction (Verified 11/27/18 17:55) N/V Clavulanic Acid [From Augmentin] Adverse Reaction (Verified 11/27/18 17:55) N./V Home Medications: Ambulatory Orders RX: Promethazine HCl 25 mg PO Q6H PRN 11/13/17 RX: Diazepam [Valium] 10 mg PO BID 05/16/18 RX: Methocarbamol [Robaxin] 1 tablet PO TID 05/16/18 RX: Linaclotide [Linzess] 290 mcg PO DAILY 07/06/18 RX: Prazosin HCl [Prazosin Hydrochloride] 2 mg PO BEDTIME 09/08/18 RX: Promethazine Supp [Phenergan Suppository] 25 mg [place] Q6H PRN 6 Days #6 sup 11/07/18 RX: Spironolactone 25 mg PO DAILY #14 tab 11/10/18 Duloxetine HCl [Cymbalta] 60 mg PO DAILY 01/19/19 Furosemide Tab [Lasix Tab] 40 mg PO DAILY PRN 01/19/19 Potassium Chloride [Potassium Chloride ER] 20 meq PO DAILY PRN 01/19/19 Rizatriptan Benzoate [Maxalt] 10 mg PO DAILY PRN 01/19/19 Acetaminophen W/ Codeine [Tylenol/Codeine #4 300-60 mg] 1 ea PO Q4HR 03/13/19 Montelukast [Singulair] 10 mg PO DAILY 03/13/19 hydrOXYzine HCl [Atarax] 25 mg PO TID 03/13/19 Review of Systems - Review of Systems Review of Systems: 03/29/19 15:43 General: Denies generalized weakness, fever, arthralgia/myalgia HEENT: Denies sore throat, rhinorrhea Cardiovascular: Denies chest pain, palpitations Respiratory: Denies SOB, cough Gastrointestinal: Denies abdominal pain, vomiting, diarrhea : Denies dysuria, frequency Musculoskeletal: has extremity pain, extremity swelling Integument: Denies rash, itching Neuro: Denies focal weakness or numbness Psych: Denies depression, hallucinations. Past Medical History (General) - Patient Medical History Hx Seizures: No Hx Stroke: No Hx Dementia: No Hx Asthma: No Hx of COPD: No Hx Cardiac Disorders: No Hx Congestive Heart Failure: No Hx Pacemaker: No Hx Hypertension: No Hx Thyroid Disease: No Hx Diabetes: No Hx Gastroesophageal Reflux: No Hx Renal Disease: No Hx Cancer: No Hx of HIV: No Hx Hepatitis C: No Hx MRSA: No Surgical History: cholecystectomy, tonsillectomy, other - Vaccination History Hx Tetanus, Diphtheria Vaccination: Yes Hx Influenza Vaccination: Yes Hx Pneumococcal Vaccination: No Immunizations Up to Date: No - Social History Hx Tobacco Use: Yes Hx Chewing Tobacco Use: No Hx Alcohol Use: No Hx Substance Use: No Hx Substance Use Treatment: No Hx Depression: No Hx Physical Abuse: No Hx Emotional Abuse: Yes Hx Suspected Abuse: No - Female History Patient is a Female of Child Bearing Age (10 -59 yrs old): Yes Hx Last Menstrual Period: 03/28/15 Patient : No - IUD Family Medical History - Family History Father Family History: Unknown Living Status: Still Living Hx Family Asthma: No Hx Family Congestive Heart Failure: No Hx Family Hypertension: Yes - father Hx Family Stroke: No Hx Cardiac Disease: No Hx Family Diabetes: No Hx Family Cancer: No Mother Family History: Unknown Living Status: Cause of : unsure Hx Family Hypertension: - dad Physical Exam - Physical Exam Comments: General Appearance: Patient is awake and alert. Skin: Warm and dry. No diaphoresis. No rash or other lesions. Head: Normocephalic/atraumatic. Eyes: PERRL, lids, conjunctiva and sclera unremarkable. EOMI intact. ENT: No nasal discharge. Oropharynx. Without erythema, exudate, lesions. Moist mucous membranes. Neck: Supple. No LAD. No tenderness. No JVD noted. Respiratory: Normal rate and effort. Breath sounds clear bilaterally. Cardiovascular: Regular rate. Heart sounds normal. No murmur. GI: Abdomen soft, non-distended and non-tender. No rebound/guarding. Bowel sounds normal. Back: No tenderness Musculoskeletal: Extremities- Normal range of motion. No effusion, cyanosis, edema. Neurological: Alert. No facial palsy. Speech clear. Gag intact. No motor deficit, str symmetric. No sensory deficit. Progress - Progress Progress: 03/29/19 15:44 Safety Stop VS, exam remain reassuring. I have discussed findings, diff dx, plan of care, need for follow-up with Rheumatology, and reasons to return to the ED. Safety Stop (Diagnostic Time-Out): Tachycardia: No Diagnostic Studies: n/a Diagnostic Certainty: low, d/w patient Patient/family feels safe with discharge: Yes Departure - Departure Clinical Impression: Leg swelling, Leg pain, Headache Time of Disposition: 14:14 Disposition: Discharge to Home or Self Care Condition: Good Departure Forms: ED Discharge - Pt. Copy, Patient Portal Self Enrollment Diet: resume usual diet Activity: increase activity as tolerated Referrals: Raulito Pantoja MD [Primary Care Provider] - 03/30/19 Home Medications: Ambulatory Orders RX: Promethazine HCl 25 mg PO Q6H PRN 11/13/17 RX: Diazepam [Valium] 10 mg PO BID 05/16/18 RX: Methocarbamol [Robaxin] 1 tablet PO TID 05/16/18 RX: Linaclotide [Linzess] 290 mcg PO DAILY 07/06/18 RX: Prazosin HCl [Prazosin Hydrochloride] 2 mg PO BEDTIME 09/08/18 RX: Promethazine Supp [Phenergan Suppository] 25 mg [place] Q6H PRN 6 Days #6 sup 11/07/18 RX: Spironolactone 25 mg PO DAILY #14 tab 11/10/18 Duloxetine HCl [Cymbalta] 60 mg PO DAILY 01/19/19 Furosemide Tab [Lasix Tab] 40 mg PO DAILY PRN 01/19/19 Potassium Chloride [Potassium Chloride ER] 20 meq PO DAILY PRN 01/19/19 Rizatriptan Benzoate [Maxalt] 10 mg PO DAILY PRN 01/19/19 Acetaminophen W/ Codeine [Tylenol/Codeine #4 300-60 mg] 1 ea PO Q4HR 03/13/19 Montelukast [Singulair] 10 mg PO DAILY 03/13/19 hydrOXYzine HCl [Atarax] 25 mg PO TID 03/13/19 Comments: Nathan Carmen MD Emergency Medicine #[id number]
[2019-03-29 14:50] VITALS: BP 121/92; O2SAT 98
== END 2019-03-29 14:48 | disposition home or self-care (01) ==
LOC: ER 11:54
DX: M79.89 Other specified soft tissue disorders (principal); M79.606 Pain in leg, unspecified; R51 Headache; Z79.899 Other long term (current) drug therapy; Z91.040 Latex allergy status; Z88.8 Allergy status to other drugs, medicaments and biological substances; Z88.0 Allergy status to penicillin; Z88.2 Allergy status to sulfonamides; Z87.891 Personal history of nicotine dependence; Z90.49 Acquired absence of other specified parts of digestive tract

== ENCOUNTER 2019-04-21 12:43 | Emergency (ER) | payer SELFPAY ==
--- NOTE | 2019-04-21 13:22 | ED.PDOC ---
History of Present Illness - General Chief Complaint: Syncope/Near Syncope Stated Complaint: Syncopal event with falls Time Seen by Provider: 04/21/19 12:48 Source: patient Exam Limitations: no limitations - History of Present Illness Initial Comments: 43 yo F well known to the ED for multiple visits coming in today for syncope with associated falls for the past two weeks, last episodes was this am when she was on the toilet and then woke up on the floor some time later. Denies pain or injury from the fall. Reports associated lightheadedness, generalized shakiness, tinnitus, nausea. Pt has hx of psych disorder, is on multiple medication, including tylenol #3, baclofen (recently added), valium and phenergan. Wellbutrin is also a new medication to the pt. On amoxicillin or Augmentin, pt is unsure which, after dental procedure; no true allergy, causes n/v. Denies f/c, cough, congestion, CP, SOB, abd pain, vomiting, diarrhea, edema, urinary sx, CONTRERAS, change in vision, weakness, numbness, palpitation, blood in stool. Allergies/Adverse Reactions: Allergies Latex Allergy (Intermediate, Verified 04/21/19 13:15) red swelling Ondansetron [From Zofran] Allergy (Intermediate, Verified 04/21/19 13:15) migraine Doxycycline Allergy (Verified 04/21/19 13:15) Penicillins Allergy (Verified 04/21/19 13:15) N/V Sulfamethoxazole w/Trimethoprim [From Bactrim] Allergy (Verified 04/21/19 13:15) Amoxicillin [From Augmentin] Adverse Reaction (Verified 04/21/19 13:15) N/V Clavulanic Acid [From Augmentin] Adverse Reaction (Verified 04/21/19 13:15) N./V Home Medications: Ambulatory Orders Promethazine HCl 50 mg PO Q6H PRN 11/13/17 Diazepam [Valium] 10 mg PO BID 05/16/18 Linaclotide [Linzess] 290 mcg PO DAILY 07/06/18 Prazosin HCl [Prazosin Hydrochloride] 2 mg PO BEDTIME PRN 09/08/18 Promethazine Supp [Phenergan Suppository] 25 mg SC Q6H PRN 6 Days #6 sup 11/07/18 Spironolactone 25 mg PO DAILY #14 tab 11/10/18 Furosemide Tab [Lasix Tab] 40 mg PO DAILY PRN 01/19/19 Potassium Chloride [Potassium Chloride ER] 20 meq PO DAILY PRN 01/19/19 Rizatriptan Benzoate [Maxalt] 10 mg PO DAILY PRN 01/19/19 Acetaminophen W/ Codeine [Tylenol/Codeine #4 300-60 mg] 1 ea PO Q6HRS 03/13/19 Montelukast [Singulair] 10 mg PO DAILY PRN 03/13/19 hydrOXYzine HCl [Atarax] 25 mg PO TID PRN 03/13/19 Amoxicillin & Pot Clavulanate [Augmentin Tab] 875 mg PO BID 04/21/19 Baclofen 20 mg PO TID PRN 04/21/19 BuPROPion XL [Wellbutrin XL] 300 mg PO DAILY 04/21/19 Escitalopram Oxalate [Lexapro] 20 mg PO DAILY 04/21/19 Fexofenadine HCl [Yocasta Allergy] 180 mg PO DAILY 04/21/19 Fluticasone Prop 0.05% Nasal [Flonase Nasal [place]] 2 spray BNAS DAILY 04/21/19 Review of Systems - Review of Systems Constitutional: Denies: chills, fever EENTM: States: other - +tinitus. Denies: blurred vision, double vision, ear pain, nose congestion, throat pain Respiratory: Denies: cough, orthopnea, short of breath, stridor, wheezing Cardiology: States: syncope. Denies: chest pain, edema, palpitations Gastrointestinal/Abdominal: States: nausea. Denies: abdominal pain, constipation, diarrhea, vomiting Genitourinary: Denies: dysuria, frequency, hematuria Musculoskeletal: Denies: back pain, neck pain Skin: Denies: lesions, rash Neurological: States: other - + generalized shakiness, lightheadedness. Denies: headache, numbness, weakness Endocrine: Denies: increased thirst, increased urine Past Medical History (General) - Patient Medical History Hx Seizures: No Hx Stroke: No Hx Dementia: No Hx Asthma: No Hx of COPD: No Hx Cardiac Disorders: No Hx Congestive Heart Failure: No Hx Pacemaker: No Hx Hypertension: Yes Hx Thyroid Disease: No Hx Diabetes: No Hx Gastroesophageal Reflux: No Hx Renal Disease: No Hx Cancer: No Hx of HIV: No Hx Hepatitis C: No Hx MRSA: No Surgical History: appendectomy, tonsillectomy, other - Vaccination History Hx Tetanus, Diphtheria Vaccination: Yes Hx Influenza Vaccination: Yes Hx Pneumococcal Vaccination: No - Social History Hx Tobacco Use: Yes Hx Chewing Tobacco Use: No Hx Alcohol Use: No Hx Substance Use: No Hx Substance Use Treatment: No Hx Depression: No Hx Physical Abuse: No Hx Emotional Abuse: Yes Hx Suspected Abuse: No - Female History Patient is a Female of Child Bearing Age (10 -59 yrs old): Yes Hx Last Menstrual Period: 03/28/15 Patient : No - IUD Physical Exam - Physical Exam General Appearance: Alert, Comfortable, No apparent distress, Well Developed, Well Nourished Eyes, Ears, Nose, Throat Exam: PERRL/EOMI, normal ENT inspection, TMs normal, pharynx normal Neck: non-tender, full range of motion, supple, normal inspection Cardiovascular/Respiratory: regular rate, rhythm, no M/R/G, normal peripheral pulses, no JVD, normal breath sounds, no respiratory distress Gastrointestinal/Abdominal: normal bowel sounds, non tender, soft, no organomegaly, no pulsatile mass, other - no distention, guarding, rebound Back Exam: normal inspection, no CVA tenderness, no vertebral tenderness Extremity: normal range of motion, non-tender, normal inspection, no pedal edema, no calf tenderness, normal capillary refill, other - Full ROM of all ext remities without deformity, tenderness, or swelling. Neurovascularly intact. 2+ distal pulses. Cap refill <2 seconds. 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 Discussed with pt need for observation overnight though informed her we would be stopping/weaning a lot of her pain medications. She is agreeable to stay. I discussed with admitting provider Simone Coelho, he will review the chart and come and evaluate the pt, he does not believe the pt meets observation criteria and believes the pt can go home. Pt is very well known to him. Will await his assessment. Requests US carotid in meantime. 04/21/19 17:47 Discussed with Simone after his evaluation of the pt. States she does not meet criteria for admission and observation. Recommends d/c home. Both he and I discussed with pt need to stop baclofen, and to decrease other pain/sedating medications. Pt has reliable nurse orthopaedic that she will be d/c home to who is now at bedside. I have explained and reviewed all results with the pt. Pt is sitting in bedside chair, states she is ready and comfortable with d/c home, will follow up with PCP early next week. I explained that emergent conditions may arise and to return to the ER for new, worsening, or any persistent conditions. I've explained the importance of f/u for recheck. All questions and concerns addressed at this time. Pt understands and agrees with plan. Pt well appearing, NAD, is stable for discharge. Debbie Martinez MD Emergency Medicine Physician Billing Number [id number] - Results/Orders Results/Orders: 04/21/19 13:00 EKG STAT Laboratory Results - last 24 hr 04/21/19 04/21/19 04/21/19 13:18 13:18 13:18 WBC 7.3 RBC 4.21 Hgb 12.2 Hct 36.9 MCV 87.5 MCH 29.1 MCHC 33.2 RDW 14.9 H Plt Count 196 MPV 8.7 Absolute Neuts (auto) 3.50 Absolute Lymphs (auto) 3.20 Absolute Monos (auto) 0.50 Absolute Eos (auto) 0.10 Absolute Basos (auto) 0.10 Neutrophils % 48.1 Lymphocytes % 43.1 Monocytes % 6.3 Eosinophils % 1.3 Basophils % 1.2 Sodium 138 Potassium 3.3 L Chloride 101 Carbon Dioxide 30 Anion Gap 10.3 L BUN 19 H Creatinine 0.80 BUN/Creatinine Ratio 23.8 H Random Glucose 151 H Serum Osmolality 280.9 Calcium 9.3 Phosphorus Magnesium Total Bilirubin 0.3 AST 21 ALT 14 Alkaline Phosphatase 65 Serum Total Protein 7.1 Albumin 3.7 Globulin 3.4 Albumin/Globulin Ratio 1.1 Serum HCG, Qual Negative Urine Color Urine Appearance Urine pH Ur Specific [place] Urine Protein Urine Glucose (UA) Urine Ketones Urine Blood Urine Nitrite Urine Bilirubin Urine Urobilinogen Ur Leukocyte Esterase Urine RBC Urine WBC Ur Epithelial Cells Amorphous Sediment Urine Bacteria Urine Mucus Urine HCG, Qual Cancelled Salicylates Urine Opiates Screen Acetaminophen Urine Barbiturates Ur Phencyclidine Scrn U Amphetamin/Meth Scrn U Benzodiazepines Scrn U Cocaine Metab Screen U Cannabinoids Screen Ethyl Alcohol 04/21/19 04/21/19 04/21/19 13:18 14:04 14:04 WBC RBC Hgb Hct MCV MCH MCHC RDW Plt Count MPV Absolute Neuts (auto) Absolute Lymphs (auto) Absolute Monos (auto) Absolute Eos (auto) Absolute Basos (auto) Neutrophils % Lymphocytes % Monocytes % Eosinophils % Basophils % Sodium Potassium Chloride Carbon Dioxide Anion Gap BUN Creatinine BUN/Creatinine Ratio Random Glucose Serum Osmolality Calcium Phosphorus 3.5 Magnesium 1.9 Total Bilirubin AST ALT Alkaline Phosphatase Serum Total Protein Albumin Globulin Albumin/Globulin Ratio Serum HCG, Qual Urine Color Yellow Urine Appearance Sl cloudy Urine pH 6.5 Ur Specific [place] >= 1.030 Urine Protein Negative Urine Glucose (UA) Negative Urine Ketones Negative Urine Blood Negative Urine Nitrite Negative Urine Bilirubin Negative Urine Urobilinogen 0.2 Ur Leukocyte Esterase Negative Urine RBC 0-1 Urine WBC 0-1 Ur Epithelial Cells 5-10 Amorphous Sediment 1+ Urine Bacteria Rare Urine Mucus Moderate Urine HCG, Qual Salicylates Urine Opiates Screen Positive H Acetaminophen Urine Barbiturates Negative Ur Phencyclidine Scrn Negative U Amphetamin/Meth Scrn Negative U Benzodiazepines Scrn Positive H U Cocaine Metab Screen Negative U Cannabinoids Screen Negative Ethyl Alcohol 04/21/19 04/21/19 14:15 14:15 WBC RBC Hgb Hct MCV MCH MCHC RDW Plt Count MPV Absolute Neuts (auto) Absolute Lymphs (auto) Absolute Monos (auto) Absolute Eos (auto) Absolute Basos (auto) Neutrophils % Lymphocytes % Monocytes % Eosinophils % Basophils % Sodium Potassium Chloride Carbon Dioxide Anion Gap BUN Creatinine BUN/Creatinine Ratio Random Glucose Serum Osmolality Calcium Phosphorus Magnesium Total Bilirubin AST ALT Alkaline Phosphatase Serum Total Protein Albumin Globulin Albumin/Globulin Ratio Serum HCG, Qual Urine Color Urine Appearance Urine pH Ur Specific [place] Urine Protein Urine Glucose (UA) Urine Ketones Urine Blood Urine Nitrite Urine Bilirubin Urine Urobilinogen Ur Leukocyte Esterase Urine RBC Urine WBC Ur Epithelial Cells Amorphous Sediment Urine Bacteria Urine Mucus Urine HCG, Qual Salicylates < 4.0 Urine Opiates Screen Acetaminophen < 10.0 L Urine Barbiturates Ur Phencyclidine Scrn U Amphetamin/Meth Scrn U Benzodiazepines Scrn U Cocaine Metab Screen U Cannabinoids Screen Ethyl Alcohol < 5.40 CT head: EXAM DESCRIPTION: CT head without contrast CLINICAL HISTORY: syncope COMPARISON: Previous CT head January 15, 2015 TECHNIQUE: Noncontrast head CT was performed with routine protocol. FINDINGS: Normal huertas-white matter differentiation. Ventricles and sulci are normal for age. No high density he morrhage, focal edema or shift of the midline. No sulcal effacement. Normal orbital contents. Basilar cisterns appear clear. Intact calvarium with no fracture or lytic lesion. Normal aeration of tympanic cavities and mastoid air cells. No fluid levels in the paranasal sinuses. Skull base appears intact. Symmetrical internal auditory canals. IMPRESSION: No acute intracranial pathologic process. This exam was performed according to our departmental dose-optimization program, which includes automated exposure control, adjustment of the mA and/or kV according to patient size and/or use of iterative reconstruction technique. Total DLP equals 859.97 mGycm. Electronically signed by: Tito Turner MD 04/21/2019 2:08 PM [employer]CE[employer] PROFESSOR carotid: PROVIDED CLINICAL HISTORY/REASON FOR EXAM: syncope TECHNIQUE: 2D real time grayscale and color flow Doppler images of the extracranial carotid artery systems and vertebral arteries were acquired. In addition, Doppler spectral wa veforms and peak systolic velocities were acquired. COMPARISON: No priors. FINDINGS: CAROTID MEASUREMENTS: RIGHT ICA - PSV: 93 cm/sec EDV: 39 cm/sec LEFT ICA - PSV: 79 cm/sec EDV: 27 cm/sec PLAQUE CHARACTERIZATION: RIGHT ICA - No significant plaque LEFT ICA - No significant plaque VERTEBRAL ARTERIES: RIGHT VERTEBRAL - Antegrade LEFT VERTEBRAL - Antegrade Additional findings: None Degree of ICA stenosis (Consensus criteria - NASCET CRITERIA) <50%: PSV < 125 cm/sec, ICA/CCA <2 50-69 %: PSV 125-230 cm/sec, ICA/CCA 2.0-4.0 >/=70%: PSV >230 cm/sec, ICA/CCA >4 IMPRESSION: No hemodynamically significant stenosis of the extracranial internal carotid arteries (0 to 49% stenosis). Electronically signed by: Marc Stone MD 04/21/2019 3:35 PM [employer]CE[employer] SCI[employer] PROFESSOR Vital Signs - 24 hr 04/21/19 04/21/1904/21/20 12:45 12:49 13:44 Temperature 98 F Pulse Rate [ 96 H 96 H 92 H Pulse ox] Respiratory 18 20 Rate Blood Pressure 140/98 107/79 [L brachial] O2 Sat by Pulse 97 95 Oximetry 04/21/19 14:44 Temperature Pulse Rate [ 89 Pulse ox] Respiratory 16 Rate Blood Pressure 114/84 [L brachial] O2 Sat by Pulse 96 Oximetry - EKG/XRAY/CT Comments: NSR, rate 90, LAE, norm ST, nonspecific T wave CT Ordered: Yes Departure - Departure Clinical Impression: Syncope and collapse, Medication side effect Time of Disposition: 17:46 Disposition: Discharge to Home or Self Care Health Concerns: condition: stable Departure Forms: ED Discharge - Pt. Copy, Patient Portal Self Enrollment Instructions: DI for Syncope in Adults (Fainting) Referrals: Raulito Pantoja MD [Primary Care Provider] - 1-5 Days Home Medications: Ambulatory Orders Promethazine HCl 50 mg PO Q6H PRN 11/13/17 Diazepam [Valium] 10 mg PO BID 05/16/18 Linaclotide [Linzess] 290 mcg PO DAILY 07/06/18 Prazosin HCl [Prazosin Hydrochloride] 2 mg PO BEDTIME PRN 09/08/18 Promethazine Supp [Phenergan Suppository] 25 mg SC Q6H PRN 6 Days #6 sup 11/07/18 Spironolactone 25 mg PO DAILY #14 tab 11/10/18 Furosemide Tab [Lasix Tab] 40 mg PO DAILY PRN 01/19/19 Potassium Chloride [Potassium Chloride ER] 20 meq PO DAILY PRN 01/19/19 Rizatriptan Benzoate [Maxalt] 10 mg PO DAILY PRN 01/19/19 Acetaminophen W/ Codeine [Tylenol/Codeine #4 300-60 mg] 1 ea PO Q6HRS 03/13/19 Montelukast [Singulair] 10 mg PO DAILY PRN 03/13/19 hydrOXYzine HCl [Atarax] 25 mg PO TID PRN 03/13/19 Amoxicillin & Pot Clavulanate [Augmentin Tab] 875 mg PO BID 04/21/19 Baclofen 20 mg PO TID PRN 04/21/19 BuPROPion XL [Wellbutrin XL] 300 mg PO DAILY 04/21/19 Escitalopram Oxalate [Lexapro] 20 mg PO DAILY 04/21/19 Fexofenadine HCl [Yocasta Allergy] 180 mg PO DAILY 04/21/19 Fluticasone Prop 0.05% Nasal [Flonase Nasal [place]] 2 spray BNAS DAILY 04/21/19 Additional Instructions: Follow up: [facility] As needed, if symptoms worsen
[2019-04-21] MEDS ORDERED: POTASSIUM CHLORIDE 20 MEQ TAB PO ONE (14:02)
--- NOTE | 2019-04-21 14:10 | CT ---
EXAM DESCRIPTION: CT head without contrast CLINICAL HISTORY: syncope COMPARISON: Previous CT head January 15, 2015 TECHNIQUE: Noncontrast head CT was performed with routine protocol. FINDINGS: Normal huertas-white matter differentiation. Ventricles and sulci are normal for age. No high density hemorrhage, focal edema or shift of the midline. No sulcal effacement. Normal orbital contents. Basilar cisterns appear clear. Intact calvarium with no fracture or lytic lesion. Normal aeration of tympanic cavities and mastoid air cells. No fluid levels in the paranasal sinuses. Skull base appears intact. Symmetrical internal auditory canals. IMPRESSION: No acute intracranial pathologic process. This exam was performed according to our departmental dose-optimization program, which includes automated exposure control, adjustment of the mA and/or kV according to patient size and/or use of iterative reconstruction technique. Total DLP equals 859.97 mGycm. Electronically signed by: Tito Turner MD 04/21/2019 2:08 PM [facility]
[2019-04-21] MEDS ORDERED: SODIUM CHLORIDE 0.9% 1000ML 1,000 ML IVS ONE (14:42)
--- NOTE | 2019-04-21 15:36 | US ---
PROVIDED CLINICAL HISTORY/REASON FOR EXAM: syncope TECHNIQUE: 2D real time grayscale and color flow Doppler images of the extracranial carotid artery systems and vertebral arteries were acquired. In addition, Doppler spectral waveforms and peak systolic velocities were acquired. COMPARISON: No priors. FINDINGS: CAROTID MEASUREMENTS: RIGHT ICA - PSV: 93 cm/sec EDV: 39 cm/sec LEFT ICA - PSV: 79 cm/sec EDV: 27 cm/sec PLAQUE CHARACTERIZATION: RIGHT ICA - No significant plaque LEFT ICA - No significant plaque VERTEBRAL ARTERIES: RIGHT VERTEBRAL - Antegrade LEFT VERTEBRAL - Antegrade Additional findings: None Degree of ICA stenosis (Consensus criteria - NASCET CRITERIA) <50%: PSV < 125 cm/sec, ICA/CCA <2 50-69 %: PSV 125-230 cm/sec, ICA/CCA 2.0-4.0 >/=70%: PSV >230 cm/sec, ICA/CCA >4 IMPRESSION: No hemodynamically significant stenosis of the extracranial internal carotid arteries (0 to 49% stenosis). Electronically signed by: Marc Stone MD 04/21/2019 3:35 PM PHYSIOLOGICAL CHEMIST
[2019-04-21] MEDS ORDERED: KETOROLAC TROMETHAMINE INJ 30 MG/ML VIAL IM ONE (17:46)
[2019-04-21 18:06] VITALS: BP 131/103; TEMP 98.2; O2SAT 99
--- NOTE | 2019-04-21 19:19 | CONS ---
SUPERVISING PHYSICIAN: Jeannine Duran MD DATE OF CONSULTATION: 04/21/19 REASON FOR CONSULTATION: Possible admission for syncope. HISTORY OF PRESENT ILLNESS: Ms. Moncada is a 43-year-old female patient who is well-known to myself and the Emergency Room. She presented to the Emergency Department today via private-owned vehicle accompanied by a friend. She endorses that she has been having some syncopal, "questionable black-out episodes" over the last week. She had recently had a tooth extracted and is on Tylenol #4. She endorses that the last episode she was concerned was that she got up to the bathroom and woke up on the floor sometime later. She denied that she had actually fallen, just could not remember why she was on the floor. She also notes she has lost time and what day of the week it was. Apparently she has been sleeping excessively at times and other times she is unable to sleep. She does have a history of psychiatric disorders and is on multiple medications apparently including Tylenol #3 and #4, baclofen which is a new medication for her for muscle spasms, as well as Valium, Phenergan and Wellbutrin. She also endorses that her primary care physician had just put her on Wellbutrin. Her primary care physician at this point is Dr. Raulito Pantoja. She in fact has an appointment to see him on Wednesday to work through some of her medication regimen with concerns for some interaction in medications that could be resulting in the same problem. She denied any actual cough, congestion, shortness of breath, chest pain, abdominal pain, vomiting, diarrhea, nausea, any urinary symptoms, headaches, any changes in vision or any concerning symptoms. Her only complaint at time of admission to the Emergency Room was recent episodes of black-outs, questionable syncopal episodes. Her workup in the ER included laboratory studies which showed CBC within normal limits with white count 7,300. Chemistries were fairly unremarkable, just a mildly low potassium at 3.3, BUN only slightly elevated at 19, creatinine 0.8. Liver functions were all within normal limits. Phosphorous and magnesium were within normal limits. Urine HCG was negative. Her urine was within normal limits. Urine drug screen was positive for opiates and benzodiazepines, which is expected from the patient's medication regimen including her Tylenol #4 and Valium. Her alcohol level was less than 5.4. Salicylates and acetaminophen were both normal. Radiographic studies included CT of the head which per radiologic interpretation without contrast showed no acute findings. Dr. Martinez, ER physician, had requested a consultation for possible admission for 23 hours due to the questionable syncopal episodes. I requested that the patient have an ultrasound of the carotids which was without any significant stenosis. She also had additional vital signs including tilts which were within expected ranges with nothing that was concerning. It is reassuring that all the workup including diagnostics, labs and clinical finding were without any significant findings. At this point, it does appear that she is probably having some medication regimen interactions including multiple sedating medications as noted above with the baclofen, Phenergan, Valium and new addition of Wellbutrin. I saw the patient in the Emergency Room and she does appear stable. After further discussion with the patient, given that she has a followup appointment on Wednesday and she has a safe place to stay with her friends and family this weekend, she is in agreement that she would rather go home and rest and followup with Dr. Raulito Pantoja on Wednesday. She was again counseled on medication regimen and encouraged to not take her medications so close together, more on a p.r.n. basis and especially not to take the baclofen in combination with the Valium and baclofen rather take at night by itself if needed. She was in agreement with this plan of care, again, showing to be stable and has a followup appointment with Dr. Raulito Pantoja on Wednesday. I did give her instructions that if she had any concerning symptoms, she was to again either call 911 or return to the Emergency Room for further evaluation. The patient is going to be discharged home for close followup. PAST MEDICAL HISTORY: 1. Migraines. 2. Depression and anxiety on multiple medications including Valium and Wellbutrin. 3. Insomnia. 4. Hypothyroidism on supplementation. 5. Polysubstance abuse history. 6. Longstanding history of multiple admissions to the Emergency Room for lower leg edema and cellulitis which appears to be resolved secondary to possible DVTs. 7. Previous history of deep venous thrombosis diagnosed in 2018. PAST SURGICAL HISTORY: 1. Breast reduction. 2. Cholecystectomy. 3. Tonsillectomy and adenoidectomy. 4. [place] teeth extraction. 5. Esophageal stricture dilation with a balloon. HOME MEDICATIONS: Reviewed in electronic medical record which indicates she is on: 1. Atarax 25 mg p.r.n. 2. Spironolactone 25 mg daily. 3. Maxalt 10 mg p.r.n. 4. Phenergan suppositories 25 mg q.6h. p.r.n. 5. Promethazine p.o. q.6h. p.r.n. 6. Prazosin hydrochloride 2 mg at bedtime p.r.n. 7. Potassium chloride extended release 20 mEq daily. 8. Singulair 10 mg daily. 9. Linzess 290 mcg daily. 10. Lasix 40 mg daily as needed. 11. Flonase 2 sprays both nostrils daily. 12. Yocasta 180 mg daily. 13. Lexapro 20 mg daily. 14. Valium 10 mg b.i.d. 15. Wellbutrin XL 300 mg daily. 16. Baclofen 20 mg t.i.d. as needed. 17. Augmentin 875 mg b.i.d. 18. Tylenol #4 1 q.6h. as needed. ALLERGIES: MULTIPLE INCLUDING LATEX, ZOFRAN, PENICILLIN, SULFA ANTIBIOTICS, AMOXICILLIN, DOXYCYCLINE. She did have teeth extracted and was placed on amoxicillin. Review of her records shows that she is supposedly allergic to penicillins, but after further interview with the patient, she is not truly allergic other than the fact that she just gets a little nauseated taking it. At this point, she appears to be tolerating the medication with no side effects. SOCIAL HISTORY: She lives in [place]. She works at [employer]. She smokes about half a pack of cigarettes a day. She denies any alcohol or illicit drug use. REVIEW OF SYSTEMS: CONSTITUTIONAL: Positive for general malaise. Denies any fevers or unintentional weight loss. HEENT: Negative for headaches. She does have a history of migraines. She denies any sore throats, earaches, nasal congestion, vision changes. RESPIRATORY: Denies any shortness of breath, wheezing or coughing. CARDIOVASCULAR: Negative for chest pain, palpitations. Positive for questionable syncopal episodes. GASTROINTESTINAL: Positive for some nausea and vomiting that she associated with amoxicillin, but denies any abdominal pain, constipation or diarrhea. GENITOURINARY: Negative for dysuria, hematuria, polyuria. MUSCULOSKELETAL: Chronic back pain for which she is on multiple medications. SKIN: Denies any lesions, rashes, moles or unexplained changes. HEMATOLOGIC: Denies easy bruising, unexplained bleeding or transfusion reactions. NEUROLOGIC: Positive for chronic paresthesias due to chronic neuropathies to lower extremities and pain in lower extremities. She denies any ataxia or seizures. Positive for questionable syncopal episode. Denies any other neurologic deficits. PSYCHIATRIC: Denies any suicidal or homicidal ideation. She does note she does have some issues with insomnia and episodes of hypersomnia with questionable narcolepsy type episodes and loss of time. PHYSICAL EXAMINATION: VITAL SIGNS: Tilt vital signs in the Emergency Room, supine blood pressure 105/60, heart rate 65. Sitting, blood pressure 115/92, heart rate 73. Standing, blood pressure 112/88, heart rate 74. Saturation 94% on room air. Afebrile with temperature 98.0. GENERAL: On examination in the Emergency Room, the patient was found to be sleeping, actually snoring, but once awake, she was alert. She appeared to be in no distress. She is well-developed, well-nourished. HEENT: Tympanic membranes clear bilaterally. Oropharynx is pink, moist without any lesions. NECK: Supple, nontender with full range of motion. No jugular venous distention noted. RESPIRATORY: Lungs clear to auscultation bilaterally without any rhonchi, wheezes or rales. CARDIOVASCULAR: Regular rate and rhythm without any appreciable murmurs, gallops, or rubs. ABDOMEN: Soft, nontender. Positive bowel sounds. No guarding or rebound. Nondistended. BACK: Without any findings of CVA or vertebral tenderness. EXTREMITIES: There is no edema. She has full range of motion with 2+ distal pulses. Capillary refill brisk bilaterally. NEUROLOGIC: The patient is alert and oriented times three. Cranial nerves II- XII are grossly intact. Normal speech pattern. Normal [id number]. No drifts. No pronator drift. Facial features are symmetrical. Extraocular movements are within normal limits. There is no nystagmus noted. SKIN: Warm, pink and dry. LABORATORY: CBC within normal limits with white count 7,300, hemoglobin 12.2, hematocrit 36.9, platelet count 196,000. Differential was without a left shift. Chemistries were fairly unremarkable with just a mildly low potassium at 3.3. Magnesium normal, phosphorous normal. BUN slightly elevated at 19, creatinine within normal limits with creatinine 0.8. Liver functions all within normal limits. Serum HCG negative. Review of past medical charts she had a normal TSH in 11/17. TSH on this visit is pending. Urinalysis was within normal limits. Drug screen was positive for benzodiazepines and urine opiates. Salicylates and acetaminophen within normal limits. Alcohol less than 5.4. RADIOLOGY: CT of the head without contrast per radiologic interpretation without any acute findings. Carotid artery studies, bilateral, per radiologic interpretation showed no hemodynamically significant stenosis of extracranial internal carotid arteries (0-49% stenosis). ASSESSMENT: 1. Syncopal episodes likely due to hypersomnia due to polypharmacy in the form of Valium, Wellbutrin, baclofen and Tylenol #4 with no acute findings. 2. Mild electrolyte imbalance with hypokalemia, corrected in the Emergency Room prior to discharge. 3. History of drug seeking behavior and substance abuse. 4. Depression and anxiety, likely contributing to #1 with new medication regimen including Wellbutrin. 5. History of peripheral neuropathy with the patient on baclofen, possibly contributing to #1. 6. Hypothyroidism on supplementation with TSH pending at time of discharge. PLAN: After review of the patient's chart, medical records and physical examination, there was no criteria for admission noted. The patient was hemodynamically stable. Labs were essentially unremarkable. I did spend a good deal of time talking to the patient about medication interaction which I think may be resulting in her episodes of hypersomnia and loss of time including a combination of benzodiazepines, hydrocodone and muscle relaxers. I did give her warnings that she should not be taking those medications close together, if possible, just when she needs to take the baclofen at night. She was given some potassium replacement and fluids in the Emergency Room. Again, her vital signs were stable. She has a followup appointment to see Dr. Raulito Pantoja on Wednesday to followup with medication reconciliation as I feel like polypharmacy may be resulting in her symptomatology. She is on amoxicillin and review of her records show she is allergic to amoxicillin or penicillins. On further interview, she indicates that she just gets nauseated, so I would recommend we change her allergy regimen to reflect this. She is encouraged to drink fluids, rest and followup with Dr. Pantoja. She was given warnings to return to the Emergency Room should she have any concerning symptoms or call 911. I did discuss the case with Dr. Martinez, the Emergency Room physician, as well as Dr. Duran, supervising physician, and everybody is in agreement with the plan of care including further discussion with the patient. She will discharge home and followup on Wednesday. Again, she was given ER warning and will return as needed. The patient will also need followup on her TSH through Dr. Pantoja's office. The patient was discharged in stable condition to the care of friend and family members. She was given warning to not operate any motor vehicle over the weekend until she was cleared and to work on a safe medication regimen as well as good sleep habits to prevent any further complications. Again, she as given warnings should this recur, she could return to the Emergency Room anytime or call 911. #[id number] MTDD
== END 2019-04-21 17:55 | disposition home or self-care (01) ==
LOC: ER 12:43
DX: R55 Syncope and collapse (principal); T50.915A Adverse effect of multiple unspecified drugs, medicaments and biological substances, initial encounter; I10 Essential (primary) hypertension; Z87.891 Personal history of nicotine dependence; Z79.899 Other long term (current) drug therapy; Z91.040 Latex allergy status; Z88.8 Allergy status to other drugs, medicaments and biological substances; Z88.1 Allergy status to other antibiotic agents; Z88.0 Allergy status to penicillin
CPT/HCPCS: 70450; 80053; 80307; 80320; 80329; 81001; 83735; 84100; 84443; 84703; 85025; 93005; 93880; J1885; J7030

== ENCOUNTER 2019-06-29 02:39 | Emergency (ER) | payer SELFPAY ==
[2019-06-29] MEDS ORDERED: PROMETHAZINE HCL INJ 25 MG/ML VIAL IM ONE (02:53)
[2019-06-29] MEDS ORDERED: traMADol 37.5MG/APAP 325MG 1 EA TAB PO ONE (02:54)
--- NOTE | 2019-06-29 02:58 | ED.PDOC ---
History of Present Illness - General Chief Complaint: GI Problem Time Seen by Provider: 06/29/19 02:49 Information Source: patient, RN notes reviewed, Vital Signs reviewed, old records Exam Limitations: no limitations - History of Present Illness Initial Comments: Pt presents to ED for 3-4 day h/o crampy abdominal pain, nausea, vomiting and diarrhea. States she has vomited about twice per day and had multiple episodes of loose watery stool. Denies fever, chills, blood in stool or emesis, sick contacts, recent travel or recent antibiotic use. States she has an IUD and has not had a period in several years. Denies vagial bleeding, discharge, dysuria, hematuria. Review of Systems - Review of Systems Constitutional: Denies: chills, fever EENTM: Denies: nose congestion, throat pain Respiratory: Denies: cough, short of breath Cardiology: Denies: chest pain, palpitations, syncope Gastrointestinal/Abdominal: States: abdominal pain, diarrhea, nausea, vomiting Genitourinary: Denies: dysuria, frequency, hematuria Musculoskeletal: Denies: back pain, neck pain Skin: States: no symptoms reported Neurological: Denies: headache, paresthesia All other Systems: Reviewed and Negative Past Medical History (General) - Patient Medical History Hx Seizures: No Hx Stroke: No Hx Dementia: No Hx Asthma: No Hx of COPD: No Hx Cardiac Disorders: No Hx Congestive Heart Failure: No Hx Pacemaker: No Hx Hypertension: Yes Hx Thyroid Disease: No Hx Diabetes: No Hx Gastroesophageal Reflux: No Hx Renal Disease: No Hx Cancer: No Hx of HIV: No Hx Hepatitis C: No Hx MRSA: No - Vaccination History Hx Tetanus, Diphtheria Vaccination: Yes Hx Influenza Vaccination: Yes Hx Pneumococcal Vaccination: No - Social History Hx Tobacco Use: Yes Hx Chewing Tobacco Use: No Hx Alcohol Use: No Hx Substance Use: No Hx Substance Use Treatment: No Hx Depression: No Hx Physical Abuse: No Hx Emotional Abuse: Yes Hx Suspected Abuse: No - Female History Hx Last Menstrual Period: 03/28/15 Patient : No - IUD Family Medical History - Family History Mother Family History: Unknown Living Status: Cause of : unsure Hx Family Hypertension: - dad Father Family History: Unknown Living Status: Still Living Hx Family Asthma: No Hx Family Congestive Heart Failure: No Hx Family Hypertension: Yes - father Hx Family Stroke: No Hx Cardiac Disease: No Hx Family Diabetes: No Hx Family Cancer: No Physical Exam - Physical Exam General Appearance: Alert, Comfortable, No apparent distress Eyes, Ears, Nose, Throat Exam: pharynx normal Neck: non-tender, full range of motion, supple Respiratory: chest non-tender, lungs clear, normal breath sounds, no respiratory distress Cardiovascular/Chest: regular rate, rhythm, no edema, no murmur Gastrointestinal/Abdominal: soft, other - Mild TTP diffusely. no guarding or rigidity Back Exam: no CVA tenderness, no vertebral tenderness Extremity: non-tender, normal inspection, no pedal edema Neurologic: alert, normal mood/affect Skin Exam: normal color, warm/dry Progress - Progress Progress: 06/29/19 03:30 Pt presents with 3-4 day h/o NVD and crampy abdominal pain. VS are reassuring. Exam shows no sign of acute abdomen at this time. Labs show hypokalemia, which pt states is chronic for her. States she has not been taking her K+ supplement at home but will start and f/u with pcp in 1 week for repeat lab draw to ensure it is improved. Imaging reassuring. Pain controlled and tolerating po fluids well post meds. Feels comfortable going home and f/u with pcp in 1-2 days for recheck. SRP given. - Results/Orders Results/Orders: ABDOMEN SERIES AND CHEST, XR CLINICAL HISTORY: Abdominal pain. COMPARISON: Abdominal series 01/19/2019 TECHNIQUE: Two views of the abdomen. Single frontal view of the chest FINDINGS: Chest: Heart is normal in size. Normal cardiomediastinal contours. Normal pulmonary vascularity. Clear lungs and pleural spaces. Abdomen: Cholecystectomy clips are present in the right upper quadrant. Mild scattered air and stool within the colon. Normal bowel caliber and distribution. No free air. Paucity of small bowel air. Solid visceral organ shadows appear normal. Unremarkable bony structures. Intrauterine device is present within the pelvis. IMPRESSION: 1. No acute chest disease. 2. No acute finding within the abdomen. Laboratory Results - last 24 hr 06/29/19 06/29/19 06/29/19 02:47 02:55 02:55 WBC 7.8 RBC 4.56 Hgb 13.5 Hct 39.6 MCV 87.0 MCH 29.6 MCHC 34.0 RDW 13.6 Plt Count 165 MPV 8.7 Absolute Neuts (auto) 3.30 Absolute Lymphs (auto) 3.70 H Absolute Monos (auto) 0.40 Absolute Eos (auto) 0.20 Absolute Basos (auto) 0.10 Neutrophils % 43.0 Lymphocytes % 48.0 Monocytes % 5.6 Eosinophils % 2.2 Basophils % 1.2 Sodium 135 Potassium 2.8 L Chloride 100 L Carbon Dioxide 29 Anion Gap 8.8 L BUN 13 Creatinine 0.83 BUN/Creatinine Ratio 15.7 Random Glucose 135 H Serum Osmolality 272.2 L Calcium 8.8 Total Bilirubin 0.5 AST 19 ALT 16 Alkaline Phosphatase 70 Serum Total Protein 7.2 Albumin 4.0 Globulin 3.2 Albumin/Globulin Ratio 1.3 Lipase 31 Serum HCG, Qual Urine Color Yellow Urine Appearance Sl cloudy Urine pH 6.0 Ur Specific [place] 1.020 Urine Protein Negative Urine Glucose (UA) Negative Urine Ketones Negative Urine Blood Negative Urine Nitrite Negative Urine Bilirubin Negative Urine Urobilinogen 0.2 Ur Leukocyte Esterase Negative Urine RBC 0 Urine WBC 0 Ur Epithelial Cells 1-3 Urine Bacteria 0 06/29/19 02:55 WBC RBC Hgb Hct MCV MCH MCHC RDW Plt Count MPV Absolute Neuts (auto) Absolute Lymphs (auto) Absolute Monos (auto) Absolute Eos (auto) Absolute Basos (auto) Neutrophils % Lymphocytes % Monocytes % Eosinophils % Basophils % Sodium Potassium Chloride Carbon Dioxide Anion Gap BUN Creatinine BUN/Creatinine Ratio Random Glucose Serum Osmolality Calcium Total Bilirubin AST ALT Alkaline Phosphatase Serum Total Protein Albumin Globulin Albumin/Globulin Ratio Lipase Serum HCG, Qual Negative Urine Color Urine Appearance Urine pH Ur Specific [place] Urine Protein Urine Glucose (UA) Urine Ketones Urine Blood Urine Nitrite Urine Bilirubin Urine Urobilinogen Ur Leukocyte Esterase Urine RBC Urine WBC Ur Epithelial Cells Urine Bacteria Departure - Departure Clinical Impression: Viral gastroenteritis, Hypokalemia, Dehydration, mild Time of Disposition: 03:25 Disposition: Discharge to Home or Self Care Condition: Good Departure Forms: ED Discharge - Pt. Copy, Patient Portal Self Enrollment Instructions: DI for Abdominal Pain-Adult Diet: bland diet Activity: increase activity as tolerated Referrals: Raulito Pantoja MD [Primary Care Provider] - 1-2 Days Prescriptions: Prochlorperazine Tab [Compazine Tab] 10 mg PO Q8H #12 tab Home Medications: Ambulatory Orders Promethazine HCl 50 mg PO Q6H PRN 11/13/17 Diazepam [Valium] 5 mg PO TID 05/16/18 Spironolactone 25 mg PO DAILY #14 tab 11/10/18 Furosemide Tab [Lasix Tab] 40 mg PO DAILY PRN 01/19/19 Potassium Chloride [Potassium Chloride ER] 20 meq PO DAILY PRN 01/19/19 Rizatriptan Benzoate [Maxalt] 10 mg PO DAILY PRN 01/19/19 Acetaminophen W/ Codeine [Tylenol/Codeine #4 300-60 mg] 1 ea PO Q6HRS 03/13/19 hydrOXYzine HCl [Atarax] 25 mg PO TID PRN 03/13/19 Escitalopram Oxalate [Lexapro] 20 mg PO DAILY 04/21/19 Methocarbamol 750 mg PO TID 05/17/19 Furosemide [Lasix] 80 mg PO DAILY PRN 06/29/19 Potassium Chloride Microencaps [Potassium Chloride Cr] 40 meq PO DAILY PRN 06/29/19 Prochlorperazine Tab [Compazine Tab] 10 mg PO Q8H #12 tab 06/29/19 Temazepam [Restoril] 15 mg PO BEDTIME 06/29/19 Zonisamide [Zonegran] 100 mg PO DAILY 06/29/19 Additional Instructions: Eat a bland diet for the next 24 hours and advance as tolerated. Take your potassium supplement once a day for 10 days, then you will need to f/u with PCP for repeat labs to ensure it is improving. You may take Compazine as directed as needed for nausea and f/u with pcp in 1-2 days for recheck. SRP given.
[2019-06-29 03:17] VITALS: BP 102/64; TEMP 98.5; O2SAT 97
--- NOTE | 2019-06-29 03:22 | RAD ---
ABDOMEN SERIES AND CHEST, XR CLINICAL HISTORY: Abdominal pain. COMPARISON: Abdominal series 01/19/2019 TECHNIQUE: Two views of the abdomen. Single frontal view of the chest FINDINGS: Chest: Heart is normal in size. Normal cardiomediastinal contours. Normal pulmonary vascularity. Clear lungs and pleural spaces. Abdomen: Cholecystectomy clips are present in the right upper quadrant. Mild scattered air and stool within the colon. Normal bowel caliber and distribution. No free air. Paucity of small bowel air. Solid visceral organ shadows appear normal. Unremarkable bony structures. Intrauterine device is present within the pelvis. IMPRESSION: 1. No acute chest disease. 2. No acute finding within the abdomen. Electronically signed by: Phyllis Quintanilla DO 06/29/2019 3:21 AM CDT
[2019-06-29] MEDS: POTASSIUM CHLORIDE 20 MEQ TAB PO ONE ×2 (03:34→03:39)
== END 2019-06-29 03:41 | disposition home or self-care (01) ==
LOC: ER 02:39
DX: A08.4 Viral intestinal infection, unspecified (principal); E86.0 Dehydration; E87.6 Hypokalemia; I10 Essential (primary) hypertension; F17.200 Nicotine dependence, unspecified, uncomplicated
CPT/HCPCS: 74019; 80053; 81001; 83690; 84703; 85025; J2550

== ENCOUNTER 2019-07-30 19:04 | Emergency (ER) | payer SELFPAY ==
[2019-07-30] MEDS ORDERED: ACETAMINOPHEN 500 MG TAB PO ONE (19:24)
[2019-07-30] MEDS ORDERED: PROMETHAZINE HCL 25 MG TAB PO ONE (19:24)
--- NOTE | 2019-07-30 19:35 | ED.PDOC ---
History of Present Illness - General Chief Complaint: General Stated Complaint: fever,sorethroat,R knee pain,L shoulder/neck pain, Time Seen by Provider: 07/30/19 19:13 Source: patient, RN notes reviewed, Vital Signs reviewed Additional Information: 43yo F with reported fever, sore throat and recent fall. Reports fall two days ago with resulting pain in right knee and lower leg. Ambulatory since that time, and denies anticoagulation use or hitting head. Additionally reports subjective fever, associated with sore throat, rhinorrhea, and sneezing. Denies cough, SOB, sick contacts, recent travel, dysuria, bleeding, neck pain/stiffness, or other complaints at this time. Reports chronic nausea as well that is unchanged since her self-reported esophageal dilation "several years ago." - History of Present Illness Allergies/Adverse Reactions: Allergies Latex Allergy (Intermediate, Verified 07/30/19 19:25) red swelling Ondansetron [From Zofran] Allergy (Intermediate, Verified 07/30/19 19:25) migraine Doxycycline Allergy (Verified 07/30/19 19:25) Penicillins Allergy (Verified 07/30/19 19:25) N/V Sulfamethoxazole w/Trimethoprim [From Bactrim] Allergy (Verified 07/30/19 19:25) Amoxicillin [From Augmentin] Adverse Reaction (Verified 07/30/19 19:25) N/V Clavulanic Acid [From Augmentin] Adverse Reaction (Verified 07/30/19 19:25) N./V Home Medications: Ambulatory Orders Promethazine HCl 50 mg PO Q6H PRN 11/13/17 Diazepam [Valium] 10 mg PO DAILY 05/16/18 Spironolactone 25 mg PO DAILY #14 tab 11/10/18 Furosemide Tab [Lasix Tab] 40 mg PO DAILY PRN 01/19/19 Potassium Chloride [Potassium Chloride ER] 20 meq PO DAILY PRN 01/19/19 Rizatriptan Benzoate [Maxalt] 10 mg PO DAILY PRN 01/19/19 Acetaminophen W/ Codeine [Tylenol/Codeine #4 300-60 mg] 1 ea PO Q6HRS PRN 03/13/19 hydrOXYzine HCl [Atarax] 50 mg PO TID 03/13/19 Escitalopram Oxalate [Lexapro] 20 mg PO DAILY 04/21/19 Methocarbamol 750 mg PO TID 05/17/19 Furosemide [Lasix] 80 mg PO DAILY PRN 06/29/19 Potassium Chloride Microencaps [Potassium Chloride Cr] 40 meq PO DAILY PRN 06/29/19 Prochlorperazine Tab [Compazine Tab] 10 mg PO Q8H #12 tab 06/29/19 Temazepam [Restoril] 15 mg PO BEDTIME 06/29/19 Zonisamide [Zonegran] 100 mg PO DAILY 06/29/19 Review of Systems - Review of Systems Constitutional: States: fever. Denies: chills, weakness EENTM: States: throat pain. Denies: eye pain, ear pain, ear discharge, nose congestion, throat swelling, mouth pain Respiratory: States: no symptoms reported Cardiology: States: no symptoms reported Gastrointestinal/Abdominal: States: no symptoms reported Genitourinary: States: no symptoms reported Musculoskeletal: States: joint pain - right knee and lower leg Skin: States: no symptoms reported All other Systems: Reviewed and Negative Past Medical History (General) - Patient Medical History Hx Seizures: No Hx Stroke: No Hx Dementia: No Hx Asthma: No Hx of COPD: No Hx Cardiac Disorders: No Hx Congestive Heart Failure: No Hx Pacemaker: No Hx Hypertension: Yes Hx Thyroid Disease: No Hx Diabetes: No Hx Gastroesophageal Reflux: No Hx Renal Disease: No Hx Cancer: No Hx of HIV: No Hx Hepatitis C: No Hx MRSA: No Surgical History: cholecystectomy, tonsillectomy - Vaccination History Hx Tetanus, Diphtheria Vaccination: Yes Hx Influenza Vaccination: Yes Hx Pneumococcal Vaccination: No - Social History Hx Tobacco Use: Yes Cigarettes Packs Per Day: 1 Hx Chewing Tobacco Use: No Hx Alcohol Use: No Hx Substance Use: No Hx Substance Use Treatment: No Hx Depression: No Hx Physical Abuse: No Hx Emotional Abuse: Yes Hx Suspected Abuse: No - Female History Hx Last Menstrual Period: 03/28/15 Patient : No - IUD Family Medical History - Family History Mother Family History: Unknown Living Status: Cause of : unsure Hx Family Hypertension: - dad Father Family History: Unknown Living Status: Still Living Hx Family Asthma: No Hx Family Congestive Heart Failure: No Hx Family Hypertension: Yes - father Hx Family Stroke: No Hx Cardiac Disease: No Hx Family Diabetes: No Hx Family Cancer: No Physical Exam - Physical Exam General Appearance: Alert, No apparent distress, Well Developed, Well Nourished Eye Exam: bilateral normal Ears, Nose, Throat: hearing grossly normal, normal pharynx, other - no tonsillar erythema or exudates, uvula midline, no lingual elevation, no adenopathy noted Neck: non-tender, full range of motion, supple Respiratory: lungs clear, normal breath sounds, no respiratory distress, no accessory muscle use Cardiovascular/Chest: regular rate, rhythm, no murmur Peripheral Pulses: radial,right: 2+, radial,left: 2+ Gastrointestinal/Abdominal: normal bowel sounds, non tender, no pulsatile mass Back Exam: normal inspection, no CVA tenderness, no vertebral tenderness Extremity: normal range of motion, non-tender, other - RLE: FROM, 2+ DP/PT pulses, no deformity, 2sec cap refill, intact light touch sensation, 2cm abrasion anterior lower leg with no erythema or edema Neurologic: inside sales director II-XII nml as tested, no motor/sensory deficits Skin Exam: normal color, warm/dry Progress - Progress Progress: 07/30/19 20:32 Patient requesting baclofen for muscle pain/spasm after fall. She reported she has taken it in the past (most recently two months ago) with no noted side effects or complications. Reports other muscle relaxers have not worked for pain today, most notably robaxin. Offered tizanadine and other medications, and patient refused. Patient and I wore masks for duration of encounter, and I maintained a distance of 6 feet except for those brief times need for physical exam. Institutional screening protocol for coronavirus performed in triage. 07/30/19 20:35 Well-appearing, no distress, no evidence of clinical pneumonia or respiratory compromise noted on initial evaluation. Does not appear volume overloaded, no reported hemoptysis, and low suspicion for CHF or PE. Symptoms appear most consistent with viral syndrome today. No reported other sources of possible fever including abdominal pain, dysuria, discharge, skin erythema. Discussed COVID, self quarantine recommendations, and need for masking and good hand hygiene. Discussed when to return to the ED for COVID related symptoms as well. No noted fracture after fall, patient ambulatory, FROM all extremities. Low suspicion for septic joint at this time. Patient refused knee immobilizer and crutches. Discussed OTC care for symptom control and antipyretics PRN as well. No signs of acutely dangerous intracranial or intrathoracic infections noted at this visit. ED warnings given and outpatient f/u with PCP. 07/30/19 20:42 07/30/19 20:49 Departure - Departure Clinical Impression: Fall, Upper respiratory infection, Arthralgia Time of Disposition: 20:45 Disposition: Discharge to Home or Self Care Condition: Good Departure Forms: ED Discharge - Pt. Copy, Patient Portal Self Enrollment Instructions: Sore Throat, Adult (DC), Muscle Spasms (DC), Knee Pain (DC) Diet: resume usual diet Activity: increase activity as tolerated Referrals: Raulito Pantoja MD [Primary Care Provider] - 1-2 Weeks Home Medications: Ambulatory Orders Promethazine HCl 50 mg PO Q6H PRN 11/13/17 Diazepam [Valium] 10 mg PO DAILY 05/16/18 Spironolactone 25 mg PO DAILY #14 tab 11/10/18 Furosemide Tab [Lasix Tab] 40 mg PO DAILY PRN 01/19/19 Potassium Chloride [Potassium Chloride ER] 20 meq PO DAILY PRN 01/19/19 Rizatriptan Benzoate [Maxalt] 10 mg PO DAILY PRN 01/19/19 Acetaminophen W/ Codeine [Tylenol/Codeine #4 300-60 mg] 1 ea PO Q6HRS PRN 03/13/19 hydrOXYzine HCl [Atarax] 50 mg PO TID 03/13/19 Escitalopram Oxalate [Lexapro] 20 mg PO DAILY 04/21/19 Methocarbamol 750 mg PO TID 05/17/19 Furosemide [Lasix] 80 mg PO DAILY PRN 06/29/19 Potassium Chloride Microencaps [Potassium Chloride Cr] 40 meq PO DAILY PRN 06/29/19 Prochlorperazine Tab [Compazine Tab] 10 mg PO Q8H #12 tab 06/29/19 Temazepam [Restoril] 15 mg PO BEDTIME 06/29/19 Zonisamide [Zonegran] 100 mg PO DAILY 06/29/19 Additional Instructions: If you have a fever, cough or other symptoms, you might have COVID-19. Most people have mild illness and are able to recover at home. If you think you may have been exposed to COVID-19, contact your healthcare provider. Keep track of your symptoms. If you have an emergency warning sign (including trouble breathing), get emergency medical care immediately. user md margaret regalado icon Self-Coal Unloader A guide to help you make decisions and seek appropriate medical care. Steps to help prevent the spread of COVID-19 if you are sick If you are sick with COVID-19 or think you might have COVID-19, follow the steps below to care for yourself and to help protect other people in your home and community. Stay home except to get medical care Stay home. Most people with COVID-19 have mild illness and can [facility]. Do not leave your home, except to get medical care. Do not visit public areas. Take care of yourself. Get rest and stay hydrated. Take [id number]-[id number] medicines, such as acetaminophen, to help you feel better. Stay in touch with your doctor. Call before you get medical care. Be sure to get care if you have trouble breathing, or have any other emergency warning signs, or if you think it is an emergency. Avoid public transportation, ride-sharing, or taxis. Separate yourself from other people As much as possible, stay in a specific room and away from other people and pets in your home. If possible, you should use a separate bathroom. If you need to be around other people or animals in or outside of the home, wear a cloth face covering. Additional guidance is available for those living in close quarters and shared housing. See COVID-19 and Animals if you have questions about pets. Monitor your symptoms Symptoms of COVID-19 fever, cough, or other symptoms. Follow care instructions from your healthcare provider and local health department. Your local health authorities may give instructions on checking your symptoms and reporting information. When to Seek Emergency Medical Attention Look for emergency warning signs* for COVID-19. If someone is showing any of these signs, seek emergency medical care immediately Trouble breathing Persistent pain or pressure in the chest New confusion Inability to wake or stay awake Bluish lips or face *This list is not all possible symptoms. Please call your medical provider for any other symptoms that are severe or concerning to you. Call 911 or call ahead to your local emergency facility: Notify the bow making machine operator that you are seeking care for someone who has or may have COVID-19. Call ahead before visiting your doctor Call ahead. Many medical visits for routine care are being postponed or done by phone or telemedicine. If you have a medical appointment that cannot be postponed, call your doctors office, and tell them you have or may have COVID-19. This will help the office protect themselves and other patients. If you are sick wear a cloth covering over your nose and mouth You should wear a cloth face covering, over your nose and mouth if you must be around other people or animals, including pets (even at home) You dont need to wear the cloth face covering if you are alone. If you cant put on a cloth face covering (because of trouble breathing, for example), cover your coughs and sneezes in some other way. Try to stay at least 6 feet away from other people. This will help protect the people around you. Cloth face coverings should not be placed on young children under age 2 years, anyone who has trouble breathing, or anyone who is not able to remove the covering without help. Note: During the COVID-19 pandemic, medical grade facemasks are reserved for healthcare workers and some first responders. You may need to make a cloth face covering using a scarf or bandana. Cover your coughs and sneezes Cover your mouth and nose with a tissue when you cough or sneeze. Throw away used tissues in a lined trash can. Immediately wash your hands with soap and water for at least 20 seconds. If soap and water are not available, clean your hands with an alcohol-based hand cyber crime investigator that contains at least 60% alcohol. Clean your hands often Wash your hands often with soap and water for at least 20 seconds. This is especially important after blowing your nose, coughing, or sneezing; going to the bathroom; and before eating or preparing food. Use hand cyber crime investigator if soap and water are not available. Use an alcohol-based hand cyber crime investigator with at least 60% alcohol, covering all surfaces of your hands and rubbing them together until they feel dry. Soap and water are the best option, especially if hands are visibly dirty. Avoid touching your eyes, nose, and mouth with unwashed hands. Handwashing Tips Avoid sharing personal household items Do not share dishes, drinking glasses, cups, eating utensils, towels, or bedding with other people in your home. Wash these items thoroughly after using them with soap and water or put in the guyline operator. Clean all high-touch surfaces everyday Clean and disinfect high-touch surfaces in your sick room and bathroom; wear disposable gloves. Let someone else clean and disinfect surfaces in common areas, but you should clean your bedroom and bathroom, if possible. If a caregiver or other person needs to clean and disinfect a sick persons bedroom or bathroom, they should do so on an as-needed basis. The caregiver/other person should wear a mask and disposable gloves prior to cleaning. They should wait as long as possible after the person who is sick has used the bathroom before coming in to clean and use the bathroom. High-touch surfaces include phones, remote controls, counters, tabletops, doorknobs, bathroom fixtures, toilets, keyboards, tablets, and bedside tables. Clean and disinfect areas that may have blood, stool, or body fluids on them. Use household motor vehicle inspector and disinfectants. Clean the area or item with soap and water or another detergent if it is dirty. Then, use a household disinfectant. Be sure to follow the instructions on the label to ensure safe and effective use of the product. Many products recommend keeping the surface wet for several minutes to ensure germs are killed. Many also recommend precautions such as wearing gloves and making sure you have good ventilation during use of the product. Most EPA-registered household disinfectants should be effective. A full list of disinfectants can be found here external icon . Complete Disinfection Guidance When its Safe to be Around Others After Being Sick with COVID-19 Deciding when it is safe to be around others is different for different situations. Find out when you can safely end home isolation.
[2019-07-30] MEDS: METHOCARBAMOL 750 MG TAB PO ONE ×2 (19:46→19:50)
--- NOTE | 2019-07-30 19:48 | RAD ---
EXAM DESCRIPTION:Tibia/Fibula,Right 2 views CLINICAL HISTORY: 43 years Female, pain s/p fall COMPARISON: None. Findings/impression: No fracture or dislocation. Ankle soft tissue swelling. Electronically signed by: Farhan Staley MD 07/30/2019 7:47 PM CDT
--- NOTE | 2019-07-30 19:49 | RAD ---
EXAM DESCRIPTION: Knee,Right Complete, 3 views CLINICAL HISTORY: 43 years Female, pain s/p fall COMPARISON: None. FINDINGS: No fracture or dislocation. Soft tissues are unremarkable. IMPRESSION: No acute abnormality. Electronically signed by: Farhan Staley MD 07/30/2019 7:48 PM CDT
--- NOTE | 2019-07-30 19:50 | RAD ---
EXAM DESCRIPTION: Chest,1 View CLINICAL HISTORY:43 years Female, fever Comparison: March 13, 2019 FINDINGS: No focal lung consolidation. No pleural effusion. No pneumothorax. Cardiac and mediastinal silhouette is unremarkable. No acute osseous abnormality. Soft tissues are unremarkable. IMPRESSION: No acute findings. No focal lung consolidation. Electronically signed by: Farhan Staley MD 07/30/2019 7:49 PM CDT
[2019-07-30] MEDS ORDERED: BACLOFEN 10 MG TAB PO ONE (20:31)
[2019-07-30 20:34] VITALS: BP 104/65; TEMP 99.5; O2SAT 99
== END 2019-07-30 21:05 | disposition home or self-care (01) ==
LOC: ER 19:04
DX: S80.211A Abrasion, right knee, initial encounter (principal); M25.561 Pain in right knee; J06.9 Acute upper respiratory infection, unspecified; M25.512 Pain in left shoulder; M54.2 Cervicalgia; R50.9 Fever, unspecified; I10 Essential (primary) hypertension; F17.210 Nicotine dependence, cigarettes, uncomplicated; W19.XXXA Unspecified fall, initial encounter; Y92.9 Unspecified place or not applicable
CPT/HCPCS: 71045; 73562; 73590; 81001; Q0169

== ENCOUNTER 2019-08-05 15:53 | Emergency (ER) | payer SELFPAY ==
[2019-08-05] MEDS ORDERED: SCOPOLAMINE PATCH 1.5MG 1 EA TD ONE (16:36)
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
[2019-08-05] MEDS ORDERED: PROMETHAZINE SUPP 25 MG SUP PR ONE (17:19)
[2019-08-05 17:32] VITALS: BP 128/87; TEMP 98.9; O2SAT 98
== END 2019-08-05 17:32 | disposition home or self-care (01) ==
LOC: ER 15:53
DX: J02.9 Acute pharyngitis, unspecified (principal); K29.50 Unspecified chronic gastritis without bleeding; R50.9 Fever, unspecified; I10 Essential (primary) hypertension; F17.200 Nicotine dependence, unspecified, uncomplicated
CPT/HCPCS: 87070; 87502; 87880; J8498

== ENCOUNTER 2019-08-21 21:45 | Emergency (ER) | payer SELFPAY ==
[2019-08-21] MEDS ORDERED: SODIUM CHLORIDE 0.9% 1000ML 1,000 ML IVS ONE (22:02)
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
[2019-08-21] MEDS ORDERED: PROCHLORPERAZINE INJ 10 MG/2 ML VIAL IV ONE (22:58)
--- NOTE | 2019-08-21 23:32 | RAD ---
EXAM DESCRIPTION: Abdomen 1 View CLINICAL HISTORY: nausea, vomiting COMPARISON: 06/29/2019 FINDINGS: Bowel: No dilated loops of large or small bowel. Moderate stool burden. Peritoneum: No free intraperitoneal air identified. Solid organs: No definite organomegaly. Calcifications: No abnormal calcifications. Bones: Mild degenerative change of the spine. Other: IUD noted in the pelvis. Prior cholecystectomy. IMPRESSION: Nonobstructive bowel gas pattern. Electronically signed by: Steven Bridges 08/21/2019 11:30 PM CDT
[2019-08-21 23:54] VITALS: O2SAT 95
[2019-08-21 23:56] VITALS: BP 114/80; TEMP 99
== END 2019-08-21 23:55 | disposition home or self-care (01) ==
LOC: ER 21:45
DX: R11.2 Nausea with vomiting, unspecified (principal); R73.9 Hyperglycemia, unspecified; I10 Essential (primary) hypertension; F17.200 Nicotine dependence, unspecified, uncomplicated
CPT/HCPCS: 36415; 74018; 80053; 83690; 84703; 85025; J0780; J7030

== ENCOUNTER 2019-08-25 14:30 | Emergency (ER) | payer SELFPAY ==
--- NOTE | 2019-08-25 15:58 | RAD ---
EXAM DESCRIPTION: Cervical Spine, 2-3 Views CLINICAL HISTORY: fall not remembered COMPARISON: None Available. TECHNIQUE: AP/lateral/ open-mouth odontoid FINDINGS: There is good alignment. There is no fracture or bone lesion. There is no soft tissue abnormality There are no significant degenerative changes. IMPRESSION: Normal cervical spine Electronically signed by: Alejandro Moss MD 08/25/2019 3:57 PM CDT
--- NOTE | 2019-08-25 16:04 | CT ---
PROVIDED CLINICAL HISTORY/REASON FOR EXAM: amnesia, possible loc, fall with facial abrasion TECHNIQUE: Volumetric CT data of the brain was obtained without intravenous contrast. This exam was performed according to our departmental dose-optimization program, which includes automated exposure control, adjustment of the mA and/or kV according to patient size and/or use of iterative reconstruction technique. COMPARISON: 04/21/2019 FINDINGS: The ventricles and sulci are normal, without hydrocephalus or significant atrophy. Septum pellucidum and third ventricle are midline. No acute infarction is evident by CT. No acute hemorrhage is present. No mass or mass effect is present. The calvaria and soft tissues are unremarkable. The visualized paranasal sinuses are unremarkable. IMPRESSION: No acute intracranial abnormalities. Electronically signed by: Marc Stone MD 08/25/2019 4:02 PM CDT
[2019-08-25] MEDS ORDERED: diazePAM 2 MG TAB PO ONE (16:07)
[2019-08-25 16:25] VITALS: O2SAT 97
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
[2019-08-25 16:51] VITALS: BP 143/92; TEMP 99.8
== END 2019-08-25 16:52 | disposition home or self-care (01) ==
LOC: ER 14:30
DX: R41.3 Other amnesia (principal); S00.81XA Abrasion of other part of head, initial encounter; S80.212A Abrasion, left knee, initial encounter; S80.211A Abrasion, right knee, initial encounter; M54.2 Cervicalgia; I10 Essential (primary) hypertension; F17.200 Nicotine dependence, unspecified, uncomplicated; Z79.899 Other long term (current) drug therapy; W19.XXXA Unspecified fall, initial encounter; Y92.009 Unspecified place in unspecified non-institutional (private) residence as the place of occurrence of the external cause

== ENCOUNTER 2019-08-27 09:56 | Emergency (ER) | payer SELFPAY ==
[2019-08-27] MEDS ORDERED: SODIUM CHLORIDE 0.9% 1000ML 1,000 ML IVS ONE (10:10)
[2019-08-27] MEDS ORDERED: SUCRALFATE 1 GM/10 ML 1 GM UD PO ONE (10:10)
[2019-08-27] MEDS ORDERED: KETOROLAC TROMETHAMINE INJ 30 MG/ML VIAL IM ONE (10:10)
[2019-08-27] MEDS ORDERED: PANTOPRAZOLE SODIUM IV 40 MG VIAL IV ONE (10:10)
[2019-08-27] MEDS ORDERED: ONDANSETRON INJ 4 MG/2 ML VIAL IV ONE (10:10)
[2019-08-27 10:14] VITALS: BP 129/82; TEMP 100; O2SAT 96
[2019-08-27] MEDS ORDERED: KETOROLAC TROMETHAMINE INJ 30 MG/ML VIAL IV ONE (10:19)
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
== END 2019-08-27 10:54 | disposition left against medical advice (07) ==
LOC: ER 09:56
DX: R11.15 Cyclical vomiting syndrome unrelated to migraine (principal); R51 Headache; J02.9 Acute pharyngitis, unspecified; F17.200 Nicotine dependence, unspecified, uncomplicated; Z53.29 Procedure and treatment not carried out because of patient's decision for other reasons; R11.2 Nausea with vomiting, unspecified
CPT/HCPCS: 36415; 80053; 82150; 83690; 83735; 84703; 85025; 87070; 87880; J1885; J7030

== ENCOUNTER 2019-08-31 03:08 | Emergency (ER) | payer SELFPAY ==
[2019-08-31] MEDS ORDERED: SODIUM CHLORIDE 0.9% (FLUSH) 10 ML SYG ONE (03:41)
--- NOTE | 2019-08-31 03:51 | ED.PDOC ---
History of Present Illness - General Chief Complaint: Syncope/Near Syncope Stated Complaint: passing out, dry heaves Time Seen by Provider: 08/31/19 03:20 Source: patient Exam Limitations: no limitations - History of Present Illness Initial Comments: The patient is a 43-year-old female presented emergency room secondary to apparently 2 episodes of loss of consciousness tonight. Patient also had an episode of loss of consciousness about 6 days ago. She was seen here at that time and had a head CT which was negative at that time. The patient had had a significant fall at the time and did have amnesia surrounding the event. It was felt that the patient most likely had a concussion at that point causing amnesia surrounding the event. She had sustained abrasions to the face and to the knees from what was most likely a fall on the carpet in her apartment. The patient has had a history of syncopal episodes related to oversedation with medications and orthostasis. However these events in the past have not been surrounded by amnesia. And if the patient is telling the truth currently she is on a significantly reduced amount of sedating medications when compared to previous episodes. The first episode of syncope tonight occurred while the patient was urinating in the bathroom. She woke up on the floor with a headache where she believes that she had fallen forward and hit a cabinet. The second episode she found her self on the floor beside her bed. She has some mild lateral neck pain as well as a headache. She does not remember actually losing consciousness or starting to lose consciousness either time. No chest pain or palpitations. No real shortness of breath. Glucose was normal with EMS. Blood pressures are actually moderately elevated. The patient was seen 1 time 3 days ago, a couple of days after the initial event this time but she left AMA without receiving IV fluids or electrolyte correction at the time. The patient does have a complicated history of both true, anju daiana medical problems as well as drug- seeking and attention seeking behaviors. There is no obvious visible injury on the patient today that is obviously new. The injuries from 6 days ago were however very obvious and anju daiana. Given the patient's longstanding medical history she does potentially have access to numerous other kinds of sedating medicines to take aside from what she is supposed to be taking currently if she decided to do so. Urine drug screen at last visit showed opiates and benzodiazepines, however the patient reports that she has been titrating down on her hydrocodone and Valium. A c-collar is being put in place. Carotid Dopplers were done in April and were essentially normal. Timing/Duration: unsure Severity: moderate Improving Factors: nothing Worsening Factors: nothing Associated Symptoms: headaches, malaise, nausea/vomiting Allergies/Adverse Reactions: Allergies Latex Allergy (Intermediate, Verified 08/27/19 10:14) red swelling Ondansetron [From Zofran] Allergy (Intermediate, Verified 08/27/19 10:14) migraine Doxycycline Allergy (Verified 08/27/19 10:14) Penicillins Allergy (Verified 08/27/19 10:14) N/V Sulfamethoxazole w/Trimethoprim [From Bactrim] Allergy (Verified 08/27/19 10:14) Amoxicillin [From Augmentin] Adverse Reaction (Verified 08/27/19 10:14) N/V Clavulanic Acid [From Augmentin] Adverse Reaction (Verified 08/27/19 10:14) N./V Home Medications: Ambulatory Orders Promethazine HCl 50 mg PO Q6H PRN 11/13/17 Diazepam [Valium] 10 mg PO DAILY 05/16/18 Spironolactone 25 mg PO DAILY #14 tab 11/10/18 Furosemide Tab [Lasix Tab] 40 mg PO DAILY PRN 01/19/19 Potassium Chloride [Potassium Chloride ER] 20 meq PO DAILY PRN 01/19/19 Rizatriptan Benzoate [Maxalt] 10 mg PO DAILY PRN 01/19/19 Acetaminophen W/ Codeine [Tylenol/Codeine #4 300-60 mg] 1 ea PO Q6HRS PRN 03/13/19 hydrOXYzine HCl [Atarax] 50 mg PO TID 03/13/19 Escitalopram Oxalate [Lexapro] 20 mg PO DAILY 04/21/19 Methocarbamol 750 mg PO TID 05/17/19 Furosemide [Lasix] 80 mg PO DAILY PRN 06/29/19 Potassium Chloride Microencaps [Potassium Chloride Cr] 40 meq PO DAILY PRN 06/29/19 Prochlorperazine Tab [Compazine Tab] 10 mg PO Q8H #12 tab 06/29/19 Temazepam [Restoril] 15 mg PO BEDTIME 06/29/19 Zonisamide [Zonegran] 100 mg PO DAILY 06/29/19 Omeprazole 40 mg PO BID #60 cap 08/05/19 Sucralfate Tab [Carafate Tab] 1 gm PO QID #60 tab 08/05/19 Review of Systems - Review of Systems Constitutional: States: malaise EENTM: States: no symptoms reported Respiratory: States: no symptoms reported Cardiology: States: syncope Gastrointestinal/Abdominal: States: abdominal pain - Chronic, nausea - Chronic Genitourinary: States: no symptoms reported Musculoskeletal: States: see HPI Skin: States: see HPI Neurological: States: see HPI, anxiety Endocrine: States: no symptoms reported Hematologic/Lymphatic: States: no symptoms reported All other Systems: No Change from Baseline Past Medical History (General) - Patient Medical History Hx Seizures: No Hx Stroke: No Hx Dementia: No Hx Asthma: No Hx of COPD: No Hx Cardiac Disorders: No Hx Congestive Heart Failure: No Hx Pacemaker: No Hx Hypertension: No Hx Thyroid Disease: No Hx Diabetes: No Hx Gastroesophageal Reflux: No Hx Renal Disease: No Hx Cancer: No Hx of HIV: No Hx Hepatitis C: No Hx MRSA: No Hx Other PMH: Yes - Chronic dependent edema, hypokalemia, hypomagnesemia, anxiety, Hx Other - free text: Bipolar disorder, cyclical nausea and vomiting, asthma, hypothyroidism, DVT with PE in 2018, constipation, prescription medication abuse, medical noncompliance, peripheral neuropathy, migraines, insomnia, chronic low back pain. Surgical history includes breast reduction, cholecystectomy, tonsillectomy, wisdom teeth removal and esophageal stricture dilation. Surgical History: no surgical history - Vaccination History Hx Tetanus, Diphtheria Vaccination: No Hx Influenza Vaccination: Yes Hx Pneumococcal Vaccination: No Immunizations Up to Date: Yes - Social History Hx Tobacco Use: Yes Hx Chewing Tobacco Use: No Hx Alcohol Use: No Hx Substance Use: No Hx Substance Use Treatment: No Hx Depression: Yes - not taking meds Feels Threatened In Home Enviroment: No Feels Threatened In a Relationship: No Hx Physical Abuse: No Hx Emotional Abuse: No Hx Suspected Abuse: No - Activities of Daily Living Hospice Agency (if applicable):: None - Female History Patient is a Female of Child Bearing Age (10 -59 yrs old): Yes - states to have IUD in place, no cycle for 7 years Hx Last Menstrual Period: 03/28/15 Patient : No Family Medical History - Family History Mother Family History: Unknown Living Status: Cause of : unsure Hx Family Hypertension: - dad Father Family History: Unknown Living Status: Still Living Hx Family Asthma: No Hx Family Congestive Heart Failure: No Hx Family Hypertension: Yes - father Hx Family Stroke: No Hx Cardiac Disease: No Hx Family Diabetes: No Hx Family Cancer: No Physical Exam - Physical Exam General Appearance: Alert, No apparent distress Eye Exam: bilateral normal Ears, Nose, Throat: hearing grossly normal, normal pharynx Neck: other - No midline tenderness to palpation. Mild diffuse lateral discomfort. No step-off. No obvious palpable abnormality. Respiratory: lungs clear, normal breath sounds, no respiratory distress, no accessory muscle use Cardiovascular/Chest: normal peripheral pulses, regular rate, rhythm, no edema Peripheral Pulses: radial,right: 2+, radial,left: 2+ Gastrointestinal/Abdominal: soft, other - Mild epigastric discomfort to palpation. No rebound or peritoneal signs. Rectal Exam: deferred Back Exam: no CVA tenderness, no vertebral tenderness Extremity: normal range of motion, non-tender, normal inspection, no pedal edema, no calf tenderness, normal capillary refill Neurologic: epic ambulatory analyst II-XII nml as tested, alert, oriented x 3, other - The patient does have a mild chronic peripheral neuropathy. Skin Exam: normal color - Abrasions to the face and knees are healing well. Comments: Vital Signs - 24 hr 08/31/19 03:10 Temperature 98.7 F Pulse Rate [ 92 H pulse ox] Respiratory 18 Rate Blood Pressure 137/79 [Left Arm] O2 Sat by Pulse 98 Oximetry Progress - Progress Progress: 08/31/19 05:15 The patient is a 43-year-old female presenting secondary to 2 episodes of losing consciousness with apparent falls with amnesia for both of these 2 events as well as one event 5 or 6 days ago. The patient does have a history of orthostasis however the patient has always had a prodrome of dizziness and has never had significant amnesia surrounding the events. She is, if she is to be believed, on significantly lower amounts of hypnotic medications than she has been in a long time. My concern for the patient at this time is that she may be having seizures causing the episodes. She does have mild hypomagnesemia and is on a dose of magnesium here. The patient is being transferred for neurology evaluation. No further episodes have occurred here. She is remained on telemetry monitoring showing a normal sinus rhythm. Imaging of the brain, cervical spine and chest x-ray are reassuring. EKG is reassuring. Initial blood work is otherwise reassuring. Prolactin level is a send off. Transferring for specialty evaluation. Acceptance is appreciated. Copy of carotid Dopplers from earlier in the year will also be sent along. marcelo mar [phone] 08/31/19 05:23 08/31/19 05:24 - Results/Orders Results/Orders: Chest x-ray shows no acute pathology. Noncontrasted CT scan of the head due to blunt trauma is negative for acute intracranial pathology. See report for details. CT scan of the cervical spine without contrast shows mild shotty lymphadenopathy. No fracture or acute subluxation. Mild straightening. Laboratory Tests 08/31/19 08/31/19 08/31/19 04:00 04:00 04:00 WBC 6.2 RBC 4.26 Hgb 12.0 Hct 35.4 L MCV 83.0 MCH 28.2 MCHC 34.0 RDW 14.6 H Plt Count 199 MPV 8.6 Absolute Neuts (auto) 3.30 Absolute Lymphs (auto) 2.30 Absolute Monos (auto) 0.50 Absolute Eos (auto) 0.20 Absolute Basos (auto) 0.00 Neutrophils % 52.2 Lymphocytes % 36.7 Monocytes % 7.9 Eosinophils % 2.5 Basophils % 0.7 Sodium 138 Potassium 3.7 Chloride 102 Carbon Dioxide 28 Anion Gap 11.7 L BUN 13 Creatinine 0.71 BUN/Creatinine Ratio 18.3 Random Glucose 103 Serum Osmolality 276.0 Lactic Acid Calcium 8.9 Magnesium 1.7 L Total Bilirubin 0.3 AST 19 ALT 16 Alkaline Phosphatase 77 Creatine Kinase 180 H CK-MB (CK-2) 2.4 CK-MB (CK-2) % Not Reportable Troponin I < 0.02 B-Natriuretic Peptide 23.8 Serum Total Protein 6.8 Albumin 3.7 Globulin 3.1 Albumin/Globulin Ratio 1.2 TSH 1.25 08/31/19 04:00 WBC RBC Hgb Hct MCV MCH MCHC RDW Plt Count MPV Absolute Neuts (auto) Absolute Lymphs (auto) Absolute Monos (auto) Absolute Eos (auto) Absolute Basos (auto) Neutrophils % Lymphocytes % Monocytes % Eosinophils % Basophils % Sodium Potassium Chloride Carbon Dioxide Anion Gap BUN Creatinine BUN/Creatinine Ratio Random Glucose Serum Osmolality Lactic Acid 1.3 Calcium Magnesium Total Bilirubin AST ALT Alkaline Phosphatase Creatine Kinase CK-MB (CK-2) CK-MB (CK-2) % Troponin I B-Natriuretic Peptide Serum Total Protein Albumin Globulin Albumin/Globulin Ratio TSH Departure - Departure Clinical Impression: Loss of consciousness for 30 minutes to 24 hours, Hypomagnesemia Concussion Qualifiers: Encounter type: initial encounter Loss of consciousness presence/duration: with LOC of unspecified duration Qualified Code(s): S06.0X9A - Concussion with loss of consciousness of unspecified duration, initial encounter Disposition: Transfer to Hospital Departure Forms: ED Discharge - Pt. Copy, Patient Portal Self Enrollment Referrals: Raulito Pantoja MD [Primary Care Provider] - 1-2 Weeks Home Medications: Ambulatory Orders Promethazine HCl 50 mg PO Q6H PRN 11/13/17 Diazepam [Valium] 10 mg PO DAILY 05/16/18 Spironolactone 25 mg PO DAILY #14 tab 11/10/18 Furosemide Tab [Lasix Tab] 40 mg PO DAILY PRN 01/19/19 Potassium Chloride [Potassium Chloride ER] 20 meq PO DAILY PRN 01/19/19 Rizatriptan Benzoate [Maxalt] 10 mg PO DAILY PRN 01/19/19 Acetaminophen W/ Codeine [Tylenol/Codeine #4 300-60 mg] 1 ea PO Q6HRS PRN 03/13/19 hydrOXYzine HCl [Atarax] 50 mg PO TID 03/13/19 Escitalopram Oxalate [Lexapro] 20 mg PO DAILY 04/21/19 Methocarbamol 750 mg PO TID 05/17/19 Furosemide [Lasix] 80 mg PO DAILY PRN 06/29/19 Potassium Chloride Microencaps [Potassium Chloride Cr] 40 meq PO DAILY PRN 06/29/19 Prochlorperazine Tab [Compazine Tab] 10 mg PO Q8H #12 tab 06/29/19 Temazepam [Restoril] 15 mg PO BEDTIME 06/29/19 Zonisamide [Zonegran] 100 mg PO DAILY 06/29/19 Omeprazole 40 mg PO BID #60 cap 08/05/19 Sucralfate Tab [Carafate Tab] 1 gm PO QID #60 tab 08/05/19 Transfer to Outside Facility - Transfer Information Decision to Transfer Date: 08/31/19 Decision to Transfer Time: 05:25 Reason for Transfer: specialized care not available Accepting Provider:: dr craft Accepting Facility: [facility]
--- NOTE | 2019-08-31 04:33 | CT ---
EXAM: CT head without contrast HISTORY: syncope, hit head COMPARISON: CT head 08/25/2019 TECHNIQUE: Head/brain axial images acquired without contrast. Coronal and sagittal reformats created. Exam performed according to departmental dose-optimization program which includes automated exposure control, adjustment of mA and/or kV according to patient size, and/or use of iterative reconstruction technique. FINDINGS: No midline shift, mass effect, intracranial hemorrhage, or hydrocephalus. Brain parenchyma unremarkable. Paranasal sinuses and mastoid air cells clear. No skull fracture or significant skull lesion. IMPRESSION: Unremarkable CT head without contrast. Electronically signed by: Luis Burnette MD 08/31/2019 4:32 AM CDT
--- NOTE | 2019-08-31 04:41 | CT ---
EXAM: CT Cervical Spine without contrast HISTORY: syncope, hit head COMPARISON: Cervical spine 3 views 08/25/2019 TECHNIQUE: Cervical spine axial images acquired without contrast. Coronal and sagittal reformats created. Exam performed according to departmental dose-optimization program which includes automated exposure control, adjustment of mA and/or kV according to patient size, and/or use of iterative reconstruction technique. FINDINGS: Straightening of cervical vertebral bodies may be due to patient positioning or muscle spasm. No fracture or subluxation. Cervical discs unremarkable. No significant central canal or neuroforaminal stenosis. No paraspinal hematoma. Few, nonspecific, shotty, bilateral, cervical lymph nodes. These may be reactive or inflammatory. IMPRESSION: No CT evidence of cervical spine injury. Electronically signed by: Luis Burnette MD 08/31/2019 4:39 AM CDT
--- NOTE | 2019-08-31 04:43 | RAD ---
EXAM: Chest,1 View HISTORY: syncope COMPARISON: Chest 1 View AP 07/30/2019 TECHNIQUE: Chest 1 View AP FINDINGS: Moderate decreased inspiration (decreased lung volumes). Mild symmetric bilateral lower lungs/chest density most likely represents overlying breast/chest wall attenuation artifact. Heart size and pulmonary vessels within normal limits. No focal consolidation, lung mass, significant pulmonary edema, pleural effusion, or pneumothorax Bones unremarkable. IMPRESSION: Unremarkable chest radiograph. Electronically signed by: Luis Burnette MD 08/31/2019 4:42 AM CDT
[2019-08-31] MEDS ORDERED: MAGNESIUM SULFATE PREMIX 2GM 2 GM in PREMIX BAG 1 BAG IVPB ONE (04:47)
[2019-08-31] MEDS ORDERED: SODIUM CHLORIDE 0.9% 1000ML 1,000 ML IVS ONE (04:48)
[2019-08-31] MEDS ORDERED: MAGNESIUM SULFATE PREMIX 2GM 50 ML IVPB ONE (04:51)
[2019-08-31 06:32] VITALS: BP 128/73; TEMP 97.8; O2SAT 98
== END 2019-08-31 05:55 | disposition short-term general hospital (02) ==
LOC: ER 03:08
DX: S06.0X9A Concussion with loss of consciousness of unspecified duration, initial encounter (principal); R55 Syncope and collapse; E83.42 Hypomagnesemia; Z87.891 Personal history of nicotine dependence; Z79.899 Other long term (current) drug therapy; Z86.711 Personal history of pulmonary embolism; W19.XXXA Unspecified fall, initial encounter; Y92.9 Unspecified place or not applicable
CPT/HCPCS: 70450; 71045; 72125; 80053; 82550; 82553; 83605; 83735; 83880; 84443; 84484; 85025; 93005; A4216; J3475; J7030

== ENCOUNTER 2019-09-01 03:05 | Emergency (ER) | payer SELFPAY ==
[2019-09-01] MEDS: LORazepam 0.5 MG TAB PO ONE (03:38)
--- NOTE | 2019-09-01 03:39 | ED.PDOC ---
History of Present Illness - General Chief Complaint: Respiratory Problem Stated Complaint: I have a blood clot in my left lung Time Seen by Provider: 09/01/19 03:11 Additional Information: 43yo F presents for evaluation of SOB. She thinks it could be anxiety, but wants to make sure it is not a "blood clot." She states that she has had a pulmonary embolism in the past. Symptoms onset this evening. Pt reports associated upper left chest discomfort. The patient has complex medical and substance use hx per chart review. She was seen here last night and underwent extensive workup for syncope and amnesic events. Transfer to [facility] arranged for further evaluation, but the patient left AMA from EMS because they, "would not give her pain medication." The patient reports intermittent cough. No abd pain or extremity pain at this time. No know COVID-19 exposure but, does have a test pending. No other reported issues. - History of Present Illness Allergies/Adverse Reactions: Allergies Latex Allergy (Intermediate, Verified 08/27/19 10:14) red swelling Ondansetron [From Zofran] Allergy (Intermediate, Verified 08/27/19 10:14) migraine Doxycycline Allergy (Verified 08/27/19 10:14) Penicillins Allergy (Verified 08/27/19 10:14) N/V Sulfamethoxazole w/Trimethoprim [From Bactrim] Allergy (Verified 08/27/19 10:14) Amoxicillin [From Augmentin] Adverse Reaction (Verified 08/27/19 10:14) N/V Clavulanic Acid [From Augmentin] Adverse Reaction (Verified 08/27/19 10:14) N./V Home Medications: Ambulatory Orders Promethazine HCl 50 mg PO Q6H PRN 11/13/17 Diazepam [Valium] 10 mg PO DAILY 05/16/18 Spironolactone 25 mg PO DAILY #14 tab 11/10/18 Furosemide Tab [Lasix Tab] 40 mg PO DAILY PRN 01/19/19 Potassium Chloride [Potassium Chloride ER] 20 meq PO DAILY PRN 01/19/19 Rizatriptan Benzoate [Maxalt] 10 mg PO DAILY PRN 01/19/19 Acetaminophen W/ Codeine [Tylenol/Codeine #4 300-60 mg] 1 ea PO Q6HRS PRN 03/13/19 hydrOXYzine HCl [Atarax] 50 mg PO TID 03/13/19 Escitalopram Oxalate [Lexapro] 20 mg PO DAILY 04/21/19 Methocarbamol 750 mg PO TID 05/17/19 Furosemide [Lasix] 80 mg PO DAILY PRN 06/29/19 Potassium Chloride Microencaps [Potassium Chloride Cr] 40 meq PO DAILY PRN 06/29/19 Prochlorperazine Tab [Compazine Tab] 10 mg PO Q8H #12 tab 06/29/19 Temazepam [Restoril] 15 mg PO BEDTIME 06/29/19 Zonisamide [Zonegran] 100 mg PO DAILY 06/29/19 Omeprazole 40 mg PO BID #60 cap 08/05/19 Sucralfate Tab [Carafate Tab] 1 gm PO QID #60 tab 08/05/19 Review of Systems - Review of Systems Constitutional: Denies: chills, fever EENTM: Denies: nose congestion, throat pain Respiratory: States: cough, short of breath. Denies: wheezing Cardiology: States: chest pain. Denies: edema, palpitations Gastrointestinal/Abdominal: Denies: abdominal pain, diarrhea, nausea, vomiting Genitourinary: States: no symptoms reported Musculoskeletal: Denies: back pain, muscle pain, neck pain Skin: Denies: change in color, lesions, rash Neurological: States: anxiety. Denies: headache, numbness, weakness Endocrine: States: no symptoms reported Hematologic/Lymphatic: States: no symptoms reported Past Medical History (General) - Patient Medical History Hx Seizures: No Hx Stroke: No Hx Dementia: No Hx Asthma: No Hx of COPD: No Hx Cardiac Disorders: No Hx Congestive Heart Failure: No Hx Pacemaker: No Hx Hypertension: No Hx Thyroid Disease: No Hx Diabetes: No Hx Gastroesophageal Reflux: No Hx Renal Disease: No Hx Cancer: No Hx of HIV: No Hx Hepatitis C: No Hx MRSA: No - Vaccination History Hx Tetanus, Diphtheria Vaccination: No Hx Influenza Vaccination: Yes Hx Pneumococcal Vaccination: No - Social History Hx Tobacco Use: Yes Hx Chewing Tobacco Use: No Hx Alcohol Use: No Hx Substance Use: No Hx Substance Use Treatment: No Hx Depression: Yes - not taking meds Hx Physical Abuse: No Hx Emotional Abuse: No Hx Suspected Abuse: No - Female History Patient is a Female of Child Bearing Age (10 -59 yrs old): No - Patient reports IUD for the last 6 years Hx Last Menstrual Period: 03/28/15 Patient : No Family Medical History - Family History Mother Family History: Unknown Living Status: Cause of : unsure Hx Family Hypertension: - dad Father Family History: Unknown Living Status: Still Living Hx Family Asthma: No Hx Family Congestive Heart Failure: No Hx Family Hypertension: Yes - father Hx Family Stroke: No Hx Cardiac Disease: No Hx Family Diabetes: No Hx Family Cancer: No Physical Exam - Physical Exam General Appearance: Alert, Anxious, Other - No significant distress Eyes, Ears, Nose, Throat Exam: PERRL/EOMI, normal ENT inspection, TMs normal, pharynx normal Neck: non-tender, full range of motion, supple Respiratory: chest non-tender, no respiratory distress, other - No wheezing or stridor Cardiovascular/Chest: normal peripheral pulses, regular rate, rhythm, no edema Gastrointestinal/Abdominal: normal bowel sounds, non tender, soft Extremity: normal range of motion, non-tender, normal inspection, no pedal edema, no calf tenderness, normal capillary refill Neurologic: global professional II-XII nml as tested, no motor/sensory deficits, alert, normal mood/affect, oriented x 3 Skin Exam: normal color, warm/dry Progress - Progress Progress: DDX: PE, dyspnea, URI, COVID-19, anxiety, substance abuse, drug seeking, i nfection, lyte disorder, anemia, bronchospasm. Airborne+ PPE used while patient was masked. Plata Tremaine, #[id number] 09/01/19 03:42 Discussed with patient options for care. He main concern is evaluation for a blood clot. We discussed CT vs d-dimer. She prefers only blood work at this time as she has had many CTs in the past. We discussed if she would like to continue the care plan laid out for her last evening. She declines and does not want to be transferred at this time. 09/01/19 06:10 D-Dimer elevated mildly thus CTA ordered. No acute CTA Chest findings exp ground glass infiltrates which are non-spec. The patient was tested at her last visit for COVID-19 and that is still pending. She is not hypoxic and in no distress. The patient desires to go home. We discussed social distancing precautions. I expressed that she is welcome to return again if she desires repeat evaluation for her loss of consciousness episodes and she wants to move forward with the previously recommend plan of transfer (see ED provider note 08/30 for details). We discussed indications for return to the ED. It was a pleasure to care for this patient today. 09/01/19 06:16 - Results/Orders Results/Orders: Laboratory Results - last 24 hr 09/01/19 09/01/19 09/01/19 03:42 03:42 03:42 WBC 9.2 RBC 4.10 L Hgb 11.5 L Hct 34.6 L MCV 84.5 MCH 28.2 MCHC 33.3 RDW 14.7 H Plt Count 199 MPV 8.6 Absolute Neuts (auto) 6.20 Absolute Lymphs (auto) 2.40 Absolute Monos (auto) 0.40 Absolute Eos (auto) 0.20 Absolute Basos (auto) 0.10 Neutrophils % 66.7 Lymphocytes % 26.1 Monocytes % 4.8 Eosinophils % 1.8 Basophils % 0.6 PT 9.7 INR < 1.00 D-Dimer, Quantitative 454.0 H Sodium 139 Potassium 3.4 L Chloride 106 Carbon Dioxide 25 Anion Gap 11.4 L BUN 9 Creatinine 0.63 BUN/Creatinine Ratio 14.3 Random Glucose 116 H Serum Osmolality 277.2 Calcium 8.6 Creatine Kinase 145 H CK-MB (CK-2) 1.8 CK-MB (CK-2) % Not Reportable Troponin I < 0.02 Last Vital Signs Temp 97.1 F L 09/01/19 06:08 Pulse 84 09/01/19 06:08 Resp 16 09/01/19 06:08 BP 121/79 09/01/19 06:08 Pulse Ox 99 09/01/19 06:08 - EKG/XRAY/CT EKG: Sinus - 78, nl axis, nl intervals, non-spec t-wave changes - (03:22) XRAY: chest - No acute findings. See formal read. CT: CHEST: No PE. +Ground glass opacities, nonspecific. See read. Departure - Departure Clinical Impression: Shortness of breath, Elevated d-dimer, Ground glass opacity present on imaging of lung Time of Disposition: 06:01 Disposition: Discharge to Home or Self Care Condition: Fair Departure Forms: ED Discharge - Pt. Copy, Patient Portal Self Enrollment Instructions: Shortness of Breath (Dyspnea) (DC), Coronavirus Disease 2019 (COVID-19) Referrals: Raulito Pantoja MD [Primary Care Provider] - 1-2 Weeks Home Medications: Ambulatory Orders Promethazine HCl 50 mg PO Q6H PRN 11/13/17 Diazepam [Valium] 10 mg PO DAILY 05/16/18 Spironolactone 25 mg PO DAILY #14 tab 11/10/18 Furosemide Tab [Lasix Tab] 40 mg PO DAILY PRN 01/19/19 Potassium Chloride [Potassium Chloride ER] 20 meq PO DAILY PRN 01/19/19 Rizatriptan Benzoate [Maxalt] 10 mg PO DAILY PRN 01/19/19 Acetaminophen W/ Codeine [Tylenol/Codeine #4 300-60 mg] 1 ea PO Q6HRS PRN 03/13/19 hydrOXYzine HCl [Atarax] 50 mg PO TID 03/13/19 Escitalopram Oxalate [Lexapro] 20 mg PO DAILY 04/21/19 Methocarbamol 750 mg PO TID 05/17/19 Furosemide [Lasix] 80 mg PO DAILY PRN 06/29/19 Potassium Chloride Microencaps [Potassium Chloride Cr] 40 meq PO DAILY PRN 06/29/19 Prochlorperazine Tab [Compazine Tab] 10 mg PO Q8H #12 tab 06/29/19 Temazepam [Restoril] 15 mg PO BEDTIME 06/29/19 Zonisamide [Zonegran] 100 mg PO DAILY 06/29/19 Omeprazole 40 mg PO BID #60 cap 08/05/19 Sucralfate Tab [Carafate Tab] 1 gm PO QID #60 tab 08/05/19
--- NOTE | 2019-09-01 04:01 | RAD ---
EXAM: Single view chest. INDICATION: Shortness of breath. COMPARISON: Chest x-ray: 08/31/2019. FINDINGS: Cardiac silhouette: Unremarkable. Theresa: Unremarkable. Lobar consolidation: None. Pleural effusion: None. Pneumothorax: None. Other: None. Bones: Unremarkable. Other: None. IMPRESSION: 1. No acute cardiopulmonary process. Electronically signed by: Gustavo Weiss MD 09/01/2019 4:00 AM CDT
--- NOTE | 2019-09-01 05:10 | CT ---
EXAM DESCRIPTION: CTA Chest CLINICAL HISTORY: 43 years, Female, Pos D-dimer, hx of PE COMPARISON: None. TECHNIQUE: Axial images through the chest were performed after the administration of intravenous contrast using a pulmonary embolus protocol. MIPS were performed. This exam was performed according to our departmental dose-optimization program which includes use of Automated Exposure Control, adjustment of the mA and/or kV according to patient size and/or use of iterative reconstruction technique. FINDINGS: No acute pulmonary embolus is identified. Small nonobstructive web in the right lower lobe pulmonary artery and left lower lobe pulmonary artery consistent with sequelae from previous pulmonary embolism. Normal caliber aorta without dissection. No pericardial effusion. Cardiac chambers are normal in size. Patchy groundglass opacities throughout the lungs. No dense areas of consolidation. No pleural abnormalities. The trachea and central airways are clear. Soft tissues are unremarkable. No acute osseous findings. No acute abnormality within the visualized upper abdomen. IMPRESSION: Negative for acute pulmonary embolism. Patchy groundglass opacities scattered throughout both lungs. Imaging features can be seen with COVID-19 pneumonia, though are nonspecific and can occur with a variety of infectious and noninfectious processes. [PneInd] Electronically signed by: Kb Segura DO 09/01/2019 5:09 AM CDT
[2019-09-01 05:19] VITALS: BP 121/79; O2SAT 99
[2019-09-01 06:10] VITALS: TEMP 97.1
== END 2019-09-01 06:08 | disposition home or self-care (01) ==
LOC: ER 03:05
DX: R06.02 Shortness of breath (principal); R79.1 Abnormal coagulation profile; Z79.899 Other long term (current) drug therapy; F17.200 Nicotine dependence, unspecified, uncomplicated

== ENCOUNTER 2019-09-01 12:54 | Emergency (ER) | payer SELFPAY ==
[2019-09-01] MEDS ORDERED: HYDROmorphone HCL INJ 2 MG/ML VIAL IV ONE (13:00)
[2019-09-01] MEDS ORDERED: ONDANSETRON INJ 4 MG/2 ML VIAL IV ONE (13:00)
--- NOTE | 2019-09-01 13:05 | ED.PDOC ---
History of Present Illness - General Time Seen by Provider: 09/01/19 12:59 Additional Information: Patient is a 43-year-old female who presents the ED via EMS with chief complaint of right ankle injury. Patient indicates that she was standing in her kitchen when she lost her balance and twisted her ankle and fell to the ground. Patient believes she has broken her ankle she is unable to stand on it. Patient denies any injury other than to her ankle. She specifically denies head injury, neck injury, chest pain, shortness of breath, dizziness. Patient was recently seen in the ED for nausea and vomiting and had a negative COVID test a few days ago. Patient rates her pain as 10 out of 10 and sharp. - History of Present Illness Allergies/Adverse Reactions: Allergies Latex Allergy (Intermediate, Verified 09/01/19 13:12) red swelling Ondansetron [From Zofran] Allergy (Intermediate, Verified 09/01/19 13:12) migraine Doxycycline Allergy (Verified 09/01/19 13:12) Penicillins Allergy (Verified 09/01/19 13:12) N/V Sulfamethoxazole w/Trimethoprim [From Bactrim] Allergy (Verified 09/01/19 13:12) Amoxicillin [From Augmentin] Adverse Reaction (Verified 09/01/19 13:12) N/V Clavulanic Acid [From Augmentin] Adverse Reaction (Verified 09/01/19 13:12) N./V Home Medications: Ambulatory Orders Promethazine HCl 50 mg PO Q6H PRN 11/13/17 Diazepam [Valium] 10 mg PO DAILY 05/16/18 Spironolactone 25 mg PO DAILY #14 tab 11/10/18 Furosemide Tab [Lasix Tab] 40 mg PO DAILY PRN 01/19/19 Potassium Chloride [Potassium Chloride ER] 20 meq PO DAILY PRN 01/19/19 Rizatriptan Benzoate [Maxalt] 10 mg PO DAILY PRN 01/19/19 Acetaminophen W/ Codeine [Tylenol/Codeine #4 300-60 mg] 1 ea PO Q6HRS PRN 03/13/19 hydrOXYzine HCl [Atarax] 50 mg PO TID 03/13/19 Escitalopram Oxalate [Lexapro] 20 mg PO DAILY 04/21/19 Methocarbamol 750 mg PO TID 03/18/20 Furosemide [Lasix] 80 mg PO DAILY PRN 06/29/19 Potassium Chloride Microencaps [Potassium Chloride Cr] 40 meq PO DAILY PRN 06/29/19 Prochlorperazine Tab [Compazine Tab] 10 mg PO Q8H #12 tab 06/29/19 Temazepam [Restoril] 15 mg PO BEDTIME 06/29/19 Zonisamide [Zonegran] 100 mg PO DAILY 06/29/19 Omeprazole 40 mg PO BID #60 cap 08/05/19 Sucralfate Tab [Carafate Tab] 1 gm PO QID #60 tab 08/05/19 Acetaminophen W/ Codeine [Tylenol W/ CODEINE #3] 1 ea PO Q6H PRN #20 09/01/19 Review of Systems - Review of Systems Constitutional: States: no symptoms reported. Denies: chills, fever Respiratory: States: no symptoms reported. Denies: cough, short of breath Cardiology: States: no symptoms reported. Denies: chest pain, palpitations Gastrointestinal/Abdominal: Denies: abdominal pain, vomiting Musculoskeletal: States: see HPI Skin: States: no symptoms reported Neurological: States: no symptoms reported All other Systems: Reviewed and Negative Past Medical History (General) - Patient Medical History Hx Seizures: No Hx Stroke: No Hx Dementia: No Hx Asthma: No Hx of COPD: No Hx Cardiac Disorders: No Hx Congestive Heart Failure: No Hx Pacemaker: No Hx Hypertension: No Hx Thyroid Disease: No Hx Diabetes: No Hx Gastroesophageal Reflux: No Hx Renal Disease: No Hx Cancer: No Hx of HIV: No Hx Hepatitis C: No Hx MRSA: No - Vaccination History Hx Tetanus, Diphtheria Vaccination: No Hx Influenza Vaccination: Yes Hx Pneumococcal Vaccination: No - Social History Hx Tobacco Use: Yes Hx Chewing Tobacco Use: No Hx Alcohol Use: No Hx Substance Use: No Hx Substance Use Treatment: No Hx Depression: Yes - not taking meds Hx Physical Abuse: No Hx Emotional Abuse: No Hx Suspected Abuse: No - Female History Hx Last Menstrual Period: 03/28/15 Patient : No Family Medical History - Family History Mother Family History: Unknown Living Status: Cause of : unsure Hx Family Hypertension: - dad Father Family History: Unknown Living Status: Still Living Hx Family Asthma: No Hx Family Congestive Heart Failure: No Hx Family Hypertension: Yes - father Hx Family Stroke: No Hx Cardiac Disease: No Hx Family Diabetes: No Hx Family Cancer: No Physical Exam - Physical Exam General Appearance: Alert, Anxious, Obvious distress, Well Developed, Well Nourished Neck: non-tender, full range of motion, supple, normal inspection Cardiovascular/Respiratory: regular rate, rhythm, no M/R/G, normal peripheral pulses, no JVD, normal breath sounds, no respiratory distress Gastrointestinal/Abdominal: non-tender, no organomegaly Back: normal inspection, no vertebral tenderness Thigh/Hip: normal inspection, non-tender Leg: normal inspection, non-tender Knee: normal inspection, non-tender Ankle: other - Obvious deformity to the ankle joint. Skin is closed. Foot: normal inspection, other - 1+ right dorsalis pedal pulse. Capillary refill less than 2 seconds. Neuro/Tendon: normal sensation Mental Status: alert, oriented x 3 Skin: normal color, warm/dry Progress - Progress Progress: 09/01/19 13:08 Differential diagnosis includes but is not limited to fracture, sprain, contusion, dislocation. 09/01/19 14:33 Patient's imaging shows an acute tricompartments distal tibia fracture with dislocation. Patient sedated with procedural sedation with ketamine and propofol and joint easily reduced and splinted. Patient with 2+ DP pulse following procedure. Patient tolerated procedure well. We do not have orthopedics on-call today, will transfer to [facility] for higher level of care. 09/01/19 14:42 I discussed the case with Dr. Main, orthopedic surgeon, at [facility] who indicates that since the joint is reduced and patient has a good pulse that she does not need to be transferred emergently for emergent surgery but can be followed up as an outpatient. He indicates that if patient is not able to be sent home for social reasons that she should be placed in a half-way or r ehab and his office will facilitate follow-up for patient early in the following week (today is the Wednesday before August). I have reviewed patient's EMR and spoken with our nursing staff who knows patient very well and patient has been seen multiple times in this ED for multiple complaints most recently 5 times this past week including last night. I do not believe the patient is a good candidate to go home and that she will not be able to address activities of daily living with crutches. We will attempt to facilitate half-way or rehab placement at this time. 09/01/19 15:08 Patient was slow to arouse following sedation and approximately half hour after the procedure was complete patient given 0.4 mg of Narcan and patient readily perked up and regained full alertness. Patient was never hypoxic during the procedure and maintained good respirations. I discussed with patient going home versus going to a facility and patient is adamant that she wants to go home. She indicates that although she lives alone she will call a friend to help her and that she will follow-up with orthopedics on Wednesday or Wednesday next week as directed. Procedures - Splinting Right Leg Hand-Made Type: orthoglass Splint: stirrup Pre-Proc Neuro Vasc Exam: normal Post-Proc Neuro Vasc Exam: normal - Joint Reduction right ankle Conscious Sedation: Yes - Ketamine and Propofol Reduction Attempts: 1 Pre-Procedure NV Exam: Yes Post Joint Reduction Film: joint reduced Departure - Departure Clinical Impression: Trimalleolar fracture of right ankle Qualifiers: Encounter type: initial encounter Fracture type: closed Qualified Code(s): S82.851A - Displaced trimalleolar fracture of right lower leg, initial encounter for closed fracture Dislocation of ankle, right, closed Qualifiers: Encounter type: initial encounter Qualified Code(s): S93.04XA - Dislocation of right ankle joint, initial encounter Time of Disposition: 15:12 Disposition: Discharge to Home or Self Care Condition: Fair Instructions: Ankle Fracture (DC) Activity: other - Strict nonweightbearing on your right leg. Use crutches for all ambulation. Referrals: Flip Main [Physicians] - 1-2 Days (Be certain to call the referral orthopedic surgeon to arrange for follow-up on Wednesday or Wednesday for reevaluation. You will need surgery to repair your ankle and your ankle not heal properly without surgery.) Prescriptions: Acetaminophen W/ Codeine [Tylenol W/ CODEINE #3] 1 ea PO Q6H PRN #20 PRN Reason: Pain Home Medications: Ambulatory Orders Promethazine HCl 50 mg PO Q6H PRN 11/13/17 Diazepam [Valium] 10 mg PO DAILY 05/16/18 Spironolactone 25 mg PO DAILY #14 tab 11/10/18 Furosemide Tab [Lasix Tab] 40 mg PO DAILY PRN 01/19/19 Potassium Chloride [Potassium Chloride ER] 20 meq PO DAILY PRN 01/19/19 Rizatriptan Benzoate [Maxalt] 10 mg PO DAILY PRN 01/19/19 Acetaminophen W/ Codeine [Tylenol/Codeine #4 300-60 mg] 1 ea PO Q6HRS PRN 03/13/19 hydrOXYzine HCl [Atarax] 50 mg PO TID 03/13/19 Escitalopram Oxalate [Lexapro] 20 mg PO DAILY 04/21/19 Methocarbamol 750 mg PO TID 05/17/19 Furosemide [Lasix] 80 mg PO DAILY PRN 06/29/19 Potassium Chloride Microencaps [Potassium Chloride Cr] 40 meq PO DAILY PRN 06/29/19 Prochlorperazine Tab [Compazine Tab] 10 mg PO Q8H #12 tab 06/29/19 Temazepam [Restoril] 15 mg PO BEDTIME 06/29/19 Zonisamide [Zonegran] 100 mg PO DAILY 06/29/19 Omeprazole 40 mg PO BID #60 cap 08/05/19 Sucralfate Tab [Carafate Tab] 1 gm PO QID #60 tab 08/05/19 Acetaminophen W/ Codeine [Tylenol W/ CODEINE #3] 1 ea PO Q6H PRN #20 09/01/19
[2019-09-01] MEDS ORDERED: PROPOFOL 200 MG/20 ML VIAL IV ONE (13:27)
[2019-09-01] MEDS ORDERED: METOCLOPRAMIDE HCL INJ 10 MG/2 ML VIAL IV ONE (13:27)
[2019-09-01] MEDS ORDERED: KETAMINE HCL 100 MG/ML VIAL IV ONE (13:28)
--- NOTE | 2019-09-01 13:40 | RAD ---
EXAMINATION: X-ray right tibia and fibula, right ankle, and right foot INDICATION: Trauma. Fracture. COMPARISON: None TECHNIQUE: Two views right tibia and fibula, two views right ankle, and two views right foot FINDINGS: Mild degenerative changes noted at the knee. There is an obliquely oriented fracture of the distal fibula. There is a fracture of the medial malleolus. The tibia is associated from the talus. The talus is displaced laterally and angulated dorsally. There is associated soft tissue swelling. There is a hallux valgus deformity of the foot. Dorsal calcaneal spur formation IMPRESSION: Fractures of the distal tibia and fibula with dislocation and angulation of the talus with respect to the ankle joint. The talus is dislocated laterally and angulated dorsally. Electronically signed by: Gilbert Nava MD 09/01/2019 1:39 PM CDT
[2019-09-01] MEDS ORDERED: SODIUM CHLORIDE 0.9% 1000ML 1,000 ML IVS ONE (14:51)
[2019-09-01] MEDS ORDERED: NALOXONE HCL INJ 0.4 MG/ML VIAL IV ONE ×3 (14:53→17:48)
[2019-09-01] MEDS ORDERED: NALOXONE HCL INJ 0.4 MG/ML VIAL ONE (14:55)
[2019-09-01] MEDS ORDERED: METOCLOPRAMIDE HCL INJ 10 MG/2 ML VIAL IM ONE (15:04)
--- NOTE | 2019-09-01 15:08 | RAD ---
EXAM DESCRIPTION: Ankle, right 2 Views : CLINICAL HISTORY: post reduction . COMPARISON: September 01, 2019, 1:17 PM . TECHNIQUE: A two view x-ray examination of right ankle is submitted. FINDINGS: Interval improvement in the positioning and appearance of the trimalleolar fracture dislocation of the right ankle is noted. Displaced medial malleolar fragment is noted. Satisfactory reduction of the dislocation is noted. There is presence of soft tissue swelling. The bones are normally mineralized . The visualized joint spaces are normal. IMPRESSION: Satisfactory reduction of the fracture dislocation of the right ankle. Evidence of trimalleolar fracture is noted with slightly displaced medial and lateral malleolar fragments. Electronically signed by: Guillermina Guillermo MD 09/01/2019 3:06 PM CDT
[2019-09-01 20:30] VITALS: BP 100/81; TEMP 97.9; O2SAT 99
== END 2019-09-01 20:30 | disposition home or self-care (01) ==
LOC: ER 12:54
DX: S82.851A Displaced trimalleolar fracture of right lower leg, initial encounter for closed fracture (principal); S93.04XA Dislocation of right ankle joint, initial encounter; F17.200 Nicotine dependence, unspecified, uncomplicated; W19.XXXA Unspecified fall, initial encounter; Y92.9 Unspecified place or not applicable
CPT/HCPCS: 73590; 73600; 73620; 94770; J1170; J2310; J2405; J2765; J3490; J7030

== ENCOUNTER 2019-09-03 14:23 | Emergency (ER) | payer SELFPAY ==
[2019-09-03] MEDS ORDERED: PROCHLORPERAZINE INJ 10 MG/2 ML VIAL IV ONE (15:11)
[2019-09-03] MEDS ORDERED: ACETAMINOPHEN W/COD #3 TAB 1 EA TAB PO ONE (16:20)
[2019-09-03] MEDS ORDERED: KCL 40MEQ/NS 1,000 ML IVS ONE (16:40)
[2019-09-03] MEDS ORDERED: MAGNESIUM HYDROXIDE 30 ML UD PO ONE (18:35)
[2019-09-03] MEDS ORDERED: SCOPOLAMINE PATCH 1.5MG 1 EA TD ONE (18:38)
--- NOTE | 2019-09-03 20:24 | ED.PDOC ---
History of Present Illness - General Chief Complaint: GI Problem Stated Complaint: Nausea, vomitting and SOB Time Seen by Provider: 09/03/19 14:45 Source: patient Exam Limitations: no limitations - History of Present Illness Initial Comments: The patient is a 43-year-old female presents emergency room secondary to another episode of cyclical nausea and vomiting. The patient is well-known to the emergency room. No fevers. She does have abdominal cramping. No diarrhea. She does have chronic constipation. She has been less mobile recently secondary to the right lower extremity fracture. She does have a little bit of external chest soreness from the sternal rub she received a couple of days ago while coming out of moderate sedation for setting of her right lower extremity fracture. Timing/Duration: other - 8 hours Severity: moderate Improving Factors: nothing Worsening Factors: eating Associated Symptoms: loss of appetite, nausea/vomiting Allergies/Adverse Reactions: Allergies Latex Allergy (Intermediate, Verified 09/03/19 14:51) red swelling Ondansetron [From Zofran] Allergy (Intermediate, Verified 09/03/19 14:51) migraine Doxycycline Allergy (Verified 09/03/19 14:51) Penicillins Allergy (Verified 09/03/19 14:51) N/V Sulfamethoxazole w/Trimethoprim [From Bactrim] Allergy (Verified 09/03/19 14:51) Amoxicillin [From Augmentin] Adverse Reaction (Verified 09/03/19 14:51) N/V Clavulanic Acid [From Augmentin] Adverse Reaction (Verified 09/03/19 14:51) N./V Home Medications: Ambulatory Orders Promethazine HCl 50 mg PO Q6H PRN 11/13/17 Diazepam [Valium] 10 mg PO DAILY 05/16/18 Spironolactone 25 mg PO DAILY #14 tab 11/10/18 Furosemide Tab [Lasix Tab] 40 mg PO DAILY PRN 01/19/19 Potassium Chloride [Potassium Chloride ER] 20 meq PO DAILY PRN 01/19/19 Rizatriptan Benzoate [Maxalt] 10 mg PO DAILY PRN 01/19/19 Acetaminophen W/ Codeine [Tylenol/Codeine #4 300-60 mg] 1 ea PO Q6HRS PRN 03/13/19 hydrOXYzine HCl [Atarax] 50 mg PO TID 03/13/19 Escitalopram Oxalate [Lexapro] 20 mg PO DAILY 04/21/19 Methocarbamol 750 mg PO TID 05/17/19 Furosemide [Lasix] 80 mg PO DAILY PRN 06/29/19 Potassium Chloride Microencaps [Potassium Chloride Cr] 40 meq PO DAILY PRN 06/29/19 Prochlorperazine Tab [Compazine Tab] 10 mg PO Q8H #12 tab 06/29/19 Temazepam [Restoril] 15 mg PO BEDTIME 06/29/19 Zonisamide [Zonegran] 100 mg PO DAILY 06/29/19 Omeprazole 40 mg PO BID #60 cap 08/05/19 Sucralfate Tab [Carafate Tab] 1 gm PO QID #60 tab 08/05/19 Acetaminophen W/ Codeine [Tylenol W/ CODEINE #3] 1 ea PO Q6H PRN #20 09/01/19 Promethazine Supp [Phenergan Suppository] 12.5 mg [place] Q8HR PRN #10 sup 09/03/19 Review of Systems - Review of Systems Constitutional: States: no symptoms reported EENTM: States: no symptoms reported Respiratory: States: no symptoms reported Cardiology: States: no symptoms reported Gastrointestinal/Abdominal: States: constipation, nausea, vomiting Genitourinary: States: no symptoms reported Musculoskeletal: States: see HPI Skin: States: no symptoms reported Neurological: States: no symptoms reported, other - Sensation appears to be baseline in her extremities. Endocrine: States: no symptoms reported Hematologic/Lymphatic: States: no symptoms reported All other Systems: No Change from Baseline Past Medical History (General) - Patient Medical History Hx Seizures: No Hx Stroke: No Hx Dementia: No Hx Asthma: No Hx of COPD: No Hx Cardiac Disorders: No Hx Congestive Heart Failure: No Hx Pacemaker: No Hx Hypertension: No Hx Thyroid Disease: No Hx Diabetes: No Hx Gastroesophageal Reflux: No Hx Renal Disease: No Hx Cancer: No Hx of HIV: No Hx Hepatitis C: No Hx MRSA: No Surgical History: cholecystectomy, tonsillectomy, other - Vaccination History Hx Tetanus, Diphtheria Vaccination: No Hx Influenza Vaccination: Yes Hx Pneumococcal Vaccination: No - Social History Hx Tobacco Use: Yes Hx Chewing Tobacco Use: No Hx Alcohol Use: No Hx Substance Use: No Hx Substance Use Treatment: No Hx Depression: Yes Hx Physical Abuse: No Hx Emotional Abuse: No Hx Suspected Abuse: No - Female History Patient is a Female of Child Bearing Age (10 -59 yrs old): Yes Hx Last Menstrual Period: 03/28/15 Patient : No - IUD Family Medical History - Family History Mother Family History: Unknown Living Status: Cause of : unsure Hx Family Hypertension: - dad Father Family History: Unknown Living Status: Still Living Hx Family Asthma: No Hx Family Congestive Heart Failure: No Hx Family Hypertension: Yes - father Hx Family Stroke: No Hx Cardiac Disease: No Hx Family Diabetes: No Hx Family Cancer: No Physical Exam - Physical Exam General Appearance: Alert, Comfortable, No apparent distress Eye Exam: bilateral normal Ears, Nose, Throat: hearing grossly normal, normal pharynx Neck: non-tender, supple Respiratory: lungs clear, normal breath sounds, no respiratory distress, no accessory muscle use Cardiovascular/Chest: normal peripheral pulses, regular rate, rhythm, no edema Peripheral Pulses: radial,right: 2+, radial,left: 2+ Gastrointestinal/Abdominal: non tender - . Obese, soft Rectal Exam: deferred Back Exam: no CVA tenderness, no vertebral tenderness Extremity: no pedal edema, normal capillary refill, other - The patient is able to wiggle the toes on her right foot. Sensation appears to be at baseline which is chronically decreased. 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 Comments: Vital Signs - 8 hr 09/03/19 09/03/19 09/03/19 14:37 15:30 16:30 Temperature 98.3 F 98.6 F Pulse Rate [ 88 71 81 Pulse ox] Respiratory 16 20 20 Rate Blood Pressure 149/80 123/71 121/93 [R arm] O2 Sat by Pulse 97 97 95 Oximetry 09/03/19 09/03/19 17:30 18:30 Temperature Pulse Rate [ 85 76 Pulse ox] Respiratory 16 16 Rate Blood Pressure 135/83 130/87 [R arm] O2 Sat by Pulse 96 96 Oximetry Progress - Progress Progress: 09/03/19 20:26 43-year-old female presented emergency room with another episode of cyclical nausea and vomiting. This was likely triggered by constipation as indicated on the x-ray. The patient has received IV fluids for dehydration caused by this. She is also received nausea medications for this. The patient is also receiving a dose of milk of magnesia for the constipation. She does need to maintain a high-fiber low-fat diet. She does need to keep follow-up with orthopedics for her surgical repair of the right lower extremity. ER warnings given. Follow-up with primary care doctor in the next couple of days. She did receive some IV potassium as well for mild hypokalemia. [email or web address] - Results/Orders Results/Orders: Abdominal x-ray is consistent with constipation. Laboratory Tests 09/03/19 09/03/19 09/03/19 14:50 15:17 15:17 WBC 11.2 H RBC 4.00 L Hgb 11.2 L Hct 33.7 L MCV 84.4 MCH 28.0 MCHC 33.2 RDW 14.8 H Plt Count 221 MPV 8.3 Absolute Neuts (auto) 8.50 H Absolute Lymphs (auto) 2.00 Absolute Monos (auto) 0.60 Absolute Eos (auto) 0.10 Absolute Basos (auto) 0.10 Neutrophils % 76.1 Lymphocytes % 17.7 L Monocytes % 5.1 Eosinophils % 0.6 L Basophils % 0.5 Sodium 138 Potassium 3.3 L Chloride 103 Carbon Dioxide 26 Anion Gap 12.3 BUN 6 L D Creatinine 0.60 BUN/Creatinine Ratio 10.0 Random Glucose 85 Serum Osmolality 272.5 L Calcium 8.5 Magnesium 1.9 Total Bilirubin 0.4 AST 15 ALT 13 Alkaline Phosphatase 81 Serum Total Protein 6.6 Albumin 3.4 Globulin 3.2 Albumin/Globulin Ratio 1.1 Amylase 22 L Lipase 24 Serum HCG, Qual Negative Urine Color Urine Appearance Urine pH Ur Specific [place] Urine Protein Urine Glucose (UA) Urine Ketones Urine Blood Urine Nitrite Urine Bilirubin Urine Urobilinogen Ur Leukocyte Esterase Urine RBC Urine WBC Ur Epithelial Cells Urine Bacteria 09/03/19 17:50 WBC RBC Hgb Hct MCV MCH MCHC RDW Plt Count MPV Absolute Neuts (auto) Absolute Lymphs (auto) Absolute Monos (auto) Absolute Eos (auto) Absolute Basos (auto) Neutrophils % Lymphocytes % Monocytes % Eosinophils % Basophils % Sodium Potassium Chloride Carbon Dioxide Anion Gap BUN Creatinine BUN/Creatinine Ratio Random Glucose Serum Osmolality Calcium Magnesium Total Bilirubin AST ALT Alkaline Phosphatase Serum Total Protein Albumin Globulin Albumin/Globulin Ratio Amylase Lipase Serum HCG, Qual Urine Color Yellow Urine Appearance Sl cloudy Urine pH 7.0 Ur Specific [place] 1.015 Urine Protein Negative Urine Glucose (UA) Negative Urine Ketones 15 H Urine Blood Small H Urine Nitrite Negative Urine Bilirubin Negative Urine Urobilinogen 0.2 Ur Leukocyte Esterase Negative Urine RBC 0 Urine WBC 1-3 Ur Epithelial Cells 10-20 Urine Bacteria 0 Departure - Departure Clinical Impression: Hypokalemia, Cyclical vomiting with nausea, Dehydration Constipation Qualifiers: Constipation type: drug induced constipation Qualified Code(s): K59.03 - Drug induced constipation Disposition: Discharge to Home or Self Care Condition: Fair Departure Forms: ED Discharge - Pt. Copy, Patient Portal Self Enrollment Instructions: DI for Gastritis, DI for Constipation -- Child Diet: other - High-fiber low-fat Activity: no pushing/pulling with affected limb Referrals: Raulito Pantoja MD [Primary Care Provider] - 1-2 Weeks Prescriptions: Promethazine Supp [Phenergan Suppository] 12.5 mg [place] Q8HR PRN #10 sup PRN Reason: Nausea/Vomiting Home Medications: Ambulatory Orders Promethazine HCl 50 mg PO Q6H PRN 11/13/17 Diazepam [Valium] 10 mg PO DAILY 05/16/18 Spironolactone 25 mg PO DAILY #14 tab 11/10/18 Furosemide Tab [Lasix Tab] 40 mg PO DAILY PRN 01/19/19 Potassium Chloride [Potassium Chloride ER] 20 meq PO DAILY PRN 01/19/19 Rizatriptan Benzoate [Maxalt] 10 mg PO DAILY PRN 01/19/19 Acetaminophen W/ Codeine [Tylenol/Codeine #4 300-60 mg] 1 ea PO Q6HRS PRN 03/13/19 hydrOXYzine HCl [Atarax] 50 mg PO TID 03/13/19 Escitalopram Oxalate [Lexapro] 20 mg PO DAILY 04/21/19 Methocarbamol 750 mg PO TID 05/17/19 Furosemide [Lasix] 80 mg PO DAILY PRN 06/29/19 Potassium Chloride Microencaps [Potassium Chloride Cr] 40 meq PO DAILY PRN 06/29/19 Prochlorperazine Tab [Compazine Tab] 10 mg PO Q8H #12 tab 06/29/19 Temazepam [Restoril] 15 mg PO BEDTIME 06/29/19 Zonisamide [Zonegran] 100 mg PO DAILY 06/29/19 Omeprazole 40 mg PO BID #60 cap 08/05/19 Sucralfate Tab [Carafate Tab] 1 gm PO QID #60 tab 08/05/19 Acetaminophen W/ Codeine [Tylenol W/ CODEINE #3] 1 ea PO Q6H PRN #20 09/01/19 Promethazine Supp [Phenergan Suppository] 12.5 mg [place] Q8HR PRN #10 sup 09/03/19 Additional Instructions: 43-year-old female presented emergency room with another episode of cyclical nausea and vomiting. This was likely triggered by constipation as indicated on the x-ray. The patient has received IV fluids for dehydration caused by this. She is also received nausea medications for this. The patient is also receiving a dose of milk of magnesia for the constipation. She does need to maintain a high-fiber low-fat diet. She does need to keep follow-up with orthopedics for her surgical repair of the right lower extremity. ER warnings given. Follow-up with primary care doctor in the next couple of days. She did receive some IV potassium as well for mild hypokalemia.
[2019-09-03 20:35] VITALS: BP 153/94; TEMP 98.2; O2SAT 95
== END 2019-09-03 20:49 | disposition home or self-care (01) ==
LOC: ER 14:23
DX: E87.6 Hypokalemia (principal); E86.0 Dehydration; R11.2 Nausea with vomiting, unspecified; K59.03 Drug induced constipation; F17.200 Nicotine dependence, unspecified, uncomplicated; R06.02 Shortness of breath; Z79.899 Other long term (current) drug therapy
CPT/HCPCS: 36415; 74019; 80053; 81001; 82150; 83690; 83735; 84703; 85025; J0780; J3480

== ENCOUNTER 2019-09-06 21:10 | Emergency (ER) | payer SELFPAY ==
--- NOTE | 2019-09-06 22:36 | RAD ---
EXAM DESCRIPTION: Ankle,Right 3 Views CLINICAL HISTORY: injury COMPARISON: September 01, 2019 FINDINGS: Three x-ray views of the right ankle were submitted. There is an oblique mildly displaced fracture at the distal fibula at and above the level of the ankle mortise. There is also a displaced oblique fracture involving the medial malleolus and a nondisplaced fracture of the posterior malleolus. Disruption of the ankle mortise compatible with ligamentous injury. There is no radiopaque foreign body material. IMPRESSION: Trimalleolar fracture as described. Electronically signed by: Alfred Stevenson MD 09/06/2019 10:35 PM CDT
[2019-09-06] MEDS ORDERED: KETOROLAC TROMETHAMINE INJ 30 MG/ML VIAL IV ONE (22:44)
--- NOTE | 2019-09-06 23:04 | ED.PDOC ---
History of Present Illness - General Chief Complaint: Lower Extremity Injury Time Seen by Provider: 09/06/19 21:43 Source: patient Exam Limitations: no limitations - History of Present Illness Initial Comments: 43 yo F who presents for cramping sensation to the L anterior holguin, pain and tingling in her R lower leg where a splint is currently in place s/p ankle fx with dislocation several days ago, pt has been taking [place] and Tylenol #4 for pain at home, she also states she does not feel safe at home because she cannot care for herself, she is scared to use the crutches, states she is having halluc inations hearing music playing. Denies HI, SI, self injury, f/c, weakness, numbness, repeat injury, CP, SOB, cough, COVID exposure, abd pain, n/v/d. Pt is very well known to the sx and has been here multiple times this week for various complaints. Allergies/Adverse Reactions: Allergies Latex Allergy (Intermediate, Verified 09/03/19 14:51) red swelling Ondansetron [From Zofran] Allergy (Intermediate, Verified 09/03/19 14:51) migraine Doxycycline Allergy (Verified 09/03/19 14:51) Penicillins Allergy (Verified 09/03/19 14:51) N/V Sulfamethoxazole w/Trimethoprim [From Bactrim] Allergy (Verified 09/03/19 14:51) Amoxicillin [From Augmentin] Adverse Reaction (Verified 09/03/19 14:51) N/V Clavulanic Acid [From Augmentin] Adverse Reaction (Verified 09/03/19 14:51) N./V Home Medications: Ambulatory Orders RX: Promethazine HCl 50 mg PO Q6H PRN 11/13/17 RX: Diazepam [Valium] 10 mg PO DAILY 05/16/18 RX: Spironolactone 25 mg PO DAILY #14 tab 11/10/18 Furosemide Tab [Lasix Tab] 40 mg PO DAILY PRN 01/19/19 Potassium Chloride [Potassium Chloride ER] 20 meq PO DAILY PRN 01/19/19 Rizatriptan Benzoate [Maxalt] 10 mg PO DAILY PRN 01/19/19 Acetaminophen W/ Codeine [Tylenol/Codeine #4 300-60 mg] 1 ea PO Q6HRS PRN 03/13/19 hydrOXYzine HCl [Atarax] 50 mg PO TID 03/13/19 Escitalopram Oxalate [Lexapro] 20 mg PO DAILY 04/21/19 RX: Methocarbamol 750 mg PO TID 05/17/19 Furosemide [Lasix] 80 mg PO DAILY PRN 06/29/19 Potassium Chloride Microencaps [Potassium Chloride Cr] 40 meq PO DAILY PRN 06/29/19 Prochlorperazine Tab [Compazine Tab] 10 mg PO Q8H #12 tab 06/29/19 Temazepam [Restoril] 15 mg PO BEDTIME 06/29/19 Zonisamide [Zonegran] 100 mg PO DAILY 06/29/19 RX: Omeprazole 40 mg PO BID #60 cap 08/05/19 Sucralfate Tab [Carafate Tab] 1 gm PO QID #60 tab 08/05/19 Acetaminophen W/ Codeine [Tylenol W/ CODEINE #3] 1 ea PO Q6H PRN #20 09/01/19 RX: Promethazine Supp [Phenergan Suppository] 12.5 mg [place] Q8HR PRN #10 sup 09/03/19 Review of Systems - Review of Systems Constitutional: Denies: chills, fever EENTM: Denies: blurred vision, double vision, nose congestion, throat pain Respiratory: Denies: cough, short of breath Cardiology: Denies: chest pain, edema, palpitations Gastrointestinal/Abdominal: Denies: abdominal pain, diarrhea, nausea, vomiting Genitourinary: Denies: dysuria, frequency, hematuria Musculoskeletal: States: joint pain, muscle pain. Denies: back pain, neck pain Skin: Denies: lesions, rash Neurological: States: tingling, other - +AH Past Medical History (General) - Patient Medical History Hx Seizures: No Hx Stroke: No Hx Dementia: No Hx Asthma: No Hx of COPD: No Hx Cardiac Disorders: No Hx Congestive Heart Failure: No Hx Pacemaker: No Hx Hypertension: No Hx Thyroid Disease: No Hx Diabetes: No Hx Gastroesophageal Reflux: No Hx Renal Disease: No Hx Cancer: No Hx of HIV: No Hx Hepatitis C: No Hx MRSA: No - Vaccination History Hx Tetanus, Diphtheria Vaccination: No Hx Influenza Vaccination: Yes Hx Pneumococcal Vaccination: No - Social History Hx Tobacco Use: Yes Hx Chewing Tobacco Use: No Hx Alcohol Use: No Hx Substance Use: No Hx Substance Use Treatment: No Hx Depression: Yes Hx Physical Abuse: No Hx Emotional Abuse: No Hx Suspected Abuse: No - Female History Hx Last Menstrual Period: 03/28/15 Patient : No - IUD Family Medical History - Family History Father Family History: Unknown Living Status: Still Living Hx Family Asthma: No Hx Family Congestive Heart Failure: No Hx Family Hypertension: Yes - father Hx Family Stroke: No Hx Cardiac Disease: No Hx Family Diabetes: No Hx Family Cancer: No Mother Family History: Unknown Living Status: Cause of : unsure Hx Family Hypertension: - dad Physical Exam - Physical Exam General Appearance: Alert, Comfortable, No apparent distress, Well Developed, Well Nourished Eyes, Ears, Nose, Throat: normal ENT inspection Neck: full range of motion, supple Cardiovascular/Respiratory: regular rate, rhythm, no M/R/G, normal peripheral pulses, normal breath sounds, no respiratory distress Gastrointestinal/Abdominal: non-tender Thigh/Hip: normal inspection, non-tender, no evidence of injury, normal ROM Leg: normal inspection, non-tender, no evidence of injury, normal ROM Knee: normal inspection, non-tender, no evidence of injury, normal ROM Ankle: other - Stirrup splint in place Neuro/Tendon: normal sensation, normal motor functions Mental Status: alert, oriented x 3 Skin: normal color, warm/dry Comments: RLE with stirrup splint in place, splint was removed, 2+ pulses, cap refill <2sec, no pedal edema, no calf TTP, soft compartments, sensation intact. New splint was then placed back on. Progress - Progress Progress: 09/06/19 23:02 Workup unremarkable, XR with trimalleolar fx as previously seen, NVID. Went to d/c pt, now states she is suicidal with a plan, states she would take medication like she did back in 2009. Denies self injury today. Will contact [facility]. 09/06/19 23:56 Pt was been accepted to a crisis facility. 09/07/19 01:29 When [place], psych television inspector, came to talk to pt, she refused to use crutches and therefore is unable to go to the crisis center. After a discussion with [place] and myself, pt states she is no longer suicidal, she has a friend coming to pick her up and they will ensure her safety, she has a wheelchair to use at home, will follow up with psych in am. Denies SI at this time, feels safe going home. I have explained and reviewed all results with the pt. I explained that emergent conditions may arise and to return to the ER for new, worsening, or any persiste nt conditions. I've explained the importance of f/u for recheck. All questions and concerns addressed at this time. Pt understands and agrees with plan. Pt well appearing, NAD, is stable for discharge. Debbie Martinez MD Emergency Medicine Physician Billing Number [id number] - Results/Orders Results/Orders: 09/06/19 22:24 URINE DRUG SCREEN, 7 ASSAY Stat HCG,QUALITATIVE URINE Stat Laboratory Results - last 24 hr 09/06/19 09/06/19 09/06/19 21:58 21:58 23:10 WBC 10.7 RBC 4.27 Hgb 12.3 Hct 35.2 L MCV 82.5 MCH 28.7 MCHC 34.8 RDW 14.8 H Plt Count 345 MPV 7.5 Absolute Neuts (auto) 6.90 H Absolute Lymphs (auto) 3.00 Absolute Monos (auto) 0.70 Absolute Eos (auto) 0.20 Absolute Basos (auto) 0.10 Neutrophils % 64.1 Lymphocytes % 27.6 Monocytes % 6.1 Eosinophils % 1.5 Basophils % 0.7 Sodium 134 L Potassium 3.5 L Chloride 99 L Carbon Dioxide 22 Anion Gap 16.5 BUN 7 Creatinine 0.52 L BUN/Creatinine Ratio 13.5 Random Glucose 92 Serum Osmolality 265.9 L Calcium 9.0 Total Bilirubin 0.5 AST 18 ALT 13 Alkaline Phosphatase 89 Creatine Kinase 200 H Serum Total Protein 7.4 Albumin 3.7 Globulin 3.7 H Albumin/Globulin Ratio 1.0 L Salicylates Acetaminophen Ethyl Alcohol < 5.40 09/06/19 23:10 WBC RBC Hgb Hct MCV MCH MCHC RDW Plt Count MPV Absolute Neuts (auto) Absolute Lymphs (auto) Absolute Monos (auto) Absolute Eos (auto) Absolute Basos (auto) Neutrophils % Lymphocytes % Monocytes % Eosinophils % Basophils % Sodium Potassium Chloride Carbon Dioxide Anion Gap BUN Creatinine BUN/Creatinine Ratio Random Glucose Serum Osmolality Calcium Total Bilirubin AST ALT Alkaline Phosphatase Creatine Kinase Serum Total Protein Albumin Globulin Albumin/Globulin Ratio Salicylates < 4.0 Acetaminophen < 10.0 L Ethyl Alcohol Right ankle XR (performed after splint was replaced): EXAM DESCRIPTION: Ankle,Right 3 Views CLINICAL HISTORY: injury COMPARISON: September 01, 2019 FINDINGS: Three x-ray views of the right ankle were submitted. There is an oblique mildly displaced fracture at the distal fibula at and above the level of the ankle mortise. There is also a displaced oblique fracture involving the medial malleolus and a nondisplaced fracture of the posterior malleolus. Disruption of the ankle mortise compatible with ligamentous injury. There is no radiopaque foreign body material. IMPRESSION: Trimalleolar fracture as described. Electronically signed by: Alfred Stevenson MD 09/06/2019 10:35 PM CDT Departure - Departure Clinical Impression: Passive suicidal ideations Trimalleolar fracture of ankle, closed Qualifiers: Encounter type: subsequent encounter Laterality: right Fracture healing: with routine healing Qualified Code(s): S82.851D - Displaced trimalleolar fracture of right lower leg, subsequent encounter for closed fracture with routine healing Time of Disposition: 23:58 Disposition: Discharge to Home or Self Care Health Concerns: condition: stable Departure Forms: ED Discharge - Pt. Copy, Patient Portal Self Enrollment Instructions: Ankle Fracture (DC) Referrals: Raulito Pantoja MD [Primary Care Provider] - 1-2 Weeks Karson Taylor MD [Active Staff] - 1-5 Days Home Medications: Ambulatory Orders RX: Promethazine HCl 50 mg PO Q6H PRN 11/13/17 RX: Diazepam [Valium] 10 mg PO DAILY 05/16/18 RX: Spironolactone 25 mg PO DAILY #14 tab 11/10/18 Furosemide Tab [Lasix Tab] 40 mg PO DAILY PRN 01/19/19 Potassium Chloride [Potassium Chloride ER] 20 meq PO DAILY PRN 01/19/19 Rizatriptan Benzoate [Maxalt] 10 mg PO DAILY PRN 01/19/19 Acetaminophen W/ Codeine [Tylenol/Codeine #4 300-60 mg] 1 ea PO Q6HRS PRN 03/13/19 hydrOXYzine HCl [Atarax] 50 mg PO TID 03/13/19 Escitalopram Oxalate [Lexapro] 20 mg PO DAILY 04/21/19 RX: Methocarbamol 750 mg PO TID 05/17/19 Furosemide [Lasix] 80 mg PO DAILY PRN 06/29/19 Potassium Chloride Microencaps [Potassium Chloride Cr] 40 meq PO DAILY PRN 06/29/19 Prochlorperazine Tab [Compazine Tab] 10 mg PO Q8H #12 tab 06/29/19 Temazepam [Restoril] 15 mg PO BEDTIME 06/29/19 Zonisamide [Zonegran] 100 mg PO DAILY 06/29/19 RX: Omeprazole 40 mg PO BID #60 cap 08/05/19 Sucralfate Tab [Carafate Tab] 1 gm PO QID #60 tab 08/05/19 Acetaminophen W/ Codeine [Tylenol W/ CODEINE #3] 1 ea PO Q6H PRN #20 09/01/19 RX: Promethazine Supp [Phenergan Suppository] 12.5 mg [place] Q8HR PRN #10 sup 09/03/19 Additional Instructions: Go to: [facility] As needed, if symptoms worsen Dr. Main, orthopedic surgery, [place], ; call tomorrow to set up follow up appointment mickey
[2019-09-06] MEDS ORDERED: KETOROLAC TROMETHAMINE INJ 30 MG/ML VIAL IM ONE (23:10)
[2019-09-07 01:36] VITALS: O2SAT 98
[2019-09-07 01:42] VITALS: BP 140/78; TEMP 98.1
== END 2019-09-07 01:35 | disposition home or self-care (01) ==
LOC: ER 21:10
DX: R45.851 Suicidal ideations (principal); S82.851D Displaced trimalleolar fracture of right lower leg, subsequent encounter for closed fracture with routine healing; F17.200 Nicotine dependence, unspecified, uncomplicated; Z79.899 Other long term (current) drug therapy; Y92.9 Unspecified place or not applicable
CPT/HCPCS: 36415; 73610; 80053; 80320; 80329; 82550; 84703; 85025; J1885

== ENCOUNTER → 2019-09-28 | Outpatient (CLI) | payer SELFPAY ==
--- NOTE | 2019-09-28 15:18 | RAD ---
EXAM DESCRIPTION: Ankle,Left 3 Views CLINICAL HISTORY: PAIN IN RIGHT ANKLE AND JOINTS OF RIGHT FOOT COMPARISON: September 06, 2019 IMPRESSION: 3 views of the left ankle show interval postsurgical changes from ORIF of bimalleolar fracture. Lateral plate and screw fixation of the distal fibula is seen with 2 orthopedic cortical screws fixating the medial malleolus. Fractures appear in near anatomic alignment. Ankle mortise is maintained and shows improved positioning from previous. Findings bony details obscured by surrounding fiberglass cast. Vertically oriented fracture of the posterior distal tibia is seen with minimal displacement of the fracture fragments. Electronically signed by: Carmelo Costello MD 09/28/2019 3:17 PM CDT
== END ==
LOC: RAD 09:24
PROVIDERS: ATTEND Orthopaedic Surgery
DX: S82.842D Displaced bimalleolar fracture of left lower leg, subsequent encounter for closed fracture with routine healing (principal); Z98.890 Other specified postprocedural states

== ENCOUNTER → 2020-01-04 | Outpatient (CLI) | payer SELFPAY ==
--- NOTE | 2020-01-05 11:00 | RAD ---
EXAM DESCRIPTION: Chest,2 Views CLINICAL HISTORY: DYSPNEA COMPARISON: September 01, 2019 July 30, 2019 TECHNIQUE: PA/lateral FINDINGS: The left lung is essentially clear. Coarsened markings in the infrahilar region right lung base are present but little change from August 2019 examination. Minimal atelectasis or minimal interstitial infiltrate cannot be completely excluded. No associated pleural effusions. Heart size within the limits of normal. No cardiac decompensation or pleural effusion or other abnormalities noted. IMPRESSION: Stranding and coarsened markings in the right infrahilar region similar to most recent study but more prominent than more remote examination. Minimal inflammation or developing infiltrate in this location should be considered. Electronically signed by: Gerardo Yoder MD 01/05/2020 10:58 AM [facility]
== END ==
LOC: YCFC.O 11:11
PROVIDERS: ATTEND Family Medicine
DX: R06.00 Dyspnea, unspecified (principal); R91.8 Other nonspecific abnormal finding of lung field; Z86.718 Personal history of other venous thrombosis and embolism

== ENCOUNTER 2020-01-29 11:12 | Emergency (ER) | payer SELFPAY ==
[2020-01-29] MEDS ORDERED: ALPRAZolam 0.25 MG TAB PO ONE (11:44)
[2020-01-29] MEDS ORDERED: diphenhydrAMINE HCL 25 MG CAP PO ONE (11:47)
[2020-01-29] MEDS ORDERED: HALOPERIDOL TAB 5MG PO ONE (11:47)
--- NOTE | 2020-01-29 12:09 | ED.PDOC ---
History of Present Illness - General Chief Complaint: Behavioral / Psych Time Seen by Provider: 01/29/20 11:39 Source: patient - History of Present Illness Initial Comments: PATIENT PRESENTS WITH A 2 WEEK HISTORY OF INSOMNIA, STATES HEARING VOICES, PMHX OF DEPRESSION, SUBSTANCE ABUSE, SUBSTANCE DEPENDENCY AND ANXIETY. HER FATHER WHO IS A PHARMACIST CALLED AND TALKED TO NURSE TAKING CARE OF PATIENT AND STATED HE BELIEVES HER PROBLEM IS SEROTONIN SYNDROM, NO RECENT NEW MEDICATIONS. SHE HAS BEEN ON PROZAC FOR A LONG TIME. REVIEWING PATIENTS CHART, SHE APPEARS TO HAVE HAD SIMILAR SYMPTOMS IN THE PAST ALTHOUGH SHE STATES THIS INSOMINIA AND THE VOICES ARE THE WORSE EVER. SHE SEEMS TO BE COMPLAINING OF BOTH AUDITORY AND VISUAL HALUCINATIONS, ALTHOUGH SHE IS VAGUE ABOUT THIS. SHE IS VERY MUCH RELUCTANT TO TALK TO [facility] ALTHOUGH THIS IS WHERE SHE GETS ALL HER MENTAL HEALTH FOLLOW UP FROM. PATIENT SPECIFICALLY DENIES SUICIDAL IDEATION. Allergies/Adverse Reactions: Allergies Latex Allergy (Intermediate, Verified 01/29/20 11:49) red swelling Ondansetron [From Zofran] Allergy (Intermediate, Verified 01/29/20 11:49) migraine Doxycycline Allergy (Verified 01/29/20 11:49) Penicillins Allergy (Verified 01/29/20 11:49) N/V Sulfamethoxazole w/Trimethoprim [From Bactrim] Allergy (Verified 01/29/20 11:49) Amoxicillin [From Augmentin] Adverse Reaction (Verified 01/29/20 11:49) N/V Clavulanic Acid [From Augmentin] Adverse Reaction (Verified 01/29/20 11:49) N./V Home Medications: Ambulatory Orders B-12 INJ WKLY 01/29/20 Clonidine HCl [Clonidine Hydrochloride] 0.2 mg PO BEDTIME #14 tab 01/29/20 Fexofenadine HCl [Yocasta] 60 mg PO DAILY 01/29/20 Fluoxetine HCl [Prozac] 40 mg PO DAILY 01/29/20 Hydroxyzine Pamoate [Vistaril] 50 mg PO TID 01/29/20 Levothyroxine Sodium 50 mcg PO DAILY 01/29/20 Propranolol HCl 01/29/20 Restoril 2 mg PO DAILY 01/29/20 Rizatriptan Benzoate [Maxalt] 10 mg PO 01/29/20 Trazodone HCl [Trazodone Hydrochloride] 100 mg PO DAILY 01/29/20 Zonisamide [Zonegran] 100 mg PO DAILY 01/29/20 Review of Systems - Review of Systems Constitutional: States: no symptoms reported EENTM: States: no symptoms reported Respiratory: States: no symptoms reported Cardiology: States: no symptoms reported Gastrointestinal/Abdominal: States: no symptoms reported Genitourinary: States: no symptoms reported Musculoskeletal: States: no symptoms reported Skin: States: no symptoms reported Neurological: States: no symptoms reported Endocrine: States: no symptoms reported Past Medical History (General) - Patient Medical History Hx Seizures: No Hx Stroke: No Hx Dementia: No Hx Asthma: No Hx of COPD: No Hx Cardiac Disorders: No Hx Congestive Heart Failure: No Hx Pacemaker: No Hx Hypertension: No Hx Thyroid Disease: No Hx Diabetes: No Hx Gastroesophageal Reflux: No Hx Renal Disease: No Hx Cancer: No Hx of HIV: No Hx Hepatitis C: No Hx MRSA: No - Vaccination History Hx Tetanus, Diphtheria Vaccination: No Hx Influenza Vaccination: Yes Hx Pneumococcal Vaccination: No - Social History Hx Tobacco Use: Yes Hx Chewing Tobacco Use: No Hx Alcohol Use: No Hx Substance Use: No Hx Substance Use Treatment: No Hx Depression: Yes Hx Physical Abuse: No Hx Emotional Abuse: No Hx Suspected Abuse: No - Female History Hx Last Menstrual Period: 03/28/15 Patient : No - IUD Family Medical History - Family History Mother Family History: Unknown Living Status: Cause of : unsure Hx Family Hypertension: - dad Father Family History: Unknown Living Status: Still Living Hx Family Asthma: No Hx Family Congestive Heart Failure: No Hx Family Hypertension: Yes - father Hx Family Stroke: No Hx Cardiac Disease: No Hx Family Diabetes: No Hx Family Cancer: No Physical Exam - Physical Exam General Appearance: Agitated, Anxious, Well Developed, Well Groomed, Other - TEARFUL Ears, Nose, Throat: hearing grossly normal, normal ENT inspection, normal pharynx Neck: non-tender, full range of motion, supple Respiratory: chest non-tender, lungs clear, normal breath sounds Cardiovascular/Chest: normal peripheral pulses, no edema, no gallop, no JVD, tachycardia Gastrointestinal/Abdominal: normal bowel sounds, non tender, soft, no organomegaly Extremity: normal range of motion, non-tender, normal inspection Neurologic: customs port director II-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 Departure - Departure Clinical Impression: Auditory hallucination, Visual hallucination, Anxiety Insomnia Qualifiers: Insomnia type: due to other mental disorder Qualified Code(s): F51.05 - I nsomnia due to other mental disorder Time of Disposition: 13:47 Disposition: Discharge to Home or Self Care Condition: Good Departure Forms: ED Discharge - Pt. Copy, Patient Portal Self Enrollment Instructions: DI for Psychosis Referrals: Mik Hernandez MD [Primary Care Provider] - 1-2 Weeks Prescriptions: Clonidine HCl [Clonidine Hydrochloride] 0.2 mg PO BEDTIME #14 tab Home Medications: Ambulatory Orders B-12 INJ WKLY 01/29/20 Clonidine HCl [Clonidine Hydrochloride] 0.2 mg PO BEDTIME #14 tab 01/29/20 Fexofenadine HCl [Yocasta] 60 mg PO DAILY 01/29/20 Fluoxetine HCl [Prozac] 40 mg PO DAILY 01/29/20 Hydroxyzine Pamoate [Vistaril] 50 mg PO TID 01/29/20 Levothyroxine Sodium 50 mcg PO DAILY 01/29/20 Propranolol HCl 01/29/20 Restoril 2 mg PO DAILY 01/29/20 Rizatriptan Benzoate [Maxalt] 10 mg PO 01/29/20 Trazodone HCl [Trazodone Hydrochloride] 100 mg PO DAILY 01/29/20 Zonisamide [Zonegran] 100 mg PO DAILY 01/29/20
[2020-01-29 12:51] VITALS: O2SAT 98
[2020-01-29 14:14] VITALS: BP 151/92; TEMP 98.4
== END 2020-01-29 14:09 | disposition home or self-care (01) ==
LOC: ER 11:12
DX: F51.05 Insomnia due to other mental disorder (principal); R44.0 Auditory hallucinations; R44.1 Visual hallucinations; F32.9 Major depressive disorder, single episode, unspecified; F41.9 Anxiety disorder, unspecified; F19.11 Other psychoactive substance abuse, in remission; Z79.899 Other long term (current) drug therapy; Z87.891 Personal history of nicotine dependence; Z88.1 Allergy status to other antibiotic agents; Z88.2 Allergy status to sulfonamides; Z88.0 Allergy status to penicillin; Z88.8 Allergy status to other drugs, medicaments and biological substances; Z91.040 Latex allergy status
CPT/HCPCS: 36415; 80307; 80320; Q0163

== ENCOUNTER 2020-02-09 17:58 | Emergency (ER) | payer SELFPAY ==
[2020-02-09 19:24] VITALS: TEMP 98.6
[2020-02-09] MEDS ORDERED: SODIUM CHLORIDE 0.9% 1000ML 1,000 ML IVS ONE (19:28)
[2020-02-09] MEDS ORDERED: SODIUM CHLORIDE 0.9% (FLUSH) 10 ML SYG IV PRN (19:28)
[2020-02-09] MEDS ORDERED: PROMETHAZINE HCL INJ 25 MG in SODIUM CHLORIDE 0.9% 50ML 50 ML IVPB ONE (19:29)
--- NOTE | 2020-02-09 20:12 | ED.PDOC ---
History of Present Illness - General Chief Complaint: GI Problem Stated Complaint: nausea +vomiting X 36 hrs, body aches Time Seen by Provider: 02/09/20 19:28 Source: patient, RN notes reviewed, Vital Signs reviewed Exam Limitations: no limitations - History of Present Illness Initial Comments: Patient is a 44-year-old white female who presents with complaints of nausea and vomiting x36 hours and having shakes. Anytime she tries to eat or drink anything she vomits. Nothing seems to make the vomiting better. She denies any diarrhea. Patient denies any dizziness, blurry vision, headache, chest pain, shortness of breath. Patient denies any abdominal pain. Timing/Duration: other - 36 hours Severity: severe Improving Factors: nothing Worsening Factors: eating Associated Symptoms: nausea/vomiting Allergies/Adverse Reactions: Allergies Latex Allergy (Intermediate, Verified 02/09/20 19:17) red swelling Ondansetron [From Zofran] Allergy (Intermediate, Verified 02/09/20 19:17) migraine Doxycycline Allergy (Verified 02/09/20 19:17) Penicillins Allergy (Verified 02/09/20 19:17) N/V Sulfamethoxazole w/Trimethoprim [From Bactrim] Allergy (Verified 02/09/20 19:17) Amoxicillin [From Augmentin] Adverse Reaction (Verified 02/09/20 19:17) N/V Clavulanic Acid [From Augmentin] Adverse Reaction (Verified 02/09/20 19:17) N./V Home Medications: Ambulatory Orders B-12 INJ WKLY 01/29/20 Clonidine HCl [Clonidine Hydrochloride] 0.2 mg PO BEDTIME #14 tab 01/29/20 Fexofenadine HCl [Yocasta] 60 mg PO DAILY 01/29/20 Fluoxetine HCl [Prozac] 40 mg PO DAILY 01/29/20 Hydroxyzine Pamoate [Vistaril] 50 mg PO TID 01/29/20 Levothyroxine Sodium 50 mcg PO DAILY 01/29/20 Propranolol HCl 01/29/20 Restoril 2 mg PO DAILY 01/29/20 Rizatriptan Benzoate [Maxalt] 10 mg PO 01/29/20 Trazodone HCl [Trazodone Hydrochloride] 100 mg PO DAILY 01/29/20 Zonisamide [Zonegran] 100 mg PO DAILY 01/29/20 Promethazine Tab [Phenergan Tablet] 25 mg PO Q6H #12 tab 02/09/20 Review of Systems - Review of Systems Constitutional: States: no symptoms reported, see HPI. Denies: chills, fever, malaise, weakness EENTM: States: no symptoms reported. Denies: eye pain, blurred vision, double vision Respiratory: States: no symptoms reported. Denies: cough, short of breath Cardiology: States: no symptoms reported. Denies: chest pain, palpitations, syncope Gastrointestinal/Abdominal: States: see HPI, nausea, vomiting. Denies: abdominal pain, diarrhea Genitourinary: States: no symptoms reported. Denies: dysuria, frequency, hematuria Musculoskeletal: States: no symptoms reported. Denies: back pain, joint pain, neck pain Skin: States: no symptoms reported. Denies: change in color, rash Neurological: States: no symptoms reported. Denies: headache, tingling, tremors, weakness Endocrine: States: no symptoms reported. Denies: increased hunger, increased thirst, increased urine Hematologic/Lymphatic: States: no symptoms reported. Denies: blood clots, easy bleeding All other Systems: Reviewed and Negative Past Medical History (General) - Patient Medical History Hx Seizures: No Hx Stroke: No Hx Dementia: No Hx Asthma: No Hx of COPD: No Hx Cardiac Disorders: No Hx Congestive Heart Failure: No Hx Pacemaker: No Hx Hypertension: No Hx Thyroid Disease: No Hx Diabetes: No Hx Gastroesophageal Reflux: No Hx Renal Disease: No Hx Cancer: No Hx of HIV: No Hx Hepatitis C: No Hx MRSA: No Surgical History: cholecystectomy, tonsillectomy - Vaccination History Hx Tetanus, Diphtheria Vaccination: No Hx Influenza Vaccination: Yes Hx Pneumococcal Vaccination: No - Social History Hx Tobacco Use: Yes Hx Chewing Tobacco Use: No Hx Alcohol Use: No Hx Substance Use: No Hx Substance Use Treatment: No Hx Depression: Yes Hx Physical Abuse: No Hx Emotional Abuse: No Hx Suspected Abuse: No - Female History Hx Last Menstrual Period: 03/28/15 Patient : No - IUD Family Medical History - Family History Mother Family History: Unknown Living Status: Cause of : unsure Hx Family Hypertension: - dad Father Family History: Unknown Living Status: Still Living Hx Family Asthma: No Hx Family Congestive Heart Failure: No Hx Family Hypertension: Yes - father Hx Family Stroke: No Hx Cardiac Disease: No Hx Family Diabetes: No Hx Family Cancer: No Physical Exam - Physical Exam General Appearance: Alert, Anxious, No apparent distress, Well Developed, Well Groomed, Well Nourished Eye Exam: bilateral normal Ears, Nose, Throat: hearing grossly normal, normal pharynx - except for tachy MM. Neck: non-tender, full range of motion, supple Respiratory: chest non-tender, lungs clear, normal breath sounds, no respiratory distress, no accessory muscle use Cardiovascular/Chest: normal peripheral pulses, regular rate, rhythm, no edema, no gallop, no JVD, no murmur Peripheral Pulses: radial,right: 2+, radial,left: 2+ Gastrointestinal/Abdominal: normal bowel sounds, non tender, soft, no organomegaly, no pulsatile mass Back Exam: normal inspection, no CVA tenderness, no vertebral tenderness Extremity: normal range of motion, non-tender, normal inspection Neurologic: vp integrity II-XII nml as tested, no motor/sensory deficits, alert, normal mood/affect, oriented x 3 Skin Exam: normal color, warm/dry Lymphatic: no adenopathy Progress - Progress Progress: Differential diagnosis: Bowel obstruction, UTI, gastroparesis, malingering among others. 02/09/20 21:22 Lab work is relatively unremarkable. There is no UTI. Patient is improved after liter of IV fluids and IV Phenergan. She is tolerating p.o. without difficulty. Plan on discharge home with prescription for Phenergan and follow- up with her PCP. I discussed this plan of care with the patient she voices understanding and agreement. Charles Zamora M.D. #[id number] - Results/Orders Results/Orders: 02/09/20 19:28 Sodium Chloride 0.9% (Flush) [Saline Flush Syringe] 10 ml IV PRN PRN 02/09/20 20:30 RAPID SARS-CoV-2 RNA Stat Laboratory Results - last 24 hr 02/09/20 02/09/20 02/09/20 19:36 19:36 19:36 WBC 7.8 RBC 5.05 Hgb 14.5 Hct 43.3 MCV 85.7 MCH 28.7 MCHC 33.5 RDW 14.6 H Plt Count 190 MPV 8.6 Absolute Neuts (auto) 4.50 Absolute Lymphs (auto) 2.80 Absolute Monos (auto) 0.40 Absolute Eos (auto) 0.10 Absolute Basos (auto) 0.10 Neutrophils % 58.0 Lymphocytes % 35.2 Monocytes % 5.0 Eosinophils % 0.9 L Basophils % 0.9 Sodium 142 Potassium 3.7 Chloride 103 Carbon Dioxide 28 Anion Gap 14.7 BUN 13 Creatinine 0.84 BUN/Creatinine Ratio 15.5 Random Glucose 88 Serum Osmolality 282.7 Calcium 9.1 Total Bilirubin 0.6 Direct Bilirubin 0.1 Indirect Bilirubin 0.5 AST 17 ALT 19 Alkaline Phosphatase 87 Serum Total Protein 8.0 Albumin 4.3 Lipase 27 Serum HCG, Qual Urine Color Urine Appearance Urine pH Ur Specific [place] Urine Protein Urine Glucose (UA) Urine Ketones Urine Blood Urine Nitrite Urine Bilirubin Urine Urobilinogen Ur Leukocyte Esterase Urine RBC Urine WBC Ur Epithelial Cells Urine Bacteria Urine Mucus 02/09/20 02/09/20 19:36 20:11 WBC RBC Hgb Hct MCV MCH MCHC RDW Plt Count MPV Absolute Neuts (auto) Absolute Lymphs (auto) Absolute Monos (auto) Absolute Eos (auto) Absolute Basos (auto) Neutrophils % Lymphocytes % Monocytes % Eosinophils % Basophils % Sodium Potassium Chloride Carbon Dioxide Anion Gap BUN Creatinine BUN/Creatinine Ratio Random Glucose Serum Osmolality Calcium Total Bilirubin Direct Bilirubin Indirect Bilirubin AST ALT Alkaline Phosphatase Serum Total Protein Albumin Lipase Serum HCG, Qual Negative Urine Color Yellow Urine Appearance Clear Urine pH 7.0 Ur Specific [place] 1.020 Urine Protein Negative Urine Glucose (UA) Negative Urine Ketones Negative Urine Blood Negative Urine Nitrite Negative Urine Bilirubin Negative Urine Urobilinogen 0.2 Ur Leukocyte Esterase Negative Urine RBC 0 Urine WBC 0-1 Ur Epithelial Cells 0-1 Urine Bacteria Rare Urine Mucus Trace Vital Signs 02/09/20 02/09/20 02/09/20 19:17 20:00 21:00 Temperature 98.6 F Pulse Rate [ 82 94 H 64 Left Radial] Respiratory 16 14 14 Rate Blood Pressure 134/74 129/66 126/87 [Left Arm] O2 Sat by Pulse 98 97 100 Oximetry - EKG/XRAY/CT CT Ordered: No Departure - Departure Clinical Impression: Dehydration Nausea and vomiting Qualifiers: Vomiting type: unspecified Vomiting Intractability: non-intractable Qualified Code(s): R11.2 - Nausea with vomiting, unspecified Time of Disposition: 21:24 Disposition: Discharge to Home or Self Care Condition: Good Departure Forms: ED Discharge - Pt. Copy, Patient Portal Self Enrollment Instructions: Dehydration, Adult (DC), Nausea and Vomiting, Adult (DC), Gastroparesis (Delayed Gastric Emptying) (DC) Diet: full liquid diet Activity: increase activity as tolerated Referrals: Mik Hernandez MD [Primary Care Provider] - 1-5 Days Prescriptions: Promethazine Tab [Phenergan Tablet] 25 mg PO Q6H #12 tab Home Medications: Ambulatory Orders B-12 INJ WKLY 01/29/20 Clonidine HCl [Clonidine Hydrochloride] 0.2 mg PO BEDTIME #14 tab 01/29/20 Fexofenadine HCl [Yocasta] 60 mg PO DAILY 01/29/20 Fluoxetine HCl [Prozac] 40 mg PO DAILY 01/29/20 Hydroxyzine Pamoate [Vistaril] 50 mg PO TID 01/29/20 Levothyroxine Sodium 50 mcg PO DAILY 01/29/20 Propranolol HCl 01/29/20 Restoril 2 mg PO DAILY 01/29/20 Rizatriptan Benzoate [Maxalt] 10 mg PO 01/29/20 Trazodone HCl [Trazodone Hydrochloride] 100 mg PO DAILY 01/29/20 Zonisamide [Zonegran] 100 mg PO DAILY 01/29/20 Promethazine Tab [Phenergan Tablet] 25 mg PO Q6H #12 tab 02/09/20
[2020-02-09 21:35] VITALS: BP 120/72; O2SAT 95
== END 2020-02-09 21:35 | disposition home or self-care (01) ==
LOC: ER 17:58
DX: R11.2 Nausea with vomiting, unspecified (principal); E86.0 Dehydration; F32.9 Major depressive disorder, single episode, unspecified; Z20.828 Contact with and (suspected) exposure to other viral communicable diseases; Z90.49 Acquired absence of other specified parts of digestive tract; Z87.891 Personal history of nicotine dependence; Z79.899 Other long term (current) drug therapy; Z88.1 Allergy status to other antibiotic agents; Z88.2 Allergy status to sulfonamides; Z88.0 Allergy status to penicillin; Z88.8 Allergy status to other drugs, medicaments and biological substances; Z91.040 Latex allergy status
CPT/HCPCS: 36415; 80048; 80076; 81001; 83690; 84703; 85025; 87635; A4216; J2550; J7030

== ENCOUNTER 2020-03-18 23:32 | Emergency (ER) | payer SELFPAY ==
--- NOTE | 2020-03-18 23:56 | RAD ---
EXAM DESCRIPTION: Ankle,Right 3 Views 03/18/2020 11:51 PM RESOURCE COORDINATOR CLINICAL HISTORY: 44 years, Female, pain after fall COMPARISON: 11/23/2019. FINDINGS: 3 X-ray views of the right ankle were performed. There has been interval disruption of the distal portion plate fixation device/ORIF distal fibula with an area of fracture. There is has been interval bending of the fixation screws/ORIF along the medial malleolus. There is a posterior corner fracture of the distal radius/posterior malleolus with subluxation of the tibial talar joint. There is mild separation along the ankle mortise views suggesting instability. There is associated soft tissue swelling. IMPRESSION: DISRUPTION OF THE PREVIOUS ORIF LATERAL MALLEOLUS/DISTAL FIBULA WITH AREA OF FRACTURE ABOVE THE AREA OF PLATE FIXATION DEVICE. BENDING THE NAIL ORIF MEDIAL MALLEOLUS. POSTERIOR MALLEOLAR FRACTURE DISTAL TIBIA WITH SUBLUXATION TIBIOTALAR JOINT AND DIASTASES ALONG THE ANKLE MORTISE VIEWS. Electronically signed by: Alejandro Oh MD 03/18/2020 11:54 PM RESOURCE COORDINATOR
--- NOTE | 2020-03-19 00:19 | ED.PDOC ---
History of Present Illness - General Chief Complaint: Lower Extremity Injury Stated Complaint: right ankle pain after falling Time Seen by Provider: 03/19/20 00:18 - History of Present Illness Initial Comments: PatientSlipped at home landing on her right lower extremity About an hour and a half ago. She complains of severe pain and swelling Of the Right ankle. Patient states she had a severe injury in August 2019 at which time she underwent surgery for open reduction internal fixation of theRight ankle. She denies any other injury. Occurred: this afternoon, this evening Pain - Lower Extremity: severe: Right Ankle Method of Injury: fell Improving Factors: rest Worsening Factors: movement Allergies/Adverse Reactions: Allergies Latex Allergy (Intermediate, Verified 02/09/20 19:17) red swelling Ondansetron [From Zofran] Allergy (Intermediate, Verified 02/09/20 19:17) migraine Doxycycline Allergy (Verified 02/09/20 19:17) Penicillins Allergy (Verified 02/09/20 19:17) N/V Sulfamethoxazole w/Trimethoprim [From Bactrim] Allergy (Verified 02/09/20 19:17) Amoxicillin [From Augmentin] Adverse Reaction (Verified 02/09/20 19:17) N/V Clavulanic Acid [From Augmentin] Adverse Reaction (Verified 02/09/20 19:17) N./V Home Medications: Ambulatory Orders B-12 INJ WKLY 01/29/20 Clonidine HCl [Clonidine Hydrochloride] 0.2 mg PO BEDTIME #14 tab 01/29/20 Fexofenadine HCl [Yocasta] 60 mg PO DAILY 01/29/20 Fluoxetine HCl [Prozac] 40 mg PO DAILY 01/29/20 Hydroxyzine Pamoate [Vistaril] 50 mg PO TID 01/29/20 Levothyroxine Sodium 50 mcg PO DAILY 01/29/20 Propranolol HCl 01/29/20 Restoril 2 mg PO DAILY 01/29/20 Rizatriptan Benzoate [Maxalt] 10 mg PO 01/29/20 Trazodone HCl [Trazodone Hydrochloride] 100 mg PO DAILY 01/29/20 Zonisamide [Zonegran] 100 mg PO DAILY 01/29/20 Promethazine Tab [Phenergan Tablet] 25 mg PO Q6H #12 tab 02/09/20 Ibuprofen 600 mg PO Q8H PRN 10 Days #30 tab 03/19/20 Oxycodone W/ Acetaminophen [Oxycodone/Acetaminophen 5-325 mg] 1 tab PO Q6HRS PRN 3 Days #12 tab 03/19/20 Review of Systems - Review of Systems Constitutional: States: no symptoms reported EENTM: States: no symptoms reported Respiratory: States: no symptoms reported Cardiology: States: no symptoms reported, chest pain Genitourinary: States: no symptoms reported Musculoskeletal: States: see HPI Skin: States: no symptoms reported Neurological: States: no symptoms reported All other Systems: Reviewed and Negative Past Medical History (General) - Patient Medical History Hx Seizures: No Hx Stroke: No Hx Dementia: No Hx Asthma: No Hx of COPD: No Hx Cardiac Disorders: No Hx Congestive Heart Failure: No Hx Pacemaker: No Hx Hypertension: No Hx Thyroid Disease: Yes Hx Diabetes: No Hx Gastroesophageal Reflux: No Hx Renal Disease: No Hx Cancer: No Hx of HIV: No Hx Hepatitis C: No Hx MRSA: No Surgical History: appendectomy, tonsillectomy, other - Vaccination History Hx Tetanus, Diphtheria Vaccination: Yes Hx Influenza Vaccination: Yes Hx Pneumococcal Vaccination: No - Social History Hx Tobacco Use: Yes - Pack a day Hx Chewing Tobacco Use: No Hx Alcohol Use: No Hx Substance Use: Yes Hx Substance Use Treatment: Yes Hx Depression: Yes Feels Threatened In Home Enviroment: No Feels Threatened In a Relationship: No Hx Physical Abuse: No Hx Emotional Abuse: No Hx Suspected Abuse: No - Female History Patient is a Female of Child Bearing Age (10 -59 yrs old): Yes Hx Last Menstrual Period: 03/28/15 Patient : No - Triage Comment ED Triage Comment: The patient was moved from EMS cot onto bed 3 and left with rails up. She was alert and oriented times 4 and was holding her right foot up in the air. She was twitching and had a difficult time concentrating to answer questions. She rated her pain a 7 and swelling was noted but unknown if it was normal after her surgery. She had no other noted complaints or obvious signs of injury noted. Family Medical History - Family History Mother Family History: Unknown Living Status: Cause of : unsure Hx Family Hypertension: - dad Father Family History: Unknown Living Status: Still Living Hx Family Asthma: No Hx Family Congestive Heart Failure: No Hx Family Hypertension: Yes - father Hx Family Stroke: No Hx Cardiac Disease: No Hx Family Diabetes: No Hx Family Cancer: No Physical Exam - Physical Exam General Appearance: Alert, Other - Appears Moderately uncomfortable Eyes, Ears, Nose, Throat: PERRL/EOMI Neck: non-tender Cardiovascular/Respiratory: regular rate, rhythm, normal breath sounds Gastrointestinal/Abdominal: non-tender Back: normal inspection, no vertebral tenderness Thigh/Hip: normal inspection, non-tender Leg: normal inspection, non-tender Knee: normal inspection, non-tender Ankle: deformity, swelling, other - Mild deformity of the ankle. Tender over both malleoli with minimal soft tissue swelling. The foot is pink and warm with good dorsalis pedis pulse palpable. All toes have good capillary refill with intact sensation and movement. Foot: non-tender Neuro/Tendon: normal sensation, normal motor functions, normal tendon functions Mental Status: alert, oriented x 3 Skin: normal color, warm/dry Progress - Progress Progress: 03/19/20 01:50 IV normal Saline infusion 500 mL. Morphine 4 mg and Phenergan 12.5 mg given IV. The patient had excellent analgesia and was sleeping comfortably after administration of these medications. Dr. Dias, the patient's orthopedist, was texted at 12:41 AM and replied at 1:28 AM. He reviewed the x-rays. He requested the patient be splinted to follow-up in the office in the morning to arrange for further care. Medical decision making closed fracture of the right ankle with moderate displacement without neurovascular compromise. This ankle is previously undergone open reduction and internal fixation. He will require repeat surgery for appropriate reduction and stabilization of the fracture dislocation. 03/19/20 01:52 A well-padded splint was applied to the right lower extremity to immobilize ankle. Crutches were issued. 03/19/20 06:24 Patient remained asleep until A few minutes ago. She is discharged with crutches at this time in good condition. - Results/Orders Results/Orders: EXAM DESCRIPTION: Ankle,Right 3 Views 03/18/2020 11:51 PM [facility] CLINICAL HISTORY: 44 years, Female, pain after fall COMPARISON: 11/23/2019. FINDINGS: 3 X-ray views of the right ankle were performed. There has been interval disruption of the distal portion plate fixation device/ORIF distal fibula with an area of fracture. There is has been interval bending of the fixation screws/ORIF along the medial malleolus. There is a posterior corner fracture of the distal radius/posterior malleolus with subluxation of the tibial talar joint. There is mild separation along the ankle mortise views suggesting instability. There is associated soft tissue swelling. IMPRESSION: DISRUPTION OF THE PREVIOUS ORIF LATERAL MALLEOLUS/DISTAL FIBULA WITH AREA OF FRACTURE ABOVE THE AREA OF PLATE FIXATION DEVICE. BENDING THE NAIL ORIF MEDIAL MALLEOLUS. POSTERIOR MALLEOLAR FRACTURE DISTAL TIBIA WITH SUBLUXATION TIBIOTALAR JOINT AND DIASTASES ALONG THE ANKLE MORTISE VIEWS. Electronically signed by: Alejandro Oh MD 03/18/2020 11:54 PM [facility] Departure - Departure Clinical Impression: Fracture due to fall Fracture, ankle closed, bimalleolar Qualifiers: Encounter type: sequela Laterality: right Qualified Code(s): S82.841S - Displaced bimalleolar fracture of right lower leg, sequela Time of Disposition: 01:55 Disposition: Discharge to Home or Self Care Condition: Good Departure Forms: ED Discharge - Pt. Copy, Patient Portal Self Enrollment Instructions: DI for Leg Pain Activity: other - Walk only with crutches. Referrals: Mik Hernandez MD [Primary Care Provider] - 1-2 Weeks Prescriptions: Oxycodone W/ Acetaminophen [Oxycodone/Acetaminophen 5-325 mg] 1 tab PO Q6HRS PRN 3 Days #12 tab PRN Reason: Pain Ibuprofen 600 mg PO Q8H PRN 10 Days #30 tab PRN Reason: Pain Home Medications: Ambulatory Orders B-12 INJ WKLY 01/29/20 Clonidine HCl [Clonidine Hydrochloride] 0.2 mg PO BEDTIME #14 tab 01/29/20 Fexofenadine HCl [Yocasta] 60 mg PO DAILY 01/29/20 Fluoxetine HCl [Prozac] 40 mg PO DAILY 01/29/20 Hydroxyzine Pamoate [Vistaril] 50 mg PO TID 01/29/20 Levothyroxine Sodium 50 mcg PO DAILY 01/29/20 Propranolol HCl 01/29/20 Restoril 2 mg PO DAILY 01/29/20 Rizatriptan Benzoate [Maxalt] 10 mg PO 01/29/20 Trazodone HCl [Trazodone Hydrochloride] 100 mg PO DAILY 01/29/20 Zonisamide [Zonegran] 100 mg PO DAILY 01/29/20 Promethazine Tab [Phenergan Tablet] 25 mg PO Q6H #12 tab 02/09/20 Ibuprofen 600 mg PO Q8H PRN 10 Days #30 tab 03/19/20 Oxycodone W/ Acetaminophen [Oxycodone/Acetaminophen 5-325 mg] 1 tab PO Q6HRS PRN 3 Days #12 tab 03/19/20 Additional Instructions: Keep your ankle iced and elevated. Call Dr. Disa office in the morning to arrange for further care.
[2020-03-19] MEDS ORDERED: MORPHINE SULFATE INJ 10 MG/ML VIAL IV ONE (00:32)
[2020-03-19] MEDS ORDERED: SODIUM CHLORIDE 0.9% 1000ML 1,000 ML IVS ONE (00:34)
[2020-03-19] MEDS ORDERED: PROMETHAZINE HCL INJ 12.5 MG in SODIUM CHLORIDE 0.9% 50ML 50 ML IVPB ONE (00:34)
[2020-03-19 06:05] VITALS: O2SAT 98
[2020-03-19 06:27] VITALS: BP 106/80; TEMP 97.3
== END 2020-03-19 06:27 | disposition home or self-care (01) ==
LOC: ER 23:32
DX: S82.841A Displaced bimalleolar fracture of right lower leg, initial encounter for closed fracture (principal); E07.9 Disorder of thyroid, unspecified; F32.9 Major depressive disorder, single episode, unspecified; Z87.891 Personal history of nicotine dependence; Z87.81 Personal history of (healed) traumatic fracture; Z98.890 Other specified postprocedural states; Z79.899 Other long term (current) drug therapy; W01.0XXA Fall on same level from slipping, tripping and stumbling without subsequent striking against object, initial encounter; Y92.009 Unspecified place in unspecified non-institutional (private) residence as the place of occurrence of the external cause; Z91.040 Latex allergy status; Z88.8 Allergy status to other drugs, medicaments and biological substances; Z88.0 Allergy status to penicillin; Z88.2 Allergy status to sulfonamides; Z88.1 Allergy status to other antibiotic agents
CPT/HCPCS: 73610; A4216; J2270; J2550; J7030

== ENCOUNTER 2020-03-27 05:59 | Day surgery (SDC) | payer SELFPAY ==
[2020-03-27] MEDS ORDERED: SODIUM CHL 0.9% 100ML MINI-BAG 100 ML IVPB ONE (06:03)
[2020-03-27] MEDS ORDERED: LACTATED RINGERS 1,000 ML ONE (06:03)
[2020-03-27] MEDS ORDERED: ceFAZolin SODIUM 1 GM VIAL ONE (06:03)
[2020-03-27] MEDS ORDERED: BUPIVACAINE 0.5% 30 ML VIAL INJ ONE ×2 (06:28→08:33)
[2020-03-27] MEDS ORDERED: BUPIVACAINE LIPOSOME 13.3 MG/ML VIAL INJ ONE (06:28)
[2020-03-27] MEDS ORDERED: HYDROmorphone HCL INJ 2 MG/ML VIAL ONE (06:34)
[2020-03-27] MEDS ORDERED: DEXMEDETOMIDINE HCL 200 MCG/2 ML INJ IV ONE (06:34)
[2020-03-27] MEDS ORDERED: MIDAZOLAM INJ 5 MG/5 ML VIAL ONE (06:34)
[2020-03-27] MEDS ORDERED: FAMOTIDINE INJ 10 MG/ML VIAL IV ONE (06:35)
[2020-03-27] MEDS ORDERED: PROPOFOL 200 MG/20 ML VIAL IV ONE (07:00)
[2020-03-27] MEDS ORDERED: DEXAMETHASONE INJ 10 MG/ML VIAL ONE (07:00)
[2020-03-27] MEDS ORDERED: SODIUM CHLORIDE 0.9% 50 ML VIAL ONE (07:00)
[2020-03-27] MEDS ORDERED: MAGNESIUM SULFATE INJ 1 GM/2 ML VIAL ONE (07:00)
[2020-03-27] MEDS ORDERED: LIDOCAINE 1% 10 ML VIAL INJ ONE (07:00)
[2020-03-27] MEDS: ceFAZolin SODIUM 1 GM VIAL ONE ×2 (07:50→11:00)
[2020-03-27] MEDS: VANCOMYCIN HCL INJ 1,000 MG VIAL IVPB ONE ×2 (07:51→11:00)
[2020-03-27] MEDS ORDERED: ROCURONIUM BROMIDE 10 MG/ML VIAL ONE (08:02)
[2020-03-27 11:54] VITALS: O2SAT 97
[2020-03-27] MEDS ORDERED: HYDROcodone 5MG/APAP 325MG 1 EA TAB ONE (12:40)
[2020-03-27 13:30] VITALS: BP 140/85; TEMP 98
--- NOTE | 2020-03-27 18:26 | RAD ---
EXAM DESCRIPTION: Ankle,Right 2 Views CLINICAL HISTORY: 44 years Female, ORIF RIGHT ANKLE COMPARISON: March 18, 2020 Findings: Two view(s)/radiograph(s) Revised fibular plate and screws with an associated syndesmotic screw. Redemonstrated distal fibular fracture. Improved alignment. Redemonstrated medial malleolar fracture with distortion of the associated nails. The talar dome is unremarkable. No new fracture. IMPRESSION: Revised fibular plate and screws. Redemonstrated fractures of the distal fibula and medial malleolus. Electronically signed by: Marc Stone MD 03/27/2020 6:24 PM [facility]
--- NOTE | 2020-03-27 21:51 | RAD ---
EXAM DESCRIPTION: Fluoroscopy Up to 1Hr CLINICAL HISTORY: 44 years Female, ORIF RIGHT ANKLE COMPARISON: None. IMPRESSION: Operative changes to the right ankle. Please see procedure report for full details. Fluoroscopy time: 96.6 seconds Fluoroscopic images: 2 Total dose: 2.85 mGy Electronically signed by: Hawk Hairston MD 03/27/2020 9:50 PM [facility]
--- NOTE | 2020-03-28 06:38 | RAD ---
EXAM DESCRIPTION: Ankle,Right 3 Views CLINICAL HISTORY: 44 years Female, POST OP ORIF RIGHT ANKLE COMPARISON: Earlier today Findings: 3 view(s)/radiograph(s) Interval revision of the medial malleolar ORIF. Improved fracture alignment of the medial malleolus. Similar alignment of the distal fibular fracture. No hardware complication. Expected postoperative changes in the overlying soft tissues. No new fracture. Similar degenerative changes. The talar dome is unremarkable. IMPRESSION: Interval revision of the medial malleolar ORIF. No hardware complication. Electronically signed by: Marc Stone MD 03/28/2020 6:37 AM [facility]
--- NOTE | 2020-04-03 09:17 | OP ---
DATE OF PROCEDURE: 03/27/20 PREOPERATIVE DIAGNOSIS: 1. Bimalleolar ankle fracture on the right side status post ORIF of previous ankle fracture. POSTOPERATIVE DIAGNOSIS: 1. Bimalleolar ankle fracture on the right side status post ORIF of previous ankle fracture. PROCEDURE: 1. Removal of hardware. 2. ORIF. SURGEON: Karson Taylor MD. DATA PROCESSING EQUIPMENT REPAIRER: Jacoby Hagan CST, TA. ANESTHESIA: General anesthesia. COMPLICATIONS: None. FINDINGS: 1. Comminuted fracture of the fibula above the previously placed plate. 2. Bent titanium screws on the medial malleolus with severely comminuted medial malleolus fracture. INDICATION: Arleen has a history of a fall for which she underwent ORIF at a different institution. She seemed to recover well from that, but fell again and presented to the Emergency Room with severe ankle pain. Following x-rays, it was revealed she had fractured above the plate and bent the screws and fractured the medial malleolus. After discussing the risks, benefits and alternatives to operative intervention with her, informed consent was obtained for the above procedure. PROCEDURE: The patient was brought to the Operating Room and placed in supine position. General anesthesia was induced and the patient's leg was sterilely prepped and draped. Following prepping and draping, an incision was made in line with the previous incision. Dissection was carried down to the fibular plate, which was removed. The screw holes were debrided and the fracture was provisionally reduced. Two lag screws were placed from anterior to posterior to hold the butterfly fragments reduced and the fibular shaft was reduced. A long plate was placed across there and fortunately I was able to avoid some of the screw holes and got great fixation of the fibula. Attention was then focused on the medial malleolus. The two bent screws were removed and the remaining portion of the medial malleolus was reduced. There was only room for one screw and that actually had to go from a more anterior to posterior direction than normal. That was the only way the fracture line would accommodate fixation. After doing that, a single syndesmosis screw was placed. The ankle was examined under fluoroscopic imaging and it was stable and there was no widening of the mortise. The wounds were very thoroughly irrigated and closed with a combination of interrupted and subcuticular stitches followed by Nylon. Sterile dressings were placed. The patient was placed in a splint, awoken from anesthesia and taken to Recovery. POSTOPERATIVE PLAN: I have been very explicit with Arleen that she is to do no weightbearing and we will have to continue to follow this with x-rays. Although I feel the fixation was well done, I think if she over exerts herself on this ankle, just given the comminuted nature of it, she could lose fixation. She expressed understanding of that. I will see her back in two days for her routine postoperative visit. #[id number] [facility]
== END 2020-03-27 13:25 | disposition home or self-care (01) ==
LOC: AMB 05:59
PROVIDERS: ATTEND Orthopaedic Surgery
DX: S82.841A Displaced bimalleolar fracture of right lower leg, initial encounter for closed fracture (principal); T84.196A Other mechanical complication of internal fixation device of bone of right lower leg, initial encounter; F41.9 Anxiety disorder, unspecified; F32.9 Major depressive disorder, single episode, unspecified; F17.200 Nicotine dependence, unspecified, uncomplicated; G43.909 Migraine, unspecified, not intractable, without status migrainosus; Z88.1 Allergy status to other antibiotic agents; Z88.0 Allergy status to penicillin; Z91.040 Latex allergy status; Z79.899 Other long term (current) drug therapy
CPT/HCPCS: 01480; 20680; 27814; 36415; 73600; 73610; 76000; 80048; 80307; 81001; 81025; 85025; 87070; A4216; C1713; C9359; J0690; J1100; J1170; J2250; J3370; J3475; J3490; J7050; J7120

== ENCOUNTER 2020-04-06 14:54 | Emergency (ER) | payer SELFPAY ==
[2020-04-06 15:12] VITALS: O2SAT 97
--- NOTE | 2020-04-06 15:34 | ED.PDOC ---
History of Present Illness - General Chief Complaint: General Stated Complaint: R ankle pain, invol musc jerking, hallucinations Time Seen by Provider: 04/06/20 15:19 Source: patient Exam Limitations: no limitations - History of Present Illness Initial Comments: The patient is a 44-year-old female presented emergency room secondary to pain in her right foot. She reports that she has not been able to get the pain under adequate control. The patient has been taking Tylenol and Tylenol 3. The patient also reports some mild confusion. The patient does take numerous psychoactive medications. The patient does not actually appear to be any significant distress. She is alert and oriented x4. She does report longstanding auditory hallucinations. She is currently taking medications for these. She knows they are not real. She reports her more significant problem is difficulty sleeping. No homicidal or suicidal ideation. More to the point today is that the patient has apparently got in an argument with her father, and is apparently not welcome at his house anymore. This as much as anything appears to be the reason for the visit today. The cast appears to be clean and intact. There is no cracking. There is no increased pressure. She moves her digits well. Capillary refill is within normal limits. No significant edema. Sensations at baseline. The patient wants something for sleep and she wants something for pain. The patient already does appear mildly drowsy. The patient does have a very long history of self-medicating with her own as well as other peoples medications. She also has a very significant history of drug-seeking behavior, making up medical conditions in order to receive medication she wants. She does not appear to be in any acute distress. She has had a history of a low magnesium and a low potassium in the past. We will check and make sure those have not recurred. It is reported that the patient has been walking on the cast. We will x-ray the ankle and make sure nothing has moved. Additional information from the father shows that the patient apparently had recently stolen some Warner from a neighbor and taken them, not in an attempt to harm herself. Timing/Duration: 1 week Severity: moderate Improving Factors: nothing Worsening Factors: nothing Allergies/Adverse Reactions: Allergies Latex Allergy (Intermediate, Verified 04/06/20 15:12) red swelling Ondansetron [From Zofran] Allergy (Intermediate, Verified 04/06/20 15:12) migraine Doxycycline Allergy (Verified 04/06/20 15:12) Penicillins Allergy (Verified 04/06/20 15:12) N/V Sulfamethoxazole w/Trimethoprim [From Bactrim] Allergy (Verified 04/06/20 15:12) Amoxicillin [From Augmentin] Adverse Reaction (Verified 04/06/20 15:12) N/V Clavulanic Acid [From Augmentin] Adverse Reaction (Verified 04/06/20 15:12) N./V Home Medications: Ambulatory Orders Fexofenadine HCl [Yocasta] 60 mg PO DAILY 01/29/20 Fluoxetine HCl [Prozac] 40 mg PO DAILY 01/29/20 Trazodone HCl [Trazodone Hydrochloride] 200 mg PO BEDTIME 01/29/20 Baclofen 20 mg PO TID 03/21/20 Hydroxyzine Pamoate [Vistaril] 50 mg PO TID 03/21/20 Olanzapine [Zyprexa] 10 mg PO BEDTIME 03/21/20 Review of Systems - Review of Systems Constitutional: States: no symptoms reported EENTM: States: no symptoms reported Respiratory: States: no symptoms reported Cardiology: States: no symptoms reported Gastrointestinal/Abdominal: States: no symptoms reported Genitourinary: States: no symptoms reported Musculoskeletal: States: see HPI Skin: States: no symptoms reported Neurological: States: see HPI Endocrine: States: no symptoms reported All other Systems: No Change from Baseline Past Medical History (General) - Patient Medical History Hx Seizures: No Hx Stroke: No Hx Dementia: No Hx Asthma: No Hx of COPD: No Hx Cardiac Disorders: No Hx Congestive Heart Failure: No Hx Pacemaker: No Hx Hypertension: No Hx Thyroid Disease: Yes Hx Diabetes: No Hx Gastroesophageal Reflux: No Hx Renal Disease: No Hx Cancer: No Hx of HIV: No Hx Hepatitis C: No Hx MRSA: No Surgical History: cholecystectomy, tonsillectomy, other - Vaccination History Hx Tetanus, Diphtheria Vaccination: Yes Hx Influenza Vaccination: Yes Hx Pneumococcal Vaccination: No - Social History Hx Tobacco Use: Yes Hx Chewing Tobacco Use: No Hx Alcohol Use: No Hx Substance Use: No Hx Substance Use Treatment: No Hx Depression: Yes Hx Physical Abuse: No Hx Emotional Abuse: No Hx Suspected Abuse: No - Female History Patient is a Female of Child Bearing Age (10 -59 yrs old): Yes Hx Last Menstrual Period: 03/28/15 Patient : No Family Medical History - Family History Mother Family History: Unknown Living Status: Cause of : unsure Hx Family Hypertension: - dad Father Family History: Unknown Living Status: Still Living Hx Family Asthma: No Hx Family Congestive Heart Failure: No Hx Family Hypertension: Yes - father Hx Family Stroke: No Hx Cardiac Disease: No Hx Family Diabetes: No Hx Family Cancer: No Physical Exam - Physical Exam General Appearance: Alert, Comfortable, No apparent distress Eye Exam: bilateral normal Ears, Nose, Throat: hearing grossly normal, normal pharynx Neck: non-tender, supple Respiratory: lungs clear, normal breath sounds, no respiratory distress, no accessory muscle use Cardiovascular/Chest: normal peripheral pulses, regular rate, rhythm, no edema Peripheral Pulses: radial,right: 2+, radial,left: 2+ Gastrointestinal/Abdominal: non tender - Obese, soft Rectal Exam: deferred Extremity: normal capillary refill, other - See history of present illness Neurologic: director of vital statistics II-XII nml as tested, alert, oriented x 3, other - Mild chronic decrease sensation to bilateral lower extremities. Skin Exam: normal color Comments: Vital Signs - 24 hr 04/06/20 04/06/20 14:55 15:05 Temperature 98.1 F Pulse Rate [ 91 H 91 H Pulse ox] Respiratory 16 16 Rate Blood Pressure 142/88 [R arm] O2 Sat by Pulse 97 Oximetry Progress - Progress Progress: 04/06/20 16:48 The patient is a 44-year-old female presenting secondary to right ankle pain. The patient is being given a dose of Toradol here. CBC CMP and UA appear reassuring. The patient does still have mild chronic hematuria which she needs to keep follow-up with urology for. The patient needs to keep follow-up with [facility] for her medication management for her psychiatric and sleep disturbance issues. Keep well-hydrated. Take prescription medications as prescribed. ER warnings are given. Follow-up with primary care doctor next week. marcelo mar [phone] - Results/Orders Results/Orders: Laboratory Tests 04/06/20 04/06/20 04/06/20 15:42 15:42 15:48 WBC 5.6 RBC 4.16 L Hgb 11.4 L Hct 34.4 L MCV 82.7 MCH 27.4 MCHC 33.1 RDW 14.8 H Plt Count 259 MPV 7.8 Absolute Neuts (auto) 3.00 Absolute Lymphs (auto) 2.10 Absolute Monos (auto) 0.40 Absolute Eos (auto) 0.00 Absolute Basos (auto) 0.00 Neutrophils % 53.3 Lymphocytes % 37.8 Monocytes % 7.6 Eosinophils % 0.6 L Basophils % 0.7 Sodium 135 Potassium 3.9 Chloride 101 Carbon Dioxide 25 Anion Gap 12.9 BUN 9 Creatinine 0.72 BUN/Creatinine Ratio 12.5 Random Glucose 112 H Serum Osmolality 269.5 L Calcium 8.7 Magnesium 1.9 Total Bilirubin 0.6 AST 20 ALT 15 Alkaline Phosphatase 76 Serum Total Protein 7.2 Albumin 3.8 Globulin 3.4 Albumin/Globulin Ratio 1.1 Urine Color Urine Appearance Urine pH Ur Specific [place] Urine Protein Urine Glucose (UA) Urine Ketones Urine Blood Urine Nitrite Urine Bilirubin Urine Urobilinogen Ur Leukocyte Esterase Urine RBC Urine WBC Ur Epithelial Cells Urine Bacteria Urine Opiates Screen Negative Urine Barbiturates Negative Ur Phencyclidine Scrn Negative U Amphetamin/Meth Scrn Negative U Benzodiazepines Scrn Negative U Cocaine Metab Screen Negative U Cannabinoids Screen Negative 04/06/20 15:48 WBC RBC Hgb Hct MCV MCH MCHC RDW Plt Count MPV Absolute Neuts (auto) Absolute Lymphs (auto) Absolute Monos (auto) Absolute Eos (auto) Absolute Basos (auto) Neutrophils % Lymphocytes % Monocytes % Eosinophils % Basophils % Sodium Potassium Chloride Carbon Dioxide Anion Gap BUN Creatinine BUN/Creatinine Ratio Random Glucose Serum Osmolality Calcium Magnesium Total Bilirubin AST ALT Alkaline Phosphatase Serum Total Protein Albumin Globulin Albumin/Globulin Ratio Urine Color Yellow Urine Appearance Clear Urine pH 6.5 Ur Specific [place] 1.025 Urine Protein Negative Urine Glucose (UA) Negative Urine Ketones Negative Urine Blood Moderate H Urine Nitrite Negative Urine Bilirubin Small H Urine Urobilinogen 0.2 Ur Leukocyte Esterase Negative Urine RBC 5-10 H Urine WBC 0 Ur Epithelial Cells 1-3 Urine Bacteria 0 Urine Opiates Screen Urine Barbiturates Ur Phencyclidine Scrn U Amphetamin/Meth Scrn U Benzodiazepines Scrn U Cocaine Metab Screen U Cannabinoids Screen X-ray of the right ankle shows consistent alignment with repair. See report for details. Departure - Departure Clinical Impression: Ankle pain Qualifiers: Chronicity: acute Laterality: right Qualified Code(s): M25.571 - Pain in right ankle and joints of right foot Insomnia Qualifiers: Insomnia type: psychophysiologic Qualified Code(s): F51.04 - Psychophysiologic insomnia Disposition: Discharge to Home or Self Care Condition: Fair Departure Forms: ED Discharge - Pt. Copy, Patient Portal Self Enrollment Diet: regular diet Activity: increase activity as tolerated Referrals: Mik Hernandez MD [Primary Care Provider] - 1-2 Weeks Home Medications: Ambulatory Orders Fexofenadine HCl [Yocasta] 60 mg PO DAILY 01/29/20 Fluoxetine HCl [Prozac] 40 mg PO DAILY 01/29/20 Trazodone HCl [Trazodone Hydrochloride] 200 mg PO BEDTIME 01/29/20 Baclofen 20 mg PO TID 03/21/20 Hydroxyzine Pamoate [Vistaril] 50 mg PO TID 03/21/20 Olanzapine [Zyprexa] 10 mg PO BEDTIME 03/21/20 Additional Instructions: The patient is a 44-year-old female presenting secondary to right ankle pain. The patient is being given a dose of Toradol here. CBC CMP and UA appear reassuring. The patient does still have mild chronic hematuria which she needs to keep follow-up with urology for. The patient needs to keep follow-up with [facility] for her medication management for her psychiatric and sleep disturbance issues. Keep well-hydrated. Take prescription medications as prescribed. ER warnings are given. Follow-up with primary care doctor next week. She also needs to keep follow-up with orthopedics on Wednesday and avoid walking on the cast.
--- NOTE | 2020-04-06 16:31 | RAD ---
EXAM DESCRIPTION: Ankle,Right 3 Views CLINICAL HISTORY: 44 years,Female,fu fracture COMPARISON: 03/27/2020.. TECHNIQUE: Three views of the right ankle. FINDINGS: There is a cast or splint in place. There is a similar surgical plate along the distal aspect of the fibula from fracture repair. There is a similar screw traversing the medial malleolus and lower tibia. The fractures involving the lower fibula and medial malleolus appears similar compared to the prior study. IMPRESSION: There are fractures through the lower fibula and the medial malleolus with changes from ORIF. The appearance is similar compared to the prior study. Electronically signed by: Charles Covarrubias MD 04/06/2020 4:30 PM [facility] [employer]
[2020-04-06] MEDS ORDERED: KETOROLAC TROMETHAMINE INJ 30 MG/ML VIAL IM ONE (16:40)
[2020-04-06 17:09] VITALS: BP 144/97; TEMP 98
== END 2020-04-06 17:15 | disposition home or self-care (01) ==
LOC: ER 14:54
DX: M25.571 Pain in right ankle and joints of right foot (principal); G89.29 Other chronic pain; F51.04 Psychophysiologic insomnia; R31.9 Hematuria, unspecified; F32.9 Major depressive disorder, single episode, unspecified; E07.9 Disorder of thyroid, unspecified; Z87.891 Personal history of nicotine dependence; Z79.899 Other long term (current) drug therapy; Z88.8 Allergy status to other drugs, medicaments and biological substances; Z91.040 Latex allergy status; Z88.1 Allergy status to other antibiotic agents; Z88.0 Allergy status to penicillin; Z88.2 Allergy status to sulfonamides; Z98.890 Other specified postprocedural states
CPT/HCPCS: 36415; 73610; 80053; 80307; 81001; 83735; 85025; J1885

== ENCOUNTER 2020-04-08 05:33 | Day surgery (SDC) | payer SELFPAY ==
[2020-04-08] MEDS ORDERED: LIDOCAINE 1% 10 ML VIAL INJ ONE (05:34)
[2020-04-08] MEDS ORDERED: PROPOFOL 200 MG/20 ML VIAL IV ONE (05:34)
[2020-04-08] MEDS ORDERED: EPINEPHrine HCL AMP 1 MG/ML AMP IVPB ONE (05:34)
[2020-04-08] MEDS ORDERED: LACTATED RINGERS 1,000 ML ONE (07:55)
[2020-04-08 08:22] VITALS: O2SAT 97
[2020-04-08 11:21] VITALS: BP 140/91; TEMP 97
--- NOTE | 2020-04-25 08:42 | OP ---
DATE OF PROCEDURE: 04/08/20 PREOPERATIVE DIAGNOSIS: 1. Retained sutures. POSTOPERATIVE DIAGNOSIS: 1. Retained sutures. PROCEDURE: 1. Suture removal under anesthesia. SURGEON: Karson Taylor MD. PULMONARY NURSE PRACTITIONER: Jacoby Hagan CST, SA-C. ANESTHESIA: Conscious sedation. COMPLICATIONS: None. FINDINGS: Healthy appearing wound with surgical sutures placed. INDICATION: Arleen has a history of having undergone ORIF of her ankle fracture. She was unable to tolerate removal in clinic and, therefore, we decided to do it under conscious sedation. Informed consent was obtained to perform the suture removal. PROCEDURE: Arleen was brought to the Operating Room and sedation was administered. Sutures were removed without complication. She was then taken back to the Day Surgery Unit. POSTOPERATIVE PLAN: She will continue with her non-weightbearing status. I will see her back again in the clinic in about two weeks. #[id number] MTDD
== END 2020-04-08 11:10 | disposition home or self-care (01) ==
LOC: AMB 05:33
PROVIDERS: ATTEND Orthopaedic Surgery
DX: Z48.02 Encounter for removal of sutures (principal); F32.9 Major depressive disorder, single episode, unspecified; G43.909 Migraine, unspecified, not intractable, without status migrainosus; F17.200 Nicotine dependence, unspecified, uncomplicated; F41.9 Anxiety disorder, unspecified; Z82.49 Family history of ischemic heart disease and other diseases of the circulatory system; Z83.438 Family history of other disorder of lipoprotein metabolism and other lipidemia; Z88.1 Allergy status to other antibiotic agents; Z88.8 Allergy status to other drugs, medicaments and biological substances; Z79.899 Other long term (current) drug therapy
CPT/HCPCS: 00400; 15850; 80307; 81025; J3490; J7120

== ENCOUNTER → 2020-04-22 | Outpatient (CLI) | payer SELFPAY ==
--- NOTE | 2020-04-22 09:06 | RAD ---
EXAM DESCRIPTION: Right ankle, 3 radiographs CLINICAL HISTORY: Ankle fracture follow-up FINDINGS/ IMPRESSION: Comparison 04/06/2020 Plate and screw fracture fixation of the fibula. No hardware fracture, displacement or periscrew osteolysis. Interval healing with the fibular fracture less well delineated although still partially visualized Syndesmotic screw and medial malleolar screw with subtle interval healing. Fracture line less well seen. Posterior tibial malleolar fracture still seen on lateral projection Electronically signed by: Gerardo Tomlinson MD 04/22/2020 9:[address] [facility]
== END ==
LOC: RAD 07:52
PROVIDERS: ATTEND Orthopaedic Surgery
DX: S82.841D Displaced bimalleolar fracture of right lower leg, subsequent encounter for closed fracture with routine healing (principal); Z98.890 Other specified postprocedural states